=== PATIENT | male | born 1955 | race Caucasian/White ===

== ENCOUNTER → 2017-10-07 10:26 | Outpatient (CLI) | payer OTHER, SELFPAY ==
--- NOTE | 2017-10-07 10:29 | XR_ITS ---
XR chest 2V HISTORY: Heart disease, evaluate for pulmonary fibrosis ITS.REASON: amiodarone therapy ORDERING PHYSICIAN: Jeevan Leo MD PATIENT AGE: 62 years COMPARISON: None available FINDINGS: The cardiomediastinal silhouette and pulmonary vascularity are within normal limits. Cardiac pacemaker device is present. Pericardial fat pad is noted on the left and there is increased density in the upper lobes on both sides felt to be related to hypertrophic changes of the first ribs. No pulmonary fibrotic changes evident. No acute bony anomalies. IMPRESSION: No convincing evidence of amiodarone induced pulmonary toxicity. No acute finding
[2017-10-07 12:11] LABS: Free T4 (Free Thyroxine) 1.18 ng/dl (0.76-1.46); Thyroid Stimulating Hormone 5.37 uIU/ml (0.358-3.740)
== END ==
PROVIDERS: PCP Internal Medicine; Visit Provider Internal Medicine
DX: I25.10 Atherosclerotic heart disease of native coronary artery without angina pectoris (principal); I11.9 Hypertensive heart disease without heart failure; I48.91 Unspecified atrial fibrillation; E78.5 Hyperlipidemia, unspecified; Z95.810 Presence of automatic (implantable) cardiac defibrillator; Z79.899 Other long term (current) drug therapy
CPT/HCPCS: 36415; 71046; 84439; 84443

== ENCOUNTER → 2017-12-01 08:11 | Outpatient (CLI) | payer OTHER, SELFPAY ==
[2017-12-01 09:41] LABS: Free T4 (Free Thyroxine) 1.38 ng/dl (0.76-1.46); Thyroid Stimulating Hormone 3.05 uIU/ml (0.358-3.740)
[2017-12-04 21:14] LABS: Triiodothyronine (T3) Reverse 41.9 ng/dL (9.2-24.1)
== END ==
PROVIDERS: Visit Provider Physician Assistant
DX: E03.9 Hypothyroidism, unspecified (principal)
CPT/HCPCS: 36415; 84439; 84443; 84482

== ENCOUNTER → 2018-05-05 11:46 | Outpatient (CLI) | payer OTHER, SELFPAY ==
[2018-05-05 12:06] LABS: Basophils # 0.1 K/mm3 (0-0.2); Basophils % 0.7 % (0.1-2.0); Eosinophils # 0.2 K/mm3 (0.0-0.4); Eosinophils % 2.3 % (0.1-12.0); Hematocrit 50.4 % (42.0-52.0); Hemoglobin 15.9 g/dL (14.1-18.0); Lymphocytes % 15.6 K/mm3 (10-50); Mean Corpuscular HGB Conc 31.6 g/dL (31.8-35.4); Mean Corpuscular Hemoglobin 29.7 pg (27.0-31.2); Mean Platelet Volume 7.6 fl (7.4-10.4); Monocytes # 0.4 K/mm3 (0.1-1.0); Monocytes % 6.1 % (1.7-9.3); Neutrophils % 75.3 % (37.0-80.0); Platelet Count 207 K/mm3 (142-424); Red Blood Count 5.36 M/mm3 (4.60-6.20); Red Cell Distribution Width 13.4 % (11.5-17.5); White Blood Count 6.6 K/mm3 (4.8-10.8)
[2018-05-05 13:30] LABS: Alanine Aminotransferase 27 U/L (12-78); Albumin Level 3.9 gm/dL (3.4-5.0); Alkaline Phosphatase 87 U/L (46-116); Anion Gap 9.5 mEq/L (5-15); Aspartate Amino Transferase 19 U/L (15-37); Bilirubin,Direct 0.1 mg/dL (0.0-0.2); Bilirubin,Indirect 0.3 mg/dL (0.0-0.9); Bilirubin,Total 0.4 mg/dL (0.2-1.0); Blood Urea Nitrogen 17 mg/dL (7-18); Carbon Dioxide 36 mmol/L (21.0-32.0); Chloride 102 mmol/L (98-107); Chol/HDL Ratio 3.7 (1-3.5); Cholesterol 158 mg/dL (140-200); Creatinine,Serum 0.89 mg/dL (0.70-1.30); Estimated Glomerular Filt Rate 87 ml/min (>60); GFR (African American) 105 ML/MIN (>60); Glucose 130 mg/dL (74-106); HDL Cholesterol 43 mg/dL (27-67); LDL Cholesterol 101 mg/dL (0-130); Potassium 4.5 mmoL/L (3.5-5.1); Sodium 143 mmol/L (136-145); Total Protein,Serum 7.5 gm/dL (6.4-8.2); Triglycerides 68 mg/dL (30-200); VLDL Cholesterol 14 mg/dL (0-40)
== END ==
PROVIDERS: Visit Provider Physician Assistant
DX: E78.5 Hyperlipidemia, unspecified (principal); I10 Essential (primary) hypertension; I25.10 Atherosclerotic heart disease of native coronary artery without angina pectoris
CPT/HCPCS: 36415; 80048; 80061; 80076; 85025

== ENCOUNTER → 2018-09-17 09:24 | Outpatient (CLI) | payer OTHER, SELFPAY ==
--- NOTE | 2018-09-17 09:36 | XR_ITS ---
XR chest 2V HISTORY: ITS.REASON: on amiodarone therapy ORDERING PHYSICIAN: DANIELLE Leblanc PATIENT AGE: 63 years Technique: PA and lateral chest COMPARISON: 10/07/2017 PA and lateral chest & March 2017. FINDINGS: No significant change since previous study. No significant new findings. Mild chronic changes bilaterally but no interstitial fibrotic features. Pacemaker overlies the left chest with atrial and ventricular leads intact, and stable. Heart upper normal size.. Julia and mediastinal structures satisfactory. Minor chronic changes bilaterally. Mild hyperexpansion. No discrete acute findings. Chest wall T-spine unremarkable. IMPRESSION Stable chest... Nothing definite acute Mild chronic lung changes but no new findings Pacemaker.
[2018-09-17 11:53] LABS: Alanine Aminotransferase 27 U/L (12-78); Albumin Level 3.7 gm/dL (3.4-5.0); Alkaline Phosphatase 96 U/L (46-116); Aspartate Amino Transferase 16 U/L (15-37); Bilirubin,Direct 0.1 mg/dL (0.0-0.2); Bilirubin,Indirect 0.2 mg/dL (0.0-0.9); Bilirubin,Total 0.3 mg/dL (0.2-1.0); Chol/HDL Ratio 3.3 (1-3.5); Cholesterol 117 mg/dL (140-200); HDL Cholesterol 35 mg/dL (27-67); LDL Cholesterol 66 mg/dL (0-130); Total Protein,Serum 7.3 gm/dL (6.4-8.2); Triglycerides 81 mg/dL (30-200); Triiodothryronine (T3) Uptake 33 % (31-39); VLDL Cholesterol 16 mg/dL (0-40)
== END ==
PROVIDERS: Visit Provider Physician Assistant
DX: E78.49 Other hyperlipidemia (principal); I10 Essential (primary) hypertension; I11.9 Hypertensive heart disease without heart failure; I25.10 Atherosclerotic heart disease of native coronary artery without angina pectoris; I48.0 Paroxysmal atrial fibrillation; Z95.810 Presence of automatic (implantable) cardiac defibrillator; Z79.899 Other long term (current) drug therapy
CPT/HCPCS: 36415; 71046; 80061; 80076; 84436; 84443; 84479

== ENCOUNTER → 2018-09-21 14:47 | Outpatient (CLI) | payer OTHER, SELFPAY ==
[2018-09-21 14:58] LABS: Basophils % 0.6 % (0.1-2.0); Eosinophils # 0.1 K/mm3 (0.0-0.4); Eosinophils % 1.3 % (0.1-12.0); Hematocrit 50.1 % (42.0-52.0); Hemoglobin 16.3 g/dL (14.1-18.0); Lymphocytes # 0.9 K/mm3 (0.7-4.5); Lymphocytes % 12.5 % (10-50); Mean Corpuscular HGB Conc 32.6 g/dL (31.8-35.4); Mean Corpuscular Hemoglobin 30.7 pg (27.0-31.2); Mean Corpuscular Volume 94.3 fl (80-94); Mean Platelet Volume 8.6 fl (7.4-10.4); Monocytes # 0.4 K/mm3 (0.1-1.0); Monocytes % 5.7 % (1.7-9.3); Neutrophils # 5.6 K/mm3 (1.8-7.8); Neutrophils % 79.9 % (37.0-80.0); Platelet Count 218 K/mm3 (142-424); Red Blood Count 5.32 M/mm3 (4.60-6.20); Red Cell Distribution Width 12.9 % (11.5-17.5)
[2018-09-21 15:32] LABS: Alanine Aminotransferase 28 U/L (12-78); Albumin Level 3.9 gm/dL (3.4-5.0); Alkaline Phosphatase 103 U/L (46-116); Bilirubin,Total 0.4 mg/dL (0.2-1.0); Blood Urea Nitrogen 14 mg/dL (7-18); Calcium 8.9 mg/dL (8.5-10.1); Carbon Dioxide 31 mmol/L (21.0-32.0); Chloride 102 mmol/L (98-107); Creatinine,Serum 0.76 mg/dL (0.70-1.30); Estimated Glomerular Filt Rate 104 ml/min (>60); GFR (African American) 125 ML/MIN (>60); Globulin 3.8 gm/dl (1.3-3.2); Glucose 165 mg/dL (74-106); Sodium 142 mmol/L (136-145); Total Protein,Serum 7.7 gm/dL (6.4-8.2)
[2018-09-21 15:33] LABS: Aspartate Amino Transferase 19 U/L (15-37)
[2018-09-22 13:41] LABS: Hemoglobin A1C 6.8 % (0.0-7.0)
[2018-09-23 15:01] LABS: PSA, Free 0.35 ng/mL; Prostate Specific Ag 2.2 ng/mL (0.0-4.0); Vitamin D 25 Hydroxy 33.7 ng/mL (30.0-100.0)
== END ==
PROVIDERS: Visit Provider Nurse Practitioner Family
DX: R53.83 Other fatigue (principal); R73.9 Hyperglycemia, unspecified; L40.9 Psoriasis, unspecified; E03.9 Hypothyroidism, unspecified
CPT/HCPCS: 80053; 82652; 83036; 84153; 84154; 85025

== ENCOUNTER → 2018-12-18 08:09 | Outpatient (CLI) | payer OTHER, SELFPAY ==
[2018-12-18 12:39] LABS: Alanine Aminotransferase 26 U/L (12-78); Albumin Level 3.6 gm/dL (3.4-5.0); Alkaline Phosphatase 96 U/L (46-116); Aspartate Amino Transferase 18 U/L (15-37); Bilirubin,Direct 0.1 mg/dL (0.0-0.2); Bilirubin,Indirect 0.3 mg/dL (0.0-0.9); Bilirubin,Total 0.4 mg/dL (0.2-1.0); Chol/HDL Ratio 3.1 (1-3.5); Cholesterol 97 mg/dL (140-200); HDL Cholesterol 31 mg/dL (27-67); LDL Cholesterol 48 mg/dL (0-130); Total Protein,Serum 6.7 gm/dL (6.4-8.2); Triglycerides 90 mg/dL (30-200); VLDL Cholesterol 18 mg/dL (0-40)
== END ==
PROVIDERS: Visit Provider Physician Assistant
DX: E78.5 Hyperlipidemia, unspecified (principal); I11.9 Hypertensive heart disease without heart failure; I25.10 Atherosclerotic heart disease of native coronary artery without angina pectoris; I48.91 Unspecified atrial fibrillation; L40.9 Psoriasis, unspecified; Z95.810 Presence of automatic (implantable) cardiac defibrillator
CPT/HCPCS: 36415; 80061; 80076

== ENCOUNTER → 2019-05-03 08:08 | Outpatient (CLI) | payer OTHER, SELFPAY ==
--- NOTE | 2019-05-03 08:40 | XR_ITS ---
PROCEDURE: XR CHEST 2V CLINICAL HISTORY: amiodarone therapy Smoker, heart disease, COMPARISON: CXR CHEST(2 VIEWS-NOT PORTABLE) from 04/08/2017 CXR2V XR chest 2V from 10/07/2017 CXR2V XR chest 2V from 09/17/2018 FINDINGS: Normal heart size. Bipolar pacemaker remains in place. The lungs are clear without infiltrates, suspicious nodules, or pleural effusions. No evidence of amiodarone lung toxicity. There is mild COPD. There are degenerative changes in the thoracic spine and there is evidence of old granulomatous disease. Surgical clips are present in the neck IMPRESSION: COPD. No change with no acute finding. Dictated by: Julio César Watson MD 05/03/2019 09:52 Electronically signed by Julio César Watson MD in [place] 05/03/2019 09:52
[2019-05-03 09:52] LABS: Alanine Aminotransferase 18 U/L (12-78); Albumin Level 3.5 gm/dL (3.4-5.0); Alkaline Phosphatase 93 U/L (46-116); Aspartate Amino Transferase 6 U/L (15-37); Bilirubin,Direct 0.1 mg/dL (0.0-0.2); Bilirubin,Indirect 0.3 mg/dL (0.0-0.9); Bilirubin,Total 0.4 mg/dL (0.2-1.0); Free T4 (Free Thyroxine) 1.33 ng/dl (0.76-1.46); Thyroid Stimulating Hormone 2.32 uIU/ml (0.358-3.740); Total Protein,Serum 6.8 gm/dL (6.4-8.2)
[2019-05-03 15:02] LABS: Anion Gap 11.3 mEq/L (5-15); Blood Urea Nitrogen 18 mg/dL (7-18); Calcium 8.8 mg/dL (8.5-10.1); Carbon Dioxide 30 mmol/L (21.0-32.0); Chloride 103 mmol/L (98-107); Creatinine,Serum 0.83 mg/dL (0.70-1.30); Estimated Glomerular Filt Rate 94 ml/min (>60); GFR (African American) 113 ML/MIN (>60); Glucose 165 mg/dL (74-106); Potassium 4.3 mmoL/L (3.5-5.1); Sodium 140 mmol/L (136-145)
== END ==
PROVIDERS: Internal Medicine; PCP Nurse Practitioner Family; Visit Provider Urology
DX: I20.9 Angina pectoris, unspecified (principal); Z79.899 Other long term (current) drug therapy; F17.200 Nicotine dependence, unspecified, uncomplicated
CPT/HCPCS: 36415; 71046; 80048; 80076; 84439; 84443

== ENCOUNTER → 2019-05-03 08:26 | Outpatient (CLI) | payer OTHER, SELFPAY | PROVIDERS: Visit Provider Internal Medicine | DX: I20.9 Angina pectoris, unspecified (principal) | CPT/HCPCS: 36415; 80048; 80076; 84439; 84443 ==

== ENCOUNTER → 2020-05-08 09:35 | Outpatient (CLI) | payer OTHER, SELFPAY ==
--- NOTE | 2020-05-08 09:44 | XR_ITS ---
PROCEDURE: XR CHEST 2V CLINICAL HISTORY: amiodarone therapy Heart disease, smoker COMPARISON: CR XR CHEST 2V from 05/03/2019 FINDINGS: The cardiomediastinal silhouette and pulmonary vascularity are within normal limits. Bipolar pacemaker present from left subclavian approach with good position of the leads. Lungs are clear. No acute bony findings. Surgical clips are present in the lower neck. IMPRESSION: No change with no acute finding. No convincing evidence of amiodarone lung toxicity. Dictated by: Julio César Watson MD 05/08/2020 10:23 Julio César Watson MD in [place] 05/08/2020 10:23
[2020-05-08 09:53] LABS: Basophils % 0.5 % (0.1-2.0); Eosinophils # 0.1 K/mm3 (0.0-0.4); Eosinophils % 1.6 % (0.1-12.0); Hematocrit 51.7 % (42.0-52.0); Lymphocytes # 0.7 K/mm3 (0.7-4.5); Lymphocytes % 13.9 % (10-50); Mean Corpuscular HGB Conc 32.8 g/dL (31.8-35.4); Mean Corpuscular Hemoglobin 31.3 pg (27.0-31.2); Mean Corpuscular Volume 95.2 fl (80-94); Mean Platelet Volume 8.5 fl (7.4-10.4); Monocytes # 0.4 K/mm3 (0.1-1.0); Monocytes % 7.6 % (1.7-9.3); Neutrophils # 3.8 K/mm3 (1.8-7.8); Neutrophils % 76.3 % (37.0-80.0); Platelet Count 152 K/mm3 (142-424); Red Blood Count 5.44 M/mm3 (4.60-6.20); Red Cell Distribution Width 13.5 % (11.5-17.5)
[2020-05-08 11:27] LABS: Alanine Aminotransferase 22 U/L (12-78); Albumin Level 4.3 g/dl (3.5-5.0); Alkaline Phosphatase 98 U/L (38-126); Anion Gap 12.2 mEq/L (5-15); Aspartate Amino Transferase 27 U/L (17-59); Bilirubin,Direct 0.2 mg/dl (0.0-0.4); Bilirubin,Indirect 0.3 mg/dL (0.0-0.9); Bilirubin,Total 0.5 mg/dl (0.2-1.3); Bilirubin,Unconjugated 0.4 mg/dL (0.0-1.1); Blood Urea Nitrogen 21 mg/dl (9-20); Calcium 9.4 mg/dl (8.4-10.2); Carbon Dioxide 31 mmol/L (22.0-30.0); Chloride 102 mmol/L (98-107); Cholesterol 103 mg/dl (140-200); Estimated Glomerular Filt Rate 85 ml/min (>60); GFR (African American) 103 ML/MIN (>60); Glucose 154 mg/dl (74-100); HDL Cholesterol 34 mg/dl (40-60); Potassium 4.2 mmoL/L (3.5-5.1); Sodium 141 mmol/L (136-145); Total Protein,Serum 7.1 g/dl (6.3-8.2); Triglycerides 82 mg/dl (30-150); VLDL Cholesterol 16 mg/dL (0-40)
[2020-05-08 11:37] LABS: Direct LDL Cholesterol 56.05 mg/dL (100-129)
[2020-05-08 11:43] LABS: Free T4 (Free Thyroxine) 1.65 ng/dl (0.78-2.19)
[2020-05-08 11:58] LABS: Thyroid Stimulating Hormone 4.07 uIU/mL (0.465-4.68)
[2020-05-08 14:06] LABS: Hemoglobin A1C 6.7 % (4.0-6.0)
== END ==
PROVIDERS: Visit Provider Nurse Practitioner Family
DX: I25.10 Atherosclerotic heart disease of native coronary artery without angina pectoris (principal); I11.9 Hypertensive heart disease without heart failure; I48.91 Unspecified atrial fibrillation; E78.5 Hyperlipidemia, unspecified; R73.9 Hyperglycemia, unspecified; F17.200 Nicotine dependence, unspecified, uncomplicated; Z95.810 Presence of automatic (implantable) cardiac defibrillator
CPT/HCPCS: 36415; 71046; 80048; 80061; 80076; 83036; 84439; 84443; 85025

== ENCOUNTER → 2021-05-07 09:05 | Outpatient (CLI) | payer MEDICARE, OTHER, SELFPAY ==
--- NOTE | 2021-05-07 09:25 | XR_ITS ---
PROCEDURE: XR CHEST 2V CLINICAL HISTORY: amiodarone COMPARISON: DX CXR2V XR chest 2V from 09/17/2018 CR XR CHEST 2V from 05/03/2019 DX XR CHEST 2V from 05/08/2020 FINDINGS: The cardiomediastinal silhouette and pulmonary vascularity are within normal limits. A left-sided cardiac pacemaker is noted with dual chamber electrodes both in good position. The lungs are mildly hyperinflated and appear clear without infiltrates, suspicious nodules, or pleural effusions. No acute bony abnormalities. IMPRESSION: No acute findings. Dictated by: Dr. Dave Cervantes MD 05/08/2021 08:55 Dr. Dave Cervantes MD in [place] 05/08/2021 08:55
[2021-05-07 09:57] LABS: Basophils % 0.5 % (0.1-2.0); Eosinophils # 0.1 K/mm3 (0.0-0.4); Eosinophils % 1.7 % (0.1-12.0); Hematocrit 48.7 % (42.0-52.0); Hemoglobin 15.5 g/dL (14.1-18.0); Lymphocytes % 12.4 % (10-50); Mean Corpuscular HGB Conc 31.9 g/dL (31.8-35.4); Mean Corpuscular Hemoglobin 30.7 pg (27.0-31.2); Mean Corpuscular Volume 96.1 fl (80-94); Mean Platelet Volume 8.4 fl (7.4-10.4); Monocytes # 0.5 K/mm3 (0.1-1.0); Monocytes % 6.5 % (1.7-9.3); Neutrophils # 6.3 K/mm3 (1.8-7.8); Platelet Count 202 K/mm3 (142-424); Red Blood Count 5.07 M/mm3 (4.60-6.20); Red Cell Distribution Width 13.4 % (11.5-17.5)
[2021-05-07 10:35] LABS: Alanine Aminotransferase 20 U/L (12-78); Albumin Level 3.8 g/dl (3.5-5.0); Alkaline Phosphatase 92 U/L (38-126); Anion Gap 10.1 mEq/L (5-15); Aspartate Amino Transferase 25 U/L (17-59); Bilirubin,Direct 0.5 mg/dl (0.0-0.4); Bilirubin,Total 0.5 mg/dl (0.2-1.3); Blood Urea Nitrogen 15 mg/dl (9-20); Calcium 8.7 mg/dl (8.4-10.2); Carbon Dioxide 32 mmol/L (22.0-30.0); Chloride 101 mmol/L (98-107); Cholesterol 114 mg/dl (140-200); Estimated Glomerular Filt Rate 135 ml/min (>60); GFR (African American) 164 ML/MIN (>60); Glucose 173 mg/dl (74-100); HDL Cholesterol 38 mg/dl (40-60); Potassium 4.1 mmoL/L (3.5-5.1); Sodium 139 mmol/L (136-145); Total Protein,Serum 6.7 g/dl (6.3-8.2); Triglycerides 59 mg/dl (30-150); VLDL Cholesterol 12 mg/dL (0-40)
[2021-05-07 10:46] LABS: Direct LDL Cholesterol 63.18 mg/dL (100-129)
[2021-05-07 10:58] LABS: Free T4 (Free Thyroxine) 1.48 ng/dl (0.78-2.19)
[2021-05-07 11:06] LABS: Thyroid Stimulating Hormone 3.73 uIU/mL (0.465-4.68)
== END ==
PROVIDERS: PCP Emergency Medicine; Visit Provider Nurse Practitioner Family
DX: I25.10 Atherosclerotic heart disease of native coronary artery without angina pectoris (principal); I48.91 Unspecified atrial fibrillation; I11.9 Hypertensive heart disease without heart failure; E78.5 Hyperlipidemia, unspecified; F17.200 Nicotine dependence, unspecified, uncomplicated; Z95.810 Presence of automatic (implantable) cardiac defibrillator
CPT/HCPCS: 36415; 71046; 80048; 80061; 80076; 84439; 84443; 85025

== ENCOUNTER → 2022-02-09 09:28 | Outpatient (CLI) | payer MEDICARE, OTHER, SELFPAY ==
[2022-02-09 09:40] LABS: MANUAL DIFFERENTIAL MANUAL DIFFERENTIAL (MANUAL DIFF)
[2022-02-09 11:02] LABS: Basophils % 0.6 % (0.1-2.0); Eosinophils # 0.1 K/mm3 (0.0-0.4); Eosinophils % 1.8 % (0.1-12.0); Hemoglobin 15.6 g/dL (14.1-18.0); Lymphocytes # 0.9 K/mm3 (0.7-4.5); Lymphocytes % 11.8 % (10-50); Mean Corpuscular HGB Conc 33.2 g/dL (31.8-35.4); Mean Corpuscular Hemoglobin 30.4 pg (27.0-31.2); Mean Corpuscular Volume 91.4 fl (80-94); Mean Platelet Volume 7.9 fl (7.4-10.4); Monocytes # 0.5 K/mm3 (0.1-1.0); Monocytes % 6.9 % (1.7-9.3); Neutrophils # 5.9 K/mm3 (1.8-7.8); Platelet Count 190 K/mm3 (142-424); Red Blood Count 5.14 M/mm3 (4.60-6.20); White Blood Count 7.5 K/mm3 (4.8-10.8)
[2022-02-09 11:21] LABS: Alanine Aminotransferase 34 U/L (12-78); Albumin Level 4.2 g/dl (3.5-5.0); Albumin/Globulin Ratio 1.5 (1.1-1.8); Alkaline Phosphatase 114 U/L (38-126); Anion Gap 11.3 mEq/L (5-15); Aspartate Amino Transferase 32 U/L (17-59); Bilirubin,Total 0.4 mg/dl (0.2-1.3); Blood Urea Nitrogen 19 mg/dl (9-20); Calcium 9.1 mg/dl (8.4-10.2); Carbon Dioxide 31 mmol/L (22.0-30.0); Chloride 101 mmol/L (98-107); Estimated Glomerular Filt Rate 113 ml/min (>60); GFR (African American) 137 ML/MIN (>60); Globulin 2.8 g/dL (1.3-3.2); Glucose 154 mg/dl (74-100); Potassium 4.3 mmoL/L (3.5-5.1); Sodium 139 mmol/L (136-145)
[2022-02-09 11:46] LABS: Eosinophils % 1 % (0-3); Lymphocytes % 13 % (10-50); Monocytes % 5 % (2-9); Neutrophils % 81 % (42-76); Total Cells Counted 100
[2022-02-09 11:47] LABS: Platelet Estimate Normal; RBC Morphology Normal
== END ==
PROVIDERS: PCP Emergency Medicine; Visit Provider Otolaryngology
DX: D49.89 Neoplasm of unspecified behavior of other specified sites (principal); Z01.812 Encounter for preprocedural laboratory examination; Z20.822 Contact with and (suspected) exposure to COVID-19
CPT/HCPCS: 36415; 80053; 85007; 85014; 85018; 85048; 85049; C9803; U0003; U0005

== ENCOUNTER 2022-02-12 07:35 | Day surgery (SDC) | payer MEDICARE, OTHER, SELFPAY ==
[2022-02-08 10:48] VITALS: BMI 31.1
[2022-02-12] VITALS (15 sets, daily range): BP systolic 103–141; BP diastolic 60–84; PULSE 55–60; RESP 13–18; TEMP 36.3–43; O2SAT 91–96
--- NOTE | 2022-02-12 08:34 | ECG_ITS ---
APPROVED REPORT Exam: Resting ECG HR:60 bpm ECG Measurements Heart Rate 60 AXES WA 349 P 91 QRSd 199 QRS -90 QT 486 T 78 QTc 486 Conclusion ELECTRONIC ATRIAL PACEMAKER ELECTRONIC VENTRICULAR PACEMAKER ABNORMAL RHYTHM ECG UNCONFIRMED REPORT Electronically signed by : Matt Gibbons MD 02/13/2022 21:04:21
--- NOTE | 2022-02-12 10:32 | P.PN_ITS ---
[facility] Anesthesia Checklist - Patient Identification Patient Identification: Arm Band, Verbal (Name & ) - Structural Data Admitted From: Home Planned Operative Procedure/s: Excision of facial lesion and reconstruction Consent for Planned Operative Procedure(s) Verified: Yes Verified Documents: Surgical Consent - NPO Status Verified Time NPO: 00:00 - Chart Verification Results Verified: CBC, BMP - Additional verifications Anesthesia Reactions: No Hx Blood Transfusions: No Blood Transfusion Reaction: No - Airway Assessment C-Spine Mobility Assessed: Yes TMJ Mobility Assessed: No Dentition: Poor Dentition - Neurological Assessment Level of Consciousness: Awake, Alert, Appropriate - Anesthesia Plan Anesthesia Risk discussed: Yes ASA Class: III Anesthesia Type: General [facility] History I have reviewed the patient's past medical history: Yes Medical History: Reports:: Atrial Fibrillation, Cancer (R jaw), Coronary Artery Disease, Hyperlipidemia, Hypertension, Internal Pacemaker Denies:: Diabetes Mellitus Type 1, Diabetes Mellitus Type 2, MRSA, Seizures *Have you ever received a pneumonia vaccine?: Yes *Have you received a flu vaccine this season?: Yes Other Medical History: Reports: Hypothyroidism, Thyroid Disease. Denies: Blood Transfusion Reaction Anesthesia experience/problems:: none Other Surgeries: Yes: Cancer Surgery, Cardiac Catheterization, Coronary Stent, Pacemaker Amputation: No Fractures: No - *Social History Last grade of school completed: High school graduate Smoking Status: Current every day smoker Tobacco Type: cigarettes # Packs/Day (cigarettes): 1 Alcohol Intake: never Alcohol Intake Frequency:: other Substance Use Type: denies use *Occupational Status:: disabled Housing: house *Travel in the last 8 weeks: None Family Hx:: No significant family history
--- NOTE | 2022-02-12 12:31 | P.OP_ITS ---
Date of procedure: 02/12/22 Pre-op Diagnosis:: Skin cancer left face Post-op Diagnosis:: Basal cell skin cancer left face Procedure performed:: Wide local excision with complex multilayer reconstruction Surgeon:: Rodo Kirkland MD DRYING MACHINE OPERATOR PACKAGE YARNS:: Sotero Son Anesthesia: BRIEN Estimated blood loss (mL): 50 Operative findings:: Frozen section consistent with basal cell carcinoma of the skin. Peripheral margins and deep margins were free. Resulting defect was 8 x 6 cm Operative note:: The patient was brought to the operating room and after adequate general anesthesia the left side of his face was locally infiltrated with 1% lidocaine and with epinephrine and the face prepped and draped in the usual sterile fashion. Next the large skin cancer was removed full-thickness with 1 cm peripheral margins and dissection was carried down to the underlying SMAS. Basis was established with bipolar cautery and the resulting defect was 8 x 6 cm. The wound was then irrigated. The specimen marked and sent for frozen section and frozen section was consistent with basal cell skin cancer and peripheral and deep margins were free. Closure was performed by first undermining the SMAS and reapproximating that layer with 4-0 Vicryl. Then a subcutaneous plane was established and further undermining performed and then skin closure accomplished by reapproximating the dermis with 4-0 and 5-0 Monocryl on the skin edges with 5-0 nylon. Dogear at the posterior and of the incision was surgically corrected and closed. Dermabond was placed at the central portion of the wound and then a sterile dressing applied and the procedure concluded. All counts correct. Blood loss was less than 50 mL. Patient was sent to recovery in stable condition. Reconstruction took approximately 2 hours Condition: stable Disposition: PACU Complications:: none
--- NOTE | 2022-02-12 12:38 | HMH.ANESI ---
[facility] Anesthesia Record Part I Intake, IV Amount: 1,100 Estimated blood loss (mL): 50 Urine output (mL): 0 Blood Pressure: 123/78 SaO2: 91 Pulse Rate: 55 Respiratory Rate: 16 Temperature: 97.3 F Patient is:: Drowsy, Stable Stable to PACU at:: 12:30
--- NOTE | 2022-02-12 13:36 | PC.NURSE ---
Per SANDWICH BOARD CARRIER, anesthesia ok with sats in low 90's to discharge
--- NOTE | 2022-02-12 13:38 | SUR.PHASEI ---
LATE ENTRY 1320 called and gave detailed report to Bereket Gaston RN. Pt has a long history of smoking. O2 sats lower than preop. Yen Son CRNA notified. Yen Son CRNA okay'd pt to go to post op to be discharged home with O2 maintained at or above 92% on room air. 1325 transported via stretcher to post op. vital signs stable. denies pain. left in stable condition with Bereket Gaston RN at bedside.
--- NOTE | 2022-02-12 13:45 | P.PN_ITS ---
[facility] Anesthesia Record Part II Discharge Time: 13:25 Destination: Surgical Day Care (OP Surgery) PACU nurse assessment reviewed?: Yes Patient Condition:: Good Anesthesia Complications:: None Swallowing reflex intact?: Yes Cyanosis?: No Blood Pressure: 124/73 Pulse Rate: 55 Temperature: 97.3 F Mental Status: Alert & Oriented Pain level:: 0 Nausea and/or vomitting:: None Intake, IV Amount: 0
== END 2022-02-12 14:26 | disposition home or self-care (01) ==
LOC: OR 07:38
PROVIDERS: PCP Emergency Medicine; Visit Provider Otolaryngology
DX: C44.310 Basal cell carcinoma of skin of unspecified parts of face (principal); I48.91 Unspecified atrial fibrillation; I10 Essential (primary) hypertension; E78.5 Hyperlipidemia, unspecified; Z72.0 Tobacco use; Z79.899 Other long term (current) drug therapy
CPT/HCPCS: 11646; 13132; 13133; 88305; 88331; 93005; 96374; J0330; J2405

== ENCOUNTER → 2022-05-06 09:32 | Outpatient (CLI) | payer MEDICARE, OTHER, SELFPAY ==
--- NOTE | 2022-05-06 09:55 | XR_ITS ---
FINAL REPORT CLINICAL HISTORY: Long-term medication COMPARISON: 05/07/2021 FINDINGS: Two views of the chest were obtained. A left subclavian ICD is present. The heart size and pulmonary vascularity are within normal limits. The mediastinum is normal. No acute pulmonary abnormality is identified. There is no pneumothorax. The bony thorax is intact. IMPRESSION: No active cardiopulmonary disease. Reviewed, Interpreted and Dictated by Adan Villatoro III, MD Transcribed by Diya Solares Authenticated and [facility]
--- NOTE | 2022-05-06 10:04 | CA_ITS ---
APPROVED REPORT EXAM: Comprehensive 2D, Doppler, and color-flow Echocardiogram Analyzer Sales: Mattie Klein RT(R) Ht: 6 ft 0 in Wt: 227lbs BSA: 2.25 BP: 125/69 mmHg Indications: AFIB, CAD, smoker, fatigue, HTN, hyperlipidemia 2D Dimensions LVOT 2.09 cm (M/F) 1.5-2.5 LA Volume 61.30 mL LA Volume Index 27.20 mL/m2 (M/F) 16-34 M-Mode Dimensions RVDd 2.89 cm (0.9-2.6) LA Diam 4.28 cm (1.9-4.0) LVDd 5.42 cm (3.5-5.7) Ao Diam 3.31 cm (2.0-3.7) LVDs 4.18 cm (3.5-5.7) IVSd 1.49 cm (0.6-1.1) PWd 1.28 cm (0.6-1.1) EF (Teich) 45.50% FS 22.90% EDV (Teich) 142.50 mL ESV (Teich) 77.70 mL LV Diastology E Decel Time 210.00 (160-240 msec) E/A Ratio 0.76 Mitral Valve MV E Max Kyree. 85.00 (40-130 cm/s) MV A Velocity 112.00 (40-130 cm/s) E/A Ratio 0.76 MV Decel. Time 210.00 (160-240 ms) MV PHT 62.00 ms Tricuspid Valve TR P. Velocity 254.00 cm/s RAP Estimate 10.00 mmHg RVSP 35.80 mmHg Left Ventricle Left atrium is mildly enlarged, left ventricle is normal size mild concentric left ventricular hypertrophy, estimated ejection fraction 50%, there is abnormal septal motion. Diastolic parameters are inconclusive. Right Ventricle Right atrium and right ventricle are normal size and contractility, pacemaker leads in the right atrium and right ventricle. Aortic Valve Aortic valve is minimally thickened and calcified without aortic stenosis or aortic insufficiency. Mitral Valve Mitral valve is grossly normal, there is mild mitral regurgitation. Tricuspid Valve Tricuspid grossly normal, there is mild tricuspid regurgitation, calculated right ventricular systolic pressure is 36 mmHg. Pulmonic Valve Pulmonic valve is poorly visualized. Great Vessels Aortic root is normal size. Inferior vena cava is poorly visualized. Pericardium No significant pericardial effusion noted. Conclusion 1. Mildly enlarged left atrium, normal left ventricular size, mild concentric left ventricular hypertrophy, estimated ejection fraction 50%, there is abnormal septal motion. Diastolic parameters are inconclusive. 2. Mild mitral and tricuspid regurgitation, calculated right ventricular systolic pressure is 36 mmHg. 3. No significant pericardial effusion. 4. Inferior vena cava is poorly visualized. Electronically signed by : Shabbir Valdez MD 05/06/2022 20:28:44
[2022-05-06 10:15] LABS: Basophils # 0.1 K/mm3 (0-0.2); Basophils % 1.2 % (0.1-2.0); Eosinophils # 0.1 K/mm3 (0.0-0.4); Eosinophils % 1.1 % (0.1-12.0); Hematocrit 51.2 % (42.0-52.0); Hemoglobin 15.7 g/dL (14.1-18.0); Lymphocytes # 0.8 K/mm3 (0.7-4.5); Lymphocytes % 8.2 % (10-50); Mean Corpuscular HGB Conc 30.7 g/dL (31.8-35.4); Mean Corpuscular Hemoglobin 30.2 pg (27.0-31.2); Mean Corpuscular Volume 98.5 fl (80-94); Mean Platelet Volume 8.1 fl (7.4-10.4); Monocytes # 0.6 K/mm3 (0.1-1.0); Monocytes % 6.7 % (1.7-9.3); Neutrophils # 7.8 K/mm3 (1.8-7.8); Neutrophils % 82.9 % (37.0-80.0); Platelet Count 202 K/mm3 (142-424); White Blood Count 9.4 K/mm3 (4.8-10.8)
[2022-05-06 10:46] LABS: Chloride 100 mmol/L (98-107); Sodium 142 mmol/L (136-145)
[2022-05-06 10:47] LABS: Potassium 4.2 mmoL/L (3.5-5.1)
[2022-05-06 10:49] LABS: Alanine Aminotransferase 32 U/L (12-78); Albumin Level 4.2 g/dl (3.5-5.0); Alkaline Phosphatase 121 U/L (38-126); Anion Gap 11.2 mEq/L (5-15); Aspartate Amino Transferase 30 U/L (17-59); Bilirubin,Direct 0.1 mg/dl (0.0-0.4); Bilirubin,Indirect 0.2 mg/dL (0.0-0.9); Bilirubin,Total 0.3 mg/dl (0.2-1.3); Bilirubin,Unconjugated 0.2 mg/dL (0.0-1.1); Blood Urea Nitrogen 17 mg/dl (9-20); Calcium 8.7 mg/dl (8.4-10.2); Carbon Dioxide 35 mmol/L (22.0-30.0); Cholesterol 107 mg/dl (140-200); Estimated Glomerular Filt Rate 113 ml/min (>60); GFR (African American) 137 ML/MIN (>60); Glucose 178 mg/dl (74-100); Total Protein,Serum 6.7 g/dl (6.3-8.2); Triglycerides 68 mg/dl (30-150); VLDL Cholesterol 14 mg/dL (0-40)
[2022-05-06 10:50] LABS: Chol/HDL Ratio 2.7 (1-3.5); HDL Cholesterol 39 mg/dl (40-60)
[2022-05-06 11:19] LABS: Thyroid Stimulating Hormone 4.38 uIU/mL (0.465-4.68)
== END ==
PROVIDERS: PCP Emergency Medicine; Visit Provider Physician Assistant
DX: E11.9 Type 2 diabetes mellitus without complications (principal); E78.2 Mixed hyperlipidemia; F17.200 Nicotine dependence, unspecified, uncomplicated; I25.10 Atherosclerotic heart disease of native coronary artery without angina pectoris; I48.0 Paroxysmal atrial fibrillation; Z79.899 Other long term (current) drug therapy; I11.9 Hypertensive heart disease without heart failure; R06.00 Dyspnea, unspecified; I63.9 Cerebral infarction, unspecified
CPT/HCPCS: 36415; 71046; 80048; 80061; 80076; 84439; 84443; 85025; 93306

== ENCOUNTER → 2023-04-28 09:43 | Outpatient (CLI) | payer MEDICARE, OTHER, SELFPAY ==
[2023-04-28 10:20] LABS: Basophils % 0.4 % (0.1-2.0); Eosinophils # 0.1 K/mm3 (0.0-0.4); Eosinophils % 1.4 % (0.1-12.0); Hematocrit 50.1 % (42.0-52.0); Hemoglobin 16.7 g/dL (14.1-18.0); Lymphocytes # 0.8 K/mm3 (0.7-4.5); Lymphocytes % 10.5 % (10-50); Mean Corpuscular HGB Conc 33.3 g/dL (31.8-35.4); Mean Corpuscular Hemoglobin 31.8 pg (27.0-31.2); Mean Corpuscular Volume 95.3 fl (80-94); Monocytes # 0.4 K/mm3 (0.1-1.0); Monocytes % 5.5 % (1.7-9.3); Neutrophils # 6.2 K/mm3 (1.8-7.8); Neutrophils % 82.1 % (37.0-80.0); Platelet Count 166 K/mm3 (142-424); Red Blood Count 5.25 M/mm3 (4.60-6.20); Red Cell Distribution Width 13.4 % (11.5-17.5); White Blood Count 7.5 K/mm3 (4.8-10.8)
[2023-04-28 11:03] LABS: Alanine Aminotransferase 40 U/L (12-78); Albumin Level 4.3 g/dl (3.5-5.0); Alkaline Phosphatase 95 U/L (38-126); Anion Gap 10.4 mEq/L (5-15); Aspartate Amino Transferase 42 U/L (17-59); Bilirubin,Direct 0.1 mg/dl (0.0-0.4); Bilirubin,Indirect 0.4 mg/dL (0.0-0.9); Bilirubin,Total 0.5 mg/dl (0.2-1.3); Bilirubin,Unconjugated 0.4 mg/dL (0.0-1.1); Blood Urea Nitrogen 19 mg/dl (9-20); Calcium 8.9 mg/dl (8.4-10.2); Carbon Dioxide 35 mmol/L (22.0-30.0); Chloride 99 mmol/L (98-107); Cholesterol 101 mg/dl (140-200); Estimated Glomerular Filt Rate 112 ml/min (>60); GFR (African American) 136 ML/MIN (>60); Glucose 161 mg/dl (74-100); HDL Cholesterol 34 mg/dl (40-60); Potassium 4.4 mmoL/L (3.5-5.1); Sodium 140 mmol/L (136-145); Total Protein,Serum 7.4 g/dl (6.3-8.2); Triglycerides 57 mg/dl (30-150); VLDL Cholesterol 11 mg/dL (0-40)
[2023-04-28 11:14] LABS: Direct LDL Cholesterol 60.42 mg/dL (100-129)
[2023-04-28 11:18] LABS: Free T4 (Free Thyroxine) 1.64 ng/dl (0.78-2.19)
[2023-04-28 11:33] LABS: Thyroid Stimulating Hormone 2.87 uIU/mL (0.465-4.68)
[2023-04-28 15:49] LABS: Hemoglobin A1C 7.1 % (4.0-6.0)
== END ==
PROVIDERS: Physician Assistant; PCP Emergency Medicine
DX: E78.5 Hyperlipidemia, unspecified (principal); F17.200 Nicotine dependence, unspecified, uncomplicated; I11.9 Hypertensive heart disease without heart failure; I25.10 Atherosclerotic heart disease of native coronary artery without angina pectoris; I48.91 Unspecified atrial fibrillation; Z79.899 Other long term (current) drug therapy; Z95.810 Presence of automatic (implantable) cardiac defibrillator
CPT/HCPCS: 36415; 80048; 80061; 80076; 83036; 83735; 84439; 84443; 85025

== ENCOUNTER 2023-10-27 09:43 | Outpatient (CLI) | payer MEDICARE, OTHER, SELFPAY ==
--- NOTE | 2023-10-27 09:48 | XR_ITS ---
FINAL REPORT TECHNIQUE: Chest PA & Lateral CLINICAL HISTORY: amiodarone therapy FINDINGS: 2 views of the chest were performed. A left-sided pacemaker is present. The heart size is normal. The mediastinum is within normal limits. There is no acute cardiopulmonary process. There are no pleural effusions. There is no pneumothorax. The bony thorax appears intact. IMPRESSION: No acute cardiopulmonary process. Reviewed, Interpreted and Dictated by Louis Pitts MD Transcribed by Diya Solares Authenticated and [facility]
[2023-10-27 10:12] LABS: Basophils # 0.1 K/mm3 (0-0.2); Basophils % 0.8 % (0.1-2.0); Eosinophils # 0.1 K/mm3 (0.0-0.4); Eosinophils % 1.2 % (0.1-12.0); Hematocrit 48.8 % (42.0-52.0); Hemoglobin 15.1 g/dL (14.1-18.0); Lymphocytes # 0.8 K/mm3 (0.7-4.5); Lymphocytes % 11.8 % (10-50); Mean Corpuscular Hemoglobin 31.2 pg (27.0-31.2); Mean Corpuscular Volume 100.7 fl (80-94); Mean Platelet Volume 7.8 fl (7.4-10.4); Monocytes # 0.4 K/mm3 (0.1-1.0); Monocytes % 5.7 % (1.7-9.3); Neutrophils # 5.7 K/mm3 (1.8-7.8); Neutrophils % 80.5 % (37.0-80.0); Platelet Count 235 K/mm3 (142-424); Red Blood Count 4.85 M/mm3 (4.60-6.20); Red Cell Distribution Width 13.5 % (11.5-17.5); White Blood Count 7.1 K/mm3 (4.8-10.8)
[2023-10-27 10:46] LABS: Alanine Aminotransferase 22 U/L (12-78); Albumin Level 4.3 g/dl (3.5-5.0); Alkaline Phosphatase 98 U/L (38-126); Anion Gap 9.4 mEq/L (5-15); Aspartate Amino Transferase 31 U/L (17-59); Bilirubin,Direct 0.3 mg/dl (0.0-0.4); Bilirubin,Indirect 0.4 mg/dL (0.0-0.9); Bilirubin,Total 0.7 mg/dl (0.2-1.3); Bilirubin,Unconjugated 0.4 mg/dL (0.0-1.1); Blood Urea Nitrogen 22 mg/dl (9-20); Calcium 9.5 mg/dl (8.4-10.2); Carbon Dioxide 34 mmol/L (22.0-30.0); Chloride 103 mmol/L (98-107); Chol/HDL Ratio 2.2 (1-3.5); Cholesterol 114 mg/dl (140-200); Estimated Glomerular Filt Rate 84 ml/min (>60); GFR (African American) 102 ML/MIN (>60); Glucose 124 mg/dl (74-100); HDL Cholesterol 52 mg/dl (40-60); Magnesium 2.3 mg/dl (1.6-2.3); Potassium 4.4 mmoL/L (3.5-5.1); Sodium 142 mmol/L (136-145); Triglycerides 73 mg/dl (30-150); VLDL Cholesterol 15 mg/dL (0-40)
[2023-10-27 11:05] LABS: Free T4 (Free Thyroxine) 1.83 ng/dl (0.78-2.19)
[2023-10-27 11:14] LABS: Direct LDL Cholesterol 59.45 mg/dL (100-129)
[2023-10-27 12:25] LABS: Hemoglobin A1C 6.4 % (4.0-6.0)
== END 2023-10-27 23:59 | disposition home or self-care (01) ==
PROVIDERS: PCP Family Medicine; Visit Provider Physician Assistant
DX: E78.2 Mixed hyperlipidemia (principal); I48.0 Paroxysmal atrial fibrillation; Z79.899 Other long term (current) drug therapy; Z95.810 Presence of automatic (implantable) cardiac defibrillator; I11.9 Hypertensive heart disease without heart failure; I25.10 Atherosclerotic heart disease of native coronary artery without angina pectoris; R73.9 Hyperglycemia, unspecified; F17.210 Nicotine dependence, cigarettes, uncomplicated
CPT/HCPCS: 36415; 71046; 80048; 80061; 80076; 83036; 83735; 84439; 84443; 85025

== ENCOUNTER 2024-03-27 18:28 | Emergency (ER) | payer MEDICARE, OTHER, SELFPAY ==
[2024-03-27 18:45] VITALS: BP 120/68; PULSE 62; RESP 18; TEMP 36.7; O2SAT 95; BMI 22.1
--- NOTE | 2024-03-27 19:00 | PC.NURSE ---
SKIN TEAR TO RIGHT ELBOW AREA CLEANED WITH HIBICLENSE AND STERILE WATER AT THIS TIME
--- NOTE | 2024-03-27 19:02 | ED_ITS ---
Discharge Plan Disposition Patient Disposition: Home, Self-Care Condition: Good Prescriptions Prescriptions: No Action aspirin [Adult Low Dose Aspirin] 81 mg tablet,delayed release (DR/EC) 81 mg PO DAILY ([facility]) blood-glucose meter [OneTouch Verio Flex meter] [facility] See Rx Instructions .Route Qty: 1 0RF Rx Instructions: As directed Otezla 30 mg tablet PO triamcinolone acetonide 0.1 % cream topical furosemide 40 mg tablet See Rx Instructions .ROUTE .COMPLEX Qty: 45 3RF Dose Instruction: TAKE 1 TABLET BY MOUTH EVERY OTHER DAY Rx Instructions: TAKE 1 TABLET BY MOUTH EVERY OTHER DAY mupirocin 2 % ointment See Rx Instructions .ROUTE .COMPLEX Qty: 22 0RF Dose Instruction: APPLY OINTMENT TOPICALLY ONCE DAILY Rx Instructions: APPLY OINTMENT TOPICALLY ONCE DAILY ONETOUCH VERIO RE KIT See Rx Instructions .ROUTE .COMPLEX Qty: 1 0RF Dose Instruction: USE DIRECTED OR TWICE DAILY Rx Instructions: USE DIRECTED OR TWICE DAILY ONETOUCH VERIO BENJI See Rx Instructions .ROUTE .COMPLEX Qty: 100 0RF Dose Instruction: USE 1 STRIP TO CHECK GLUCOSE TWICE DAILY OR DIRECTED FOR DIABETES Rx Instructions: USE 1 STRIP TO CHECK GLUCOSE TWICE DAILY OR DIRECTED FOR DIABETES potassium chloride 10 mEq tablet extended release See Rx Instructions .ROUTE .COMPLEX Qty: 90 3RF Dose Instruction: Take 1 tablet by mouth once daily Rx Instructions: Take 1 tablet by mouth once daily carvedilol [Coreg] 25 mg tablet 50 mg PO BID Qty: 360 3RF omeprazole 40 mg capsule,delayed release(DR/EC) 40 mg PO DAILY Qty: 90 3RF Rx Instructions: TAKE 1 CAPSULE BY MOUTH ONCE DAILY, SWALLOW WHOLE, DO NOT CRUSH, CHEW, DISSOLVE, CUT OR BREAK lisinopril-hydrochlorothiazide 20-25 mg tablet See Rx Instructions .ROUTE .COMPLEX Qty: 90 3RF Dose Instruction: TAKE 1 TABLET BY MOUTH ONCE DAILY FOR HIGH BLOOD PRESSURE Rx Instructions: TAKE 1 TABLET BY MOUTH ONCE DAILY FOR HIGH BLOOD PRESSURE trazodone 100 mg tablet See Rx Instructions .ROUTE .COMPLEX Qty: 90 3RF Dose Instruction: Take 1 tablet by mouth once daily Rx Instructions: Take 1 tablet by mouth once daily amiodarone 200 mg tablet 100 mg PO DAILY Qty: 45 3RF Rx Instructions: TAKE 1/2 TABLET BY MOUTH EVERY DAY FOR heart clopidogrel 75 mg tablet 75 mg PO DAILY Qty: 90 3RF Rx Instructions: TAKE 1 TABLET BY MOUTH ONCE DAILY FOR BLOOD THINNER ezetimibe 10 mg tablet See Rx Instructions .ROUTE .COMPLEX Qty: 90 3RF Dose Instruction: TAKE 1 TABLET BY MOUTH ONCE DAILY FOR CHOLESTEROL Rx Instructions: TAKE 1 TABLET BY MOUTH ONCE DAILY FOR CHOLESTEROL atorvastatin 10 mg tablet See Rx Instructions .ROUTE .COMPLEX Qty: 90 3RF Dose Instruction: TAKE 1 TABLET BY MOUTH ONCE DAILY FOR CHOLESTEROL Rx Instructions: TAKE 1 TABLET BY MOUTH ONCE DAILY FOR CHOLESTEROL metformin 500 mg tablet extended release 24 hr 500 mg PO DAILY Qty: 90 3RF (DME) lancets [OneTouch Delica Plus Lancet] 30 gauge misc See Rx Instructions .Route Qty: 100 3RF Rx Instructions: As directed or bid levothyroxine 75 mcg tablet See Rx Instructions .ROUTE .COMPLEX Qty: 90 3RF Dose Instruction: TAKE 1 TABLET BY MOUTH ONCE DAILY . APPOINTMENT REQUIRED FOR FUTURE REFILLS Rx Instructions: TAKE 1 TABLET BY MOUTH ONCE DAILY . Jardiance 10 mg tablet 10 mg PO DAILY Qty: 30 5RF (DME) OneTouch Verio test strips Strip See Rx Instructions .ROUTE .COMPLEX Qty: 100 6RF Dose Instruction: USE 1 STRIP TO CHECK BLOOD GLUCOSE TWICE DAILY OR DIRECTED FOR DIABETES Rx Instructions: USE 1 STRIP TO CHECK BLOOD GLUCOSE TWICE DAILY OR DIRECTED FOR DIABETES Referrals Follow up/Referrals: Simona Krishnan APRN [Primary Care Provider] - See instructions Activity Restrictions/Add. Instructions Additional Instructions/Restrictions: Change dressing in the morning and evening. Leave Steri-Strips in place Monitor for signs of infection Once Steri-Strips have fallen off may apply Neosporin Do not get area wet Follow-up with primary care If worsening or no improvement return Clinical Impressions Clinical Impression: Skin tear of elbow without complication Instructions Patient Instructions: DI for Laceration Repair-Skin Closure Strips, How to Care for a Laceration After Repair Print Language Print Language: Swedish Discharge ED Provider: Alisha ([facility])[place]ie [facility] [place] General Stated complaint: AO 03/26/24 1200 injury right arm Mode of Arrival: Ambulatory Source of Information: Patient Limitations: No Limitations Time Seen by Provider: 03/27/24 19:00 Description of Symptoms (Recalled from Triage Doc. by RN): PATIENT C/O SKIN TEAR TO RIGHT ARM YESTERDAY THAT CONTINUES TO BLEED HEENT Symptoms (Recalled from RN notes): No Resp Symptoms (Recalled from RN notes): No Skin Symptoms (Recalled from RN notes): Yes MS Symptoms (Recalled from RN notes): No Functional Status (Recalled from RN notes): WNL History of Present Illness Provider Complaint: 68-year-old male presents for skin tear to the right elbow. Patient states that happened yesterday but he cannot get the bleeding to stop if just continues to ooze. Related Data Home Medications ?Medication ?Instructions ?Recorded ?Confirmed aspirin 81 mg tablet,delayed 81 mg PO DAILY heart health 10/06/17 03/24/24 release (Adult Low Dose Aspirin) apremilast 30 mg tablet (Otezla) mg PO 09/26/23 03/24/24 triamcinolone acetonide 0.1 % applic topical 03/24/24 03/24/24 topical cream Previous Rx's ?Medication ?Instructions ?Recorded furosemide 40 mg tablet See Rx Instructions .Route 04/28/23 .COMPLEX #45 tabs blood-glucose meter (OneTouch #1 ea 05/05/23 Verio Flex Meter) mupirocin 2 % topical ointment See Rx Instructions .Route 05/26/23 .COMPLEX #22 grams ONETOUCH VERIO RE KIT See Rx Instructions .Route 05/28/23 .COMPLEX #1 ea ONETOUCH VERIO BENJI See Rx Instructions .Route 11/11/23 .COMPLEX #100 ea potassium chloride 10 mEq See Rx Instructions .Route 12/17/23 tablet,extended release .COMPLEX #90 tabs carvedilol 25 mg tablet (Coreg) 50 mg (2 x 25 mg) PO BID 12/19/23 Hypertension #360 tabs lisinopril 20 See Rx Instructions .Route 12/19/23 mg-hydrochlorothiazide 25 mg tablet .COMPLEX #90 tabs omeprazole 40 mg capsule,delayed 40 mg PO DAILY acid reflux #90 caps 12/19/23 release trazodone 100 mg tablet See Rx Instructions .Route 12/23/23 .COMPLEX #90 tabs amiodarone 200 mg tablet 100 mg (1/2 x 200 mg) PO DAILY 12/25/23 heart rate #45 tabs atorvastatin 10 mg tablet See Rx Instructions .Route 12/25/23 .COMPLEX #90 tabs clopidogrel 75 mg tablet 75 mg PO DAILY Blood thinner #90 12/25/23 tabs ezetimibe 10 mg tablet See Rx Instructions .Route 12/25/23 .COMPLEX #90 tabs lancets 30 gauge (OneTouch Delica #100 ea 12/30/23 Plus Lancet) levothyroxine 75 mcg tablet See Rx Instructions .Route 12/30/23 .COMPLEX #90 tabs metformin 500 mg tablet,extended 500 mg PO DAILY Diabetes #90 tabs 12/30/23 release 24 hr empagliflozin 10 mg tablet 10 mg PO DAILY #30 tabs 03/03/24 (Jardiance) blood sugar diagnostic (HealthsenseTouch #100 strips 03/08/24 Verio test strips) Allergies Allergy/AdvReac Type Severity Reaction Status Date / Time No Known Allergies Allergy Verified 03/24/24 08:46 Worker's Comp Is this a Worker's Comp case?: No [facility] Disclaimer: The information contained in this section may have been updated after the patient was seen, as this information can be updated by other users. Medical History (Reviewed 03/27/24 @ 19:14 by Jackie Brito ([facility]), RN VISITING) Abrasion Fall Overweight UTI (urinary tract infection) Leg pain URI (upper respiratory infection) Cough Pacemaker HTN (hypertension), benign Coronary artery disease Cancer Atrial fibrillation Hyperlipidemia Surgical History (Reviewed 03/27/24 @ 19:14 by Jackie Brito ([facility]), RN VISITING) H/O heart artery stent Social History (Reviewed 03/27/24 @ 19:14 by Jackie Brito ([facility]), RN VISITING) Smoking Status: Current every day smoker tobacco type: cigarettes packs per day: 1 second hand exposure: Yes alcohol intake: never substance use type: denies use current occupational status: disabled Travel in the last 8 weeks: None housing: house ROS Obtained: Yes Systems reviewed as appropriate & no additional complaints except as documented Physical Exam General General appearance: alert and in no apparent distress Eye Eye exam: Present normal appearance and PERRL ENT ENT exam: Present normal exam Respiratory Respiratory exam: Present normal lung sounds bilaterally Cardiovascular Cardiovascular exam: Present regular rate and normal rhythm Neurological Exam Neurological exam: Present alert and oriented X3 Skin Skin exam: Present warm Expanded Skin Exam Type of lesion: Present laceration Distribution: RUE Body image: 2 1. Small skin tear Medical Decision Making Medical Records Medical records reviewed: Yes I reviewed the patient's medical records. Alonso Inquiry Pt receiving controlled substance: No Alonso was queried for this patient: No Vital Signs: 03/27/24 18:45 Temperature 98.0 F Temperature Source Oral Pulse Rate [Right Brachial] 62 Respiratory Rate 18 Blood Pressure [Right Arm] 120/68 Blood Pressure Mean [Right Arm] 85 Blood Pressure Source [Right Arm] Automatic Cuff Blood Pressure Position [Right Arm] Sitting 02 Sat by Pulse Oximetry 95 Oxygen Delivery Method Room Air
[2024-03-27 19:17] VITALS: BP 120/68; PULSE 62; RESP 18; TEMP 36.7; O2SAT 95
== END 2024-03-27 19:20 | disposition home or self-care (01) ==
PROVIDERS: Emergency Provider Nurse Practitioner Family; PCP Family Medicine
DX: S51.001A Unspecified open wound of right elbow, initial encounter (principal); W19.XXXA Unspecified fall, initial encounter
CPT/HCPCS: 99203; 99212; G0463

== ENCOUNTER 2024-04-19 23:41 | Emergency (ER) | payer MEDICARE, OTHER, SELFPAY ==
[2024-04-19 23:53] VITALS: BP 144/85; PULSE 62; RESP 18; TEMP 36.6; O2SAT 98; BMI 22.4
[2024-04-20 00:03] VITALS: BP 127/71; PULSE 63; RESP 20; TEMP 36.7; O2SAT 98
[2024-04-20] MEDS: AMOXICILLIN/CLAVULANATE POTASSIUM 875/125MG TABLET 1 EACH PO (00:03)
[2024-04-20] MEDS: ACETAMINOPHEN 500MG TAB 1000 MG PO (00:04)
--- NOTE | 2024-04-20 00:06 | ED_ITS ---
Discharge Plan Disposition Patient Disposition: Home, Self-Care Prescriptions Prescriptions: New amoxicillin-pot clavulanate 875-125 mg tablet 1 tab PO BID Qty: 20 0RF mupirocin 2 % ointment 1 applic topical BID 10 Days Qty: 22 0RF No Action aspirin [Adult Low Dose Aspirin] 81 mg tablet,delayed release (DR/EC) 81 mg PO DAILY (DME) blood-glucose meter [OneTouch Verio Flex meter] [facility] [place] See Rx Instructions .Route Qty: 1 0RF Rx Instructions: As directed Otezla 30 mg tablet PO triamcinolone acetonide 0.1 % cream topical furosemide 40 mg tablet See Rx Instructions .ROUTE .COMPLEX Qty: 45 3RF Dose Instruction: TAKE 1 TABLET BY MOUTH EVERY OTHER DAY Rx Instructions: TAKE 1 TABLET BY MOUTH EVERY OTHER DAY mupirocin 2 % ointment See Rx Instructions .ROUTE .COMPLEX Qty: 22 0RF Dose Instruction: APPLY OINTMENT TOPICALLY ONCE DAILY Rx Instructions: APPLY OINTMENT TOPICALLY ONCE DAILY ONETOUCH VERIO RE KIT See Rx Instructions .ROUTE .COMPLEX Qty: 1 0RF Dose Instruction: USE DIRECTED OR TWICE DAILY Rx Instructions: USE DIRECTED OR TWICE DAILY ONETOUCH VERIO BENJI See Rx Instructions .ROUTE .COMPLEX Qty: 100 0RF Dose Instruction: USE 1 STRIP TO CHECK GLUCOSE TWICE DAILY OR DIRECTED FOR DIABETES Rx Instructions: USE 1 STRIP TO CHECK GLUCOSE TWICE DAILY OR DIRECTED FOR DIABETES potassium chloride 10 mEq tablet extended release See Rx Instructions .ROUTE .COMPLEX Qty: 90 3RF Dose Instruction: Take 1 tablet by mouth once daily Rx Instructions: Take 1 tablet by mouth once daily carvedilol [Coreg] 25 mg tablet 50 mg PO BID Qty: 360 3RF omeprazole 40 mg capsule,delayed release(DR/EC) 40 mg PO DAILY Qty: 90 3RF Rx Instructions: TAKE 1 CAPSULE BY MOUTH ONCE DAILY, SWALLOW WHOLE, DO NOT CRUSH, CHEW, DISSOLVE, CUT OR BREAK lisinopril-hydrochlorothiazide 20-25 mg tablet See Rx Instructions .ROUTE .COMPLEX Qty: 90 3RF Dose Instruction: TAKE 1 TABLET BY MOUTH ONCE DAILY FOR HIGH BLOOD PRESSURE Rx Instructions: TAKE 1 TABLET BY MOUTH ONCE DAILY FOR HIGH BLOOD PRESSURE trazodone 100 mg tablet See Rx Instructions .ROUTE .COMPLEX Qty: 90 3RF Dose Instruction: Take 1 tablet by mouth once daily Rx Instructions: Take 1 tablet by mouth once daily amiodarone 200 mg tablet 100 mg PO DAILY Qty: 45 3RF Rx Instructions: TAKE 1/2 TABLET BY MOUTH EVERY DAY FOR heart clopidogrel 75 mg tablet 75 mg PO DAILY Qty: 90 3RF Rx Instructions: TAKE 1 TABLET BY MOUTH ONCE DAILY FOR BLOOD THINNER ezetimibe 10 mg tablet See Rx Instructions .ROUTE .COMPLEX Qty: 90 3RF Dose Instruction: TAKE 1 TABLET BY MOUTH ONCE DAILY FOR CHOLESTEROL Rx Instructions: TAKE 1 TABLET BY MOUTH ONCE DAILY FOR CHOLESTEROL atorvastatin 10 mg tablet See Rx Instructions .ROUTE .COMPLEX Qty: 90 3RF Dose Instruction: TAKE 1 TABLET BY MOUTH ONCE DAILY FOR CHOLESTEROL Rx Instructions: TAKE 1 TABLET BY MOUTH ONCE DAILY FOR CHOLESTEROL metformin 500 mg tablet extended release 24 hr 500 mg PO DAILY Qty: 90 3RF (DME) lancets [OneTouch Delica Plus Lancet] 30 gauge misc See Rx Instructions .Route Qty: 100 3RF Rx Instructions: As directed or bid levothyroxine 75 mcg tablet See Rx Instructions .ROUTE .COMPLEX Qty: 90 3RF Dose Instruction: TAKE 1 TABLET BY MOUTH ONCE DAILY . APPOINTMENT REQUIRED FOR FUTURE REFILLS Rx Instructions: TAKE 1 TABLET BY MOUTH ONCE DAILY . Jardiance 10 mg tablet 10 mg PO DAILY Qty: 30 5RF (DME) OneTouch Verio test strips Strip See Rx Instructions .ROUTE .COMPLEX Qty: 100 6RF Dose Instruction: USE 1 STRIP TO CHECK BLOOD GLUCOSE TWICE DAILY OR DIRECTED FOR DIABETES Rx Instructions: USE 1 STRIP TO CHECK BLOOD GLUCOSE TWICE DAILY OR DIRECTED FOR DIABETES Referrals Follow up/Referrals: Court Mays MD [Referring] - See instructions (Large L eyebrow mass, dark discolored with red base, bleeds and leaks occasional purulence, patient has history of skin cancer and jaw cancer. ) Simona Krishnan APRN [Primary Care Provider] - See instructions (Please re-evaluate L eyebrow lesion and help patient with dermatology follow up) Activity Restrictions/Add. Instructions Additional Instructions/Restrictions: You were evaluated in the ER and are appropriate for discharge at this time. Take the newly prescribed antibiotic as directed, do not skip doses, do not stop taking it early. Use the prescribed antibiotic ointment as directed. Please call Court Mays's office (dermatology) for an appointment as soon as possible for a second opinion of the mass on the left eyebrow. Also call your current contracts officer for another in person appointment to receive further treatment. Make an appoint with your primary care doctor for reevaluation as soon as possible. Return to the ER with new, worsening, or otherwise concerning symptoms. Clinical Impressions Clinical Impression: Cellulitis, Skin lesion of face Print Language Print Language: Nepali Discharge ED Provider: Hubert Parada General Adult HPI General Chief complaint: Skin/Abscess/Foreign Body Stated complaint: L eyebrow infection, bleeding Time Seen by Provider: 04/19/24 23:45 Mode of Arrival: Ambulatory Source of Information: Patient Limitations: No Limitations Description of Symptoms (Recalled from ER Triage Doc. by RN): Patient complains of ongoing issues with wound over left eyebrow for over 6 months. History of Present Illness HPI narrative: 68-year-old male with a history of skin cancer, basal cell carcinoma of the face, jaw cancer, hypertensive heart disease, hypothyroidism, diabetes presents to the ER with complaint of left eyebrow mass/wound. Patient states he has been seeing a contracts officer for this for over 6 months. He reports he has been told it is not skin cancer but possibly a bacterial or fungal infection however he has not been on antibiotics or other medications for it besides a cream at 1 point. Review of previous prescriptions demonstrates patient has been on triamcinolone and mupirocin ointment in the past. Patient reports he came to the ER tonight because the left eyebrow lesion co ntinues to bleed and leak foul-smelling fluid. Patient states he has had no fevers, chills, the redness around the lesion has not expanded but the lesion does continue to grow. Patient has history of right sided facial droop which is at baseline, he is not experiencing any deficits in the left side of the face, he states it is not causing any complications with the eye except he can see the mass in his peripheral vision. Patient reports some pain around the site of the lesion. He states he is following with a contracts officer in [place] but is having complications with communication with them. Patient believes he has infection and needs antibiotics. He does report recent unintentional weight loss but states he is on medications that he believes are causing him to lose weight. Related Data Home Medications ?Medication ?Instructions ?Recorded ?Confirmed aspirin 81 mg tablet,delayed 81 mg PO DAILY [facility] 10/06/17 03/24/24 release (Adult Low Dose Aspirin) apremilast 30 mg tablet (Otezla) mg PO 09/26/23 03/24/24 triamcinolone acetonide 0.1 % applic topical 03/24/24 03/24/24 topical cream Previous Rx's ?Medication ?Instructions ?Recorded furosemide 40 mg tablet See Rx Instructions .Route 04/28/23 .COMPLEX #45 tabs blood-glucose meter (OneTouch #1 ea 05/05/23 Verio Flex Meter) mupirocin 2 % topical ointment See Rx Instructions .Route 05/26/23 .COMPLEX #22 grams ONETOUCH VERIO RE KIT See Rx Instructions .Route 05/28/23 .COMPLEX #1 ea ONETOUCH VERIO BENJI See Rx Instructions .Route 11/11/23 .COMPLEX #100 ea potassium chloride 10 mEq See Rx Instructions .Route 12/17/23 tablet,extended release .COMPLEX #90 tabs carvedilol 25 mg tablet (Coreg) 50 mg (2 x 25 mg) PO BID 12/19/23 Hypertension #360 tabs lisinopril 20 See Rx Instructions .Route 12/19/23 mg-hydrochlorothiazide 25 mg tablet .COMPLEX #90 tabs omeprazole 40 mg capsule,delayed 40 mg PO DAILY acid reflux #90 caps 12/19/23 release trazodone 100 mg tablet See Rx Instructions .Route 12/23/23 .COMPLEX #90 tabs amiodarone 200 mg tablet 100 mg (1/2 x 200 mg) PO DAILY 12/25/23 heart rate #45 tabs atorvastatin 10 mg tablet See Rx Instructions .Route 12/25/23 .COMPLEX #90 tabs clopidogrel 75 mg tablet 75 mg PO DAILY Blood thinner #90 12/25/23 tabs ezetimibe 10 mg tablet See Rx Instructions .Route 12/25/23 .COMPLEX #90 tabs lancets 30 gauge (OneTouch Delica #100 ea 12/30/23 Plus Lancet) levothyroxine 75 mcg tablet See Rx Instructions .Route 12/30/23 .COMPLEX #90 tabs metformin 500 mg tablet,extended 500 mg PO DAILY Diabetes #90 tabs 12/30/23 release 24 hr empagliflozin 10 mg tablet 10 mg PO DAILY #30 tabs 03/03/24 (Jardiance) blood sugar diagnostic (OneTouch #100 strips 03/08/24 Verio test strips) amoxicillin 875 mg-potassium 1 tab PO BID #20 tabs 04/19/24 clavulanate 125 mg tablet mupirocin 2 % topical ointment 1 applic topical BID 10 days #22 04/20/24 grams Allergies Allergy/AdvReac Type Severity Reaction Status Date / Time No Known Allergies Allergy Verified 03/24/24 08:46 [facility] Disclaimer: The information contained in this section may have been updated after the patient was seen, as this information can be updated by other users. Medical History , [employer]) Abrasion Fall Overweight UTI (urinary tract infection) Leg pain URI (upper respiratory infection) Cough Pacemaker HTN (hypertension), benign Coronary artery disease Cancer Atrial fibrillation Hyperlipidemia Surgical History , [employer] DES[employer]) H/O heart artery stent Social History , [employer]ING DESIGNER) Smoking Status: Current every day smoker tobacco type: cigarettes packs per day: 1 second hand exposure: Yes alcohol intake: never substance use type: denies use current occupational status: disabled Travel in the last 8 weeks: None housing: house Other Medical History Have you received the Flu Vaccine for this season: Yes Have you received the Pneumonia Vaccine: Yes ROS Obtained: Yes Systems reviewed as appropriate & no additional complaints except as documented Constitutional Constitutional: Denies chills, Denies fever(s), Denies headache(s), Denies poor appetite, Denies weakness and Reports weight loss Eyes Eyes: Denies change in vision ENT Ears, Nose, Mouth, and Throat: Denies dizziness, Denies headache(s), Denies nasal congestion, Denies neck mass, Denies odynophagia and Denies sore throat Cardiovascular Cardiovascular: Denies chest pain, Denies dyspnea and Denies leg edema Respiratory Respiratory: Denies cough and Denies dyspnea Gastrointestinal Gastrointestingal: Denies constipation, diarrhea, nausea, odynophagia or vomiting Genitourinary Male Genitourinary: Denies difficulty urinating Musculoskeletal Musculoskeletal: Denies arthralgias, Denies myalgias, Denies numbness and Denies tingling Integumentary/Breasts Skin/Breast: Reports changing lesions (Growing left eyebrow lesion that is dark, almost scabbed in appearance ) and Reports lesions (Erythematous base left eyebrow lesion with occasional bleeding foul smell) Neurologic Neurologic: Reports abnormal speech (At baseline due to previous right-sided facial droop), Denies dizziness, Denies headache(s), Denies numbness, Denies tingling and Denies weakness Physical Exam General General appearance: alert and in no apparent distress Comment: Patient is chronically ill-appearing and thin but not cachectic Head Head exam: atraumatic and normocephalic Eye Eye exam: Present PERRL and EOMI ENT ENT exam: Present mucous membranes moist Neck Neck exam: Present normal inspection and full ROM Chest Chest inspection: Present symmetric chest wall rise Respiratory Respiratory exam: Absent respiratory distress or stridor Cardiovascular Cardiovascular exam: Present regular rate and normal rhythm Abdominal Exam Abdominal exam: Present soft; Absent distention or tenderness Extremities Exam Extremities exam: Present full ROM Neurological Exam Neurological exam: Present alert and oriented X3; Absent CN II-XII intact (Right low facial droop/poor musculature, baseline. Patient has control of the full left side of the face including the eyebrows though it is limited secondary to the weight of the mass.) or motor sensory deficit Psychiatric Psychiatric exam: Present normal affect and normal mood Skin Skin exam: Present warm, dry and other (4 to 5 cm diameter lesion at lateral aspect of left eyebrow with approximately 0.5 cm of surrounding erythema and induration, lesion projects from the eyebrow approximately 3 cm, lesion itself appears scabbed, base of lesion is friable, there is no fluctuance or purulence associated. ) Expanded Skin Exam Type of lesion: Present other (Left eyebrow lesion does not appear to be attached to bone) Medical Decision Making Medical Records Medical records reviewed: Yes I reviewed the patient's medical records. Screening: Per USPSTF and CDC recommendations, given the prevalence of disease in our region, it is our hospital?s policy to screen for HIV and viral Hepatitis for all patients aged 18 and over and those with ongoing risk factors. MR Comment: Previous ENT notes from [address] Kirkland demonstrates patient had basal cell carcinoma of the face with wide local excision and complex reconstruction. Alonso Inquiry Pt receiving controlled substance: No Vital Signs: 04/19/24 23:53 04/20/24 00:03 Temperature 98 F 98.0 F Temperature Source Oral Oral Pulse Rate 63 Pulse Rate [Left Radial] 62 Respiratory Rate 18 20 Blood Pressure 127/71 Blood Pressure [Right Arm] 144/85 H Blood Pressure Mean [Right Arm] 104 Blood Pressure Source [Right Arm] Automatic Cuff Blood Pressure Position [Right Arm] Sitting 02 Sat by Pulse Oximetry 98 Oxygen Delivery Method Room Air Room Air Orders (Tests/Meds): ED MEDICATIONS Generic Name Dose Route Start Last Admin Trade Name Lula PRN Reason Stop Dose Admin Acetaminophen 1,000 mg 04/19/24 23:59 04/20/24 00:04 Acetaminophen 500mg Tab PO 04/20/24 00:00 1,000 mg ONCE ONE Administration Amoxicillin/Clavulanate Potassium 1 each 04/19/24 23:58 04/20/24 00:03 Amoxicillin/Clavulanate Potassium 875/125mg Tablet PO 04/19/24 23:59 1 each ONCE ONE Administration Medical Decision Narrative: In summary, this 68-year-old male with multiple comorbidities including a history of cancer which increase patient's risk of recurrence and his overall morbidity presents to the emergency department today with large lesion on the left eyebrow. On initial evaluation patient is hemodynamically stable, afebrile, chronically ill-appearing but not cachectic, patient has large left eyebrow lesion as described in physical exam with mild surrounding erythema and induration, friable base. Differential diagnosis includes but is not limited to skin cancer, cellulitis, I considered abscess however there is no fluctuance. I considered labs and imaging however this has been a chronic problem for the patient for months and he has outpatient follow-up with dermatology. Patient does not have other systemic symptoms at this time so do not believe further ED workup is indicated. Given the surrounding erythema and slight induration as well as the described occasional foul smell from the lesion, I will treat this as a cellulitis with Augmentin and topical mupirocin.Patient is also having difficulty with his current contracts officer maintaining contact, so I provided referral to Court Mays within our system for second opinion and follow-up. Patient received a dose of Augmentin in the ER. Patient was given instructions on symptomatic management, follow up instructions, and return precautions for the emergency department. Patient indicated understanding and was discharged in stable condition. Critical Care Critical Care Time Critical Care Time: No
== END 2024-04-20 00:12 | disposition home or self-care (01) ==
PROVIDERS: Emergency Provider Emergency Medicine; PCP Family Medicine
DX: L98.9 Disorder of the skin and subcutaneous tissue, unspecified (principal); L03.90 Cellulitis, unspecified
CPT/HCPCS: 99282

== ENCOUNTER 2024-08-16 15:38 | Emergency (ER) | payer MEDICARE, OTHER, SELFPAY ==
[2024-08-16 15:40] VITALS: BP 125/74; PULSE 66; RESP 17; TEMP 36.6; O2SAT 90; BMI 18.4
--- NOTE | 2024-08-16 15:59 | PC.NURSE ---
pt triaged and placed back in lobby at this time
[2024-08-16 16:29] VITALS: BP 117/65; PULSE 61; O2SAT 93
--- NOTE | 2024-08-16 16:57 | ED_ITS ---
<Statement entered by Maritza Mccrary MD - 08/16/24 22:53> I was consulted by the ZHENG, and we discussed the complexity of the problems being addressed. I approved the treatment and management plan for this patient's care in the emergency department, thus performing a substantive portion of the medical decision making. Maritza Mccrary MD, GOGO, FACEP Discharge Plan Disposition Patient Disposition: Home, Self-Care Condition: Serious Prescriptions Prescriptions: No Action aspirin [Adult Low Dose Aspirin] 81 mg tablet,delayed release (DR/EC) 81 mg PO DAILY (DME) blood-glucose meter [OneTouch Verio Flex meter] Misc See Rx Instructions .Route Qty: 1 0RF Rx Instructions: As directed Otezla 30 mg tablet 30 mg PO DAILY triamcinolone acetonide 0.1 % cream 1 applic topical NEEDED PRN (Reason: .) mupirocin 2 % ointment See Rx Instructions .ROUTE .COMPLEX Qty: 22 0RF Dose Instruction: APPLY OINTMENT TOPICALLY ONCE DAILY Rx Instructions: APPLY OINTMENT TOPICALLY ONCE DAILY ONETOUCH VERIO RE KIT See Rx Instructions .ROUTE .COMPLEX Qty: 1 0RF Dose Instruction: USE DIRECTED OR TWICE DAILY Rx Instructions: USE DIRECTED OR TWICE DAILY ONETOUCH VERIO BENJI See Rx Instructions .ROUTE .COMPLEX Qty: 100 0RF Dose Instruction: USE 1 STRIP TO CHECK GLUCOSE TWICE DAILY OR DIRECTED FOR DIABETES Rx Instructions: USE 1 STRIP TO CHECK GLUCOSE TWICE DAILY OR DIRECTED FOR DIABETES potassium chloride 10 mEq tablet extended release See Rx Instructions .ROUTE .COMPLEX Qty: 90 3RF Dose Instruction: Take 1 tablet by mouth once daily Rx Instructions: Take 1 tablet by mouth once daily trazodone 100 mg tablet See Rx Instructions .ROUTE .COMPLEX Qty: 90 3RF Dose Instruction: Take 1 tablet by mouth once daily Rx Instructions: Take 1 tablet by mouth once daily clopidogrel 75 mg tablet 75 mg PO DAILY Qty: 90 3RF Rx Instructions: TAKE 1 TABLET BY MOUTH ONCE DAILY FOR BLOOD THINNER ezetimibe 10 mg tablet See Rx Instructions .ROUTE .COMPLEX Qty: 90 3RF Dose Instruction: TAKE 1 TABLET BY MOUTH ONCE DAILY FOR CHOLESTEROL Rx Instructions: TAKE 1 TABLET BY MOUTH ONCE DAILY FOR CHOLESTEROL metformin 500 mg tablet extended release 24 hr 500 mg PO DAILY Qty: 90 3RF (DME) lancets [OneTouch Delica Plus Lancet] 30 gauge misc See Rx Instructions .Route Qty: 100 3RF Rx Instructions: As directed or bid levothyroxine 75 mcg tablet See Rx Instructions .ROUTE .COMPLEX Qty: 90 3RF Dose Instruction: TAKE 1 TABLET BY MOUTH ONCE DAILY . APPOINTMENT REQUIRED FOR FUTURE REFILLS Rx Instructions: TAKE 1 TABLET BY MOUTH ONCE DAILY . (DME) OneTouch Verio test strips Strip See Rx Instructions .ROUTE .COMPLEX Qty: 100 6RF Dose Instruction: USE 1 STRIP TO CHECK BLOOD GLUCOSE TWICE DAILY OR DIRECTED FOR DIABETES Rx Instructions: USE 1 STRIP TO CHECK BLOOD GLUCOSE TWICE DAILY OR DIRECTED FOR DIABETES hydrocodone-acetaminophen 5-325 mg tablet 1 tab PO BID PRN (Reason: pain) Qty: 14 0RF furosemide 40 mg tablet See Rx Instructions .ROUTE .COMPLEX Qty: 50 2RF Dose Instruction: TAKE 1 TABLET BY MOUTH EVERY OTHER DAY Rx Instructions: TAKE 1 TABLET BY MOUTH EVERY OTHER DAY atorvastatin 10 mg tablet See Rx Instructions .ROUTE .COMPLEX Qty: 90 1RF Dose Instruction: TAKE 1 TABLET BY MOUTH ONCE DAILY FOR CHOLESTEROL Rx Instructions: TAKE 1 TABLET BY MOUTH ONCE DAILY FOR CHOLESTEROL amiodarone 200 mg tablet 100 mg PO DAILY Qty: 45 1RF Rx Instructions: TAKE 1/2 TABLET BY MOUTH EVERY DAY FOR heart omeprazole 40 mg capsule,delayed release(DR/EC) 40 mg PO DAILY Qty: 90 1RF Rx Instructions: TAKE 1 CAPSULE BY MOUTH ONCE DAILY, SWALLOW WHOLE, DO NOT CRUSH, CHEW, DISSOLVE, CUT OR BREAK lisinopril-hydrochlorothiazide 20-25 mg tablet See Rx Instructions .ROUTE .COMPLEX Qty: 90 1RF Dose Instruction: TAKE 1 TABLET BY MOUTH ONCE DAILY FOR HIGH BLOOD PRESSURE Rx Instructions: TAKE 1 TABLET BY MOUTH ONCE DAILY FOR HIGH BLOOD PRESSURE carvedilol [Coreg] 25 mg tablet 50 mg PO BID Qty: 360 1RF Jardiance 10 mg tablet See Rx Instructions .ROUTE .COMPLEX Qty: 100 2RF Dose Instruction: TAKE 1 TABLET BY MOUTH DAILY Rx Instructions: TAKE 1 TABLET BY MOUTH DAILY mupirocin 2 % ointment 1 applic topical BID 10 Days Qty: 22 0RF Referrals Follow up/Referrals: Simona Krishnan APRN [Primary Care Provider] - See instructions Activity Restrictions/Add. Instructions Additional Instructions/Restrictions: Please go directly to the [facility] emergency department to see the ENT resident. I spoke with Dr. Yoon at the transfer center who is aware of your arrival. Clinical Impressions Clinical Impression: Surgical wound dehiscence Qualifiers: Encounter type: initial encounter Qualified Code(s): T81.31XA - Disruption of external operation (surgical) wound, not elsewhere classified, initial encounter Stand Alone Forms Stand Alone Forms: Transfer Record - ED Instructions Patient Instructions: DI for Wound Dehiscence Print Language Print Language: Welsh Discharge ED Provider: Maritza Mccrary General Adult HPI General Chief complaint: Skin/Abscess/Foreign Body Stated complaint: AO 08/16/24 1400 injury right leg Time Seen by Provider: 08/16/24 16:57 Mode of Arrival: Ambulatory Source of Information: Patient Limitations: No Limitations Description of Symptoms (Recalled from ER Triage Doc. by RN): pt to the ED with bleeding to his right thigh after a fall. pt reports he was just discharged from [facility] today and when he got home he fell getting out of the car and injured the skin graft on his right thigh from a recent cancer surgery. pt curently denies any pain and bleeding is conrolled on assessment History of Present Illness HPI narrative: Patient presents for a surgical wound evaluation. Patient has complex medical history however ultimately was discharged home today from [facility] after lengthy stay at both the [facility] and [facility]. Patient had squamous cell carcinoma and melanoma that involved multiple surgeries and skin grafting around his left eye with pedicle flaps. Germane to today however is the right anterior lateral graft site of the thigh. Patient was getting out of the car and going up the steps and stumbled landing on that graft site. It immediately popped open. There was bleeding that they had difficulty controlling and hence presented to the emergency department. He denies any other injury and reports minimal pain currently. Related Data Home Medications ?Medication ?Instructions ?Recorded ?Confirmed aspirin 81 mg tablet,delayed 81 mg PO DAILY [facility] 10/06/17 08/16/24 release (Adult Low Dose Aspirin) apremilast 30 mg tablet (Otezla) 30 mg PO DAILY 09/26/23 08/16/24 triamcinolone acetonide 0.1 % 1 applic topical NEEDED PRN . 03/24/24 08/16/24 topical cream Previous Rx's ?Medication ?Instructions ?Recorded blood-glucose meter ([employer] #1 ea 05/05/23 Verio Flex Meter) mupirocin 2 % topical ointment See Rx Instructions .Route 05/26/23 .COMPLEX #22 grams ONETOUCH VERIO RE KIT See Rx Instructions .Route 05/28/23 .COMPLEX #1 ea ONETOUCH VERIO BENJI See Rx Instructions .Route 11/11/23 .COMPLEX #100 ea potassium chloride 10 mEq See Rx Instructions .Route 12/17/23 tablet,extended release .COMPLEX #90 tabs trazodone 100 mg tablet See Rx Instructions .Route 12/23/23 .COMPLEX #90 tabs clopidogrel 75 mg tablet 75 mg PO DAILY Blood thinner #90 12/25/23 tabs ezetimibe 10 mg tablet See Rx Instructions .Route 12/25/23 .COMPLEX #90 tabs lancets 30 gauge (OneTouch Delica #100 ea 12/30/23 Plus Lancet) levothyroxine 75 mcg tablet See Rx Instructions .Route 12/30/23 .COMPLEX #90 tabs metformin 500 mg tablet,extended 500 mg PO DAILY Diabetes #90 tabs 12/30/23 release 24 hr blood sugar diagnostic (OneTouch #100 strips 03/08/24 Verio test strips) mupirocin 2 % topical ointment 1 applic topical BID 10 days #22 04/20/24 grams hydrocodone 5 mg-acetaminophen 325 1 tab PO BID PRN pain #14 tabs 04/23/24 mg tablet furosemide 40 mg tablet See Rx Instructions .Route 05/26/24 .COMPLEX #50 tabs amiodarone 200 mg tablet 100 mg (1/2 x 200 mg) PO DAILY 07/13/24 heart rate #45 tabs atorvastatin 10 mg tablet See Rx Instructions .Route 07/13/24 .COMPLEX #90 tabs carvedilol 25 mg tablet (Coreg) 50 mg (2 x 25 mg) PO BID 07/13/24 Hypertension #360 tabs lisinopril 20 See Rx Instructions .Route 07/13/24 mg-hydrochlorothiazide 25 mg tablet .COMPLEX #90 tabs omeprazole 40 mg capsule,delayed 40 mg PO DAILY acid reflux #90 caps 07/13/24 release empagliflozin 10 mg tablet See Rx Instructions .Route 08/13/24 (Jardiance) .COMPLEX #100 tabs Allergies Allergy/AdvReac Type Severity Reaction Status Date / Time No Known Allergies Allergy Verified 08/16/24 16:48 [facility] Disclaimer: The information contained in this section may have been updated after the patient was seen, as this information can be updated by other users. Medical History Abrasion Fall Overweight UTI (urinary tract infection) Leg pain URI (upper respiratory infection) Cough Pacemaker HTN (hypertension), benign Coronary artery disease Cancer Atrial fibrillation Hyperlipidemia Surgical History H/O heart artery stent Social History Smoking Status: Never smoker second hand exposure: Yes alcohol intake: never substance use type: denies use current occupational status: disabled Travel in the last 8 weeks: None housing: house Have you lived/traveled outside [place] in past 30 days?: No Contact w/someone who lives/traveled outside US past 30 days?: No Exposure to someone with infectious disease in past 14 days?: No Do you have a fever (greater than 100.4 F or 38 C)?: No Have you tested positive for COVID-19: No Exposed to someone with COVID-19 in past 14 days?: No Do you have a sore throat?: No Do you have a cough?: No Do you have any weakness?: No Do you have any diarrhea?: No Are you experiencing any unusual bleeding?: No Do you have any muscle aches/pain?: No Do you have any abdominal pain?: No Are you experiencing loss of taste or smell?: No Other Medical History Have you received the Flu Vaccine for this season: Yes Have you received the Pneumonia Vaccine: Yes ROS Obtained: Yes Systems reviewed as appropriate & no additional complaints except as documented Physical Exam General General appearance: alert and in no apparent distress Respiratory Respiratory exam: Present normal lung sounds bilaterally Cardiovascular Cardiovascular exam: Present regular rate Neurological Exam Neurological exam: Present alert and oriented X3 Medical Decision Making Medical Records Medical records reviewed: Yes I reviewed the patient's medical records. Screening: Per USPSTF and CDC recommendations, given the prevalence of disease in our [place], it is our hospital?s policy to screen for HIV and viral Hepatitis for all patients aged 18 and over and those with ongoing risk factors. Alonso Inquiry Pt receiving controlled substance: No Vital Signs: 08/16/24 15:40 08/16/24 16:29 08/16/24 17:00 Temperature 97.8 F Temperature Source Axillary Pulse Rate 61 60 Pulse Rate [Left Radial] 66 Respiratory Rate 17 Blood Pressure 117/65 122/55 L Blood Pressure [Right Arm] 125/74 Blood Pressure Mean [Right Arm] 91 Blood Pressure Source [Right Arm] Automatic Cuff Blood Pressure Position [Right Arm] Sitting 02 Sat by Pulse Oximetry 90 L 93 L 93 L Oxygen Delivery Method Room Air Room Air Room Air 08/16/24 17:30 Temperature Temperature Source Pulse Rate 62 Pulse Rate [Left Radial] Respiratory Rate Blood Pressure 120/66 Blood Pressure [Right Arm] Blood Pressure Mean [Right Arm] Blood Pressure Source [Right Arm] Blood Pressure Position [Right Arm] 02 Sat by Pulse Oximetry 92 L Oxygen Delivery Method Room Air Medical Decision Narrative: In summary patient is a 68-year-old male who presents to the emergency department for evaluation of postoperative wound dehiscence. Patient is hemodynamically stable upon arrival, afebrile. Physical exam is remarkable for the right anterior lateral graft site wound dehiscence in the middle of the suture line. It appears to be well-healed save for the dehiscence. Is complete down to the fascial layer. There is some various points of venous bleeding that is easily controlled with direct pressure but brisk.. Differential diagnosis could include other possibilities however at the moment it appears only that this is a wound dehiscence and not evidence of deeper injury however given the extent of it no further workup will be obtained here. I was able to control the bleeding with direct pressure. Then I had an interactive discussion with [facility] transfer center Dr. Yoon regarding patient findings and patient management recommendations. He then contacted the ear nose and throat resident on-call who wished the patient to be seen in the ER. I then had interactive discussion with the patient and the family and they are agreeable for evaluation at and as patient is stable and bleeding is controlled he is appropriate to go by POV. Thus patient is going to be discharged to be seen at the [facility] emergency department this evening. Critical Care Critical Care Time Critical Care Time: No
[2024-08-16 17:00] VITALS: BP 122/55; PULSE 60; O2SAT 93
--- NOTE | 2024-08-16 17:17 | PC.NURSE ---
CALLING [facility] PER DANIELLE ZHENG TO SPEAK ENT SURGEON WELT WHEELER FOR WOUND DEHIENSE
--- NOTE | 2024-08-16 17:18 | PC.NURSE ---
pt has multiple medications and unsure of what all he takes. med list retrieved by pt family member
[2024-08-16 17:30] VITALS: BP 120/66; PULSE 62; O2SAT 92
--- NOTE | 2024-08-16 17:41 | PC.NURSE ---
PT GIVEN A WARM BLANKET BY ALECIA
--- NOTE | 2024-08-16 17:45 | PC.NURSE ---
checked on patient bleeding status on right thigh. bleeding remains controlled and the dressing is free of blood at this time.
--- NOTE | 2024-08-16 17:49 | PC.NURSE ---
MING JOSE SPEAKING WITH ENT AT
--- NOTE | 2024-08-16 17:52 | PC.NURSE ---
DANIELLE ZHENG SPEAKING TO ENT SURGEON FROM
[2024-08-16 18:00] VITALS: BP 104/64; PULSE 60; O2SAT 91
[2024-08-16 18:27] VITALS: BP 104/64; PULSE 60; RESP 20; TEMP 36.7; O2SAT 98
== END 2024-08-16 18:31 | disposition home or self-care (01) ==
PROVIDERS: Emergency Provider Student in an Organized Health Care Education/Training Program; PCP Family Medicine
DX: T81.31XA Disruption of external operation (surgical) wound, not elsewhere classified, initial encounter (principal); C85.90 Non-Hodgkin lymphoma, unspecified, unspecified site; M79.651 Pain in right thigh; W19.XXXA Unspecified fall, initial encounter; Y93.89 Activity, other specified; Y92.9 Unspecified place or not applicable
CPT/HCPCS: 99284

== ENCOUNTER 2024-09-24 10:45 | Outpatient (CLI) | payer MEDICARE, OTHER, SELFPAY ==
[2024-09-24 21:08] LABS: Prostate Specific Ag Screen 1.1 ng/ml (0.0-4.0)
== END 2024-09-24 23:59 | disposition home or self-care (01) ==
LOC: LAB.DROPOF 09-27 12:10
PROVIDERS: PCP Family Medicine; Visit Provider Family Medicine
DX: E03.9 Hypothyroidism, unspecified (principal); Z12.5 Encounter for screening for malignant neoplasm of prostate
CPT/HCPCS: 84443; G0103

== ENCOUNTER 2024-10-15 10:14 | Outpatient (CLI) | payer MEDICARE, OTHER, SELFPAY ==
[2024-10-15 17:15] LABS: Basophils % 0.8 % (0.1-2.0); Eosinophils # 0.2 K/mm3 (0.0-0.4); Eosinophils % 4.3 % (0.1-12.0); Hematocrit 36.6 % (42.0-52.0); Lymphocytes # 0.4 K/mm3 (0.7-4.5); Lymphocytes % 7.8 % (10-50); Mean Corpuscular HGB Conc 30.1 g/dL (31.8-35.4); Mean Corpuscular Hemoglobin 24.9 pg (27.0-31.2); Mean Corpuscular Volume 82.8 fl (80-94); Mean Platelet Volume 9.3 fl (7.4-10.4); Monocytes # 0.4 K/mm3 (0.1-1.0); Monocytes % 8.6 % (1.7-9.3); Neutrophils # 3.8 K/mm3 (1.8-7.8); Neutrophils % 77.7 % (37.0-80.0); Platelet Count 415 K/mm3 (142-424); Red Blood Count 4.42 M/mm3 (4.60-6.20); Red Cell Distribution Width 17.2 % (11.5-17.5); White Blood Count 4.9 K/mm3 (4.8-10.8)
[2024-10-15 17:16] LABS: Creatinine,Urine Random 20 mg/dL (Not Estab.); Microalbumin < 6.000 mg/L (0-16.7)
[2024-10-15 17:46] LABS: Albumin Level 2.9 g/dl (3.5-5.0); Chloride 89 mmol/L (98-107); Potassium 4.8 mmoL/L (3.5-5.1); Sodium 129 mmol/L (136-145)
[2024-10-15 17:48] LABS: Blood Urea Nitrogen 25 mg/dl (9-20); Estimated Glomerular Filt Rate 165 ml/min (>60); GFR (African American) 199 ML/MIN (>60)
[2024-10-15 17:49] LABS: Alanine Aminotransferase 27 U/L (12-78); Alkaline Phosphatase 156 U/L (38-126); Aspartate Amino Transferase 29 U/L (17-59); Bilirubin,Total 0.2 mg/dl (0.2-1.3); Calcium 8.9 mg/dl (8.4-10.2); Carbon Dioxide 38 mmol/L (22.0-30.0); Glucose 99 mg/dl (74-100); Total Protein,Serum 6.3 g/dl (6.3-8.2)
[2024-10-15 17:58] LABS: Albumin/Globulin Ratio 0.9 (1.1-1.8); Anion Gap 6.8 mEq/L (5-15); Globulin 3.4 g/dL (1.3-3.2)
[2024-10-15 18:04] LABS: Triiodothryronine (T3) Uptake 46 % (23.5-40.5)
[2024-10-15 18:05] LABS: T4 (Thyroxine) 6.5 ug/dl (5.53-11.0)
[2024-10-15 18:39] LABS: 25-OH Vitamin D, Total 42.9 ng/mL (30-100)
[2024-10-18 08:45] LABS: Iron 33 ug/dL (49-181)
[2024-10-18 08:54] LABS: Total Iron Binding Capacity 273 ug/dL (261-462)
[2024-10-18 09:20] LABS: Ferritin 63.3 ng/ml (17.9-464)
--- OUTSIDE RECORDS SUMMARY | 2024-10-21 19:45 | XMS_ITS ---
Author Organization Unknown TREATMENT PLAN [facility] Start Date Provider Encounter for Check-up [id number] [facility]
== END 2024-10-15 23:59 | disposition home or self-care (01) ==
LOC: LAB.DROPOF 10-16 11:08
PROVIDERS: PCP Family Medicine; Visit Provider Family Medicine
DX: E07.9 Disorder of thyroid, unspecified (principal); E78.2 Mixed hyperlipidemia; E11.9 Type 2 diabetes mellitus without complications; Z79.84 Long term (current) use of oral hypoglycemic drugs; D50.9 Iron deficiency anemia, unspecified; C85.90 Non-Hodgkin lymphoma, unspecified, unspecified site
CPT/HCPCS: 80053; 82043; 82306; 82570; 82728; 83540; 83550; 84436; 84443; 84479; 85025

== ENCOUNTER 2024-10-23 07:35 | Emergency (ER) | payer MEDICARE, OTHER, SELFPAY ==
[2024-10-23] VITALS (13 sets, daily range): BP systolic 91–114; BP diastolic 53–90; PULSE 60–82; RESP 11–20; TEMP 36.6; O2SAT 89–99; BMI 20.9
--- NOTE | 2024-10-23 07:43 | CT_ITS ---
PROCEDURE INFORMATION: Exam: CT Abdomen And Pelvis With Contrast Exam date and time: 10/23/2024 8:47 AM Age: 69 years old Clinical indication: Other: Feeding tube recently replaced, now draining pus TECHNIQUE: Imaging protocol: Computed tomography of the abdomen and pelvis with contrast. Radiation optimization: All CT scans at this facility use at least one of these dose optimization techniques: automated exposure control; mA and/or kV adjustment per patient size (includes targeted exams where dose is matched to clinical indication); or iterative reconstruction. Contrast material: ISOVUE; Contrast volume: 75 ml; Contrast route: IV; COMPARISON: CR XR CHEST 2V 10/27/2023 10:03 AM FINDINGS: Tubes, catheters and devices: Percutaneous gastrostomy tube is not definitively in the stomach. Gastrostomy tube balloon appears within the peritoneum with adjacent debris and gas extending from the peritoneum into subcutaneous fat, extending superiorly into the left chest wall. No definite drainable collection identified. Immediate removal of tube necessary. Liver: Normal. No mass. Gallbladder and biliary ducts: Normal. No calcified stones. No ductal dilation. Pancreas: Normal. No ductal dilation. Spleen: Normal. No splenomegaly. Adrenal glands: Left adrenal nodule measures 2 x 2 cm, further characterization not possible on current study. Right adrenal gland unremarkable. Kidneys and ureters: Cortical renal cysts bilaterally. No hydronephrosis. Stomach and bowel: Proximal colon moderately distended with stool. Appendix: No evidence of appendicitis. Intraperitoneal space: Unremarkable. No free air. No significant fluid collection. Vasculature: Unremarkable. No abdominal aortic aneurysm. Lymph nodes: Unremarkable. No enlarged lymph nodes. Urinary bladder: Unremarkable as visualized. Reproductive: Unremarkable as visualized. Bones/joints: Unremarkable. No acute fracture. Soft tissues: Unremarkable. IMPRESSION: 1. Percutaneous gastrostomy tube is not definitively in the stomach. 2. Gastrostomy tube balloon appears within the peritoneum with adjacent debris and gas extending from the peritoneum into subcutaneous fat, extending superiorly into the left chest wall. No definite drainable collection identified. Immediate removal of tube necessary. 3. Left adrenal nodule measures 2 x 2 cm, further characterization not possible on current study. THIS REPORT CONTAINS FINDINGS THAT MAY BE CRITICAL TO PATIENT CARE. The findings were verbally communicated via telephone conference with Magalie Damon at 9:40 AM EDT on 10/23/2024. The findings were acknowledged and understood. COMMENTS: Consistent with the [employer]'s Incidental Findings Committee white paper (J Am Muna Radiol 2018): Any incidental renal lesion less than 1 cm or classified as too small to characterize, or any incidental cystic renal lesion characterized as simple-appearing, is likely benign. No follow-up imaging is recommended for these lesions per consensus recommendations based on imaging criteria.
--- NOTE | 2024-10-23 07:46 | PC.NURSE ---
dr kim at bedside
--- NOTE | 2024-10-23 07:50 | ED_ITS ---
Discharge Plan Disposition Patient Disposition: Xfer Short-Term Hosp Condition: Fair Prescriptions Prescriptions: No Action aspirin [Adult Low Dose Aspirin] 81 mg tablet,delayed release (DR/EC) 81 mg PO DAILY (DME) blood-glucose meter [OneTouch Verio Flex meter] [facility] [place] See Rx Instructions .Route Qty: 1 0RF Rx Instructions: As directed Otezla 30 mg tablet 30 mg PO DAILY triamcinolone acetonide 0.1 % cream 1 applic topical NEEDED PRN (Reason: .) hydrocodone-acetaminophen 5-325 mg tablet 1 tab PO BID Qty: 60 0RF guaifenesin 600 mg tablet extended release 12hr 600 mg PO BID PRN (Reason: congestion) Qty: 60 1RF ondansetron 4 mg tablet,disintegrating 4 mg PO cyclosporine [Restasis] 0.05 % dropperette 1 drp ophthalmic (eye) Q12H Qty: 60 6RF cetirizine [All Day Allergy (cetirizine)] 10 mg tablet 10 mg PO DAILY Qty: 30 5RF Rx Instructions: crush and dissolve in water mupirocin 2 % ointment See Rx Instructions .ROUTE .COMPLEX Qty: 22 0RF Dose Instruction: APPLY OINTMENT TOPICALLY ONCE DAILY Rx Instructions: APPLY OINTMENT TOPICALLY ONCE DAILY ONETOUCH VERIO RE KIT See Rx Instructions .ROUTE .COMPLEX Qty: 1 0RF Dose Instruction: USE DIRECTED OR TWICE DAILY Rx Instructions: USE DIRECTED OR TWICE DAILY ONETOUCH VERIO BENJI See Rx Instructions .ROUTE .COMPLEX Qty: 100 0RF Dose Instruction: USE 1 STRIP TO CHECK GLUCOSE TWICE DAILY OR DIRECTED FOR DIABETES Rx Instructions: USE 1 STRIP TO CHECK GLUCOSE TWICE DAILY OR DIRECTED FOR DIABETES clopidogrel 75 mg tablet 75 mg PO DAILY Qty: 90 3RF Rx Instructions: TAKE 1 TABLET BY MOUTH ONCE DAILY FOR BLOOD THINNER ezetimibe 10 mg tablet See Rx Instructions .ROUTE .COMPLEX Qty: 90 3RF Dose Instruction: TAKE 1 TABLET BY MOUTH ONCE DAILY FOR CHOLESTEROL Rx Instructions: TAKE 1 TABLET BY MOUTH ONCE DAILY FOR CHOLESTEROL metformin 500 mg tablet extended release 24 hr 500 mg PO DAILY Qty: 90 3RF (DME) lancets [OneTouch Delica Plus Lancet] 30 gauge misc See Rx Instructions .Route Qty: 100 3RF Rx Instructions: As directed or bid (DME) OneTouch Verio test strips Strip See Rx Instructions .ROUTE .COMPLEX Qty: 100 6RF Dose Instruction: USE 1 STRIP TO CHECK BLOOD GLUCOSE TWICE DAILY OR DIRECTED FOR DIABETES Rx Instructions: USE 1 STRIP TO CHECK BLOOD GLUCOSE TWICE DAILY OR DIRECTED FOR DIABETES furosemide 40 mg tablet See Rx Instructions .ROUTE .COMPLEX Qty: 50 2RF Dose Instruction: TAKE 1 TABLET BY MOUTH EVERY OTHER DAY Rx Instructions: TAKE 1 TABLET BY MOUTH EVERY OTHER DAY Jardiance 10 mg tablet See Rx Instructions .ROUTE .COMPLEX Qty: 100 2RF Dose Instruction: TAKE 1 TABLET BY MOUTH DAILY Rx Instructions: TAKE 1 TABLET BY MOUTH DAILY potassium chloride 10 mEq tablet,ER particles/crystals See Rx Instructions .ROUTE .COMPLEX Qty: 100 2RF Dose Instruction: TAKE 1 TABLET BY MOUTH ONCE DAILY Rx Instructions: TAKE 1 TABLET BY MOUTH ONCE DAILY trazodone 100 mg tablet See Rx Instructions .ROUTE .COMPLEX Qty: 90 3RF Dose Instruction: TAKE 1 TABLET BY MOUTH ONCE DAILY Rx Instructions: TAKE 1 TABLET BY MOUTH ONCE DAILY levothyroxine 100 mcg tablet 100 mcg PO DAILY Qty: 30 2RF amiodarone 200 mg tablet 100 mg PO DAILY Qty: 45 1RF Rx Instructions: TAKE 1/2 TABLET BY MOUTH EVERY DAY FOR heart atorvastatin 10 mg tablet See Rx Instructions .ROUTE .COMPLEX Qty: 90 1RF Dose Instruction: TAKE 1 TABLET BY MOUTH ONCE DAILY FOR CHOLESTEROL Rx Instructions: TAKE 1 TABLET BY MOUTH ONCE DAILY FOR CHOLESTEROL carvedilol 25 mg tablet See Rx Instructions .ROUTE .COMPLEX Qty: 400 2RF Dose Instruction: TAKE 2 TABLETS BY MOUTH TWICE DAILY FOR HYPERTENSION Rx Instructions: TAKE 2 TABLETS BY MOUTH TWICE DAILY FOR HYPERTENSION omeprazole 40 mg capsule,delayed release(DR/EC) See Rx Instructions .ROUTE .COMPLEX Qty: 100 2RF Dose Instruction: TAKE 1 CAPSULE BY MOUTH DAILY FOR ACID REFLUX - SWALLOW WHOLE, DO NOT CRUSH, CHEW, DISSOLVE, CUT OR BREAK Rx Instructions: TAKE 1 CAPSULE BY MOUTH DAILY FOR ACID REFLUX - SWALLOW WHOLE, DO NOT CRUSH, CHEW, DISSOLVE, CUT OR BREAK lisinopril-hydrochlorothiazide 20-25 mg tablet See Rx Instructions .ROUTE .COMPLEX Qty: 100 2RF Dose Instruction: TAKE 1 TABLET BY MOUTH ONCE DAILY FOR HIGH BLOOD PRESSURE Rx Instructions: TAKE 1 TABLET BY MOUTH ONCE DAILY FOR HIGH BLOOD PRESSURE mupirocin 2 % ointment 1 applic topical BID 10 Days Qty: 22 0RF Referrals Follow up/Referrals: Simona Krishnan APRN [Primary Care Provider] - See instructions Clinical Impressions Clinical Impression: Infection of PEG site, Hypothyroidism, PEG tube malfunction, Abdominal wall cellulitis, Hyponatremia Stand Alone Forms Stand Alone Forms: Transfer Record - ED Instructions Patient Instructions: DI for Skin Abscess Print Language Print Language: Yi Discharge ED Provider: Magalie Damon General Adult HPI General Chief complaint: Skin/Abscess/Foreign Body Stated complaint: possible infection feeding tube, weakness Time Seen by Provider: 10/23/24 07:42 History of Present Illness HPI narrative: This patient is a 69-year-old male with a 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 It was like patient was found to have a displaced PEG tube 10/20/24 for an unknown amount of time which was removed at bedside and replaced with a new G-tube at bedside. They had a port PEG to the x-ray which confirmed placement, which was replaced by thoracic surgery. He is completely feeding tube dependent, taking nothing by mouth after his prior surgeries, which included orbital exenteration, craniectomy, left neck dissection, rectus abdominis free flap reconstruction 07/16/2024. He last tolerated tube feed around 3:00 this morning with the pain, redness, drainage starting this morning afterward. Of note, patient also has a history of type 2 diabetes, CHF status post ICD placement, atrial fibrillation. Patient also notes concerns that he was told his thyroid studies are way out of whack. He is currently on levothyroxine. Related Data Home Medications ?Medication ?Instructions ?Recorded ?Confirmed aspirin 81 mg tablet,delayed 81 mg PO DAILY [facility] 10/06/17 10/15/24 release (Adult Low Dose Aspirin) apremilast 30 mg tablet (Otezla) 30 mg PO DAILY 09/26/23 10/15/24 triamcinolone acetonide 0.1 % 1 applic topical NEEDED PRN . 03/24/24 10/15/24 topical cream ondansetron 4 mg disintegrating 4 mg PO 09/24/24 10/15/24 tablet Previous Rx's ?Medication ?Instructions ?Recorded blood-glucose meter (OneTouch #1 ea 05/05/23 Verio Flex Meter) mupirocin 2 % topical ointment See Rx Instructions .Route 05/26/23 .COMPLEX #22 grams ONETOUCH VERIO RE KIT See Rx Instructions .Route 05/28/23 .COMPLEX #1 ea ONETOUCH VERIO BENJI See Rx Instructions .Route 11/11/23 .COMPLEX #100 ea clopidogrel 75 mg tablet 75 mg PO DAILY Blood thinner #90 12/25/23 tabs ezetimibe 10 mg tablet See Rx Instructions .Route 12/25/23 .COMPLEX #90 tabs lancets 30 gauge (OneTouch Delica #100 ea 12/30/23 Plus Lancet) metformin 500 mg tablet,extended 500 mg PO DAILY Diabetes #90 tabs 12/30/23 release 24 hr blood sugar diagnostic (OneTouch #100 strips 03/08/24 Verio test strips) mupirocin 2 % topical ointment 1 applic topical BID 10 days #22 04/20/24 grams furosemide 40 mg tablet See Rx Instructions .Route 05/26/24 .COMPLEX #50 tabs empagliflozin 10 mg tablet See Rx Instructions .Route 08/13/24 (Jardiance) .COMPLEX #100 tabs potassium chloride 10 mEq See Rx Instructions .Route 09/15/24 tablet,extended release(part/cryst) .COMPLEX #100 tabs cetirizine 10 mg tablet (All Day 10 mg PO DAILY #30 tabs 09/24/24 Allergy (cetirizine)) cyclosporine 0.05 % eye drops in a 1 drp ophthalmic (eye) Q12H #60 ea 09/24/24 dropperette (Restasis) trazodone 100 mg tablet See Rx Instructions .Route 09/29/24 .COMPLEX #90 tabs levothyroxine 100 mcg tablet 100 mcg PO DAILY #30 tabs 10/05/24 guaifenesin 600 mg tablet, 600 mg PO BID PRN congestion #60 10/15/24 extended release 12 hr tabs hydrocodone 5 mg-acetaminophen 325 1 tab PO BID #60 tabs 10/15/24 mg tablet amiodarone 200 mg tablet 100 mg (1/2 x 200 mg) PO DAILY 10/18/24 heart rate #45 tabs atorvastatin 10 mg tablet See Rx Instructions .Route 10/18/24 .COMPLEX #90 tabs carvedilol 25 mg tablet See Rx Instructions .Route 10/18/24 .COMPLEX #400 tabs lisinopril 20 See Rx Instructions .Route 10/18/24 mg-hydrochlorothiazide 25 mg tablet .COMPLEX #100 tabs omeprazole 40 mg capsule,delayed See Rx Instructions .Route 10/18/24 release .COMPLEX #100 caps Allergies Allergy/AdvReac Type Severity Reaction Status Date / Time No Known Allergies Allergy Verified 10/15/24 09:59 [facility] Disclaimer: The information contained in this section may have been updated after the patient was seen, as this information can be updated by other users. Medical History Fall Abrasion UTI (urinary tract infection) Leg pain URI (upper respiratory infection) Cough Pacemaker HTN (hypertension), benign Coronary artery disease Cancer Atrial fibrillation Hyperlipidemia Surgical History H/O heart artery stent Social History Smoking Status: Former smoker tobacco type: cigarettes packs per day: 1 second hand exposure: Yes alcohol intake: never substance use type: denies use current occupational status: disabled Travel in the last 8 weeks: None housing: house Have you lived/traveled outside [place] in past 30 days?: No Contact w/someone who lives/traveled outside US past 30 days?: No Exposure to someone with infectious disease in past 14 days?: No Do you have a fever (greater than 100.4 F or 38 C)?: No Have you tested positive for COVID-19: No Exposed to someone with COVID-19 in past 14 days?: No Do you have a sore throat?: No Do you have a cough?: No Do you have any weakness?: Yes Do you have any diarrhea?: No Are you experiencing any unusual bleeding?: No Do you have any muscle aches/pain?: No Do you have any abdominal pain?: No Are you experiencing loss of taste or smell?: No Other Medical History Have you received the Flu Vaccine for this season: Yes Have you received the Pneumonia Vaccine: Yes ROS Obtained: Yes All systems reviewed & no additional complaints except as documented Physical Exam General General appearance: alert, in no apparent distress and cachectic Comment: Thin, chronically ill-appearing Head Head exam: other (Extensive postsurgical changes to head and neck) Eye Eye exam: Present normal appearance, PERRL and EOMI ENT ENT exam: Present normal exam, normal oropharynx, mucous membranes moist and normal external ear exam Neck Neck exam: Present normal inspection, full ROM and trachea midline; Absent tenderness Chest Chest inspection: Present normal inspection and symmetric chest wall rise; Absent tenderness Respiratory Respiratory exam: Present normal lung sounds bilaterally; Absent respiratory distress, wheezes, stridor or accessory muscle use Cardiovascular Cardiovascular exam: Present regular rate and normal rhythm Abdominal Exam Abdominal exam: Present soft; Absent distention, tenderness or guarding Extremities Exam Extremities exam: Present normal inspection, full ROM and normal capillary refill; Absent tenderness or edema Back Exam Back exam: Present normal inspection and full ROM; Absent tenderness Neurological Exam Neurological exam: Present alert, oriented X3, CN II-XII intact and normal gait; Absent motor sensory deficit Psychiatric Psychiatric exam: Present normal affect and normal mood Skin Skin exam: Present warm and dry Medical Decision Making Medical Records Medical records reviewed: Yes I reviewed the patient's medical records. Screening: Per USPSTF and CDC recommendations, given the prevalence of disease in our region, it is our hospital?s policy to screen for HIV and viral Hepatitis for all patients aged 18 and over and those with ongoing risk factors. Alonso Inquiry Pt receiving controlled substance: No Vital Signs: 10/23/24 07:45 10/23/24 07:53 10/23/24 08:00 Temperature 97.9 F Temperature Source Axillary Pulse Rate 70 68 Pulse Rate [Left Radial] 77 Respiratory Rate 19 Blood Pressure 103/65 L Blood Pressure [Right Arm] 103/65 L Blood Pressure Mean [Right Arm] 77 Blood Pressure Source [Right Arm] Automatic Cuff Blood Pressure Position [Right Arm] Supine 02 Sat by Pulse Oximetry 89 L 98 98 Oxygen Delivery Method Nasal Cannula Room Air Nasal Cannula Oxygen Flow Rate (LPM) 2 2 10/23/24 08:15 10/23/24 08:30 10/23/24 08:45 Temperature Temperature Source Pulse Rate 68 69 63 Pulse Rate [Left Radial] Respiratory Rate 11 L 12 Blood Pressure 91/53 L 97/62 L 95/59 L Blood Pressure [Right Arm] Blood Pressure Mean [Right Arm] Blood Pressure Source [Right Arm] Blood Pressure Position [Right Arm] 02 Sat by Pulse Oximetry 99 98 99 Oxygen Delivery Method Nasal Cannula Nasal Cannula Nasal Cannula Oxygen Flow Rate (LPM) 2 2 10/23/24 09:15 10/23/24 09:30 10/23/24 09:45 Temperature Temperature Source Pulse Rate 71 82 68 Pulse Rate [Left Radial] Respiratory Rate Blood Pressure 102/59 L 114/66 107/69 L Blood Pressure [Right Arm] Blood Pressure Mean [Right Arm] Blood Pressure Source [Right Arm] Blood Pressure Position [Right Arm] 02 Sat by Pulse Oximetry 97 97 96 Oxygen Delivery Method Nasal Cannula Nasal Cannula Nasal Cannula Oxygen Flow Rate (LPM) 2 2 10/23/24 10:15 Temperature Temperature Source Pulse Rate Pulse Rate [Left Radial] Respiratory Rate 14 Blood Pressure 103/59 L Blood Pressure [Right Arm] Blood Pressure Mean [Right Arm] Blood Pressure Source [Right Arm] Blood Pressure Position [Right Arm] 02 Sat by Pulse Oximetry Oxygen Delivery Method Oxygen Flow Rate (LPM) Lab Data Lab results reviewed: Yes I reviewed the patient's lab results. Lab Results 10/23/24 08:00: WBC 11.9 H, RBC 4.18 L, Hgb 10.4 L, Hct 34.4 L, MCV 82.3, MCH 24.9 L, MCHC 30.2 L, RDW 17.6 H, Plt Count 327, MPV 9.4, Neut % (Auto) 90.8 H, L ymph % (Auto) 2.3 L, Nicholas % (Auto) 4.3, Eos % (Auto) 1.9, Baso % (Auto) 0.2, N eut # (Auto) 10.8 H, Lymph # (Auto) 0.3 L, Nicholas # (Auto) 0.5, Eos # (Auto) 0.2, Baso # (Auto) 0.0, Total Counted 100, Neutrophils % (Manual) 81 H, Band Neutrophils % 17.0 H, Lymphocytes % (Manual) 2 L, Platelet Estimate Normal, RBC Morphology Not Reportable, Hypochromasia 1+, Stomatocytes 1+, ESR 62 H, PT 10.2, INR 0.90, APTT 29.8, Sodium 130 L, Potassium 4.9, Chloride 89 L, Carbon Dioxide 37 H, Anion Gap 8.9, BUN 42 H, Creatinine 0.60 L, Estimated Creat Clear 69, Estimated GFR 134, Est GFR ( Amer) 162, Glucose 161 H, Lactate 0.8, Calcium 9.1, Total Bilirubin 0.7, AST 30, ALT 28, Alkaline Phosphatase 126, C- Reactive Protein 225.1 H, Total Protein 7.6, Albumin 3.3 L, Globulin 4.3 H, A lbumin/Globulin Ratio 0.8 L, TSH 17.40 H, Thyroxine (T4) 5.4 L, HCV Ab RONNIE w/Rflx PCR Qn Negative, HIV Ag/Ab Combo Qual Negative 10/23/24 09:20: Urine Color Yellow, Urine Appearance Clear, Urine pH 7.0, Ur Specific Moore 1.010, Urine Protein Negative, Urine Glucose (UA) 3+, Urine Ketones Negative, Urine Blood Negative, Urine Nitrate Negative, Urine Bilirubin Negative, Urine Urobilinogen 0.2, Ur Leukocyte Esterase Negative, Urine RBC None, Urine WBC None, Ur Squamous Epith Cells Occasional 10/23/24 08:00 10/23/24 08:00 Orders (Tests/Meds): ED MEDICATIONS Generic Name Dose Route Start Last Admin Trade Name Freq PRN Reason Stop Dose Admin Vancomycin/PEG/NADA/Lysine/Water 1.25 gm in 250 mls @ 125 mls/hr 10/23/24 09:15 10/23/24 09:36 Vancomycin 1.25gm/250ml (Peg) Premix IV 10/23/24 11:14 125 mls/hr ONCE ONE Administration Miscellaneous 1 each 10/23/24 09:15 10/23/24 09:30 Vancomycin Consult Request NOTAPPLIC 11/22/24 09:14 Not Given CONSULT [facility] Sodium Chloride 10 ml 10/23/24 08:58 10/23/24 09:07 Sodium Chloride 0.9% 10ml Syr (Rad Only) IV 11/22/24 08:57 10 ml NEEDED PRN Administration Maintain IV Site Discontinued Medications Generic Name Dose Route Start Last Admin Trade Name Freq PRN Reason Stop Dose Admin Lactated Ringer's 1,000 mls @ 999 mls/hr 10/23/24 07:58 10/23/24 08:17 Lactated Ringer's 1000 Ml Bag IV 10/23/24 08:58 999 mls/hr .Q1H1M ONE Administration Piperacillin Sod/Tazobactam 50 mls @ 100 mls/hr 10/23/24 09:04 10/23/24 09:32 Sod 3.375 gm/ Sodium Chloride IV 10/23/24 09:33 100 mls/hr ONCE ONE Administration Iopamidol 75 ml 10/23/24 08:58 10/23/24 09:07 Iopamidol-370 (76%);100ml Bottle IV 10/23/24 08:59 75 ml ONCE ONE Administration Levothyroxine Sodium 100 mcg 10/23/24 09:20 10/23/24 09:36 Levothyroxine Sodium 100 Mcg Vial IV 10/23/24 09:21 100 mcg ONCE ONE Administration Morphine Sulfate 4 mg 10/23/24 07:58 10/23/24 08:17 Morphine 4mg/Ml Syringe IV 10/23/24 07:59 4 mg ONCE ONE Administration Ondansetron HCl 4 mg 10/23/24 07:58 10/23/24 08:17 Ondansetron 4mg/2ml Vial IV 10/23/24 07:59 4 mg ONCE ONE Administration ORDERS Category Date Time Status CT abdomen pelvis w con Stat Cat Scan 10/23/24 07:43 Completed Activated Partial Thrombo Time Stat Lab 10/23/24 08:00 Completed CRP [C-Reactive Protein] Stat Lab 10/23/24 08:00 Completed Complete Blood Count Auto Diff Stat Lab 10/23/24 08:00 Completed Comprehensive Metabolic Panel Stat Lab 10/23/24 08:00 Completed ESR [Erythrocyte Sedimentation Rate] Stat Lab 10/23/24 08:00 Completed HIV Combo Stat Lab 10/23/24 08:00 Completed Hepatitis C Ab Qual. W/ RFX Stat Lab 10/23/24 08:00 Completed Lactic Acid Stat Lab 10/23/24 08:00 Completed Prothrombin Time INR Stat Lab 10/23/24 08:00 Completed T4 (Thyroxine) Stat Lab 10/23/24 08:00 Completed TSH [Thyroid Stimulating Hormone] Stat Lab 10/23/24 08:00 Completed UA [Urinalysis and Microscopic] Stat Lab 10/23/24 09:20 Completed Blood Culture Stat Micro 10/23/24 08:08 Received Urine Culture Stat Micro 10/23/24 09:22 Received Medical Decision Narrative: In summary, this patient is a 69-year-old male presenting to the Emergency Department for evaluation of redness, warmth of his abdomen, pus draining from his PEG tube site, abdominal pain and concerns for possible PEG tube infection. He recently had it exchanged 10/20/24 after he was found to be displaced at . He also notes concerns that his thyroid studies are out of whack. Differential diagnoses considered include but are not limited to type II displacement, intra- abdominal fluid collection, abdominal infection, abdominal wall cellulitis. Ruling out the most morbid conditions drove assessment. It should be noted patient's history includes head and neck cancer, T-cell lymphoma, PEG tube dependence, atrial fibrillation, CHF status post ICD placement, hypothyroidism, iron deficiency anemia which likely are not at goal therapy. This complicates all aspects of care by increasing patient's risk for morbidity. I reviewed patient's past medical records and noted recent evaluations at for displacement of the PEG tube and replacement at bedside as detailed in HPI. Also reviewed his prior care at with regards to all of his surgical interventions for his cancer. I also reviewed medical records here by PCP for maintenance of chronic health problems such as atrial fibrillation, hypothyroidism. On exam, the patient is lying in bed in no acute distress. He has redness and warmth of his upper abdomen about his PEG tube site. Abdomen is tender. Cardiopulmonary exam is benign, vitals are reassuring on cardiac telemetry. Workup included CBC, CMP, ESR, CRP, lactic acid, blood cultures, CT abdomen pelvis with IV contrast, TSH, T4, coags. Patient was given a bolus of IV fluids as well as IV morphine and Zofran for symptomatic improvement. I independently interpreted CT scan prior to the radiologist read and noted displaced PEG tube with balloon within his abdominal wall with large fluid/air collection in the abdominal wall with a lot of stranding; he has gas extending up to his chest wall. Please see their read for final interpretation. Labs were obtained that demonstrated leukocytosis of 11.9, new from prior lab evaluation. He has a neutrophilic predominance. He has chronic hyponatremia with a sodium of 130. BUN is elevated at 42, creatinine normal at 0.6. He has significant elevated CRP. TSH is greater than 17, T4 is low at 5.4. I suspect he is not been getting his thyroid hormone given the displaced PEG tube, so he was given IV levothyroxine at 100 mcg. Given concerns for infection with this fluid/air collection in his abdominal wall, redness, purulence, and white blood cell count, he was given broad-spectrum antibiotics with IV vancomycin and Zosyn. Blood cultures were sent prior to antibiotics and are pending. I discussed findings with family and recommended surgical evaluation, I recommended transfer back to given that the patient recently had surgical intervention there and follows there for cancer care. They advised they would prefer to stay here given prolonged stay at ER previously. I did page our surgeon network operations center technician to discuss. Dr. Black agrees patient should be transferred to higher level of care with his complicated history and the fact that he just had the PEG to manipulated at several days ago. Given this, initiated discussions with [facility] at 10:10 AM. I had an interactive discussion with Dr. Briones in the transfer center at who accepted the patient for transfer to [facility] ED for further evaluation and management of displaced PEG tube and abdominal infection. Family and patient updated to plan of care. EMS transport was arranged, and the patient was transferred in stable condition. Critical Care Critical Care Time Critical Care Time: Yes Attestation: On 10/23/24, the high probability of a clinically significant, sudden or life threatening deterioration of the following system(s) required my full and direct attention, intervention and personal management. The time I documented below is in addition to time spent performing reported procedures but includes the following listed in this critical care notation. Total Time Total Critical Care Time: 35
[2024-10-23] MEDS: LACTATED RINGERS 1000ML 1,000 ML 999 ML IV (08:17)
[2024-10-23] MEDS: MORPHINE 4MG/ML SYRINGE 4 MG IV ×2 (08:17→11:38)
[2024-10-23] MEDS: ONDANSETRON 4MG/2ML VIAL 4 MG IV (08:17)
[2024-10-23 08:21] LABS: Basophils % 0.2 % (0.1-2.0); Eosinophils # 0.2 K/mm3 (0.0-0.4); Eosinophils % 1.9 % (0.1-12.0); Hematocrit 34.4 % (42.0-52.0); Hemoglobin 10.4 g/dL (14.1-18.0); Lymphocytes # 0.3 K/mm3 (0.7-4.5); Lymphocytes % 2.3 % (10-50); Mean Corpuscular HGB Conc 30.2 g/dL (31.8-35.4); Mean Corpuscular Hemoglobin 24.9 pg (27.0-31.2); Mean Corpuscular Volume 82.3 fl (80-94); Mean Platelet Volume 9.4 fl (7.4-10.4); Monocytes # 0.5 K/mm3 (0.1-1.0); Monocytes % 4.3 % (1.7-9.3); Neutrophils # 10.8 K/mm3 (1.8-7.8); Neutrophils % 90.8 % (37.0-80.0); Nucleated Red Blood Cells # 0 10^3/uL; Nucleated Red Blood Cells % 0 %; Platelet Count 327 K/mm3 (142-424); Red Blood Count 4.18 M/mm3 (4.60-6.20); Red Cell Distribution Width 17.6 % (11.5-17.5); Red Cell Distribution Width-SD 52.1 fL; White Blood Count 11.9 K/mm3 (4.8-10.8)
[2024-10-23 08:26] LABS: Albumin Level 3.3 g/dl (3.5-5.0); Chloride 89 mmol/L (98-107); Potassium 4.9 mmoL/L (3.5-5.1); Sodium 130 mmol/L (136-145)
[2024-10-23 08:29] LABS: Alanine Aminotransferase 28 U/L (12-78); Albumin/Globulin Ratio 0.8 (1.1-1.8); Alkaline Phosphatase 126 U/L (38-126); Anion Gap 8.9 mEq/L (5-15); Aspartate Amino Transferase 30 U/L (17-59); Bilirubin,Total 0.7 mg/dl (0.2-1.3); Blood Urea Nitrogen 42 mg/dl (9-20); Calcium 9.1 mg/dl (8.4-10.2); Carbon Dioxide 37 mmol/L (22.0-30.0); Creatinine Clearance Estimated 69 mL/min (50-200); Estimated Glomerular Filt Rate 134 ml/min (>60); GFR (African American) 162 ML/MIN (>60); Globulin 4.3 g/dL (1.3-3.2); Glucose 161 mg/dl (74-100); Total Protein,Serum 7.6 g/dl (6.3-8.2)
[2024-10-23 08:30] LABS: Lactic Acid 0.8 mmol/L (0.7-2.1)
[2024-10-23 08:35] LABS: C-Reactive Protein 225.1 mg/L (0-4)
[2024-10-23 08:36] LABS: MANUAL DIFFERENTIAL MANUAL DIFFERENTIAL (MANUAL DIFF)
[2024-10-23 08:49] LABS: T4 (Thyroxine) 5.4 ug/dl (5.53-11.0)
[2024-10-23 08:53] LABS: Prothrombin Time 10.2 seconds (10.1-12.5)
[2024-10-23 08:54] LABS: Activated Partial Thrombo Time 29.8 seconds (22.8-30.6)
[2024-10-23] MEDS: SODIUM CHLORIDE 0.9% 10ML SYR (RAD ONLY) 10 ML IV (09:07)
[2024-10-23] MEDS: IOPAMIDOL-370 (76%);100ML BOTTLE 75 ML IV (09:07)
--- NOTE | 2024-10-23 09:19 | PC.NURSE ---
urinal provided. call light within reach. no needs at this time
[2024-10-23] MEDS: PIPERACILLIN/TAZO 3.375 GM in 0.9 % SODIUM CHLORIDE 50 ML IV (09:32)
[2024-10-23 09:33] LABS: HIV Combo NEGATIVE (Negative)
[2024-10-23 09:36] LABS: Microscopic, Urine URINE MICROSCOPIC (MICROSCOPIC)
[2024-10-23] MEDS: VANCOMYCIN/WATER FOR INJ (PEG) 1.25 GM/250 ML PIGGYBACK IV (09:36)
[2024-10-23] MEDS: LEVOTHYROXINE SODIUM 100 MCG VIAL IV (09:36)
[2024-10-23 09:37] LABS: Appearance,Urine CLEAR (Clear); Bilirubin,Urine Negative (Negative); Blood, Urine Negative (Negative); Color,Urine YELLOW (Yellow); Glucose,Urine (UA) 3+ (Negative); Ketones,Urine Negative (Negative); Leukocyte Esterase,Urine Negative (Negative); Nitrate,Urine Negative (Negative); Protein,Urine Negative (Negative); Urobilinogen,Urine 0.2 EU/dl (0.2)
--- NOTE | 2024-10-23 09:39 | PC.NURSE ---
dr kim speaking with [facility]
[2024-10-23 09:41] LABS: Hepatitis C Ab Qual. W/ RFX NEGATIVE (Negative)
[2024-10-23 10:12] LABS: Erythrocyte Sedimentation Rate 62 mm/hr (0-20)
[2024-10-23 10:20] LABS: Lymphocytes % 2 % (10-50); Neutrophils % 81 % (42-76); Total Cells Counted 100
[2024-10-23 10:21] LABS: Hypochromasia 1+
[2024-10-23 10:23] LABS: Stomatocytes 1+
[2024-10-23 10:24] LABS: Platelet Estimate Normal
--- NOTE | 2024-10-23 10:28 | PC.NURSE ---
dr kim speaking with [facility]
[2024-10-23 10:35] LABS: Squamous Epithelial Cell,Urine Occasional #/hpf (0-5)
--- NOTE | 2024-10-23 10:52 | PC.NURSE ---
report called to shweta at [facility]
--- NOTE | 2024-10-23 11:04 | PC.NURSE ---
call made to EMS for pt transport to [facility]
--- NOTE | 2024-10-27 09:35 | PC.NURSE ---
I consulted about the pts final urine culture results. We discussed antibiotics given here and pts transfer to [facility]. No treatment changes needed on our end. Results faxed to [facility].
== END 2024-10-23 11:44 | disposition short-term general hospital (02) ==
PROVIDERS: Emergency Provider Emergency Medicine; PCP Family Medicine
DX: L03.311 Cellulitis of abdominal wall (principal); K94.23 Gastrostomy malfunction; R10.819 Abdominal tenderness, unspecified site; E87.1 Hypo-osmolality and hyponatremia; E03.9 Hypothyroidism, unspecified
CPT/HCPCS: 74177; 80053; 81001; 83605; 84436; 84443; 85007; 85025; 85027; 85610; 85651; 85730; 86140; 86803; 87040; 87086; 87088; 87186; 87389; 96361; 96365; 96366; 96375; 96376; 99291; J2270; J2405; J2543; J3372; J7120; Q9967

== ENCOUNTER 2024-11-17 09:28 | Outpatient (CLI) | payer MEDICARE, OTHER, SELFPAY ==
[2024-11-17 10:27] LABS: Alanine Aminotransferase 24 U/L (12-78); Albumin Level 3.5 g/dl (3.5-5.0); Albumin/Globulin Ratio 1.2 (1.1-1.8); Alkaline Phosphatase 110 U/L (38-126); Anion Gap 5.6 mEq/L (5-15); Aspartate Amino Transferase 26 U/L (17-59); Bilirubin,Total 0.3 mg/dl (0.2-1.3); Blood Urea Nitrogen 23 mg/dl (9-20); Calcium 8.7 mg/dl (8.4-10.2); Carbon Dioxide 36 mmol/L (22.0-30.0); Chloride 95 mmol/L (98-107); Estimated Glomerular Filt Rate 134 ml/min (>60); GFR (African American) 162 ML/MIN (>60); Glucose 98 mg/dl (74-100); Potassium 4.6 mmoL/L (3.5-5.1); Sodium 132 mmol/L (136-145); Total Protein,Serum 6.5 g/dl (6.3-8.2)
== END 2024-11-17 23:59 | disposition home or self-care (01) ==
PROVIDERS: PCP Family Medicine; Visit Provider Internal Medicine
DX: C84.A1 Cutaneous T-cell lymphoma, unspecified lymph nodes of head, face, and neck (principal)
CPT/HCPCS: 36415; 80053

== ENCOUNTER 2025-03-17 13:59 | Emergency (ER) | payer MEDICARE, OTHER, SELFPAY ==
--- OUTSIDE RECORDS SUMMARY | 2025-01-28 10:45 | XMS_ITS | Encounter Summary ---
Author Organization [facility] Address [address] [place] [address] Care Team Providers Care Sports Coordinator Name Role Phone System, Provider Not In MD Primary Care Provider Unavailable Reason for Visit * Reason Comments Tearing, Eye * Consultation (Routine) - Closed Specialty Diagnoses / Procedures Referred By Contac t Referred To Contact Ophthalmology Diagnoses Oral cancer ([facility]) Boogie Chaidez MD [address] [facility] [address] [place] [address] Phone: tel: fax: Karson Key MD [address] [address] Phone: tel: fax: Referral ID Status Reason Start Date Expiration Date V isits Requested Visits Authorized [id number] Closed Specialty Services Required 08/16/2024 02/15/2026 1 1 Encounter Details Date Type Department Care Team (Late st Contact Info) Description 01/28/2025 10:45 AM EDT Office Visit [facility] [address] [place] [address] Karson Key MD [address] [address] Tearing, right (Primary Dx); Dry eyes; Right epiphora; 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 No 10/25/2024 Within the last year, have y ou been humiliated or emotionally abused in other ways by your partner or ex-partner? No Within the last year, have y ou been kicked, hit, slapped, or otherwise physically hurt by your partner or ex-partner? No 10/25/2024 Within the last year, have y ou been raped or forced to have any kind of sexual activity by your partner or ex-partner? No 10/25/2024 Hunger Vital Sign Answer Date Recorded Within the past 12 months, y ou worried that your food would run out before you got the money to buy more. Never true 10/26/19 25 Within the past 12 months, t he food you bought just didn't last and you didn't have money to get more. Never true 10/25/2024 PRAPARE - Transportation Answer Date Re corded In the past 12 months, has l ack of transportation kept you from medical appointments or from getting medications? No 10/12 In the past 12 months, has l ack of transportation kept you from meetings, work, or from getting things needed for daily living? No 10/25/2024 Housing Stability Vital Sign Answer Isiah e Recorded In the last 12 months, was t here a time when you were not able to pay the mortgage or rent on time? No 10/25/2024 In the past 12 months, how m any times have you moved where you were living? 0 10/25/2024 At any time in the past [address] [facility], were you homeless or living in a intermediate (including now)? No 10/25/2024 Utilities Answer Date Recorded In the past 12 months has th e electric, gas, oil, or water company threatened to shut off services in your home? No 10/25/2024 Sex and Gender Information Value Date Recorded Sex Assigned at Male 07/26/2024 2:18 PM EST Legal Sex Male 8:07 PM EDT Gender Identity Male 07/27/2024 11:01 AM EST Sexual Orientation Straight 07/27/2024 11 :01 AM EST documented as of this encounter Miscellaneous Notes * Progress Notes - Karson Key MD - 01/28/2025 10:45 AM EDT Subjective Patient ID: Marciano Castro is a 69 y.o. male. Chief Complaint Tearing, Eye HPI Tearing, Eye In right eye. Characterized as intermittent. Associated symptoms include dryness. It is worse throughout the day. Duration of months. Since onset it is stable. Response to treatment was no improvement. Comments 69 yo male in clinic for ectropion consult by Boogie Chaidez MD. Pt states his right eye (OD) does not want to stay shut. When he's asleep it stays open as well. States his right eye (OD) is blurry as well. States it feels tired. Eye will tear and feel dry. Last edited by Karson Key MD on 01/28/2025 11:17 AM. Current Outpatient Medications (Ophthalmic Drugs) Medication Sig carboxymethylcellulose PF (Refresh Plus) 0.5 % ophthalmic solution Administer 1 drop into the righteye 3 (three) times a day. cycloSPORINE (Restasis) 0.05 % ophthalmic emulsion Administer 1 drop into both eyes 2 (two) times aday. White Petrolatum-Mineral Oil (artificial tears) ophthalmic ointment Apply 1 Application to right eye every night. (Patient not taking: Reported on 01/28/2025) No current facility-administered medications for this visit. (Ophthalmic Drugs) Current Outpatient Medications (Other) Medication Sig acetaminophen (Tylenol) 500 MG tablet 2 tablets (1,000 mg) by Per G Tube route every 8 (eight) hours. albuterol 108 (90 Base) MCG/ACT inhaler Inhale 2 puffs every 4 (four) hours as needed for wheezing. amiodarone (Pacerone) 200 MG tablet 0.5 tablets by Per G Tube route daily. ascorbic acid (Vitamin C) 500 MG tablet 1 tablet by Per G Tube route daily. aspirin 81 MG EC tablet Take 1 tablet (81 mg) by mouth 1 (one) time each morning. To be given per Gtube atorvastatin (Lipitor) 10 MG tablet 1 tablet (10 mg) by Per G Tube route 1 (one) time each day. carvedilol (Coreg) 25 MG tablet 2 tablets by Per G Tube route 2 (two) times a day with meals. cetirizine (ZyrTEC) 10 MG tablet 1 tablet by Per G Tube route daily. clopidogrel (Plavix) 75 MG tablet 1 tablet by Per G Tube route daily. docusate sodium (Colace) 50 MG/5ML oral liquid 10 mL (100 mg) by Per G Tube route 2 (two) times a day. empagliflozin (Jardiance) 10 MG Take 1 tablet (10 mg) by mouth 1 (one) time each day. To be given per G tube esomeprazole (NexIUM) 40 MG packet 40 mg by Per G Tube route daily before breakfast. Mix contents of the packet with 5-15 mL of water and stir; leave for 2 to 3 minutes to thicken; stir and administer within 30 minutes. If any medicine remains, add more water, stir and administer immediately. ezetimibe (Zetia) 10 MG tablet 1 tablet (10 mg) by Per G Tube route every night. Feeding Supplies [facility] Please send months supply of syringes and [place] (if able) furosemide (Lasix) 40 MG tablet Take 1 tablet (40 mg) by mouth every other day. HYDROcodone-acetaminophen (Semora) 5-325 MG tablet 1 tablet by Per G Tube route in the morning and 1tablet before bedtime. isosource 1.5 Luis Felipe/mL liquid 1 Can by Per G Tube route 6 (six) times a day. Total of 6 cartons per day with 90mL of free water before and after each carton. Equivalent Substitutions Allowed? Yes levothyroxine (Synthroid, Levoxyl) 100 MCG tablet 1 tablet by Per G Tube route daily. lisinopril-hydroCHLOROthiazide 20-25 MG tablet 1 tablet by Per G Tube route 1 (one) time each day. magnesium hydroxide (Milk of Magnesia) 400 MG/5ML suspension 30 mL by Per G Tube route 1 (one) timeeach day if needed for constipation. metFORMIN, OSM, (Fortamet) 500 MG 24 hr tablet 1 tablet daily. Per G-tube Multiple Vitamin (multivitamin) tablet 1 tablet by Per G Tube route daily. ondansetron ODT (Zofran-ODT) 4 MG disintegrating tablet Dissolve 1 tablet on the tongue every 6 hours as needed for nausea or vomiting. polyethylene glycol (MiraLax) 17 GM/SCOOP powder Take 17 g by mouth daily. potassium chloride CR (Klor-Con) 10 MEQ ER tablet 1 tablet daily. Do not crush, chew, or split. potassium chloride CR 10 MEQ PO ER tablet sodium chloride 3 % nebulizer solution Take 3 mL by nebulization 2 (two) times a day if needed for cough. SV Iron 325 (65 Fe) MG tablet 1 tablet by Per G Tube route daily. traZODone (Desyrel) 100 MG tablet 1 tablet (100 mg) by Per G Tube route every night. triamcinolone (Kenalog) 0.1 % cream Apply 1 Application topically 2 (two) times a day. sodium chloride (Killen) 0.65 % nasal spray Administer 1 spray into each nostril if needed for congestion. (Patient not taking: Reported on 01/28/2025) No current facility-administered medications for this visit. (Other) Objective Base Eye Exam Visual Acuity (Snellen - Linear) Right Left Dist cc 20/30 +2 enuc Correction: Glasses Pupils Shape React APD Right Round Slow None Left enuc Extraocular Movement Right Left Full Full Neuro/Psych Oriented x3: Yes Slit Lamp and Fundus Exam External Exam Right Left External no dacyrocystitis Slit Lamp Exam Right Left Lids/Lashes Right lower eyelid (RLL) minimal involutional ectropion, lag = 3 mm, good [place] phen Normal for age Conjunctiva/Sclera Normal Normal Cornea Clear and compact Clear and compact Anterior Chamber Deep and quiet Deep and quiet Iris Normal pupil size and shape Normal pupil size and shape Lens Clear Clear Vitreous Normal Normal Assessment/Plan Assessment & Plan Tearing, right Dry eyes 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 Partial nasolacrimal duct (NLD) obstruction Right lower eyelid (RLL) minimal involutional ectropion Discussed options with pt - observe for present - no oculoplastics surgical intervention at present Art tears and gel both eyes (OU) as needed Follow up with general eye dr as needed / scheduled Prn oculoplastics Instructed pt to call if any issues Tobacco Use: Medium Risk (01/28/2025) Patient History Smoking Tobacco Use: Former Smokeless Tobacco Use: Never Passive Exposure: Past The patient has been counseled on tobacco cessation: Not Applicable A complete eye exam of periorbital structures, anterior segment, and posterior segment (undilated) was ordered, reviewed, and interpreted by Karson Key MD. All results reviewed and within normal limits except as outlined above. A review of both external and internal historical documentation was completed by provider Patient history, provider findings, and provider assessment and plan discussed with the patient.. Monitoring and / or treatment of the conditions outlined above is necessary to prevent lifelong disability Note to the reader: The Century Cures Act makes medical notes like these available to patientsin the interest of transparency. However, be advised this is a medical document. It is intended as peer to peer communication. It is written in medical language and may contain abbreviations or verbiage that are unfamiliar. It may appear blunt or direct. Medical documents are intended to carry relevant information, facts as evident, and the clinical opinion of the practitioner. For a list of common ophthalmology abbreviations, please refer to: https://[email or web address].org/young-ophthalmologists/yo-info/article/aygevjmx-jvhis-vjsltd lmic-abbreviations documented in this encounter Plan of Treatment Upcoming Encounters Date Type Department Care Team ([facility] Contact Info) Description 05/31/2025 10:30 AM EST Appointment [facility] [address] [place] [address] 05/31/2025 11:30 AM EST Appointment [facility] PET [facility] [address] [place] [address] 05/31/2025 2:30 PM EST Clinical Support [facility] [address] [address] 05/31/2025 3:00 PM EST Office Visit [facility] [address] [place] [address] Marci Saini PA [address] [facility] [address] [place] [address] documented as of this encounter Procedures Procedure Name Priority Date/Time Associated Diagnosis Comments NASOLACRIMAL DUCT PROBING - OD - RIGHT EYE Routine 01/28/2025 11:16 AM EDT Tearing, right documented in this encounter Results * Nasolacrimal Duct Probing - OD - Right Eye (01/28/2025 11:16 AM EDT) Anatomical Region Laterality Modality Head Other Narrative 01/28/2025 11:16 AM EDT BSS (2 with correction (cc)) was flushed into the right lower eyelid (RLL) n punctum minimal Resistance minimal reflux no Purulence minimal Delay in fluid felt in nose Nil complications Tolerated well us Karson Key MD OPHTH CLINIC PROCEDURES Final Result documented in this encounter Visit Diagnoses Diagnosis Tearing, right- Primary Dry eyes Unspecified tear film insufficiency Right epiphora Epiphora, unspecified as to cause 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
--- OUTSIDE RECORDS SUMMARY | 2025-03-01 08:33 | XMS_ITS | Encounter Summary ---
Author Organization [facility] Address [address] 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 [address] [place] [phone] Phone: tel: fax: Referral ID Status Reason Start Date Expiration Date Visits Re quested Visits Authorized [id number] Closed 10/15/2024 04/16/2026 2 2 Encounter Details Date Type Department Care Team (Latest Contact Info) Description 03/01/2025 8:33 AM EDT - 03/01/2025 11:59 PM EDT Hospital Encounter 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 No 10/25/2024 Utilities Answer Date Recorded In the past 12 months has e [employer], gas, oil, or water [employer] threatened to shut off services in your [...] Tube route every night. 5 Feeding Supplies [facility] Please send months supply of syringes and [employer] (if able) 1 each 11 5 furosemide (Lasix) 40 MG tablet Take 1 tablet (40 mg) by mouth every other day. 5 HYDROcodone-acetami nophen ([place]) 5-325 MG tablet 1 tablet by Per [...] MEQ PO ER tablet 5 sodium chloride ([place]) 0.65 % nasal spray Administer 1 spray into each nostril if needed for congestion. 30 mL 12 5 sodium chloride 3 % nebulizer solution [...] Application topically 2 (two) times a day. White Petrolatum-Mineral Oil (artificial tears) ophthalmic ointment Apply 1 Application to right eye every night. 2.5 g 1 5 documented as of this encounter Plan of Treatment Upcoming Encounters Date Type Department Care Team ([facility] Contact Info) Description 05/31/2025 10:30 AM EST Appointment [facility] PET Scan [address] [place] [phone] 05/31/2025 11:30 AM EST Appointment [facility] PET Scan [address] [place] [address] 05/31/2025 2:30 PM EST Clinical Support [facility] Hematology/BMT and Cellular Therapy Program [address] [place] [phone] 05/31/2025 3:00 PM EST Office Visit [facility] Hematology/BMT and Cellular Therapy Program [address] [place] [phone] Marci Saini PA [address] [facility] [address] [place] [phone] documented as of this encounter Procedures Procedure [...] sides for neck scan. PET/CT scanner: Siemens Ath[employer] Solutionsgraph 40 mCT. PET/CT acquisition: Jvskru-uo-uvr-thighs, plus magnification (zoomed) neck. Standardized uptake value (SUV): Corrected for body weight only. CT: Low-dose, dcz-tygqpg-edcr, without intravenous contrast. TOTAL DLP (Dose Length [...] scanner: Siemens Biograph 40 mCT. PET/CT acquisition: Vtdkpp-at-kmu-thighs, plus magnification (zoomed)neck. Standardized uptake value (SUV): Corrected for body weight only. CT: Low-dose, rck-rsmniu-ekkc, without intravenous contrast. TOTAL DLP (Dose Length [...] signing this report, I, the attending physician, attestthat I have personally reviewed the images/data for the aboveexamination(s) and agree with the final edited report. 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) documented in this encounter Administered Medications Inactive Administered Medications - up to 3 most recent administrations Medication Order MAR Action Action Date Dose Rate Site Fludeoxyglucose F 18 (FDG 18) radio-isotope injection 10 millicurie 10 millicurie, Intravenous, Once, 1 dose, On Fri03/01/25 at 0945, Routine, Imaging NM Protocol Orders Given 03/01/2025 8:43 AM EDT 12.87 millicuries Right Forearm documented in this encounter Additional Health Concerns Assessment Noted Time A fall risk assessment has been complete d for the patient 03/01/2025 10:36 AM EDT A Body Mass Index follow-up plan has been documented for the patient 01/28/2025 11:21 AM EDT documented as of this encounter Care Teams Green Meat Packer Relationship Specialty Start Date End Date System, Provider Not In, MD [address] [address] PCP - General Family Medicine 08/16/24 documented as of this encounter
--- OUTSIDE RECORDS SUMMARY | 2025-03-01 08:33 | XMS_ITS | Encounter Summary ---
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 [address] [place] [phone] Phone: tel: fax: Referral ID Status Reason Start Date Expiration Date Visits Re quested Visits Authorized [id number] Closed 10/15/2024 04/16/2026 2 2 Encounter Details Date Type Department Care Team (Latest Contact Info) Description 03/01/2025 8:33 AM EDT - 03/01/2025 11:59 PM EDT Hospital Encounter [facility] PET Scan [address] [place] [address] Discharge Disposition: Home or Self Care Social [...] any time in the past 12 m [facility], were you homeless or living in a prison (including now)? No 10/25/2024 Utilities Answer Date Recorded In the past 12 months has th e [employer], gas, oil, or water [employer] threatened to shut off services in your [...] mouth every other day. 5 HYDROcodone-acetami nophen ([place]) 5-325 MG tablet 1 tablet by Per [...] MEQ PO ER tablet 5 sodium chloride ([place]) 0.65 % nasal spray Administer 1 spray [...] Info) Description 05/31/2025 10:30 AM EST Appointment [facility] PET Scan [address] [place] [address] 05/31/2025 11:30 AM EST Appointment [facility] PET Scan [address] [place] [address] 05/31/2025 2:30 PM EST Clinical Support [facility]ology[facility] Cellular Therapy [facility] [address] [phone] 05/31/2025 3:00 PM EST Office Visit [facility]ology[facility]MT [facility] Cellular Therapy Program [address] [phone] Marci Saini PA [address] [facility] [address] [place] [phone] documented as of this encounter Procedures Procedure [...] scanner: Siemens Biograph 40 mCT. PET/CT acquisition: Nnsyml-fo-tyq-thighs, plus magnification (zoomed) neck. Standardized uptake value (SUV): Corrected for body weight only. CT: Low-dose, apn-tkmrcf-dhda, without intravenous contrast. TOTAL DLP (Dose Length [...] scanner: Siemens Biograph 40 mCT. PET/CT acquisition: Xytzjy-dy-rir-thighs, plus magnification (zoomed)neck. Standardized uptake value (SUV): Corrected for body weight only. CT: Low-dose, kkq-vzqocv-iayw, without intravenous contrast. TOTAL DLP (Dose Length [...] documented as of this encounter Care Teams Sexual Assault Nurse Relationship Specialty Start Date End Date System, Provider Not In, MD Cés[place] [address] PCP - General Family Medicine 08/16/24 documented as of this encounter
--- OUTSIDE RECORDS SUMMARY | 2025-03-01 14:00 | XMS_ITS | Encounter Summary ---
Author Organization Healthcare Address [address] [place] [address] Care Team Providers Care Electronic Equipment Set Up Operator Name Role Phone System, Provider Not In MD Primary Care Provider Unavailable Reason for Visit * Reason Comments Labs Encounter Details Date Type Department Care Team ([facility] st Contact Info) Description 03/01/2025 2:00 PM EDT Clinical Support [facility] Hematology/BMT and Cellular Therapy Program [address] [place] [address] [place] [address] Social History Tobacco Use Types Packs/Day Years [...] were you homeless or living in a halfway (including now)? No 10/25/2024 Utilities Answer Date [...] Upcoming Encounters Date Type Department Care Team ([facility] st Contact Info) Description 05/31/2025 10:30 AM EST Appointment [facility] PET Scan [address] [place] [address] 05/31/2025 11:30 AM EST Appointment [facility] PET Scan [address] [place] [address] 05/31/2025 2:30 PM EST Clinical Support [facility]ematology/BMT and Cellular Therapy Program [address] [place] [address] 05/31/2025 3:00 PM EST Office Visit [facility]ematology/BMT and Cellular Therapy Program [address] [facility] [address] [place] [address] Marci Saini, [facility] [address] [place] [address] documented as of this encounter Visit Diagnoses Not on filedocumented in this encounter Additional Health Concerns Assessment Noted Time A fall risk assessment has been complete d for the patient 03/01/2025 10:36 AM EDT A Body Mass Index follow-up plan has been documented for the patient 01/28/2025 11:21 AM EDT documented as of this encounter Care Teams Electronic Equipment Set Up Operator Relationship Specialty Start Date End Date System, Provider Not In, MD [place] [address] PCP - General Family Medicine 08/16/24 documented as of this encounter
--- OUTSIDE RECORDS SUMMARY | 2025-03-01 14:30 | XMS_ITS | Encounter Summary ---
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/HCC) Skyla Kirby MD 800 [facility] [address] [address] Phone: tel: fax: [facility] Hematology/BMT and Cellular Therapy Program [address] [phone] Phone: tel: fax: Referral ID Status Reason Start Date Expiration Date Visits Requested Visits Authorized [id number] Authorized Specialty Services Required 03/03/2025 09/02/2026 1 1 Scheduling Instructions *Do Not Schedule* - This referral is for managing the [facility] Dietitian workflow. 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 No 10/25/2024 Utilities Answer Date Recorded In the past 12 months has [employer], gas, oil, or water company threatened to shut off services in your home? No 10/25/2024 Sex and Gender Information Value Date Recorded Sex Assigned at Male 07/26/2024 2:18 PM EST Legal Sex Male 8:07 PM EDT Gender Identity Male 07/27/2024 11:01 AM EST Sexual Orientation Straight 07/27/2024 11 :01 AM EST documented as of this encounter Last Filed Vital Signs Vital Sign Reading Time Taken Comments Blood Pressure 142/83 03/01/2025 10:38 AM EDT Pulse 60 03/01/2025 10:38 AM EDT Temperature 36.6 C (97.9 F) 03/01/2025 10:38 AM EDT Respiratory Rate 18 03/01/2025 10:3 8 AM EDT Oxygen Saturation 95% 03/01/2025 10: 38 AM EDT Inhaled Oxygen Concentration - - Weight 89.2 kg (196 lb 10.4 oz) 025 10:38 AM EDT Height 182.9 cm (6' 0.01 ) 03/01/2025 1 0:38 AM EDT Body Mass Index 26.66 03/01/2025 10:38 AM EDT documented in this encounter Miscellaneous Notes * Progress Notes - Skyla Kirby MD - 03/01/2025 2:30 PM EDT Images from the original note were not included. Division of Hematology and Blood & Marrow Transplant New Patient Note Introduction: 69 y.o. male with new diagnosis of T cell lymphoma is being seen for follow-up after imaging Primary Oiler And Greaser: Skyla Kirby Referring Physician: No referring provider defined for this encounter. Subjective History of Present Illness: Patient reports feeling well since completing radiation. He is asking if the swelling in his face will improve. He reports continuing to use tube feeds. He is following with speech therapy however does not have a bulk tank driver. He is ordering tube feeds online. He reports leg swelling. Reports mitzy weight gain and is self-decreasing his tube feeds. HEMATOLOGIC HISTORY Marciano Castro is a 68 y.o. 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 Now s/p exenteration of L eye, left neck dissection, and craniectomy on 07/16/24. 06/25/24: PET scan showed left forehead hypermetabolic cutaneous lesion likely involving left lacrimal gland; 2 subcentimeter pulmonary nodules w/o hypermetabolic uptake; no suspicious uptake in neckor visceral lymph nodes 07/16/24: exenteration of L eye, left neck dissection, and craniectomy. Pathology showed: SKIN OF LEFT FACE WITH ORBITAL GLOBE (RADICAL RESECTION AND ORBITAL EXENTERATION: - CD30 POSITIVE T-CELL LYMPHOMA, SEE DESCRIPTION BONE, CRANIUM (CRANIECTOMY): POSITIVE FOR MALIGNANCY, CD30 POSITIVE T CELL LYMPHOMA WITH DESTRUCTION OF BONE TEMPORALIS MUSCLE (EXCISION): NEGATIVE FOR MALIGNANCY 07/25/24: Patient discharged but re-admitted 07/26 to ENT for failure to thrive at home. 07/30/24: Echo showed: left ventricular systolic function is moderately reduced. The LVEF as measured by biplane volume is 40%. The global longitudinal strain is reduced (>-14%). There is global hypokinesis of the left ventricle. The right ventricle is mildly dilated. A catheter/lead is present in the right ventricle. The right ventricular systolic function is normal. Right ventricular systolic pressure is moderately elevated (50-70mmHg). 07/29/24: Hep B core total AB, hep C and HIV: negative 07/29/24 EBV negative, HTLV I/II negative 08/03/24: bone marrow biopsy done showed: BONE MARROW ASPIRATE AND BIOPSY (LEFT POSTERIOR ILIAC CREST): - HYPERCELLULAR BONE MARROW WITH TRILINEAGE HEMATOPOIESIS AND MILD POLYTYPIC PLASMACYTOSIS. - NO MORPHOLOGIC OR IMMUNOPHENOTYPIC EVIDENCE OF T-CELL LYMPHOMA. Karyotype normal T-ALL FISH negative NGS negative 08/04/24: discharged to rehab 10/08/2024: PET/CT Suspicious focal intense hypermetabolic uptake along the inferior margin of the left cervical lymphadenectomy bed without a definite CT correlate, worrisome for marginal residual/recurrent disease. Similarly, there is also suspicious focal hypermetabolism without a definite CT correlate localizing in the expected region of the right cervical level III michelle station and focal cutaneous hypermetabolic uptake localizing to the helix of the right ear which could potentially represent michelle and additional cutaneous sites of disease and require dedicated diagnostic contrast enhanced CT or MRI of the head and neck for correlation. 11/30/24-12/16/24: patient received 1225 planned fractions of radiation (total 2400 cGy). Patient opted to truncate treatment to retain some function (note scanned in media 12/22/24) 03/01/2025: PET/CT 1.Status post resection and flap reconstruction of the left forehead, with no evidence of increasedfocal metabolic activity to suggest local recurrence. 2.There is interval stability of the adrenal gland lesions, demonstrating similar mild FDG activity, which remains below liver background levels. A dedicated contrast-enhanced CT of the abdomen wouldbe better for complete characterization. 3.No other metabolically active foci are identified to suggest metastatic disease. Review of Systems: Constitutional: as per HPI Eyes: No decrease in vision, change in visual agrawal or color vision ENT: No nasal congestion or discharge, throat pain, ear pain or discharge, change in hearing or tinnitus Cardiovascular: No dyspnea on exertion, chest pressure, palpitations, dizziness and leg edema Respiratory: No cough, phlegm, hemoptysis, chest pain and shortness of breath Abdominal: as per HPI Genitourinary: No hematuria, dysuria, urgency or frequency Skin: No itching, rashes or lesions Endocrine: No heat or cold intolerance Neurologic: as per HPI Psychiatric: No recent alteration in mood Hematologic: as per HPI Musculoskeletal: No back pain, muscle or joint aches Patient History Patient's past medical, surgical, social, and family history as well as allergies reviewed and unchanged on 03/01/25. Current medications: Current Outpatient Medications Medication Instructions acetaminophen (TYLENOL) 1,000 mg, Per G Tube, Every 8 hours albuterol 108 (90 Base) MCG/ACT inhaler 2 puffs, Every 4 hours PRN amiodarone (PACERONE) 100 mg, Daily ascorbic acid (VITAMIN C) 500 mg, Daily aspirin 81 mg, Oral, Every morning (0600), To be given per G tube atorvastatin (LIPITOR) 10 mg, Per G Tube, Daily carboxymethylcellulose PF (Refresh Plus) 0.5 % ophthalmic solution 1 drop, Right Eye, 3 times daily carvedilol (COREG) 50 mg, Per G Tube, 2 times daily with meals cetirizine (ZyrTEC) 10 MG tablet 1 tablet by Per G Tube route daily. clopidogrel (PLAVIX) 75 mg, Per G Tube, Daily cycloSPORINE (Restasis) 0.05 % ophthalmic emulsion 1 drop, 2 times daily docusate sodium (COLACE) 100 mg, Per G Tube, 2 times daily empagliflozin (JARDIANCE) 10 mg, Oral, Daily, To be given per G tube esomeprazole (NEXIUM) 40 mg, Per G Tube, Daily before breakfast, Mix contents of the packet with 5-15 mL of water and stir; leave for 2 to 3 minutes to thicken; stir and administer within 30 minutes.If any medicine remains, add more water, stir and administer immediately. ezetimibe (ZETIA) 10 mg, Per G Tube, Nightly Feeding Supplies [facility] Please send months supply of syringes and [place] (if able) furosemide (LASIX) 40 mg, Oral, Every other day HYDROcodone-acetaminophen ([place]) 5-325 MG tablet 5 mg of hydrocodone, 2 times daily levothyroxine (SYNTHROID, LEVOXYL) 100 mcg, Daily lisinopril-hydroCHLOROthiazide 20-25 MG tablet 1 tablet, Per G Tube, Daily magnesium hydroxide (Milk of Magnesia) 400 MG/5ML suspension 30 mL, Per G Tube, Daily PRN metFORMIN (OSM) (FORTAMET) 500 mg, Daily Multiple Vitamin (multivitamin) tablet 1 tablet, Daily ondansetron ODT (ZOFRAN-ODT) 4 mg, Oral, Every 6 hours PRN polyethylene glycol (MIRALAX) 17 g, Oral, Daily potassium chloride CR (Klor-Con) 10 MEQ ER tablet 10 mEq, Daily potassium chloride CR 10 MEQ PO ER tablet sodium chloride ([employer]) 0.65 % nasal spray 1 spray, Each Nostril, As needed sodium chloride 3 % nebulizer solution 3 mL, Nebulization, 2 times daily PRN SV Iron 325 (65 Fe) MG tablet 1 tablet by Per G Tube route daily. traZODone (DESYREL) 100 mg, Per G Tube, Nightly triamcinolone (Kenalog) 0.1 % cream 1 Application, 2 times daily White Petrolatum-Mineral Oil (artificial tears) ophthalmic ointment 1 Application, Right Eye, Nightly Objective Physical Exam: Visit Vitals BP (!) 142/83 Pulse 60 Temp 36.6 ??C (97.9 ??F) Resp 18 Ht 1.829 m (6' 0.01 ) Wt 89.2 kg (196 lb 10.4 oz) SpO2 95% BMI 26.66 kg/m?? Smoking Status Former BSA 2.13 m?? KPS: 50 - Requires considerable assistance and frequent medical care General: in NAD, large well-healed surgical wound over left eye and scalp, in a wheelchair (no apparent swelling around surgical scar) HEENT: No pallor, no icterus Heart: S1S2 Normal, RRR Lungs: Clear to auscultation bilaterally, no increased work of breathing Abdomen: Soft, no tenderness, bowel sounds present Lymphatics: No cervical, axillary or inguinal adenopathy Skin/Extremities: No edema, No rash Psych: Normal mood and affect. AAOX4 Neuro: Grossly normal motor and sensory function, no gait or balance assessment Diagnostics: Labs in last 18 hours CBC WBC ?? Hb ?? Plt ?? Hct ?? ANC ?? INR ??, PTT ?? BMP Na ?? Cl ?? BUN ?? Glu ?? K ?? Co2 ?? Cr ?? Ca ?? iCa ?? Mg ??, Phos ?? LFT AST ?? AlkPhos ?? T Prot ?? ALK ?? Bili ?? Alb ?? D.Bili ?? Pathology: see above Imaging: I have independently reviewed the imaging available Assessment/Plan Mr. Castro is a 69 y.o. male with new diagnosis of T cell lymphoma is being seen for establishment of veterans health administrationThis represents a life threatening illness for which urgent cancer treatment is indicated. # peripheral T cell lymphoma vs cutaneous T cell lymphoma vs anaplastic T cell lymphoma # exenteration of L eye, left neck dissection, and craniectomy # s/p peg placement/dependence Status: s/p surgical resection Stage: if staging as PTCL, stage 1E Risk Stratification: na Therapy: adjuvant radiation 07/07 fractions received (total 2400 cGy) For full details on therapy, please refer to Hematologic history. Plan: - patient completed radiation. 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 Dependent on his family to take care of him. He has pressure wounds that are improved with wound care. Placed a consult to nutrition to follow tube feeds. Family also reported he sometimes adds high caloric foods with low nutritional value (such as pop juice) to his peg tube. Can consider speech eval in the future (patient reports he is following). # T2DM # HFrEF s/p AICD # atrial fibrillation # new leg swelling Complicates care. Patient had echo 07/2024 that showed LVEF as measured by biplane volume is 40%. The global longitudinal strain is reduced (>-14%). There is global hypokinesis of the left ventricle. - follows with cardiology - patient with new and worsening leg swelling. I have asked him to contact property controller. I also explained that weight gain may be due to volume overload rather than due to nutrition. # Immunologic Status & Infections - Prophylaxis: none - Standard/COVID-19 precautions - Primary FN Prophylaxis # Pain control Patient with discomfort when remaining seated for a long period of time. He does have oxycodone 5mgq8 and takes ibuprofen 400 mg q6. # Blood Transfusion - Transfuse PRBCs for Hg < 7 g/dL and platelets for platelet counts < 10K Skyla Kirby MD Sales Financial Analysthealthcare social worker Division of Hematology & BMT [facility] [place], [facility] documented in this encounter Plan of Treatment Upcoming Encounters Date Type Department Care Team (Late st Contact Info) Description 05/31/2025 10:30 AM EST Appointment [facility] PET Scan [address] [place] [phone] 05/31/2025 11:30 AM EST Appointment [facility] PET Scan [address] [place] [phone] 05/31/2025 2:30 PM EST Clinical Support [facility] H[facility]ology/BMT [facility] Cellular Therapy Program [address] [place] [address] 05/31/2025 3:00 PM EST Office Visit [facility] Hematology/BMT and Cellular Therapy Program [address] [place] [address] Marci Saini, DANIELLE 800 [facility] [address] [place] [phone] Scheduled Referrals Name Type Priority Associated Diagnoses Order Schedule Ambulatory referral to [facility] Oncology Nutrition Outpatient Referral Routine 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) Expected: 03/03/2025 (Approximate), Expires: 09/03/2026 documented as of this encounter Procedures Procedure Name Priority Date/Time Associated Diagnosis Comments CBC WITH AUTO DIFFERENTIAL Routine 03/01/2025 10:08 AM EDT 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) LACTATE DEHYDROGENASE, PLASMA Routine 03/01/2025 10:08 AM EDT 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) COMPREHENSIVE METABOLIC PANEL, PLASMA Routine 03/01/2025 10:08 AM EDT 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) documented in this encounter Results * Lactate Dehydrogenase, Plasma (03/01/2025 10:08 AM EDT) LDH, Plasma 239 116 - 250 U/L 03/01/2025 10:56 AM EDT [facility] Blood Venous blood specimen / Unknown Venipuncture / Unknown 03/01/2025 10:08 AM EDT 03/01/2025 10:26 AM EDT us Skyla Kirby MD LAB BLOOD ORDERABLES Final Resul t [facility] [address] [place] [address] * (ABNORMAL) CBC and Differential (03/01/2025 10:08 AM EDT) WBC Count 6.67 3.70 - 10.30 10*3/uL LAB HEMATOLOGY METHOD 03/01/2025 10:28 AM EDT [facility] RBC Count 4.34(L) 4.60 - 6.10 10*6/uL LAB HEMATOLOGY METHOD 03/01/2025 10:28 AM EDT [facility] HGB 11.2(L) 13.7 - 17.5 g/dL LAB HEMATOLOGY METHOD 03/01/2025 10:28 AM EDT [facility] HCT 35.5(L) 40.0 - 51.0 % LAB HEMATOLOGY METHOD 03/01/2025 10:28 AM EDT [facility] Platelet Count 162 155 - 369 10*3/uL LAB HEMATOLOGY METHOD 03/01/2025 10:28 AM EDT [facility] MCV 82 79 - 98 fL LAB HEMATOLOGY METHOD 03/01/2025 10:28 AM EDT [facility] MCH 25.8(L) 26.0 - 32.0 pg LAB HEMATOLOGY METHOD 03/01/2025 10:28 AM EDT [facility] MCHC 31.5 30.7 - 35.5 g/dL LAB HEMATOLOGY METHOD 03/01/2025 10:28 AM EDT [facility] RDW 17.2(H) 11.5 - 14.5 % LAB HEMATOLOGY METHOD 03/01/2025 10:28 AM EDT [facility] MPV 9.3 8.8 - 12.5 fL LAB HEMATOLOGY METHOD 03/01/2025 10:28 AM EDT [facility] nRBC 0.0 <=0.0 per 100 WBCs LAB HEMATOLOGY METHOD 03/01/2025 10:28 AM EDT [facility] Differential Type Automated LAB HEMATOLOGY METHOD 03/01/2025 10:28 AM EDT [facility] Neutrophils % 87 % LAB HEMATOLOGY METHOD 03/01/2025 10:28 AM EDT [facility] Lymphocytes % 5 % LAB HEMATOLOGY METHOD 03/01/2025 10:28 AM EDT [facility] Monocytes % 6 % LAB HEMATOLOGY METHOD 03/01/2025 10:28 AM EDT [facility] Eosinophils % 1 % LAB HEMATOLOGY METHOD 03/01/2025 10:28 AM EDT [facility] Basophils % 1 % LAB HEMATOLOGY METHOD 03/01/2025 10:28 AM EDT [facility] Immature Granulocytes % 0 % LAB HEMATOLOGY METHOD 03/01/2025 10:28 AM EDT [facility] Neutrophils Absolute 5.77 1.60 - 6.10 10*3/uL LAB HEMATOLOGY METHOD 03/01/2025 10:28 AM EDT [facility] Lymphocytes Absolute 0.35(L) 1.20 - 3.90 10*3/uL LAB HEMATOLOGY METHOD 03/01/2025 10:28 AM EDT [facility] Monocytes Absolute 0.43 0.30 - 0.90 10*3/uL LAB HEMATOLOGY METHOD 03/01/2025 10:28 AM EDT [facility] Eosinophils Absolute 0.06 0.00 - 0.50 10*3/uL LAB HEMATOLOGY METHOD 03/01/2025 10:28 AM EDT [facility] Basophils Absolute 0.04 0.00 - 0.10 10*3/uL LAB HEMATOLOGY METHOD 03/01/2025 10:28 AM EDT [facility] Immature Granulocytes Absolute 0.02 0.00 - 0.06 10*3/uL LAB HEMATOLOGY METHOD 03/01/2025 10:28 AM EDT [facility] Blood Venous blood specimen / Unknown Venipuncture / Unknown 03/01/2025 10:08 AM EDT 03/01/2025 10:26 AM EDT Narrative [facility] - 03/01/2025 10:28 AM EDT Therapeutic decision making should be based on absolute values, rather than percentages. us Skyla Kirby MD LAB BLOOD ORDERABLES Final Resul t [facility] [address] [place] [address] * (ABNORMAL) Comprehensive Metabolic Panel, Plasma (03/01/2025 10:08 AM EDT) Glucose, Plasma 118(H) 74 - 99 mg/dL 03/01/2025 10:56 AM EDT [facility] BUN, Plasma 15 8 - 23 mg/dL 03/01/2025 10:56 AM EDT [facility] Creatinine, Plasma 0.60(L) 0.70 - 1.20 mg/dL 03/01/2025 10:56 AM EDT [facility] BUN/Creatinine Ratio 25 03/01/2025 10:56 AM EDT [facility] Sodium, Plasma 126(L) 136 - 145 mmol/L 03/01/2025 10:56 AM EDT [facility] Potassium, Plasma 4.3 3.6 - 4.9 mmol/L 03/01/2025 10:56 AM EDT [facility] Chloride, Plasma 88(L) 97 - 107 mmol/L 03/01/2025 10:56 AM EDT [facility] CO2, Plasma 29 22 - 29 mmol/L 03/01/2025 10:56 AM EDT [facility] Anion Gap 9 6 - 16 mmol/L 03/01/2025 10:56 AM EDT [facility] Total Calcium, Plasma 9.4 8.9 - 10.2 mg/dL 03/01/2025 10:56 AM EDT [facility] Total Protein 7.3 6.3 - 7.9 g/dL 03/01/2025 10:56 AM EDT [facility] Albumin, Plasma 4.1 3.5 - 5.2 g/dL 03/01/2025 10:56 AM EDT [facility] AST, Plasma 32 10 - 50 U/L 03/01/2025 10:56 AM EDT [facility] ALT, Plasma 28 10 - 50 U/L 03/01/2025 10:56 AM EDT [facility] Alkaline Phosphatase, Plasma 131(H) 40 - 115 U/L 03/01/2025 10:56 AM EDT [facility] Total Bilirubin, Plasma 0.6 0.2 - 1.1 mg/dL 03/01/2025 10:56 AM EDT [facility] eGFRcr 104.5 mL/min/1.7 3m*2 03/01/2025 10:56 AM EDT [facility] Comment:Reported eGFRcr in m L/min/1.73m2 is based the CKD-EPI 2020 equation that does not use a race coefficient. 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) Gastrostomy status Longstanding persistent atrial fibrillation (CMS/HCC) Oral cancer (CMS/HCC) Malignant neoplasm of mouth, unspecified site HFrEF (heart failure with reduced ejection fraction) (CMS/HCC) documented in this encounter Additional Health Concerns Assessment Noted Time A fall risk assessment has been complete d for the patient 03/01/2025 10:36 AM EDT A Body Mass Index follow-up plan has been documented for the patient 01/28/2025 11:21 AM EDT documented as of this encounter Care Teams Portrait Studio Photographer Relationship Specialty Start Date End Date System, Provider Not In, [address] [place] [address] PCP - General Family Medicine 08/16/24 documented as of this encounter
--- NOTE | 2025-03-17 14:04 | ED_ITS ---
<Statement entered by Maritza Mccrary MD - 03/17/25 15:25> I was consulted by the ZHENG, and we discussed the complexity of the problems being addressed. I approved the treatment and management plan for this patient's care in the emergency department, thus performing a substantive portion of the medical decision making. Maritza Mccrary MD, GOGO, FACEP Discharge Plan Disposition Patient Disposition: Home, Self-Care Condition: Good Prescriptions Prescriptions: No Action aspirin [Adult Low Dose Aspirin] 81 mg tablet,delayed release (DR/EC) 81 mg PO DAILY Otezla 30 mg tablet 30 mg PO DAILY cyclosporine [Restasis] 0.05 % dropperette 1 drp ophthalmic (eye) Q12H Qty: 60 6RF cetirizine [All Day Allergy (cetirizine)] 10 mg tablet 10 mg PO DAILY Qty: 30 5RF Rx Instructions: crush and dissolve in water metformin 500 mg tablet extended release 24 hr 500 mg PO DAILY Qty: 90 3RF (DME) lancets [OneTouch Delica Plus Lancet] 30 gauge misc See Rx Instructions .Route Qty: 100 3RF Rx Instructions: As directed or bid furosemide 40 mg tablet See Rx Instructions .ROUTE .COMPLEX Qty: 50 2RF Dose Instruction: TAKE 1 TABLET BY MOUTH EVERY OTHER DAY Rx Instructions: TAKE 1 TABLET BY MOUTH EVERY OTHER DAY Jardiance 10 mg tablet See Rx Instructions .ROUTE .COMPLEX Qty: 100 2RF Dose Instruction: TAKE 1 TABLET BY MOUTH DAILY Rx Instructions: TAKE 1 TABLET BY MOUTH DAILY potassium chloride 10 mEq tablet,ER particles/crystals See Rx Instructions .ROUTE .COMPLEX Qty: 100 2RF Dose Instruction: TAKE 1 TABLET BY MOUTH ONCE DAILY Rx Instructions: TAKE 1 TABLET BY MOUTH ONCE DAILY trazodone 100 mg tablet See Rx Instructions .ROUTE .COMPLEX Qty: 90 3RF Dose Instruction: TAKE 1 TABLET BY MOUTH ONCE DAILY Rx Instructions: TAKE 1 TABLET BY MOUTH ONCE DAILY carvedilol 25 mg tablet See Rx Instructions .ROUTE .COMPLEX Qty: 400 2RF Dose Instruction: TAKE 2 TABLETS BY MOUTH TWICE DAILY FOR HYPERTENSION Rx Instructions: TAKE 2 TABLETS BY MOUTH TWICE DAILY FOR HYPERTENSION omeprazole 40 mg capsule,delayed release(DR/EC) See Rx Instructions .ROUTE .COMPLEX Qty: 100 2RF Dose Instruction: TAKE 1 CAPSULE BY MOUTH DAILY FOR ACID REFLUX - SWALLOW WHOLE, DO NOT CRUSH, CHEW, DISSOLVE, CUT OR BREAK Rx Instructions: TAKE 1 CAPSULE BY MOUTH DAILY FOR ACID REFLUX - SWALLOW WHOLE, DO NOT CRUSH, CHEW, DISSOLVE, CUT OR BREAK lisinopril-hydrochlorothiazide 20-25 mg tablet See Rx Instructions .ROUTE .COMPLEX Qty: 100 2RF Dose Instruction: TAKE 1 TABLET BY MOUTH ONCE DAILY FOR HIGH BLOOD PRESSURE Rx Instructions: TAKE 1 TABLET BY MOUTH ONCE DAILY FOR HIGH BLOOD PRESSURE ezetimibe 10 mg tablet See Rx Instructions .ROUTE .COMPLEX Qty: 90 3RF Dose Instruction: TAKE 1 TABLET BY MOUTH ONCE DAILY FOR CHOLESTEROL Rx Instructions: TAKE 1 TABLET BY MOUTH ONCE DAILY FOR CHOLESTEROL clopidogrel 75 mg tablet 75 mg PO DAILY Qty: 90 3RF Rx Instructions: TAKE 1 TABLET BY MOUTH ONCE DAILY FOR BLOOD THINNER (DME) OneTouch Verio test strips Strip See Rx Instructions .ROUTE .COMPLEX Qty: 100 6RF Dose Instruction: USE 1 STRIP TO CHECK BLOOD GLUCOSE TWICE DAILY OR DIRECTED FOR DIABETES Rx Instructions: USE 1 STRIP TO CHECK BLOOD GLUCOSE TWICE DAILY OR DIRECTED FOR DIABETES levothyroxine 100 mcg tablet 100 mcg PO DAILY Qty: 90 0RF atorvastatin 10 mg tablet See Rx Instructions .ROUTE .COMPLEX Qty: 30 0RF Dose Instruction: TAKE 1 TABLET BY MOUTH ONCE DAILY FOR CHOLESTEROL Rx Instructions: TAKE 1 TABLET BY MOUTH ONCE DAILY FOR CHOLESTEROL ondansetron 4 mg tablet,disintegrating See Rx Instructions .ROUTE .COMPLEX Qty: 60 4RF Dose Instruction: DISSOLVE 1 TABLET IN MOUTH EVERY 6 HOURS NEEDED FOR NAUSEA AND VOMITING Rx Instructions: DISSOLVE 1 TABLET IN MOUTH EVERY 6 HOURS NEEDED FOR NAUSEA AND VOMITING hydrocodone-acetaminophen 5-325 mg tablet 1 tab PO BID Qty: 60 0RF oxybutynin chloride 5 mg tablet See Rx Instructions .ROUTE .COMPLEX Qty: 90 1RF Dose Instruction: Take 1 tablet by mouth once daily Rx Instructions: Take 1 tablet by mouth once daily guaifenesin 600 mg tablet extended release 12hr 600 mg PO BID PRN (Reason: congestion) Qty: 60 1RF amiodarone 200 mg tablet 100 mg PO DAILY Qty: 45 6RF Rx Instructions: TAKE 1/2 TABLET BY MOUTH EVERY DAY FOR heart Referrals Follow up/Referrals: Simona Krishnan APRN [Primary Care Provider, Family Practice] - See instructions Activity Restrictions/Add. Instructions Additional Instructions/Restrictions: Please return to the emergency department if you cannot stop your nosebleed with 30 minutes of direct pressure with your nasal clamp over your nasal bridge. Or 1 spray of your nasal decongestion and or after 1 to 2 hours of no relief. Please follow-up with your family doctor. Clinical Impressions Clinical Impression: Epistaxis Instructions Patient Instructions: DI for Nosebleed Print Language Print Language: Austrian Discharge ED Provider: Maritza Mccrary General Adult HPI General Chief complaint: Epistaxis Stated complaint: Nose bleeding Time Seen by Provider: 03/17/25 14:04 Mode of Arrival: Ambulatory Source of Information: Patient Limitations: No Limitations History of Present Illness HPI narrative: 69-year-old male presents the emergency department accompanied by his brother for epistaxis, patient states this started this morning, unsure which time, states has been going on since this morning with little to no relief, patient has not tried any therapies for this except for tissues , in his nares, presents with tissues in bilateral naris, patient has any fever chills chest pain shortness of breath nausea vomiting constipation diarrhea no abdominal pain no urinary type symptomatology, patient denies any direct/digital nare trauma, patient is a former smoker, denies any tobacco or alcohol use, other past medical history is consistent with significant facial surgery bilaterally 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 Initial triage vitals are unremarkable. Please note that above description of symptoms, in this electronic medical record under categorization of recalled from ER triage doctor by RN are reflective of an initial nursing assessment, however, is not reflective of my full history and physical exam that was personally taken and clarified. Consequentially, this preceding description of symptoms, which may include the patient's categorized chief complaint in the EMR, do not reflect my personal clinical impression, and the ultimate description of history of present illness and patient stated complaints should be deferred to this section of the note. Unless stated otherwise or congruent with this section of the note, additional signs, symptoms, or incongruence should be interpreted as inaccurate with my clinical impression. Onset (ago): hour(s) Related Data Home Medications ?Medication ?Instructions ?Recorded ?Confirmed aspirin 81 mg tablet,delayed 81 mg PO DAILY heart heal th 10/06/17 12/17/24 release (Adult Low Dose Aspirin) apremilast 30 mg tablet (Otezla) 30 mg PO DAILY 12/17/24 Previous Rx's ?Medication ?Instructions ?Recorded lancets 30 gauge (OneTouch Delcecilio #100 ea 12/30/23 Plus Lancet) metformin 500 mg tablet,extended 500 mg PO DAILY Diabe shelley #90 tabs 12/30/23 release 24 hr furosemide 40 mg tablet See Rx Instructions .Route 1 07/26/23 .COMPLEX #50 tabs empagliflozin 10 mg tablet See Rx Instructions .Route 08/13/24 (Jardiance) .COMPLEX #100 tabs potassium chloride 10 mEq See Rx Instructions .Route 0 09/15/24 tablet,extended release(part/cryst) .COMPLEX #100 tabs cetirizine 10 mg tablet (All Day 10 mg PO DAILY #30 ta bs 09/24/24 Allergy (cetirizine)) cyclosporine 0.05 % eye drops in a 1 drp ophthalmic (e ye) Q12H #60 ea 09/24/24 dropperette (Restasis) trazodone 100 mg tablet See Rx Instructions .Route 0 09/29/24 .COMPLEX #90 tabs carvedilol 25 mg tablet See Rx Instructions .Route 0 10/18/24 .COMPLEX #400 tabs lisinopril 20 See Rx Instructions .Route 0 10/18/24 mg-hydrochlorothiazide 25 mg tablet .COMPLEX #100 tabs omeprazole 40 mg capsule,delayed See Rx Instructions . Route 10/18/24 release .COMPLEX #100 caps clopidogrel 75 mg tablet 75 mg PO DAILY Blood thinner #90 10/26/24 tabs ezetimibe 10 mg tablet See Rx Instructions .Route 0 10/26/24 .COMPLEX #90 tabs blood sugar [facility] strips 11/19/24 Verio test strips) levothyroxine 100 mcg tablet 100 mcg PO DAILY #90 tabs 11/22/24 atorvastatin 10 mg tablet See Rx Instructions .Route 0 12/27/24 .COMPLEX #30 tabs ondansetron 4 mg disintegrating See Rx Instructions .R oute 02/02/25 tablet .COMPLEX #60 tabs hydrocodone 5 mg-acetaminophen 325 1 tab PO BID #60 ta bs 02/09/25 mg tablet oxybutynin chloride 5 mg tablet See Rx Instructions .R oute 02/11/25 .COMPLEX #90 tabs guaifenesin 600 mg tablet, 600 mg PO BID PRN congestio n #60 02/23/25 extended release 12 hr tabs amiodarone 200 mg tablet 100 mg (1/2 x 200 mg) PO LASHA LY 02/24/25 heart rate #45 tabs Allergies Allergy/AdvReac Type Severity Reaction Status Date / Time No Known Allergies Allergy Verified 12/17/24 10:18 [facility] Disclaimer: The information contained in this section may have been updated after the patient was seen, as this information can be updated by other users. Medical History Skin tear of elbow without complication Cellulitis Abrasion Scalp laceration Fall UTI (urinary tract infection) Leg pain URI (upper respiratory infection) Cough Pacemaker HTN (hypertension), benign Coronary artery disease Cancer Atrial fibrillation Hyperlipidemia Surgical History H/O heart artery stent Social History Smoking Status: Former smoker tobacco type: cigarettes packs per day: 1 second hand exposure: Yes alcohol intake: never substance use type: denies use current occupational status: disabled Travel in the last 8 weeks?: None housing: house Have you lived/traveled outside US in past 30 days?: No Contact w/someone who lives/traveled outside US past 30 days?: No Exposure to someone with infectious disease in past 14 days?: No Do you have a fever (greater than 100.4 F or 38 C)?: No Have you tested positive for COVID-19?: No Exposed to someone with COVID-19 in past 14 days?: No Do you have a sore throat?: No Do you have a cough?: No Do you have any weakness?: No Do you have any diarrhea?: No Are you experiencing any unusual bleeding?: No Do you have any muscle aches/pain?: No Do you have any abdominal pain?: No Are you experiencing loss of taste or smell?: No Other Medical History Have you received the Flu Vaccine for this season: Yes Have you received the Pneumonia Vaccine: Yes ROS Obtained: Yes All systems reviewed & no additional complaints except as documented Physical Exam General General appearance: alert and in no apparent distress Head Head exam: atraumatic, normocephalic and other (Obvious, evidence of facial surgery with skin graft on the left orbit. ) Eye Eye exam: Present PERRL and EOMI ENT ENT exam: Present normal exam, mucous membranes moist and other (Nares impacted bilaterally with tissues, no obvious active epistaxis around the packing) Neck Neck exam: Present normal inspection Chest Chest inspection: Present normal inspection and symmetric chest wall rise Respiratory Respiratory exam: Present normal lung sounds bilaterally; Absent respiratory distress Cardiovascular Cardiovascular exam: Present regular rate and normal rhythm Abdominal Exam Abdominal exam: Present soft; Absent tenderness, guarding or rebound Extremities Exam Extremities exam: Present normal inspection Neurological Exam Neurological exam: Present alert and oriented X3 Psychiatric Psychiatric exam: Present normal affect Skin Skin exam: Present warm and dry Medical Decision Making Medical Records Medical records reviewed: Yes I reviewed the patient's medical records. Screening: Per USPSTF and CDC recommendations, given the prevalence of disease in our region, it is our hospital?s policy to screen for HIV and viral Hepatitis for all patients aged 18 and over and those with ongoing risk factors. Alonso Inquiry Pt receiving controlled substance: No Alonso was queried for this patient: No Vital Signs: 03/17/25 14:16 Temperature 97.9 F Temperature Source Oral Pulse Rate [Right] 81 Respiratory Rate 18 Blood Pressure [Right Arm] 134/69 Blood Pressure Mean [Right Arm] 90 02 Sat by Pulse Oximetry 93 L Orders (Tests/Meds): ED MEDICATIONS Discontinued Medications Generic Name Dose Route Start Last Admin Trade Name Freq PRN Reason Stop Dose Admin Oxymetazoline HCl 1 ml 03/17/25 14:11 03/17/25 14:24 Oxymetazoline Nasal [place] 0.05% 15ml NS 03/17/25 14:12 1 ml ONCE ONE Administration Medical Decision Narrative: 69-year-old male presents to the emergency department with epistaxis, in the left nare, differential diagnose include but not limited to, anterior epistaxis, posterior epistaxis, digital trauma, nasal polyps among others. I discussed this patient's case with the attending physician Dr. Mccrary Will attempt a trial of Afrin nose spray as well as nasal clamp for the patient's epistaxis. After 30 minutes of direct nasal pressure with nasal clamp and 1 intranasal spray of Afrin, patient has achieved hemostasis from epistaxis, patient was given strict ED return precautions, patient voiced understanding and agreement with the current treatment plan/discharge plan. Will follow-up with PCP and other providers as directed Critical Care Critical Care Time Critical Care Time: No
--- OUTSIDE RECORDS SUMMARY | 2025-03-17 14:15 | XMS_ITS | Clinical Summary ---
Author Organization [facility] Address [address] [place] [address] Care Team Providers Care Cashiers Supervisor Name Role Phone Unavailable Primary Care Provider Unavailabl e Social History Tobacco Use Types Packs/Day Years Used Date Smoking Tobacco: Never Assessed Sex and Gender Information Value Date Recorded Sex Assigned at Not on file Legal Sex Male 9:31 PM EDT Gender Identity Not on file Sexual Orientation Not on file Plan of Treatment Health Maintenance Due Date Last Done Comments Hepatitis C Screening 1955 DTap,Tdap,and Td (1 - Tdap) 09/10/1966 Colonoscopy 09/10/2000 PSA YEARLY 09/10/2005 Pneumococcal 50+ (1 of 1 - PCV) 09/10/2005 Shingrix (#1) 09/10/2005 Influenza Vaccine (#1) 2025 RSV Vaccine (60+ or ) (1 - 1-dose 75+ series) 09/10/2030 HPV Aged Out No longer eligi ble based on patient's age to complete this topic Meningococcal conjugate wen nt 4 (MCV4) Aged Out No longer eligible b ased on patient's age to complete this topic RSV Immunization (<20 months) Aged Out No longer eligible based on patient's age to complete this topic
--- OUTSIDE RECORDS SUMMARY | 2025-03-17 14:15 | XMS_ITS | Encounter Summary ---
Author Organization Healthcare Address [address] [place] [address] Care Team Providers Care Recording Engineer Name Role Phone System, Provider Not In MD Primary Care Provider Unavailable Encounter Details Date Type Department Care Team ([facility] st Contact Info) Description 03/08/2025 Telephone Psych Oncology [address] [place] [phone] T[address]ran RD Social History Tobacco Use Types Packs/Day Years [...] any time in the past 12 m [facility], were you homeless or living in a nursing home (including now)? No 10/25/2024 Utilities Answer [...] as of this encounter Miscellaneous Notes * Telephone Encounter - Tiffany Curran, RD - 03/08/2025 1:58 PM EDT Reason for call: PEG f/u Referral source: [facility]t Readings from Last 5 Encounters: 03/01/25 89.2 kg (196 lb 10.4 oz) 11/16/24 76 kg (167 lb 9.6 oz) 11/02/24 69.9 kg (154 lb) 10/26/24 77 kg (169 lb 12.1 oz) 10/20/24 68.5 kg (151 lb) Estimated body mass index is 26.66 kg/m?? as calculated from the following: Height as of 03/01/25: 1.829 m (6' 0.01 ). Weight as of 03/01/25: 89.2 kg (196 lb 10.4 oz). Call details: Chart reviewed. Pt established with [facility] with last encounter via phone 10/25. Pt with hx h/n cancer now with lymphoma. Pt PEG dependant. Called and spoke with pt caregiver, Cleopatra. She reports pt is doing well with tube feeding. Pt on Isosource 1.5 and is doing 4-6 cartons/days. Discuss pt wt gain of 30 lbs over ~ 3 months. She attributes this to pt putting all kinds of liquids down PEG including chocolate syrup, soft drinks, juice, milk, etc. She states this makes him feel good and human. Still getting supplies from [facility]. Inquire again about [employer]. Nutrition Intervention Discussed Liquid Hope products / blended products to see if this is something pt would be interested in. Pt to try. Will try to meet with pt in clinic as available to discuss intake of empty calories. Discuss [facility] can only supply [employer]. Encouraged to contact as needed for nutrition-related questions and concerns. RD remains available PRN. documented in this encounter Plan of Treatment Upcoming Encounters Date Type Department Care Team (Late st Contact Info) Description 05/31/2025 10:30 AM EST Appointment [facility] [address] [place] [phone] 05/31/2025 11:30 AM EST Appointment [facility] PET [facility] [address] [place] [phone] 05/31/2025 2:30 PM EST Clinical Support [facility] [address] [phone] 05/31/2025 3:00 PM EST Office Visit [facility] [address] [phone] Marci Saini PA [address] [facility] [address] [place] [phone] documented as of this encounter Visit Diagnoses Not on filedocumented in this encounter Additional Health Concerns Assessment Noted Time A fall risk assessment has been complete d for the patient 03/01/2025 10:36 AM EDT A Body Mass Index follow-up plan has been documented for the patient 01/28/2025 11:21 AM EDT documented as of this encounter Care Teams Recording Engineer Relationship Specialty Start Date End Date System, Provider Not In, MD Cés[place] [address] PCP - General Family Medicine 08/16/24 documented as of this encounter
--- OUTSIDE RECORDS SUMMARY | 2025-03-17 14:15 | XMS_ITS | Clinical Summary ---
Author Organization Healthcare Address [address] [place] [address] Care Team Providers Care Roustabout Crew Name Role Phone System, Provider Not In MD Primary Care Provider Unavailable Allergies No known active allergies Medications triamcinolone (Kenalog) 0.1 % cream Apply 1 Application topically 2 (two) times a day. Active White Petrolatum-Mineral Oil (artificial tears) ophthalmic ointment Apply 1 Application to right eye every night. 2.5 g 1 07/25/19 25 Active Additional Information Patient not taking.Reported on 03/01/2025 carboxymethylcellu lose PF (Refresh Plus) 0.5 % ophthalmic solution Administer 1 drop into the right eye 3 (three) times a day. 30 each 1 07/25/19 25 Active sodium chloride (Attala) 0.65 % nasal spray Administer 1 spray into each nostril if needed for congestion. 30 mL 12 07/25/19 25 Active Additional Information Patient not taking.Reported on 03/01/2025 lisinopril-hydroCH LOROthiazide 20-25 MG tablet 1 tablet by Per G Tube route 1 (one) time each day. 07/30/19 25 Active furosemide (Lasix) 40 MG tablet Take 1 tablet (40 mg) by mouth every other day. 07/30/19 25 Active acetaminophen (Tylenol) 500 MG tablet 2 tablets (1,000 mg) by Per G Tube route every 8 (eight) hours. 07/30/19 25 Active atorvastatin (Lipitor) 10 MG tablet 1 tablet (10 mg) by Per G Tube route 1 (one) time each day. 07/31/19 25 Active traZODone (Desyrel) 100 MG tablet 1 tablet (100 mg) by Per G Tube route every night. 07/30/19 25 Active aspirin 81 MG EC tablet Take 1 tablet (81 mg) by mouth 1 (one) time each morning. To be given per G tube 07/30/19 25 Active empagliflozin (Jardiance) 10 MG Take 1 tablet (10 mg) by mouth 1 (one) time each day. To be given per G tube 07/30/19 25 Active ezetimibe (Zetia) 10 MG tablet 1 tablet (10 mg) by Per G Tube route every night. 08/04/19 25 Active docusate sodium (Colace) 50 MG/5ML oral liquid 10 mL (100 mg) by Per G Tube route 2 (two) times a day. 08/04/19 25 Active sodium chloride 3 % nebulizer solution Take 3 mL by nebulization 2 (two) times a day if needed for cough. 08/04/19 25 Active magnesium hydroxide (Milk of Magnesia) 400 MG/5ML suspension 30 mL by Per G Tube route 1 (one) time each day if needed for constipation. 360 mL 1 08/25/19 25 Active esomeprazole (NexIUM) 40 MG packet 40 mg by Per G Tube route daily before breakfast. Mix contents of the packet with 5-15 mL of water and stir; leave for 2 to 3 minutes to thicken; stir and administer within 30 minutes. If any medicine remains, add more water, stir and administer immediately. 90 packet 2 09/03/19 25 Active polyethylene glycol (MiraLax) 17 GM/SCOOP powder Take 17 g by mouth daily. 850 g 2 09/03/19 25 Active Feeding Supplies [facility] Please send months supply of syringes and [place] (if able) 1 each 09/06/19 25 Active albuterol 108 (90 Base) MCG/ACT inhaler Inhale 2 puffs every 4 (four) hours as needed for wheezing. 08/16/19 25 Active cetirizine (ZyrTEC) 10 MG tablet 1 tablet by Per G Tube route daily. 09/25/19 25 Active SV Iron 325 (65 Fe) MG tablet 1 tablet by Per G Tube route daily. 10/08/19 25 Active Multiple Vitamin (multivitamin) tablet 1 tablet by Per G Tube route daily. Active ascorbic acid (Vitamin C) 500 MG tablet 1 tablet by Per G Tube route daily. Active levothyroxine (Synthroid, Levoxyl) 100 MCG tablet 1 tablet by Per G Tube route daily. Active amiodarone (Pacerone) 200 MG tablet 0.5 tablets by Per G Tube route daily. Active cycloSPORINE (Restasis) 0.05 % ophthalmic emulsion Administer 1 drop into both eyes 2 (two) times a day. Active HYDROcodone-acetam inophen ([place]) 5-325 MG tablet 1 tablet by Per G Tube route in the morning and 1 tablet before bedtime. Active metFORMIN, OSM, (Fortamet) 500 MG 24 hr tablet 1 tablet daily. Per G-tube Active potassium chloride CR (Klor-Con) 10 MEQ ER tablet 1 tablet daily. Do not crush, chew, or split. Active clopidogrel (Plavix) 75 MG tablet 1 tablet by Per G Tube route daily. 11/01/19 25 Active carvedilol (Coreg) 25 MG tablet 2 tablets by Per G Tube route 2 (two) times a day with meals. 11/04/19 25 Active ondansetron ODT (Zofran-ODT) 4 MG disintegrating tablet Dissolve 1 tablet on the tongue every 6 hours as needed for nausea or vomiting. 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 Weakness 07/27/2024 Weakness generalized 07/27/2024 Angina pectoris 07/20/2024 Squamous cell carcinoma of forehead 07/16/2024 Right-sided extracranial carotid artery stenosis 07/09/2024 Tobacco use disorder 06/09/2024 Protein-calorie malnutrition 06/09/2024 Atherosclerotic heart diseas e of [place] coronary artery without angina pectoris 10/27/2023 Atrial fibrillation 10/27/2023 Implantable cardioverter-defibrillator (ICD) in situ 10/27/2023 Diabetes High cholesterol Oral cancer Resolved Problems Problem Noted Date Diagnosed Date Resolved Date Gastrostomy tube dysfunction 10/23/2024 10/26/2024 Overview (10/26/2024): PEG tube replaced at bedside, but due to abdominal wall cellulitis, patient was taken to OR on 10/24/2024 and PEG tube was replaced by SGE Encounters Date Type Department Care Team Description 03/08/2025 Telephone Psych Oncology [address] [place] [address] 03/03/2025 Orders Only [facility] Hematology/BMT and Cellular Therapy Program [address] 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, [address] [place] [address] [place] [address] Skyla Kirby MD 03/01/2025 2:30 PM EDT Office Visit [facility]/BMT [facility] Cellular Therapy Program [address] 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) 02/26/2025 Travel 01/28/2025 10:45 AM EDT Office Visit [facility] [address] [place] [address] Karson Key MD Tearing, right (Primary Dx); Dry eyes; Right epiphora; 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 01/28/2025 Travel 01/27/2025 Travel 12/27/2024 Telephone [facility] Vascular [facility] [address] [facility] 5th Floor [address] [place] [address] Renetta Dodson MD HCN Clinical Concern/Question 12/22/2024 Orders Only [facility] General Surgery [address] [place] [address] Wen Villa RN S/P percutaneous endoscopic gastrostomy (PEG) tube placement (CMS/HCC) (Primary Dx) 12/22/2024 Telephone [facility] Surgery [address] [place] [address] Conrado Bartlett MD HCN Clinical Concern/Question 12/17/2024 Telephone [facility] General Surgery [address] [place] [address] Conrado Bartlett MD HCN Clinical Concern/Question 12/16/2024 Orders Only [facility] Vascular Clinic [address] [facility] 5th Floor [address] [place] [address] Demma, Jeana L, RN Right-sided extracranial carotid artery stenosis (Primary Dx) from Last 3 Months Immunizations Immunization Administration Dates Next Due Influenza, High-dose, Split Virus, Trivalent, Injectable, preservative free 06/05/2024 Influenza, high-dose, quadrivalent 03/21/2023,,05/07/2021 Influenza, injectable, quadr ivalent, preservative free 03/22/2020 Influenza, seasonal, injectable 05/26/20 12,05/10/2011,06/22/2010,03/29 Influenza, trivalent, adjuvanted 05/07/2021 Moderna COVID-19 Vaccine (Re d Cap) 12+ years 10/25/2020 Pneumococcal 20-liam Conj Vaccine 03/21/2023 Pneumococcal Polysaccharide PPV23 05/20/2016 Rsvpref, Recombinant, Protei n Subunit, Adjuvent 03/21/2023 Tdap 12/29/2018,06/22/2010 Zoster, Recombinant 03/21/2023 Family History Medical History Relation Name Comments Lung cancer Father Breast cancer Mother Relation Name Status Comments Father Mother Social History Tobacco Use Types Packs/Day Years [...] money to buy more. Never true 10/26/19 Within the past 12 months, t he [...] any time in the [facility] were you homeless or living in a retirement (including now)? No 10/25/2024 Utilities Answer Date [...] Orientation Straight 07/27/2024 11 :01 AM EST Last Filed Vital Signs Vital Sign Reading [...] Mass Index 26.66 03/01/2025 10:38 AM EDT Plan of Treatment Upcoming Encounters Date Type Department Care Team (Late st Contact Info) Description 05/31/2025 10:30 AM EST Appointment [facility] PET Scan [address] [place] [address] 05/31/2025 11:30 AM EST Appointment [facility] PET Scan [address] [place] [address] 05/31/2025 2:30 PM EST Clinical Support [facility] Hematology/BMT and Cellular Therapy Program [address] [facility] [place] [phone] 05/31/2025 3:00 PM EST Office Visit [facility] Hematology/BMT and Cellular Therapy Program [address] [facility] [place] [phone] Marci Saini PA [address] [facility] [address] [place] [phone] Health Maintenance Due Date Last Done Comments [facility]-Depression Screening 1955 [facility]-Diabetes: Hemoglobin A1C 1955 [facility]-Medicare Annual Wellness (AWV) 1955 [facility]-/Child/Adol SDOH Screenings 1955 Diabetes: Dental Exam 09/10/1965 CT Colonography 09/10/2000 Colonoscopy 09/10/2000 FIT-DNA 09/10/2000 FIT 09/10/2000 FOBT 09/10/2000 Sigmoidoscopy 09/10/2000 [facility]-Colorectal Cancer Screening 09/10/2000 [facility]-Abdominal Aortic Aneurysm (AAA) Screening 09/10/2020 [facility]-Zoster Vaccines (2 of 2) 05/16/2023 03/21/2023 [id number] Vaccine ( season) 2024 05/07/2021, 10/25/2020, 10/18/2020, Additional history exists [facility]-Influenza Vaccine (#1) 03/14/202506/05, 03/21/2023, 04/23/2022, Additional history exists [facility]- SDOH Screenings 04/26/2025 [facility]-Adult SDOH Screenings 04/26/2025 10/25/2024 [facility]-Lung Cancer Screening 06/25/2025 06/25/2024 [facility]-DTaP,Tdap,and Td Vaccines (3 - Td or Tdap) 12/29/2028 12/29/2018, 06/22/2010 [facility]-Pneumococcal Vaccine: 50+ Years Completed 03/21/2023, 05/20/2016 [facility]-RSV Vaccine: 60+ Years or Completed 03/21/2023 [facility]-Hepatitis C Screening Completed 07/29/2024 [facility]-Obesity Intervention Completed 025, 11/16/2024, 11/02/2024, Additional history exists HPV Vaccines Aged Out No longer eligi ble based on patient's age to complete this topic [facility]-HIB Vaccines Aged Out No longer e ligible based on patient's age to complete this topic [facility]-Hepatitis A Vaccines Aged Out No longer eligible based on patient's age to complete this topic [facility]-IPV Vaccines Aged Out No longer e ligible based on patient's age to complete this topic [facility]-Rotavirus Vaccines Aged Out No lo nger eligible based on patient's age to complete this topic Medical Devices Implanted Type Area Apprenticeship Representative Device Identifier Shelf Expiration Date Model / Serial / Lot Mesh Vicryl Flat 30cm X 30cm - [id number] Implanted:Qty : 1 on 07/16/2024 by Boogie Chaidez MD at [facility] Mesh Abdomen [employer] [facility]-[id number] 01/10/2029 [id number] / / [id number] Pacemaker Pacemaker Heart Graft Dura Repair 2x2 Synthecel - [id number] Implanted:Qty : 1 on 07/16/2024 by Mauricio Valentin MD at [facility]-[id number] 12/11/2026 [id number] / / [id number] Procedures Procedure Name Priority Date/Time Associated Diagnosis Comments LACTATE DEHYDROGENASE, PLASMA Routine 03/01/2025 10:08 AM EDT 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) CBC WITH AUTO DIFFERENTIAL Routine 03/01/2025 10:08 AM EDT 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) COMPREHENSIVE METABOLIC PANEL, PLASMA Routine 03/01/2025 10:08 AM EDT 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) PET/CT FDG SKULL BASE TO MID THIGH Routine 03/01/2025 9:52 AM EDT 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 RBC Count 4.34(L) 4.60 - 6.10 10*6/uL LAB HEMATOLOGY METHOD 03/01/2025 10:28 AM EDT [facility] HGB 11.2(L) 13.7 - 17.5 g/dL LAB HEMATOLOGY METHOD 03/01/2025 10:28 AM EDT [facility] HCT 35.5(L) 40.0 - 51.0 % LAB HEMATOLOGY METHOD 03/01/2025 10:28 AM EDT [facility] Platelet Count 162 155 - 369 10*3/uL LAB HEMATOLOGY METHOD 03/01/2025 10:28 AM EDT [facility] MCV 82 79 - 98 fL LAB HEMATOLOGY METHOD 03/01/2025 10:28 AM EDT [facility] MCH 25.8(L) 26.0 - 32.0 pg LAB HEMATOLOGY METHOD 03/01/2025 10:28 AM EDT [facility] MCHC 31.5 30.7 - 35.5 g/dL LAB HEMATOLOGY METHOD 03/01/2025 10:28 AM EDT [facility] RDW 17.2(H) 11.5 - 14.5 % LAB HEMATOLOGY METHOD 03/01/2025 10:28 AM EDT [facility] MPV 9.3 8.8 - 12.5 fL LAB HEMATOLOGY METHOD 03/01/2025 10:28 AM EDT [facility] nRBC 0.0 <=0.0 per 100 WBCs LAB HEMATOLOGY METHOD 03/01/2025 10:28 AM EDT [facility] Differential Type Automated LAB HEMATOLOGY METHOD 03/01/2025 10:28 AM EDT [facility] Neutrophils % 87 % LAB HEMATOLOGY METHOD 03/01/2025 10:28 AM EDT [facility] Lymphocytes % 5 % LAB HEMATOLOGY METHOD 03/01/2025 10:28 AM EDT [facility] Monocytes % 6 % LAB HEMATOLOGY METHOD 03/01/2025 10:28 AM EDT [facility] Eosinophils % 1 % LAB HEMATOLOGY METHOD 03/01/2025 10:28 AM EDT [facility] Basophils % 1 % LAB HEMATOLOGY METHOD 03/01/2025 10:28 AM T [facility] Immature Granulocytes % 0 % LAB HEMATOLOGY METHOD 03/01/2025 10:28 AM [facility] Neutrophils Absolute 5.77 1.60 - 6.10 10*3/uL LAB HEMATOLOGY METHOD 03/01/2025 10:28 AM EDT [facility] Lymphocytes Absolute 0.35(L) 1.20 - 3.90 10*3/uL LAB HEMATOLOGY METHOD 03/01/2025 10:28 AM EDT [facility] Monocytes Absolute 0.43 0.30 - 0.90 10*3/uL LAB HEMATOLOGY METHOD 03/01/2025 10:28 AM [facility] Eosinophils Absolute 0.06 0.00 - 0.50 10*3/uL LAB HEMATOLOGY METHOD 03/01/2025 10:28 AM T [facility] Basophils Absolute 0.04 0.00 - 0.10 10*3/uL LAB HEMATOLOGY METHOD 03/01/2025 10:28 AM T [facility] Immature Granulocytes Absolute 0.02 0.00 - 0.06 10*3/uL LAB HEMATOLOGY METHOD 03/01/2025 10:28 AM [facility] Blood Venous blood specimen / Unknown Venipuncture / Unknown 03/01/2025 10:08 AM EDT 03/01/2025 10:26 AM EDT Narrative [facility] - 03/01/2025 10:28 AM EDT Therapeutic decision making should be based on absolute values, rather than percentages. us Skyla Kirby MD LAB BLOOD ORDERABLES Final Resul t Performing Organization Address City/[facility]/ZIP Co de Phone Number [facility] [address] [place] [address] * Lactate Dehydrogenase, Plasma (03/01/2025 10:08 AM EDT) LDH, Plasma 239 116 - 250 U/L 03/01/2025 10:56 AM EDT [facility] Blood Venous blood specimen / Unknown Venipuncture / Unknown 03/01/2025 10:08 AM EDT 03/01/2025 10:26 AM EDT us Skyla Kirby MD LAB BLOOD ORDERABLES Final Resul t Performing Organization Address [facility] de Phone Number [facility] [address] [place] [address] * (ABNORMAL) Comprehensive Metabolic Panel, Plasma (03/01/2025 10:08 AM EDT) Glucose, Plasma 118(H) 74 - 99 mg/dL 03/01/2025 10:56 AM EDT [facility] BUN, Plasma 15 8 - 23 mg/dL 03/01/2025 10:56 AM EDT [facility] Creatinine, Plasma 0.60(L) 0.70 - 1.20 mg/dL 03/01/2025 10:56 AM EDT [facility] BUN/Creatinine Ratio 25 03/01/2025 10:56 AM EDT [facility] Sodium, Plasma 126(L) 136 - 145 mmol/L 03/01/2025 10:56 AM EDT [facility] Potassium, Plasma 4.3 3.6 - 4.9 mmol/L 03/01/2025 10:56 AM EDT [facility] Chloride, Plasma 88(L) 97 - 107 mmol/L 03/01/2025 10:56 AM EDT [facility] CO2, Plasma 29 22 - 29 mmol/L 03/01/2025 10:56 AM EDT [facility] Anion Gap 9 6 - 16 mmol/L 03/01/2025 10:56 AM EDT [facility] Total Calcium, Plasma 9.4 8.9 - 10.2 mg/dL 03/01/2025 10:56 AM EDT [facility] Total Protein 7.3 6.3 - 7.9 g/dL 03/01/2025 10:56 AM EDT [facility] Albumin, Plasma 4.1 3.5 - 5.2 g/dL 03/01/2025 10:56 AM EDT [facility] AST, Plasma 32 10 - 50 U/L 03/01/2025 10:56 AM EDT [facility] ALT, Plasma 28 10 - 50 U/L 03/01/2025 10:56 AM EDT [facility] Alkaline Phosphatase, Plasma 131(H) 40 - 115 U/L 03/01/2025 10:56 AM EDT [facility] Total Bilirubin, Plasma 0.6 0.2 - 1.1 mg/dL 03/01/2025 10:56 AM EDT [facility] eGFRcr 104.5 mL/min/1.7 3m*2 03/01/2025 10:56 AM EDT [facility] Comment:Reported eGFRcr in m L/min/1.73m2 is based the CKD-EPI 2020 equation that does not use a race coefficient. Blood Venous blood specimen / Unknown Venipuncture / Unknown 03/01/2025 10:08 AM EDT 03/01/2025 10:26 AM EDT us Skyla Kirby MD LAB BLOOD ORDERABLES Final Resul t [facility] [address] [place] [address] * PET/CT FDG Skull Base To Mid [...] scanner: Siemens Biograph 40 mCT. PET/CT acquisition: [id number]-[id number]-[id number], plus magnification (zoomed) neck. Standardized uptake value (SUV): Corrected for body weight only. CT: Low-dose, [id number], without intravenous contrast. TOTAL DLP (Dose Length [...] scanner: Siemens Biograph 40 mCT. PET/CT acquisition: Pvlvyu-cp-unb-thighs, plus magnification (zoomed)neck. Standardized uptake value (SUV): Corrected for body weight only. CT: Low-dose, [id number]-[id number]-[id number], without intravenous contrast. TOTAL DLP (Dose Length [...] 03/01/2025 4:14 PM us Skyla Kirby MD IM NM PROCEDURES Final Result * Nasolacrimal Duct Probing - OD - Right Eye (01/28/2025 11:16 AM EDT) Anatomical Region Laterality Modality Head Other Narrative 01/28/2025 11:16 AM EDT BSS (2 with correction (cc)) was flushed into the right lower eyelid (RLL) n punctum minimal Resistance minimal reflux no Purulence minimal Delay in fluid felt in nose Nil complications Tolerated well us Karson Key MD [facility] PROCEDURES Final Result * Hepatitis C Antibody - ED W/Reflex to HCV Quant PCR (07/29/2024 5:38 PM EST) Hepatitis C Antibody Negative Negative 07/29/2024 6:46 PM EST [facility] Blood Venous blood specimen / Unknown Venipuncture / Unknown 07/29/2024 5:38 PM EST 07/29/2024 6:05 PM EST us Boogie Chaidez MD LAB BLOOD ORDERABLES Final Resul t [facility] [address] [place] [address] * CT Chest w IV Contrast (06/25/2024 10:19 AM EST) Anatomical Region Laterality Modality Chest Computed Tomogra phy Impressions 06/25/2024 10:52 AM EST New 7 mm nonspecific nodule in the left lower lobe. Recommend attention on follow-up to exclude solitary metastasis. Otherwise, no concerning findings. CRITICAL RESULT: No. COMMUNICATION: Per this written report. Drafted by Marciano Damon MD on 06/25/2024 10:46 AM Final report signed by Marciano Damon MD on 06/25/2024 10:52 AM Narrative 06/25/2024 10:52 AM EST CLINICAL INDICATION: Squamous cell carcinoma of forehead TECHNIQUE: Multiple CT helical images were obtained from thoracic inlet through upper abdomen with administration of IV contrast. 100 mL of Omnipaque-300 were administered intravenously. Total DLP (Dose-Length Product): 2165 mGy*cm. Please note: The reported value represents the total of one or more individual components during the CT acquisition on this date and at this time, and as such, the same value may appear in more than one CT report depending on the interpreting/reporting physicians. COMPARISON: February 07, 2014 FINDINGS: Mediastinum and Pleura: Severe coronary artery calcifications. No mediastinal or hilar adenopathy. No pleural or pericardial effusions. Lungs: Stable scarring of the right lung apex. There is a new irregular nodular opacity in the left lower lobe image 83, 7 mm. No other nodules are appreciated. Upper Abdomen: No suspicious lesions in the partially visualized upper abdomen. Musculoskeletal: No suspicious lytic or sclerotic lesion. Procedure Note Marciano Damon MD - 06/25/2024 CLINICAL INDICATION: Squamous cell carcinoma of forehead TECHNIQUE: Multiple CT helical images were obtained from thoracic inlet through upperabdomen with administration of IV contrast. 100 mL of Omnipaque-300 wereadministered intravenously. Total DLP (Dose-Length Product): 2165 mGy*cm. Please note: The reportedvalue represents the total of one or more individual components during theCT acquisition on this date and at this time, and as such, the same valuemay appear in more than one CT report depending on theinterpreting/reporting physicians. COMPARISON: February 07, 2014 FINDINGS: Mediastinum and Pleura: Severe coronary artery calcifications. Nomediastinal or hilar adenopathy. No pleural or pericardial effusions. Lungs: Stable scarring of the right lung apex. There is a new irregularnodular opacity in the left lower lobe image 83, 7 mm. No other nodulesare appreciated. Upper Abdomen: No suspicious lesions in the partially visualized upperabdomen. Musculoskeletal: No suspicious lytic or sclerotic lesion. IMPRESSION: New 7 mm nonspecific nodule in the left lower lobe. Recommend attention onfollow-up to exclude solitary metastasis. Otherwise, no concerning findings. CRITICAL RESULT: No. COMMUNICATION: Per this written report. Drafted by Marciano Damon MD on 06/25/2024 10:46 AM Final report signed by Marciano Damon MD on 06/25/2024 10:52 AM Boogie Chaidez MD IMG CT PROCEDURES Final Result from Last 3 Months or Most Recently Relevant to Health Maintenance Insurance COREEN VERDUGO [id number] [facility] MEDICARE [employer] BETTER [employer] MEDICAID Advance Directives * Full Code (Latest Code Status on File) Date Activated Date Inactivated Comments 10/23/2024 6:19 PM 10/26/2024 4:57 PM * Full Code Date Activated Date Inactivated Comments 07/26/2024 3:47 PM 08/04/2024 3:50 PM Question Answer Comments Patient has decision-making capacity? Yes * Full Code Date Activated Date Inactivated Comments 07/16/2024 7:13 PM 07/25/2024 7:16 PM Question Answer Comments Patient has decision-making capacity? Yes * Full Code Date Activated Date Inactivated Comments 07/16/2024 7:13 PM 07/16/2024 7:13 PM Question Answer Comments Patient has decision-making capacity? Yes Care Teams Roustabout Crew Relationship Specialty Start Date End Date System, Provider Not In, MD [place] [address] PCP - General Family Medicine 08/16/24
--- OUTSIDE RECORDS SUMMARY | 2025-03-17 14:15 | XMS_ITS | Encounter Summary ---
Author Organization Healthcare Address [address] [place] [address] Care Team Providers Care Tack Maker Name Role Phone System, Provider Not In MD Primary Care Provider Unavailable Encounter Details Date Type Department Care Team (Latest Contact Info) Description 02/26/2025 Travel Social History Tobacco Use Types Packs/Day Years [...] any time in the past 12 m [facility], were you homeless or living [...] Upcoming Encounters Date Type Department Care Team ([facility] Contact Info) Description 05/31/2025 10:30 AM EST Appointment [facility] PET Scan [address] [place] [address] 05/31/2025 11:30 AM EST Appointment [facility] PET Scan [address] [place] [address] 05/31/2025 2:30 PM EST Clinical Support [facility] H[facility]ology/BMT [facility] Cellular Therapy Program [address] [place] [address] 05/31/2025 3:00 PM EST Office Visit [facility] H[facility]ology/BMT and Cellular Therapy Program [address] [place] [address] Marci Saini PA [address] [facility] [address] [place] [phone] documented as of this encounter Visit Diagnoses Not on filedocumented in this encounter Additional Health Concerns Assessment Noted Time A fall risk assessment has been complete d for the patient 01/28/2025 10:51 AM EDT A Body Mass Index follow-up plan has been documented for the patient 01/28/2025 11:21 AM EDT documented as of this encounter Care Teams Tack Maker Relationship Specialty Start Date End Date System, Provider Not In, MD [place]és[place] [address] PCP - General Family Medicine 08/16/24 documented as of this encounter
--- OUTSIDE RECORDS SUMMARY | 2025-03-17 14:15 | XMS_ITS | Encounter Summary ---
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 No 10/25/2024 Utilities Answer Date Recorded In the past 12 months has th e [employer], gas, oil, or water company threatened to [...] Upcoming Encounters Date Type Department Care Team ([facility] Contact Info) Description 05/31/2025 10:30 AM EST Appointment [facility] PET Scan [address] [place] [address] 05/31/2025 11:30 AM EST Appointment [facility] PET Scan [address] [place] [address] 05/31/2025 2:30 PM EST Clinical Support [facility] Hematology/BMT and Cellular Therapy Program 750 [facility], [address] [place] [address] 05/31/2025 3:00 PM EST Office Visit [facility] Hematology/BMT and Cellular Therapy Program 750 [facility] [place] [address] Marci Saini, PA 800 [facility] [address] [place] [phone] documented as of this encounter Results * Lactate Dehydrogenase, Plasma (03/01/2025 10:08 AM EDT) Pathologist [facility] LDH, Plasma 239 116 - 250 U/L 03/01/2025 10:56 AM EDT [facility] Blood Venous blood specimen / Unknown Venipuncture / Unknown 03/01/2025 10:08 AM EDT 03/01/2025 10:26 AM EDT us Skyla Kirby MD LAB BLOOD ORDERABLES Final Resul t [facility] [address] [place] [address] * (ABNORMAL) CBC and Differential (03/01/2025 10:08 AM EDT) WBC Count 6.67 3.70 - 10.30 10*3/uL LAB HEMATOLOGY METHOD 03/01/2025 10:28 AM EDT [facility] RBC Count 4.34(L) 4.60 - 6.10 10*6/uL LAB HEMATOLOGY METHOD 03/01/2025 10:28 AM EDT [facility] HGB 11.2(L) 13.7 - 17.5 g/dL LAB HEMATOLOGY METHOD 03/01/2025 10:28 AM EDT [facility] HCT 35.5(L) 40.0 - 51.0 % LAB HEMATOLOGY METHOD 03/01/2025 10:28 AM EDT [facility] Platelet Count 162 155 - 369 10*3/uL LAB HEMATOLOGY METHOD 03/01/2025 10:28 AM EDT [facility] MCV 82 79 - 98 fL LAB HEMATOLOGY METHOD 03/01/2025 10:28 AM EDT [facility] MCH 25.8(L) 26.0 - 32.0 pg LAB HEMATOLOGY METHOD 03/01/2025 10:28 AM EDT [facility] MCHC 31.5 30.7 - 35.5 g/dL LAB HEMATOLOGY METHOD 03/01/2025 10:28 AM EDT [facility] RDW 17.2(H) 11.5 - 14.5 % LAB HEMATOLOGY METHOD 03/01/2025 10:28 AM EDT [facility] MPV 9.3 8.8 - 12.5 fL LAB HEMATOLOGY METHOD 03/01/2025 10:28 AM EDT [facility] nRBC 0.0 <=0.0 per 100 WBCs LAB HEMATOLOGY METHOD 03/01/2025 10:28 AM EDT [facility] Differential Type Automated LAB HEMATOLOGY METHOD 03/01/2025 10:28 AM EDT [facility] Neutrophils % 87 % LAB HEMATOLOGY METHOD 03/01/2025 10:28 AM EDT [facility] Lymphocytes % 5 % LAB HEMATOLOGY METHOD 03/01/2025 10:28 AM EDT [facility] Monocytes % 6 % LAB HEMATOLOGY METHOD 03/01/2025 10:28 AM EDT [facility] Eosinophils % 1 % LAB HEMATOLOGY METHOD 03/01/2025 10:28 AM EDT [facility] Basophils % 1 % LAB HEMATOLOGY METHOD 03/01/2025 10:28 AM EDT [facility] Immature Granulocytes % 0 % LAB HEMATOLOGY METHOD 03/01/2025 10:28 AM EDT [facility] Neutrophils Absolute 5.77 1.60 - 6.10 10*3/uL LAB HEMATOLOGY METHOD 03/01/2025 10:28 AM EDT [facility] Lymphocytes Absolute 0.35(L) 1.20 - 3.90 10*3/uL LAB HEMATOLOGY METHOD 03/01/2025 10:28 AM EDT [facility] Monocytes Absolute 0.43 0.30 - 0.90 10*3/uL LAB HEMATOLOGY METHOD 03/01/2025 10:28 AM EDT [facility] Eosinophils Absolute 0.06 0.00 - 0.50 10*3/uL LAB HEMATOLOGY METHOD 03/01/2025 10:28 AM EDT [facility] Basophils Absolute 0.04 0.00 - 0.10 10*3/uL LAB HEMATOLOGY METHOD 03/01/2025 10:28 AM EDT [facility] Immature Granulocytes Absolute 0.02 0.00 - 0.06 10*3/uL LAB HEMATOLOGY METHOD 03/01/2025 10:28 AM EDT [facility] Blood Venous blood specimen / Unknown Venipuncture / Unknown 03/01/2025 10:08 AM EDT 03/01/2025 10:26 AM EDT Narrative [facility] - 03/01/2025 10:28 AM EDT Therapeutic decision making should be based on absolute values, rather than percentages. us Skyla Kirby MD LAB BLOOD ORDERABLES Final Resul t [facility] [address] [place] [address] * (ABNORMAL) Comprehensive Metabolic Panel, Plasma (03/01/2025 10:08 AM EDT) Glucose, Plasma 118(H) 74 - 99 mg/dL 03/01/2025 10:56 AM EDT [facility] BUN, Plasma 15 8 - 23 mg/dL 03/01/2025 10:56 AM EDT [facility] Creatinine, Plasma 0.60(L) 0.70 - 1.20 mg/dL 03/01/2025 10:56 AM EDT [facility] BUN/Creatinine Ratio 25 03/01/2025 10:56 AM EDT [facility] Sodium, Plasma 126(L) 136 - 145 mmol/L 03/01/2025 10:56 AM EDT [facility] Potassium, Plasma 4.3 3.6 - 4.9 mmol/L 03/01/2025 10:56 AM EDT [facility] Chloride, Plasma 88(L) 97 - 107 mmol/L 03/01/2025 10:56 AM EDT [facility] CO2, Plasma 29 22 - 29 mmol/L 03/01/2025 10:56 AM EDT [facility] Anion Gap 9 6 - 16 mmol/L 03/01/2025 10:56 AM EDT [facility] Total Calcium, Plasma 9.4 8.9 - 10.2 mg/dL 03/01/2025 10:56 AM EDT [facility] Total Protein 7.3 6.3 - 7.9 g/dL 03/01/2025 10:56 AM EDT [facility] Albumin, Plasma 4.1 3.5 - 5.2 g/dL 03/01/2025 10:56 AM EDT [facility] AST, Plasma 32 10 - 50 U/L 03/01/2025 10:56 AM EDT [facility] ALT, Plasma 28 10 - 50 U/L 03/01/2025 10:56 AM EDT [facility] Alkaline Phosphatase, Plasma 131(H) 40 - 115 U/L 03/01/2025 10:56 AM EDT [facility] Total Bilirubin, Plasma 0.6 0.2 - 1.1 mg/dL 03/01/2025 10:56 AM EDT [facility] eGFRcr 104.5 mL/min/1.7 3m*2 03/01/2025 10:56 AM EDT [facility] Comment:Reported eGFRcr in m L/min/1.73m2 is based the CKD-EPI 2020 equation that does not use a race coefficient. 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
--- OUTSIDE RECORDS SUMMARY | 2025-03-17 14:15 | XMS_ITS | Encounter Summary ---
Author Organization Healthcare Address [address] [place] [address] Care Team Providers Care Food Assembler Name Role Phone System, Provider Not In MD Primary Care Provider Unavailable Encounter Details Date Type Department Care Team (Latest Contact Info) Description 01/28/2025 Travel Social History Tobacco Use Types Packs/Day [...] any time in the past 12 m [facility], were you homeless or living [...] Upcoming Encounters Date Type Department Care Team ([facility] Contact Info) Description 05/31/2025 10:30 AM EST Appointment [facility] PET Scan [address] [place] [address] 05/31/2025 11:30 AM EST Appointment [facility] PET Scan [address] [place] [address] 05/31/2025 2:30 PM EST Clinical Support [facility] H[facility]ology/BMT and Cellular Therapy Program [address] [place] [address] 05/31/2025 3:00 PM EST Office Visit [facility]ology/BMT and Cellular Therapy Program [address] [place] [address] Marci Saini PA 800 [facility] [address] [place] [phone] documented as of this encounter Visit Diagnoses Not on filedocumented in this encounter Additional Health Concerns Assessment Noted Time A fall risk assessment has been complete d for the patient 01/28/2025 10:51 AM EDT A Body Mass Index follow-up plan has been documented for the patient 01/28/2025 11:21 AM EDT documented as of this encounter Care Teams Food Assembler Relationship Specialty Start Date End Date System, Provider Not In, MD [place] [address] PCP - General Family Medicine 08/16/24 documented as of this encounter
--- OUTSIDE RECORDS SUMMARY | 2025-03-17 14:15 | XMS_ITS | Encounter Summary ---
Author Organization [facility] Address [address] [place] [address] Care Team Providers Care Problem Manager Name Role Phone System, Provider Not In MD Primary Care Provider Unavailable Encounter Details Date Type Department Care Team ([facility] Contact Info) Description 03/02/2025 Results Follow-Up [facility] Hematology/BMT and Cellular Therapy Program 750 [facility] [place] [place] [address] Skyla Kirby MD 800 [facility] [address] [place] [address] Social History Tobacco Use Types Packs/Day Years [...] any time in the past 12 m [facility], were you homeless or living in a half-way (including now)? No 10/25/2024 Utilities Answer Date [...] Upcoming Encounters Date Type Department Care Team ([facility] Contact Info) Description 05/31/2025 10:30 AM EST Appointment [facility] PET Scan 800 [place] [phone] 05/31/2025 11:30 AM EST Appointment [facility] PET Scan [address] [place] [address] 05/31/2025 2:30 PM EST Clinical Support [facility] Hematology/BMT and Cellular Therapy Program 750 [facility], [address] [place] [address] 05/31/2025 3:00 PM EST Office Visit [facility] Hematology/BMT and Cellular Therapy Program [address] [place] [address] Marci Saini PA 800 [facility] [address] [place] [address] documented as of this encounter Visit Diagnoses Not on filedocumented in this encounter Additional Health Concerns Assessment Noted Time A fall risk assessment has been complete d for the patient 03/01/2025 10:36 AM EDT A Body Mass Index follow-up plan has been documented for the patient 01/28/2025 11:21 AM EDT documented as of this encounter Care Teams Problem Manager Relationship Specialty Start Date End Date System, Provider Not In, [address] [place] [address] PCP - General Family Medicine 08/16/24 documented as of this encounter
--- OUTSIDE RECORDS SUMMARY | 2025-03-17 14:15 | XMS_ITS | Encounter Summary ---
Author Organization Healthcare Address [address] [place] [address] Care Team Providers Care Warehouse Attendant Name Role Phone System, Provider Not In MD Primary Care Provider Unavailable Reason for Visit * Reason Onset Date Comments HCN Clinical Concern/Question 12/27/2024 Encounter Details Date Type Department Care Team (Late st Contact Info) Description 12/27/2024 Telephone MD Clinic [facility] [address] [facility] 5th Floor [address] [place] [address] Renetta Dodson MD [address] [facility] [address] [place] [address] HCN Clinical Concern/Question Social History Tobacco Use Types Packs/Day Years Used Date Smoking Tobacco: Former Cigarettes 1 50.1 1 08/09/1973 - 07/16/2024 Smokeless Tobacco: Never Alcohol Use Standard Drinks/Week [...] any time in the past 12 m [facility], were you homeless or [...] encounter Miscellaneous Notes * Telephone Encounter - MtzBg - 12/27/2024 9:28 AM EDT Clinical Concern/Question Reason for Call: She said a referral was sent on this patient and they do not have the items he needs. He will need to be referred to someone else. Best contact number: [phone] Optimal time of day to reach caller: Additional comments/information from caller: Note: Please do not reply to this message. Follow-up communication and further actions as a result of this message need to be communicated with the patient directly, if the patient is not active onMyChart. If the patient is active on MyChart, they will receive notification of the communication/outcome via MyChart. documented in this encounter Plan of Treatment Upcoming Encounters Date Type Department Care Team ([facility] st Contact Info) Description 05/31/2025 10:30 AM EST Appointment [facility] PET Scan 800 [place] [address] 05/31/2025 11:30 AM EST Appointment [facility] PET Scan [address] [place] [phone] 05/31/2025 2:30 PM EST Clinical Support [facility] Cellular Therapy Program [address] [place] [phone] 05/31/2025 3:00 PM EST Office Visit [facility]ology[facility]BMT and Cellular Therapy Program [address] [place] [phone] Marci Saini, DANIELLE 800 [facility] [address] [place] [phone] documented as of this encounter Visit Diagnoses Not on filedocumented in this encounter Additional Health Concerns Assessment Noted Time A fall risk assessment has been complete d for the patient 11/16/2024 8:47 AM EDT A Body Mass Index follow-up plan has been documented for the patient 11/16/2024 9:31 AM EDT documented as of this encounter Care Teams Warehouse Attendant Relationship Specialty Start Date End Date System, Provider Not In, 800 [place] [address] PCP - General Family Medicine 08/16/24 documented as of this encounter
--- OUTSIDE RECORDS SUMMARY | 2025-03-17 14:15 | XMS_ITS | Encounter Summary ---
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) Procedures PET/CT FDG Skull Base To Mid Thigh Skyla Kirby MD 800 [facility] [address] [address] Phone: tel: fax: Referral ID Status Reason Start Date Expiration Date V isits Requested Visits Authorized [id number] Pending Review 03/03/2025 09/02/2026 2 2 Encounter Details Date Type Department Care Team ([facility] st Contact Info) Description 03/03/2025 Orders Only [facility] Hematology/BMT and Cellular Therapy Program [address] [place] [address] Skyla Kirby MD 800 [facility] [address] [address] Cutaneous T-cell lymphoma involving lymph nodes of [...] any time in the past 12 m [facility], were you homeless or living in a detention (including now)? No 10/25/2024 Utilities Answer Date Recorded In the past 12 months has e electric, gas, oil, or water company [...] Upcoming Encounters Date Type Department Care Team ([facility] st Contact Info) Description 05/31/2025 10:30 AM EST Appointment [facility] PET Scan [address] [place] [address] 05/31/2025 11:30 AM EST Appointment [facility] PET Scan [address] [place] [address] 05/31/2025 2:30 PM EST Clinical Support [facility]ology[facility]BMT [facility] Cellular Therapy Program [address] [place] [phone] 05/31/2025 3:00 PM EST Office Visit [facility] H[facility]ology/BMT and Cellular Therapy Program [address] [place] [phone] Marci Saini PA 800 [facility] [address] [place] [phone] Scheduled Orders Name Type Priority Associated Diagnoses Orde r Schedule PET/CT FDG Skull Base To Mid Thigh Imaging Routine 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) Expected: 05/31/2025 (Approximate), Expires: 09/04/2026 documented as of this encounter Visit Diagnoses Diagnosis 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
--- OUTSIDE RECORDS SUMMARY | 2025-03-17 14:15 | XMS_ITS | Encounter Summary ---
Author Organization Healthcare Address [address] [place] [address] Care Team Providers Care Machining Associate Name Role Phone System, Provider Not In MD Primary Care Provider Unavailable Encounter Details Date Type Department Care Team (Latest Contact Info) Description 03/01/2025 Travel Social History Tobacco Use Types Packs/Day [...] any time in the past 12 m [facility], were you homeless or living [...] Upcoming Encounters Date Type Department Care Team ([facility] Contact Info) Description 05/31/2025 10:30 AM EST Appointment [facility] PET Scan [address] [place] [address] 05/31/2025 11:30 AM EST Appointment [facility] PET Scan [address] [place] [address] 05/31/2025 2:30 PM EST Clinical Support [facility]ology[facility]BMT [facility] Cellular Therapy Program [address] [place] [address] 05/31/2025 3:00 PM EST Office Visit [facility] Hematology/BMT and Cellular Therapy Program [address] [place] [address] Marci Saini PA 800 [facility] [address] [place] [phone] documented as of this encounter Visit Diagnoses Not on filedocumented in this encounter Additional Health Concerns Assessment Noted Time A fall risk assessment has been complete d for the patient 03/01/2025 10:36 AM EDT A Body Mass Index follow-up plan has been documented for the patient 01/28/2025 11:21 AM EDT documented as of this encounter Care Teams Machining Associate Relationship Specialty Start Date End Date System, Provider Not In, MD [place] [address] PCP - General Family Medicine 08/16/24 documented as of this encounter
--- OUTSIDE RECORDS SUMMARY | 2025-03-17 14:15 | XMS_ITS | Referral Summary ---
Author Organization [facility] Address [address] [place] [address] Care Team Providers Care Security Engineer Name Role Phone Unavailable Primary Care Provider Unavailabl e Social History Tobacco Use Types Packs/Day Years Used Date Smoking Tobacco: Never Assessed Sex and Gender Information Value Date Recorded Sex Assigned at Not on file Legal Sex Male 9:31 PM EDT Gender Identity Not on file Sexual Orientation Not on file Plan of Treatment Not on file
--- OUTSIDE RECORDS SUMMARY | 2025-03-17 14:15 | XMS_ITS | Encounter Summary ---
Author Organization Healthcare Address [address] [place] [address] Care Team Providers Care Member Of The Legislative Assembly Name Role Phone System, Provider Not In MD Primary Care Provider Unavailable Encounter Details Date Type Department Care Team (Latest Contact Info) Description 01/27/2025 Travel Social History Tobacco Use Types Packs/Day [...] any time in the past 12 m [facility], were you homeless or living in a assisted (including now)? No 10/25/2024 Utilities Answer Date [...] Upcoming Encounters Date Type Department Care Team ([facility] st Contact Info) Description 05/31/2025 10:30 AM EST Appointment [facility] PET Scan [address] [place] [address] 05/31/2025 11:30 AM EST Appointment [facility] PET Scan [address] [place] [address] 05/31/2025 2:30 PM EST Clinical Support [facility] Hematology/BMT and Cellular Therapy Program [address] [phone] 05/31/2025 3:00 PM EST Office Visit [facility] Cellular Therapy Program [address] [phone] Marci Saini PA 800 [facility] [address] [place] [phone] documented as of this encounter Visit Diagnoses Not on filedocumented in this encounter Additional Health Concerns Assessment Noted Time A fall risk assessment has been complete d for the patient 11/16/2024 8:47 AM EDT A Body Mass Index follow-up plan has been documented for the patient 11/16/2024 9:31 AM EDT documented as of this encounter Care Teams Member Of The Legislative Assembly Relationship Specialty Start Date End Date System, Provider Not In, MD Cés[place] [address] PCP - General Family Medicine 08/16/24 documented as of this encounter
[2025-03-17 14:16] VITALS: BP 134/69; PULSE 81; RESP 18; TEMP 36.6; O2SAT 93; BMI 25.7
[2025-03-17] MEDS: OXYMETAZOLINE NASAL SPRAY 0.05% 15ML NS (14:24)
[2025-03-17 15:27] VITALS: BP 133/77; PULSE 62; RESP 18; TEMP 36.6; O2SAT 95
== END 2025-03-17 15:28 | disposition home or self-care (01) ==
PROVIDERS: Emergency Provider Student in an Organized Health Care Education/Training Program; PCP Family Medicine
DX: R04.0 Epistaxis (principal); E87.1 Hypo-osmolality and hyponatremia; E03.9 Hypothyroidism, unspecified; I10 Essential (primary) hypertension; Z87.891 Personal history of nicotine dependence
CPT/HCPCS: 99282

== ENCOUNTER 2025-04-01 14:59 | Outpatient (CLI) | payer MEDICARE, OTHER, SELFPAY ==
--- OUTSIDE RECORDS SUMMARY | 2025-03-01 08:33 | XMS_ITS | Encounter Summary ---
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) Procedures PET/CT FDG Skull Base To Mid Thigh Skyla Kirby MD 800 [facility] [address] [place] [phone] Phone: tel: fax: Referral ID Status Reason Start Date Expiration Date Visits Re quested Visits Authorized [id number] Closed 10/15/2024 04/16/2026 2 2 Encounter Details Date Type Department Care Team (Latest Contact Info) Description 03/01/2025 8:33 AM EDT - 03/01/2025 11:59 PM EDT Hospital Encounter [facility] PET Scan [address] [place] [phone] Discharge Disposition: Home or Self Care Social History Tobacco Use Types Packs/Day Years [...] any time in the past 12 m [facility], were you homeless or living in a mcfp (including now)? No 10/25/2024 Utilities Answer Date Recorded In the past 12 months has th e [employer], gas, oil, or water [employer] threatened to shut off services in your home? No 10/25/2024 Sex and Gender Information Value Date Recorded Sex Assigned at Male 07/26/2024 2:18 PM EST Legal Sex Male 8:07 PM EDT Gender Identity Male 07/27/2024 11:01 AM EST Sexual Orientation Straight 07/27/2024 11 :01 AM EST documented as of this encounter Medications at Time of Discharge acetaminophen (Tylenol) 500 MG tablet 2 tablets (1,000 mg) by Per G Tube route every 8 (eight) hours. 5 albuterol 108 (90 Base) MCG/ACT inhaler Inhale 2 puffs every 4 (four) hours as needed for wheezing. 5 amiodarone (Pacerone) 200 MG tablet 0.5 tablets by Per G Tube route daily. ascorbic acid (Vitamin C) 500 MG tablet 1 tablet by Per G Tube route daily. aspirin 81 MG EC tablet Take 1 tablet (81 mg) by mouth 1 (one) time each morning. To be given per G tube 5 atorvastatin (Lipitor) 10 MG tablet 1 tablet (10 mg) by Per G Tube route 1 (one) time each day. 5 carboxymethylcellul ose PF (Refresh Plus) 0.5 % ophthalmic solution Administer 1 drop into the right eye 3 (three) times a day. 30 each 1 5 carvedilol (Coreg) 25 MG tablet 2 tablets by Per G Tube route 2 (two) times a day with meals. 5 cetirizine (ZyrTEC) 10 MG tablet 1 tablet by Per G Tube route daily. 5 clopidogrel (Plavix) 75 MG tablet 1 tablet by Per G Tube route daily. 5 cycloSPORINE (Restasis) 0.05 % ophthalmic emulsion Administer 1 drop into both eyes 2 (two) times a day. docusate sodium (Colace) 50 MG/5ML oral liquid 10 mL (100 mg) by Per G Tube route 2 (two) times a day. 5 empagliflozin (Jardiance) 10 MG Take 1 tablet (10 mg) by mouth 1 (one) time each day. To be given per G tube 5 esomeprazole (NexIUM) 40 MG packet 40 mg by Per G Tube route daily before breakfast. Mix contents of the packet with 5-15 mL of water and stir; leave for 2 to 3 minutes to thicken; stir and administer within 30 minutes. If any medicine remains, add more water, stir and administer immediately. 90 packet 2 5 ezetimibe (Zetia) 10 MG tablet 1 tablet (10 mg) by Per G Tube route every night. 5 Feeding Supplies misc Please send months supply of syringes and [place] (if able) 1 each 11 5 furosemide (Lasix) 40 MG tablet Take 1 tablet (40 mg) by mouth every other day. 5 HYDROcodone-acetami nophen ([place]) 5-325 MG tablet 1 tablet by Per G Tube route in the morning and 1 tablet before bedtime. levothyroxine (Synthroid, Levoxyl) 100 MCG tablet 1 tablet by Per G Tube route daily. lisinopril-hydroCHL OROthiazide 20-25 MG tablet 1 tablet by Per G Tube route 1 (one) time each day. 5 magnesium hydroxide (Milk of Magnesia) 400 MG/5ML suspension 30 mL by Per G Tube route 1 (one) time each day if needed for constipation. 360 mL 1 5 metFORMIN, OSM, (Fortamet) 500 MG 24 hr tablet 1 tablet daily. Per G-tube potassium chloride CR 10 MEQ PO ER tablet 5 sodium chloride 3 % nebulizer solution Take 3 mL by nebulization 2 (two) times a day if needed for cough. 5 SV Iron 325 (65 Fe) MG tablet 1 tablet by Per G Tube route daily. 5 traZODone (Desyrel) 100 MG tablet 1 tablet (100 mg) by Per G Tube route every night. 5 triamcinolone (Kenalog) 0.1 % cream Apply 1 Application topically 2 (two) times a day. Multiple Vitamin (multivitamin) tablet 1 tablet by Per G Tube route daily. ondansetron ODT (Zofran-ODT) 4 MG disintegrating tablet Dissolve 1 tablet on the tongue every 6 hours as needed for nausea or vomiting. 20 tablet 5 polyethylene glycol (MiraLax) 17 GM/SCOOP powder Take 17 g by mouth daily. 850 g 2 5 potassium chloride CR (Klor-Con) 10 MEQ ER tablet 1 tablet daily. Do not crush, chew, or split. sodium chloride ([place]) 0.65 % nasal spray Administer 1 spray into each nostril if needed for congestion. 30 mL 12 5 White Petrolatum-Mineral Oil (artificial tears) ophthalmic ointment Apply 1 Application to right eye every night. 2.5 g 1 documented as of this encounter Plan of Treatment Upcoming Encounters Date Type Department Care Team (Late st Contact Info) Description 05/31/2025 10:30 AM EST Appointment [facility] PET Scan [address] [place] [phone] 05/31/2025 11:30 AM EST Appointment [facility] PET Scan [address] [place] [address] 05/31/2025 2:30 PM EST Clinical Support [facility] [address] [phone] 05/31/2025 3:00 PM EST Office Visit [facility] [address] [phone] Marci Saini PA 800 [facility] [address] [place] [phone] documented as of this encounter Procedures Procedure Name Priority Date/Time Associated Diagnosis Comments PET/CT FDG SKULL BASE TO MID THIGH Routine 03/01/2025 9:52 AM EDT 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 Status post resection and flap reconstruction of the left forehead, with no evidence of increased focal metabolic activity to suggest local recurrence. 2. There is interval stability of the adrenal gland lesions, demonstrating similar mild FDG activity, which remains below liver background levels. A dedicated contrast-enhanced CT of the abdomen would be better for complete characterization. 3. No other metabolically active foci are identified to suggest metastatic disease. CRITICAL RESULT: No. COMMUNICATION: Per this written report. By electronically signing this report, I, the attending physician, attest that I have personally reviewed the images/data for the above examination(s) and agree with the final edited report. Drafted by ITZ Jarrett on 03/01/2025 12:39 PM Final report signed by Chuck Jane MD on 03/01/2025 4:14 PM Narrative 03/01/2025 4:14 PM EDT CLINICAL INDICATION: Subsequent treatment strategy for lymphoma using FDG PET/CT. 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 TECHNIQUE: Preparation: Last oral intake (except water) more than 12 hours. Diabetic: Yes. Blood glucose at time of FDG administration: 115 mg/dL. Radiopharmaceutical: 12.87 mCi of F-18 FDG administered intravenously at right forearm at 843. Incubation interval: 57 minutes. Oral contrast: Not applicable. Positioning: Arms raised for torso scan, by sides for neck scan. PET/CT scanner: Siemens Biograph 40 mCT. PET/CT acquisition: [place]rufa-qi-diu-thighs, plus magnification (zoomed) neck. Standardized uptake value (SUV): Corrected for body weight only. CT: Low-dose, [id number]-ldbv, without intravenous contrast. TOTAL DLP (Dose Length Product): 1183 mGy cm. COMPARISON/CORRELATION: PET/CT FDG 10/08/2024. CT abdomen pelvis 10/20/2024. FINDINGS: Technical quality: Diagnostic. Measurements: Unless otherwise specified, all SUVs refer to maximum value in the target (mSUV). Reference: Reference: mean SUV liver: 1.6; previously: 1.5. CT linear measurements performed on axial images. Head and Neck: Status post resection and flap reconstruction left forehead with no increased focal metabolic activity to suggest recurrence. Mildly increased metabolic activity in the posterior inferior aspect of right maxillectomy bed, similar to prior, likely inflammatory mucosal disease (202 image 91). Increased metabolic activity in the floor of mouth on the left side. No suspicious metabolically active or pathologically enlarged adenopathy. Unremarkable thyroid gland. Chest: Right apical scarring with low-level FDG activity. No suspicious metabolically active or pathologically enlarged hilar or mediastinal adenopathy. Minimal bibasilar atelectasis, mild middle lobe and lingular scarring. Sequelae of prior granulomatous insult. Normal caliber of the thoracic aorta. Aortic and coronary calcifications. Mild cardiomegaly. Left chest wall AICD. No pleural effusion, pericardial effusion or pneumothorax. Abdomen and Pelvis: No suspicious metabolically active lesions within the abdomen and pelvis. No suspicious metabolically active or pathologically enlarged retroperitoneal or pelvic adenopathy. Solid Abdominal Organs: No suspicious focal hypermetabolic lesions in the liver significantly greater than the heterogeneous physiologic uptake. Unremarkable noncontrast appearance of the liver. Unremarkable gallbladder. No biliary dilatation. Unremarkable noncontrast appearance of the spleen. Bilateral renal cysts. Left renal pelviectasis, similar to prior. Redemonstration of bilateral minimally avid adrenal gland lesion measuring up to 3 cm, unchanged compared to prior study No suspicious pancreatic findings. GI Tract/Mesentery/Peritoneum: Percutaneous gastrostomy tube in place. Increased multisegmental metabolic activity in the bowel. The large and small bowel appear normal in caliber. Sigmoid diverticulosis without noncontrast CT evidence of diverticulitis. No suspicious peritoneal/mesenteric findings. Pelvic Viscera: No pelvic masses Prostatomegaly. Vasculature: Normal caliber of the abdominal aorta Calcified atherosclerotic changes. Free Fluid: No ascites or drainable fluid collection Skeleton and Soft Tissues: No suspicious metabolically active osseous or soft tissue lesions. No aggressive osseous lytic or sclerotic lesions. Multilevel degenerative changes. Procedure Note Chuck Jane MD - 03/01/2025 CLINICAL INDICATION: Subsequent treatment strategy for lymphoma using FDG PET/CT. Left foreheadperipheral T-cell lymphoma s/p exenteration of L eye, left neckdissection, and craniectomy with rectus abdominis flap reconstruction on07/16/24. Prior history of T4 right retromolar trigone squamous cell carcinomastatus post resection, bilateral neck dissection, reconstructed with afibula flap 11/14/2008+ adjuvant XRT. TECHNIQUE: Preparation: Last oral intake (except water) more than 12 hours. Diabetic: Yes. Blood glucose at time of FDG administration: 115 mg/dL. Radiopharmaceutical: 12.87 mCi of F-18 FDG administered intravenously atright forearm at 843. Incubation interval: 57 minutes. Oral contrast: Not applicable. Positioning: Arms raised for torso scan, by sides for neck scan. PET/CT scanner: Siemens Biograph 40 mCT. PET/CT acquisition: [place]-ip-foe-thighs, plus magnification (zoomed)neck. Standardized uptake value (SUV): Corrected for body weight only. CT: Low-dose, [id number]-[id number]-dogc, without intravenous contrast. TOTAL DLP (Dose Length Product): 1183 mGy cm. COMPARISON/CORRELATION: PET/CT FDG 10/08/2024. CT abdomen pelvis 10/20/2024. FINDINGS: Technical quality: Diagnostic. Measurements: Unless otherwise specified, all SUVs refer to maximum valuein the target (mSUV). Reference: Reference: mean SUV liver: 1.6; previously: 1.5. CT linear measurements performed on axial images. Head and Neck: Status post resection and flap reconstruction left forehead with noincreased focal metabolic activity to suggest recurrence. Mildly increased metabolic activity in the posterior inferior aspect ofright maxillectomy bed, similar to prior, likely inflammatory mucosaldisease (202 image 91). Increased metabolic activity in the floor of mouth on the left side. No suspicious metabolically active or pathologically enlargedadenopathy. Unremarkable thyroid gland. Chest: Right apical scarring with low-level FDG activity. No suspicious metabolically active or pathologically enlarged hilar ormediastinal adenopathy. Minimal bibasilar atelectasis, mild middle lobe and lingular scarring. Sequelae of prior granulomatous insult. Normal caliber of the thoracic aorta. Aortic and coronary calcifications.Mild cardiomegaly. Left chest wall AICD. No pleural effusion, pericardial effusion or pneumothorax. Abdomen and Pelvis: No suspicious metabolically active lesions within the abdomen andpelvis. No suspicious metabolically active or pathologically enlargedretroperitoneal or pelvic adenopathy. Solid Abdominal Organs: No suspicious focal hypermetabolic lesions in the liver significantlygreater than the heterogeneous physiologic uptake. Unremarkablenoncontrast appearance of the liver. Unremarkable gallbladder. No biliary dilatation. Unremarkable noncontrastappearance of the spleen. Bilateral renal cysts. Left renal pelviectasis, similar to prior. Redemonstration of bilateral minimally avid adrenal gland lesion measuringup to 3 cm, unchanged compared to prior study No suspicious pancreatic findings. GI Tract/Mesentery/Peritoneum: Percutaneous gastrostomy tube in place. Increased multisegmental metabolic activity in the bowel. The large and small bowel appear normal in caliber. Sigmoid diverticulosis without noncontrast CT evidence ofdiverticulitis. No suspicious peritoneal/mesenteric findings. Pelvic Viscera: No pelvic masses Prostatomegaly. Vasculature: Normal caliber of the abdominal aorta Calcified atherosclerotic changes. Free Fluid: No ascites or drainable fluid collection Skeleton and Soft Tissues: No suspicious metabolically active osseous or soft tissue lesions. No aggressive osseous lytic or sclerotic lesions. Multilevel degenerative changes. IMPRESSION: 1.Status post resection and flap reconstruction of the left forehead,with no evidence of increased focal metabolic activity to suggest localrecurrence. 2.There is interval stability of the adrenal gland lesions, demonstratingsimilar mild FDG activity, which remains below liver background levels. Adedicated contrast-enhanced CT of the abdomen would be better for completecharacterization. 3.No other metabolically active foci are identified to suggest metastaticdisease. CRITICAL RESULT: No. COMMUNICATION: Per this written report. By electronically signing this report, I, the attending physician, jeanette I have personally reviewed the images/data for the aboveexamination(s) and agree with the final edited report. Drafted by ITZ Jarrett on 03/01/2025 12:39 PM Final report signed by Chuck Jane MD on 03/01/2025 4:14 PM Skyla Kirby MD IMG NM PROCEDURES Final Result documented in this encounter Visit Diagnoses Not on filedocumented in this encounter Additional Health Concerns Assessment Noted Time A fall risk assessment has been complete d for the patient 03/01/2025 10:36 AM EDT A Body Mass Index follow-up plan has been documented for the patient 01/28/2025 11:21 AM EDT documented as of this encounter Care Teams Security Researcher Relationship Specialty Start Date End Date System, Provider Not In, MD [place] [address] PCP - General Family Medicine 08/16/24 documented as of this encounter
--- OUTSIDE RECORDS SUMMARY | 2025-03-01 08:33 | XMS_ITS | Encounter Summary ---
Author Organization [facility] Address [address] 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) Procedures PET/CT FDG Skull Base To Mid Thigh Skyla Kirby MD [address] [facility] [address] [place] [phone] Phone: tel: fax: Referral ID Status Reason Start Date Expiration Date Visits Re quested Visits Authorized [id number] Closed 10/15/2024 04/16/2026 2 2 Reason for Visit * Imaging (Routine) - Closed Specialty Diagnoses / Procedures Referred By Mariama horne Referred To Contact Radiology Diagnoses 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) Procedures PET/CT FDG Skull Base To Mid Thigh Skyla Kirby MD 800 [facility] [address] [place] [phone] Phone: tel: fax: Referral ID Status Reason Start Date Expiration Date Visits Re quested Visits Authorized [id number] Closed 10/15/2024 04/16/2026 2 2 Encounter Details Date Type Department Care Team (Latest Contact Info) Description 03/01/2025 8:33 AM EDT - 03/01/2025 11:59 PM EDT Hospital Encounter [facility] PET Scan [address] [place] [address] Cutaneous T-cell lymphoma involving lymph nodes of [...] any time in the past 12 m [facility], were you homeless or living in a care home (including now)? No 10/25/2024 Utilities Answer Date Recorded In the past 12 months has e [employer], gas, oil, or water [employer] threatened to shut off services in your [...] Tube route every night. 5 Feeding Supplies [facility] Please send months supply of syringes and [employer]Locks (if able) 1 each 11 5 furosemide (Lasix) 40 MG tablet Take 1 tablet (40 mg) by mouth every other day. 5 HYDROcodone-acetami nophen ([place]) 5-325 MG tablet 1 tablet by Per [...] not crush, chew, or split. sodium chloride ([place]) 0.65 % nasal spray Administer 1 spray into each nostril if needed for congestion. 30 mL 12 5 White Petrolatum-Mineral Oil (artificial tears) ophthalmic ointment Apply 1 Application to right eye every night. 2.5 g 1 5 documented as of this encounter Plan of Treatment Upcoming Encounters Date Type Department Care Team ([facility] Contact Info) Description 05/31/2025 10:30 AM EST Appointment [facility] PET Scan [address] [place] [address] 05/31/2025 11:30 AM EST Appointment [facility] PET Scan [address] [place] [address] 05/31/2025 2:30 PM EST Clinical Support [facility] Hematology/BMT and Cellular Therapy Program [address] [place] [phone] 05/31/2025 3:00 PM EST Office Visit [facility] Hematology/BMT and Cellular Therapy Program [address] [place] [phone] Marci Saini PA 800 [facility] [address] [place] [phone] documented as of this encounter Procedures Procedure [...] sides for neck scan. PET/CT scanner: Siemens Broadlinkgraph 40 mCT. PET/CT acquisition: Icbtyw-rp-szu-thighs, plus magnification (zoomed) neck. Standardized uptake value (SUV): Corrected for body weight only. CT: Low-dose, akz-phaobc-rcnv, without intravenous contrast. TOTAL DLP (Dose Length [...] scanner: Siemens Biograph 40 mCT. PET/CT acquisition: Fvrasv-ro-tmm-thighs, plus magnification (zoomed)neck. Standardized uptake value (SUV): Corrected for body weight only. CT: Low-dose, mou-jdxmox-ooae, without intravenous contrast. TOTAL DLP (Dose Length [...] documented as of this encounter Care Teams Paving Bed Maker Relationship Specialty Start Date End Date System, Provider Not In, MD Cés[place] [address] PCP - General Family Medicine 08/16/24 documented as of this encounter
--- OUTSIDE RECORDS SUMMARY | 2025-03-01 14:00 | XMS_ITS | Encounter Summary ---
Author Organization Healthcare Address [address] [place] [address] Care Team Providers Care Cloth Covered Helmet Puller Name Role Phone System, Provider Not In MD Primary Care Provider Unavailable Reason for Visit * Reason Comments Labs Encounter Details Date Type Department Care Team ([facility] st Contact Info) Description 03/01/2025 2:00 PM EDT Clinical Support [facility] Hematology/BMT and Cellular Therapy Program [address] [place] [address] [place] [address] Social History Tobacco Use Types Packs/Day Years [...] were you homeless or living in a penitentiary (including now)? No 10/25/2024 Utilities Answer Date [...] Upcoming Encounters Date Type Department Care Team ([facility] st Contact Info) Description 05/31/2025 10:30 AM EST Appointment [facility] PET Scan [address] [place] [address] 05/31/2025 11:30 AM EST Appointment [facility] PET Scan [address] [place] [address] 05/31/2025 2:30 PM EST Clinical Support [facility]ology/BMT and Cellular Therapy Program [address] [place] [address] 05/31/2025 3:00 PM EST Office Visit [facility] Hematology/BMT and Cellular Therapy Program 750 [facility] [address] [place] [place] [address] Marci Saini, [facility] [address] [place] [address] documented as of this encounter Visit Diagnoses Not on filedocumented in this encounter Additional Health Concerns Assessment Noted Time A fall risk assessment has been complete d for the patient 03/01/2025 10:36 AM EDT A Body Mass Index follow-up plan has been documented for the patient 01/28/2025 11:21 AM EDT documented as of this encounter Care Teams Cloth Covered Helmet Puller Relationship Specialty Start Date End Date System, Provider Not In, MD Cés[place] [address] PCP - General Family Medicine 08/16/24 documented as of this encounter
--- OUTSIDE RECORDS SUMMARY | 2025-03-01 14:30 | XMS_ITS | Encounter Summary ---
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 Encounter Details Date Type Department Care Team ([facility] st Contact Info) Description 03/01/2025 2:30 PM EDT Office Visit [facility] Hematology/BMT and Cellular Therapy Program [address] [phone] Skyla Kirby MD [address] [place] [address] [place] [phone] Cutaneous T-cell lymphoma involving lymph nodes of [...] Recorded In the past 12 months has [employer], gas, oil, or water company threatened to [...] being seen for follow-up after imaging Primary Varnishing Machine Operator: Skyla Kirby Referring Physician: No referring provider defined for this encounter. Subjective History of Present Illness: Patient reports feeling well since completing radiation. He is asking if the swelling in his face will improve. He reports continuing to use tube feeds. He is following with speech therapy however does not have a accounting system expert. He is ordering tube feeds online. He [...] mg, Per G Tube, Nightly Feeding Supplies [facility] Please send months supply of syringes and [place] (if able) furosemide (LASIX) 40 mg, Oral, Every other day HYDROcodone-acetaminophen ([place]) 5-325 MG tablet 5 mg of hydrocodone, [...] 10 MEQ PO ER tablet sodium chloride ([place]) 0.65 % nasal spray 1 spray, Each [...] lymphoma is being [facility] for which [...] swelling. I have asked him to contact motor pool clerk. I also explained that weight gain may [...] platelet counts < 10K Skyla Kirby MD Briquette Machine Operator Helperacetone recovery worker Division of Hematology & BMT [facility] Cancer [place], [facility] documented in this encounter Plan of Treatment Upcoming Encounters Date Type Department Care Team (Late st Contact Info) Description 05/31/2025 10:30 AM EST Appointment [facility] PET Scan [address] [place] [address] 05/31/2025 11:30 AM EST Appointment [facility] PET Scan [address] [place] [address] 05/31/2025 2:30 PM EST Clinical Support [facility] Hematology/BMT and Cellular Therapy Program [address] [place] [address] 05/31/2025 3:00 PM EST Office Visit [facility] Hematology/BMT and Cellular Therapy Program [address] [place] [address] Marci Saini, DANIELLE 800 [facility] Ctr [address] [place] [phone] Scheduled Referrals Name Type Priority Associated Diagnoses Order Schedule Ambulatory referral to [facility] Oncology Nutrition Outpatient Referral Routine Cutaneous T-cell [...] [facility] [address] [place] [address] * (ABNORMAL) CBC and Differential (03/01/2025 10:08 AM EDT) WBC Count 6.67 3.70 - 10.30 10*3/uL LAB HEMATOLOGY METHOD 03/01/2025 10:28 AM EDT [facility] RBC Count 4.34(L) 4.60 - 6.10 10*6/uL LAB HEMATOLOGY METHOD 03/01/2025 10:28 AM EDT [facility] HGB 11.2(L) 13.7 - 17.5 g/dL LAB HEMATOLOGY METHOD 03/01/2025 10:28 AM EDT [facility] HCT 35.5(L) 40.0 - 51.0 % LAB HEMATOLOGY METHOD 03/01/2025 10:28 AM EDT [facility] Platelet Count 162 155 - 369 10*3/uL LAB HEMATOLOGY METHOD 03/01/2025 10:28 AM EDT [facility] MCV 82 79 - 98 fL LAB HEMATOLOGY METHOD 03/01/2025 10:28 AM EDT [facility] MCH 25.8(L) 26.0 - 32.0 pg LAB HEMATOLOGY METHOD 03/01/2025 10:28 AM EDT [facility] MCHC 31.5 30.7 - 35.5 g/dL LAB HEMATOLOGY METHOD 03/01/2025 10:28 AM EDT [facility] RDW 17.2(H) 11.5 - 14.5 % LAB HEMATOLOGY METHOD 03/01/2025 10:28 AM EDT [facility] MPV 9.3 8.8 - 12.5 fL LAB HEMATOLOGY METHOD 03/01/2025 10:28 AM EDT [facility] nRBC 0.0 <=0.0 per 100 WBCs LAB HEMATOLOGY METHOD 03/01/2025 10:28 AM EDT [facility] Differential Type Automated LAB HEMATOLOGY METHOD 03/01/2025 10:28 AM EDT [facility] Neutrophils % 87 % LAB HEMATOLOGY METHOD 03/01/2025 10:28 AM EDT [facility] Lymphocytes % 5 % LAB HEMATOLOGY METHOD 03/01/2025 10:28 AM EDT [facility] Monocytes % 6 % LAB HEMATOLOGY METHOD 03/01/2025 10:28 AM EDT [facility] Eosinophils % 1 % LAB HEMATOLOGY METHOD 03/01/2025 10:28 AM EDT [facility] Basophils % 1 % LAB HEMATOLOGY METHOD 03/01/2025 10:28 AM EDT [facility] Immature Granulocytes % 0 % LAB HEMATOLOGY METHOD 03/01/2025 10:28 AM EDT [facility] Neutrophils Absolute 5.77 1.60 - 6.10 10*3/uL LAB HEMATOLOGY METHOD 03/01/2025 10:28 AM EDT [facility] Lymphocytes Absolute 0.35(L) 1.20 - 3.90 10*3/uL LAB HEMATOLOGY METHOD 03/01/2025 10:28 AM EDT [facility] Monocytes Absolute 0.43 0.30 - 0.90 10*3/uL LAB HEMATOLOGY METHOD 03/01/2025 10:28 AM EDT [facility] Eosinophils Absolute 0.06 0.00 - 0.50 10*3/uL LAB HEMATOLOGY METHOD 03/01/2025 10:28 AM EDT [facility] Basophils Absolute 0.04 0.00 - 0.10 10*3/uL LAB HEMATOLOGY METHOD 03/01/2025 10:28 AM EDT [facility] Immature Granulocytes Absolute 0.02 0.00 - 0.06 10*3/uL LAB HEMATOLOGY METHOD 03/01/2025 10:28 AM EDT [facility] Blood Venous blood specimen / Unknown Venipuncture / Unknown 03/01/2025 10:08 AM EDT 03/01/2025 10:26 AM EDT Narrative [facility] - 03/01/2025 10:28 AM EDT Therapeutic decision making should be based on absolute values, rather than percentages. us Skyla Kirby MD LAB BLOOD ORDERABLES Final Resul t [facility] [address] [place] [address] * (ABNORMAL) Comprehensive Metabolic Panel, Plasma (03/01/2025 [...] Resul t [facility] [address] [place] [phone] documented in this encounter Visit Diagnoses Diagnosis [...] documented as of this encounter Care Teams Hand Blocker Relationship Specialty Start Date End Date System, Provider Not In, [address] [place] [address] PCP - General Family Medicine 08/16/24 documented as of this encounter
--- OUTSIDE RECORDS SUMMARY | 2025-04-01 15:01 | XMS_ITS | Encounter Summary ---
Author Organization Healthcare Address [address] [place] [address] Care Team Providers Care Mining Machinery Assembler Name Role Phone System, Provider Not [...] any time in the past 12 m [facility], were you homeless or living in a long term (including now)? No 10/25/2024 Utilities Answer Date [...] Upcoming Encounters Date Type Department Care Team ([facility] Contact Info) Description 05/31/2025 10:30 AM EST Appointment [facility] PET Scan [address] [place] [address] 05/31/2025 11:30 AM EST Appointment [facility] PET Scan [address] [place] [address] 05/31/2025 2:30 PM EST Clinical Support [facility] Hematology/BMT [facility] Cellular Therapy Program [address] [place] [address] 05/31/2025 3:00 PM EST Office Visit [facility]ology/BMT and Cellular Therapy Program [address] [place] [address] Marci Saini PA 800 [facility] [address] [place] [phone] documented as of this encounter Visit Diagnoses Not on filedocumented in this encounter Additional Health Concerns Assessment Noted Time A fall risk assessment has been complete d for the patient 01/28/2025 10:51 AM EDT A Body Mass Index follow-up plan has been documented for the patient 01/28/2025 11:21 AM EDT documented as of this encounter Care Teams Mining Machinery Assembler Relationship Specialty Start Date End Date System, Provider Not In, MD Cés[place] [address] PCP - General Family Medicine 08/16/24 documented as of this encounter
--- OUTSIDE RECORDS SUMMARY | 2025-04-01 15:01 | XMS_ITS | Encounter Summary ---
Author Organization [facility] Address [address] [place] [address] Care Team Providers Care District Plant Engineer Name Role Phone System, Provider Not In MD Primary Care Provider Unavailable Encounter Details Date Type Department Care Team ([facility] Contact Info) Description 02/28/2025 Orders Only [facility] Hematology/BMT and Cellular Therapy Program 750 [facility] [place] [address] Skyla Kirby MD 800 [facility] [address] [place] [address] Cutaneous T-cell lymphoma involving lymph nodes of [...] any time in the past 12 m [facility], were you homeless or living in a mcc (including now)? No 10/25/2024 Utilities Answer Date Recorded In the past 12 months has th e [employer], gas, oil, or water company threatened to [...] Upcoming Encounters Date Type Department Care Team ([facility] Contact Info) Description 05/31/2025 10:30 AM EST Appointment [facility] PET Scan [address] [place] [address] 05/31/2025 11:30 AM EST Appointment [facility] PET Scan [address] [place] [address] 05/31/2025 2:30 PM EST Clinical Support [facility] Hematology/BMT and Cellular Therapy Program 750 [facility] [address] [place] [address] 05/31/2025 3:00 PM EST Office Visit [facility] Hematology/BMT and Cellular Therapy Program 750 [facility] [place] [place] [address] Marci Saini, PA 800 [facility] [address] [place] [phone] documented as of this encounter Results * Lactate Dehydrogenase, Plasma (03/01/2025 10:08 AM EDT) Pathologist [facility] LDH, Plasma 239 116 - 250 U/L 03/01/2025 10:56 AM EDT [facility] Blood Venous blood specimen / Unknown Venipuncture / Unknown 03/01/2025 10:08 AM EDT 03/01/2025 10:26 AM EDT us Skyla Kirby MD LAB BLOOD ORDERABLES Final Resul t [facility] [address] [place] [address] * (ABNORMAL) CBC and Differential (03/01/2025 10:08 AM EDT) WBC Count 6.67 3.70 - 10.30 10*3/uL LAB HEMATOLOGY METHOD 03/01/2025 10:28 AM EDT [facility] RBC Count 4.34(L) 4.60 - 6.10 10*6/uL LAB HEMATOLOGY METHOD 03/01/2025 10:28 AM EDT [facility] HGB 11.2(L) 13.7 - 17.5 g/dL LAB HEMATOLOGY METHOD 03/01/2025 10:28 AM EDT [facility] HCT 35.5(L) 40.0 - 51.0 % LAB HEMATOLOGY METHOD 03/01/2025 10:28 AM EDT [facility] Platelet Count 162 155 - 369 10*3/uL LAB HEMATOLOGY METHOD 03/01/2025 10:28 AM EDT [facility] MCV 82 79 - 98 fL LAB HEMATOLOGY METHOD 03/01/2025 10:28 AM EDT [facility] MCH 25.8(L) 26.0 - 32.0 pg LAB HEMATOLOGY METHOD 03/01/2025 10:28 AM EDT [facility] MCHC 31.5 30.7 - 35.5 g/dL LAB HEMATOLOGY METHOD 03/01/2025 10:28 AM EDT [facility] RDW 17.2(H) 11.5 - 14.5 % LAB HEMATOLOGY METHOD 03/01/2025 10:28 AM EDT [facility] MPV 9.3 8.8 - 12.5 fL LAB HEMATOLOGY METHOD 03/01/2025 10:28 AM EDT [facility] nRBC 0.0 <=0.0 per 100 WBCs LAB HEMATOLOGY METHOD 03/01/2025 10:28 AM EDT [facility] Differential Type Automated LAB HEMATOLOGY METHOD 03/01/2025 10:28 AM EDT [facility] Neutrophils % 87 % LAB HEMATOLOGY METHOD 03/01/2025 10:28 AM EDT [facility] Lymphocytes % 5 % LAB HEMATOLOGY METHOD 03/01/2025 10:28 AM EDT [facility] Monocytes % 6 % LAB HEMATOLOGY METHOD 03/01/2025 10:28 AM EDT [facility] Eosinophils % 1 % LAB HEMATOLOGY METHOD 03/01/2025 10:28 AM EDT [facility] Basophils % 1 % LAB HEMATOLOGY METHOD 03/01/2025 10:28 AM EDT [facility] Immature Granulocytes % 0 % LAB HEMATOLOGY METHOD 03/01/2025 10:28 AM EDT [facility] Neutrophils Absolute 5.77 1.60 - 6.10 10*3/uL LAB HEMATOLOGY METHOD 03/01/2025 10:28 AM EDT [facility] Lymphocytes Absolute 0.35(L) 1.20 - 3.90 10*3/uL LAB HEMATOLOGY METHOD 03/01/2025 10:28 AM EDT [facility] Monocytes Absolute 0.43 0.30 - 0.90 10*3/uL LAB HEMATOLOGY METHOD 03/01/2025 10:28 AM EDT [facility] Eosinophils Absolute 0.06 0.00 - 0.50 10*3/uL LAB HEMATOLOGY METHOD 03/01/2025 10:28 AM EDT [facility] Basophils Absolute 0.04 0.00 - 0.10 10*3/uL LAB HEMATOLOGY METHOD 03/01/2025 10:28 AM EDT [facility] Immature Granulocytes Absolute 0.02 0.00 - 0.06 10*3/uL LAB HEMATOLOGY METHOD 03/01/2025 10:28 AM EDT [facility] Blood Venous blood specimen / Unknown Venipuncture / Unknown 03/01/2025 10:08 AM EDT 03/01/2025 10:26 AM EDT Narrative [facility] - 03/01/2025 10:28 AM EDT Therapeutic decision making should be based on absolute values, rather than percentages. us Skyla Kirby MD LAB BLOOD ORDERABLES Final Resul t [facility] [address] [place] [id number] * (ABNORMAL) Comprehensive Metabolic Panel, Plasma (03/01/2025 10:08 AM EDT) Glucose, Plasma 118(H) 74 - 99 mg/dL 03/01/2025 10:56 AM EDT [facility] BUN, Plasma 15 8 - 23 mg/dL 03/01/2025 10:56 AM EDT [facility] Creatinine, Plasma 0.60(L) 0.70 - 1.20 mg/dL 03/01/2025 10:56 AM EDT [facility] BUN/Creatinine Ratio 25 03/01/2025 10:56 AM EDT [facility] Sodium, Plasma 126(L) 136 - 145 mmol/L 03/01/2025 10:56 AM EDT [facility] Potassium, Plasma 4.3 3.6 - 4.9 mmol/L 03/01/2025 10:56 AM EDT [facility] Chloride, Plasma 88(L) 97 - 107 mmol/L 03/01/2025 10:56 AM EDT [facility] CO2, Plasma 29 22 - 29 mmol/L 03/01/2025 10:56 AM EDT [facility] Anion Gap 9 6 - 16 mmol/L 03/01/2025 10:56 AM EDT [facility] Total Calcium, Plasma 9.4 8.9 - 10.2 mg/dL 03/01/2025 10:56 AM EDT [facility] Total Protein 7.3 6.3 - 7.9 g/dL 03/01/2025 10:56 AM EDT [facility] Albumin, Plasma 4.1 3.5 - 5.2 g/dL 03/01/2025 10:56 AM EDT [facility] AST, Plasma 32 10 - 50 U/L 03/01/2025 10:56 AM EDT [facility] ALT, Plasma 28 10 - 50 U/L 03/01/2025 10:56 AM EDT [facility] Alkaline Phosphatase, Plasma 131(H) 40 - 115 U/L 03/01/2025 10:56 AM EDT [facility] Total Bilirubin, Plasma 0.6 0.2 - 1.1 mg/dL 03/01/2025 10:56 AM EDT [facility] eGFRcr 104.5 mL/min/1.7 3m*2 03/01/2025 10:56 AM EDT [facility] Comment:Reported eGFRcr in m L/min/1.73m2 is based the CKD-EPI 2020 equation that does not use a race coefficient. Blood Venous blood specimen / Unknown Venipuncture / Unknown 03/01/2025 10:08 AM EDT 03/01/2025 10:26 AM EDT us Skyla Kirby MD LAB BLOOD ORDERABLES Final Resul t [facility] [address] [place] [address] documented in this encounter Visit Diagnoses Diagnosis [...] documented as of this encounter Care Teams District Plant Engineer Relationship Specialty Start Date End Date System, Provider Not In, MD Cés[place] [address] PCP - General Family Medicine 08/16/24 documented as of this encounter
--- OUTSIDE RECORDS SUMMARY | 2025-04-01 15:02 | XMS_ITS | Clinical Summary ---
Author Organization Healthcare Address [address] [place] [address] Care Team Providers Care Rollway Man Name Role Phone System, Provider Not In [...] each 1 07/25/19 25 Active sodium chloride ([place]) 0.65 % nasal spray Administer 1 spray [...] g 2 09/03/19 25 Active Feeding Supplies [facility] Please send months supply of syringes and [...] (two) times a day. 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) 03/02/2025 Results Follow-Up [facility]ology[facility]BMT [facility] Cellular Therapy Program [address] [place] [phone] Skyla Kirby MD 03/01/2025 2:30 PM EDT Office Visit [facility] Hematology/BMT and Cellular Therapy Program [address] [place] [phone] Skyla Kirby MD 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); 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); Longstanding persistent atrial fibrillation (CMS/HCC); Oral cancer (CMS/HCC); HFrEF (heart failure with reduced ejection fraction) (CMS/HCC) 03/01/2025 2:00 PM EDT Clinical Support [facility]ology/BMT and Cellular Therapy Program [address] [place] [phone] 03/01/2025 8:33 AM EDT - 03/01/2025 11:59 PM EDT Hospital Encounter [facility] PET Scan [address] [place] [phone] Discharge Disposition: Home or Self Care 03/01/2025 8:33 AM EDT - 03/01/2025 11:59 PM EDT Hospital Encounter [facility] PET Scan [address] [place] [address] 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) Discharge Disposition: Home or Self Care 03/01/2025 Travel 02/28/2025 Orders Only [facility] Hematology/BMT and Cellular Therapy Program 750 [facility] [address] [place] [place] [phone] Skyla Kirby MD 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) 02/26/2025 Travel 01/28/2025 10:45 AM EDT Office Visit [facility] [address] [place] [address] Karson Key MD Tearing, right (Primary Dx); Dry eyes; Right epiphora; 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 01/28/2025 Travel 01/27/2025 Travel from Last 3 Months Immunizations Immunization Administration [...] any time in the past 12 m [facility], were you homeless or living [...] Upcoming Encounters Date Type Department Care Team ([facility] st Contact Info) Description 05/31/2025 10:30 AM EST Appointment [facility] PET Scan [address] [place] [address] 05/31/2025 11:30 AM EST Appointment [facility] PET Scan [address] [place] [address] 05/31/2025 2:30 PM EST Clinical Support [facility] Hematology/BMT and Cellular Therapy Program [address] [phone] 05/31/2025 3:00 PM EST Office Visit [facility] Hematology/BMT and Cellular Therapy Program [address] [phone] Marci Saini PA [address] [facility] [address] [place] [phone] Health Maintenance Due Date Last Done Comments [facility]-Depression Screening 1955 [facility]-Diabetes: Hemoglobin A1C 1955 [facility]-Medicare Annual Wellness (AWV) 1955 [facility]-/Child/Adol SDOH Screenings 1955 Diabetes: Dental Exam 09/10/1965 CT Colonography 09/10/2000 Colonoscopy 09/10/2000 FIT-DNA 09/10/2000 FIT 09/10/2000 FOBT 09/10/2000 Sigmoidoscopy 09/10/2000 [facility]-Colorectal Cancer Screening 09/10/2000 [facility]-Abdominal Aortic Aneurysm (AAA) Screening 09/10/2020 [facility]-Zoster Vaccines (2 of 2) 05/16/2023 03/21/2023 [id number] Vaccine ( season) 2025 05/07/2021, 10/25/2020, 10/18/2020, Additional history exists [facility]-Influenza [...] this topic Medical Devices Implanted Type Area Chief Substation Operator Device Identifier Shelf Expiration Date Model / Serial / Lot Mesh Vicryl Flat 30cm X 30cm - [id number] Implanted:Qty : 1 on 07/16/2024 by Boogie Chaidez MD at [facility] Mesh Abdomen [id number] 01/10/2029 [facility] / / [id number] Pacemaker Pacemaker Heart Graft Dura Repair 2x2 [employer] - [id number] Implanted:Qty : 1 on 07/16/2024 by Mauricio Valentin MD at [facility]-[id number] 12/11/2026 [id number] / / [id number] Procedures Procedure Name Priority Date/Time Associated Diagnosis [...] LAB HEMATOLOGY METHOD 03/01/2025 10:28 AM EDT [facility] RBC Count 4.34(L) 4.60 - 6.10 10*6/uL LAB HEMATOLOGY METHOD 03/01/2025 10:28 AM EDT [facility] HGB 11.2(L) 13.7 - 17.5 g/dL LAB HEMATOLOGY METHOD 03/01/2025 10:28 AM EDT [facility] HCT 35.5(L) 40.0 - 51.0 % LAB HEMATOLOGY METHOD 03/01/2025 10:28 AM EDT [facility] Platelet Count 162 155 - 369 10*3/uL LAB HEMATOLOGY METHOD 03/01/2025 10:28 AM EDT [facility] MCV 82 79 - 98 fL LAB HEMATOLOGY METHOD 03/01/2025 10:28 AM EDT [facility] MCH 25.8(L) 26.0 - 32.0 pg LAB HEMATOLOGY METHOD 03/01/2025 10:28 AM EDT [facility] MCHC 31.5 30.7 - 35.5 g/dL LAB HEMATOLOGY METHOD 03/01/2025 10:28 AM EDT [facility] RDW 17.2(H) 11.5 - 14.5 % LAB HEMATOLOGY METHOD 03/01/2025 10:28 AM EDT [facility] MPV 9.3 8.8 - 12.5 fL LAB HEMATOLOGY METHOD 03/01/2025 10:28 AM EDT [facility] nRBC 0.0 <=0.0 per 100 WBCs LAB HEMATOLOGY METHOD 03/01/2025 10:28 AM EDT [facility] Differential Type Automated LAB HEMATOLOGY METHOD 03/01/2025 10:28 AM EDT [facility] Neutrophils % 87 % LAB HEMATOLOGY METHOD 03/01/2025 10:28 AM EDT [facility] Lymphocytes % 5 % LAB HEMATOLOGY METHOD 03/01/2025 10:28 AM EDT [facility] Monocytes % 6 % LAB HEMATOLOGY METHOD 03/01/2025 10:28 AM EDT [facility] Eosinophils % 1 % LAB HEMATOLOGY METHOD 03/01/2025 10:28 AM EDT [facility] Basophils % 1 % LAB HEMATOLOGY METHOD 03/01/2025 10:28 AM EDT [facility] Immature Granulocytes % 0 % LAB HEMATOLOGY METHOD 03/01/2025 10:28 AM EDT [facility] Neutrophils Absolute 5.77 1.60 - 6.10 10*3/uL LAB HEMATOLOGY METHOD 03/01/2025 10:28 AM EDT [facility] Lymphocytes Absolute 0.35(L) 1.20 - 3.90 10*3/uL LAB HEMATOLOGY METHOD 03/01/2025 10:28 AM EDT [facility] Monocytes Absolute 0.43 0.30 - 0.90 10*3/uL LAB HEMATOLOGY METHOD 03/01/2025 10:28 AM EDT [facility] Eosinophils Absolute 0.06 0.00 - 0.50 10*3/uL LAB HEMATOLOGY METHOD 03/01/2025 10:28 AM EDT [facility] Basophils Absolute 0.04 0.00 - 0.10 10*3/uL LAB HEMATOLOGY METHOD 03/01/2025 10:28 AM EDT [facility] Immature Granulocytes Absolute 0.02 0.00 - 0.06 10*3/uL LAB HEMATOLOGY METHOD 03/01/2025 10:28 AM EDT [facility] Blood Venous blood specimen / Unknown Venipuncture / Unknown 03/01/2025 10:08 AM EDT 03/01/2025 10:26 AM EDT Narrative [facility] - 03/01/2025 10:28 AM EDT Therapeutic decision making should be based on absolute values, rather than percentages. us Skyla Kirby MD LAB BLOOD ORDERABLES Final Resul t Performing Organization Address City/[facility]/ZIP Co de Phone Number [facility] [address] [place] [address] * Lactate Dehydrogenase, Plasma (03/01/2025 10:08 AM EDT) LDH, Plasma 239 116 - 250 U/L 03/01/2025 10:56 AM EDT [facility] Blood Venous blood specimen / Unknown Venipuncture / Unknown 03/01/2025 10:08 AM EDT 03/01/2025 10:26 AM EDT us Skyla Kirby MD LAB BLOOD ORDERABLES Final Resul t Performing Organization Address City/[facility]/ZIP Co de Phone Number [facility] [address] [place] [address] * (ABNORMAL) Comprehensive Metabolic Panel, Plasma (03/01/2025 [...] Resul t [facility] [address] [place] [address] * PET/CT FDG Skull Base To Mid [...] scanner: Siemens Biograph 40 mCT. PET/CT acquisition: [id number]-hg-jod-thighs, plus magnification (zoomed) neck. Standardized uptake value (SUV): Corrected for body weight only. CT: Low-dose, czy-[id number], without intravenous contrast. TOTAL DLP (Dose Length [...] scanner: Siemens Biograph 40 mCT. PET/CT acquisition: [id number]-mo-mpd-thighs, plus magnification (zoomed)neck. Standardized uptake value (SUV): Corrected for body weight only. CT: Low-dose, [id number], without intravenous contrast. TOTAL DLP (Dose Length [...] on 03/01/2025 4:14 PM Skyla Kirby MD [facility] Final Result * Nasolacrimal Duct Probing - OD - Right Eye (01/28/2025 11:16 AM EDT) Anatomical Region Laterality Modality Head Other Narrative 01/28/2025 11:16 AM EDT BSS (2 with correction (cc)) was flushed into the right lower eyelid (RLL) n punctum minimal Resistance minimal reflux no Purulence minimal Delay in fluid felt in nose Nil complications Tolerated well Karson Key MD [facility] PROCEDURES Final Result * Hepatitis C Antibody - ED W/Reflex to HCV Quant PCR (07/29/2024 5:38 PM EST) Hepatitis C Antibody Negative Negative 07/29/2024 6:46 PM EST [facility] Blood Venous blood specimen / Unknown Venipuncture / Unknown 07/29/2024 5:38 PM EST 07/29/2024 6:05 PM EST Boogie Chaidez MD LAB BLOOD ORDERABLES Final Resul t [facility] [address] [place] [address] * CT Chest w IV Contrast (06/25/2024 [...] Most Recently Relevant to Health Maintenance Insurance [facility] MEDIC[facility] [employer] MEDICAID Advance Directives [...] Patient has decision-making capacity? Yes Care Teams Rollway Man Relationship Specialty Start Date End Date System, Provider Not In, [facility] [place] [address] PCP - General Family Medicine 08/16/24
--- OUTSIDE RECORDS SUMMARY | 2025-04-01 15:02 | XMS_ITS | Encounter Summary ---
Author Organization Healthcare Address [address] [place] [address] Care Team Providers Care Stereotyper Name Role Phone System, Provider Not In [...] time in the past 12 m [facility], were you homeless or living in a [...] Upcoming Encounters Date Type Department Care Team ([facility] Contact Info) Description 05/31/2025 10:30 AM EST Appointment [facility] PET Scan [address] [place] [address] 05/31/2025 11:30 AM EST Appointment [facility] PET Scan [address] [place] [address] 05/31/2025 2:30 PM EST Clinical Support [facility] Hematology/BMT and Cellular Therapy Program [address] [place] [address] 05/31/2025 3:00 PM EST Office Visit [facility] Hematology/BMT and Cellular Therapy Program [address] [place] [address] Marci Saini PA 800 [facility] [address] [place] [phone] documented as of this encounter Visit Diagnoses Not on filedocumented in this encounter Additional Health Concerns Assessment Noted Time A fall risk assessment has been complete d for the patient 03/01/2025 10:36 AM EDT A Body Mass Index follow-up plan has been documented for the patient 01/28/2025 11:21 AM EDT documented as of this encounter Care Teams Stereotyper Relationship Specialty Start Date End Date System, Provider Not In, MD [place]és[place] [address] PCP - General Family Medicine 08/16/24 documented as of this encounter
--- OUTSIDE RECORDS SUMMARY | 2025-04-01 15:02 | XMS_ITS | Clinical Summary ---
Author Organization [facility] Address [address] [place] [address] Care Team Providers Care Antenna Specialist Name Role Phone Unavailable Primary Care Provider [...]
--- OUTSIDE RECORDS SUMMARY | 2025-04-01 15:02 | XMS_ITS | Encounter Summary ---
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) Procedures PET/CT FDG Skull Base To Mid Thigh Skyla Kirby MD 800 [facility] Cancer [address] [address] Phone: tel: fax: Referral ID Status Reason Start Date Expiration Date V isits Requested Visits Authorized [id number] Pending Review 03/03/2025 09/02/2026 2 2 Encounter Details Date Type Department Care Team ([facility] st Contact Info) Description 03/03/2025 Orders Only [facility] Hematology/BMT and Cellular Therapy Program [address] [place] [address] Skyla Kirby MD 800 [facility] Cancer [address] [address] Cutaneous T-cell lymphoma involving lymph [...] any time in the past 12 m [facility], were you homeless or living in a [...] Upcoming Encounters Date Type Department Care Team ([facility] st Contact Info) Description 05/31/2025 10:30 AM EST Appointment [facility] PET Scan 800 [place] [address] 05/31/2025 11:30 AM EST Appointment [facility] PET Scan 800 [place] [address] 05/31/2025 2:30 PM EST Clinical Support [facility] Hematology/BMT and Cellular Therapy Program [address] [place] [phone] 05/31/2025 3:00 PM EST Office Visit [facility] Hematology/BMT and Cellular Therapy Program [address] [place] [phone] Marci Saini PA 800 [facility]tr [address] [place] [phone] Scheduled Orders Name Type Priority Associated Diagnoses [...] documented as of this encounter Care Teams Hull Builder Relationship Specialty Start Date End Date System, Provider Not In, 800 [place] [address] PCP - General Family Medicine 08/16/24 documented as of this encounter
--- OUTSIDE RECORDS SUMMARY | 2025-04-01 15:02 | XMS_ITS | Encounter Summary ---
Author Organization Healthcare Address [address] [place] [address] Care Team Providers Care Gypsum Roofer Name Role Phone System, Provider Not In MD Primary Care Provider Unavailable Encounter Details Date Type Department Care Team ([facility] st Contact Info) Description 03/08/2025 Telephone Psych Oncology 800 [place] [phone] [address] Social History Tobacco Use [...] any time in the past 12 m [facility], were you homeless or living in a custodial (including now)? No 10/25/2024 Utilities Answer Date [...] Call details: Chart reviewed. Pt established with [facility] with last encounter via phone 10/25. [...] AM EST Appointment [facility] PET Scan 800 [place] [address] 05/31/2025 11:30 AM EST Appointment [facility] PET Scan 800 [place] [address] 05/31/2025 2:30 PM EST Clinical Support [facility] Hematology/BMT and Cellular Therapy Program [address] [address] 05/31/2025 3:00 PM EST Office Visit [facility] Hematology/BMT and Cellular Therapy Program [address] [address] Marci Saini PA 800 [facility] [address] [place] [phone] documented as of this encounter Visit Diagnoses Not on filedocumented in this encounter Additional Health Concerns Assessment Noted Time A fall risk assessment has been complete d for the patient 03/01/2025 10:36 AM EDT A Body Mass Index follow-up plan has been documented for the patient 01/28/2025 11:21 AM EDT documented as of this encounter Care Teams Gypsum Roofer Relationship Specialty Start Date End Date System, Provider Not In, MD [place] [address] PCP - General Family Medicine 08/16/24 documented as of this encounter
--- OUTSIDE RECORDS SUMMARY | 2025-04-01 15:02 | XMS_ITS | Referral Summary ---
Author Organization [facility] Address [address] [place] [address] Care Team Providers Care House Wirer Name Role Phone Unavailable Primary Care Provider [...]
--- OUTSIDE RECORDS SUMMARY | 2025-04-01 15:02 | XMS_ITS | Encounter Summary ---
Author Organization Healthcare Address [address] [place] [address] Care Team Providers Care Disc Pad Grinding Machine Feeder Name Role Phone System, Provider Not In MD Primary Care Provider Unavailable Encounter Details Date Type Department Care Team ([facility] st Contact Info) Description 03/22/2025 Telephone Psych Oncology 800 [place] [phone] [address] Social History Tobacco Use [...] you homeless or living in a senior living (including now)? No 10/25/2024 Utilities Answer Date [...] Miscellaneous Notes * Telephone Encounter - Tiffany Curran RD - 03/22/2025 9:27 AM EDT Reason for call: supplies Referral source: Caregiver Call details: Pt Cleopatra zaman, [facility] stating they are having issues with reordering with [facility]. Call and speak with [facility] corporate sales representative. State order was shipped out and should be arriving either today or tomorrow. Call and speak with Cleopatra. She states pt was able to get through and speak with someone at [facility] yesterday who stated plans to send orders. Provided pt with a link to reorder online. No questions or concerns. Encouraged to contact as needed. RD remains available PRN. documented in this encounter Plan of Treatment Upcoming Encounters Date Type Department Care Team ([facility] st Contact Info) Description 05/31/2025 10:30 AM EST Appointment [facility] PET Scan 800 [place] [address] 05/31/2025 11:30 AM EST Appointment [facility] PET Scan 800 [place] [address] 05/31/2025 2:30 PM EST Clinical Support [facility] Hematology/BMT and Cellular Therapy Program [address] [place] [address] 05/31/2025 3:00 PM EST Office Visit [facility] Hematology/BMT and Cellular Therapy Program [address] [place] [address] Marci Saini PA 800 [facility] [address] [place] [phone] documented as of this encounter Visit Diagnoses Not on filedocumented in this encounter Additional Health Concerns Assessment Noted Time A fall risk assessment has been complete d for the patient 03/01/2025 10:36 AM EDT A Body Mass Index follow-up plan has been documented for the patient 01/28/2025 11:21 AM EDT documented as of this encounter Care Teams Disc Pad Grinding Machine Feeder Relationship Specialty Start Date End Date System, Provider Not In, 800 [place] [address] PCP - General Family Medicine 08/16/24 documented as of this encounter
--- OUTSIDE RECORDS SUMMARY | 2025-04-01 15:02 | XMS_ITS | Encounter Summary ---
Author Organization [facility] Address [address] [place] [address] Care Team Providers Care Director Of Advertising Sales Name Role Phone System, Provider Not In MD Primary Care Provider Unavailable Encounter Details Date Type Department Care Team ([facility] Contact Info) Description 03/02/2025 Results Follow-Up [facility] Hematology/BMT and Cellular Therapy Program 750 [facility] [place] [address] Skyla Kirby MD 800 [facility]tr [address] [place] [address] Social History Tobacco Use Types Packs/Day Years [...] any time in the past 12 m [facility], were you homeless or living [...] Upcoming Encounters Date Type Department Care Team ([facility] Contact Info) Description 05/31/2025 10:30 AM EST Appointment [facility] PET Scan 800 [place] [phone] 05/31/2025 11:30 AM EST Appointment [facility] PET Scan 800 [place] [address] 05/31/2025 2:30 PM EST Clinical Support [facility] Hematology/BMT and Cellular Therapy Program 750 [facility] [address] [place] [address] 05/31/2025 3:00 PM EST Office Visit [facility] Hematology/BMT and Cellular Therapy Program [address] [place] [address] Marci Saini PA 800 [facility]tr [address] [place] [address] documented as of this encounter Visit Diagnoses Not on filedocumented in this encounter Additional Health Concerns Assessment Noted Time A fall risk assessment has been complete d for the patient 03/01/2025 10:36 AM EDT A Body Mass Index follow-up plan has been documented for the patient 01/28/2025 11:21 AM EDT documented as of this encounter Care Teams Director Of Advertising Sales Relationship Specialty Start Date End Date System, Provider Not In, 800 [place] [address] PCP - General Family Medicine 08/16/24 documented as of this encounter
--- NOTE | 2025-04-01 15:15 | CA_ITS ---
APPROVED REPORT EXAM: Comprehensive 2D, Doppler, and color-flow Echocardiogram Media Producer: Prachi Lassiter RVT Ht: 6 ft 0 in Wt: 192lbs BSA: 2.09 BP: 128/65 mmHg Indications: CORONARY ARTERY DISEASE,AICD Echo Enhancing Agent Indication: Endocardial border delineation Agent(s) / Amount(s) Used: Definity 2 cc 2D Dimensions LA Volume 109.70 mL LA Volume Index 52.49 mL/m2 (M/F) 16-34 M-Mode Dimensions RVDd 2.21 cm (0.9-2.6) LA Diam 3.47 cm (1.9-4.0) LVDd 6.14 cm (3.5-5.7) LVDs 4.62 cm (3.5-5.7) IVSd 1.61 cm (0.6-1.1) PWd 0.68 cm (0.6-1.1) EF (Teich) 48.20% FS 24.80% EDV (Teich) 189.70 mL TAPSE 2.83 (<1.7) ESV (Teich) 98.30 mL LV Diastology E Decel Time 197 (160-240 msec) E/A Ratio 1.4 Aortic Valve IVETTE Index 1.44 cm2/m2 AoV Peak Kyree. 135.0 (50-130 cm/s) AO Peak GR. 7.30 mmHg AO Mean GR. 5.00 (<5 mmHg) AO VTI 29.3 (18-25 cm) IVETTE (VTI) 3.08 (2.5-4.5 cm2) Mitral Valve MV E Max Kyree. 121.0 (40-130 cm/s) MV A Velocity 85.0 (40-130 cm/s) E/A Ratio 1.41 MV PHT 58.0 ms Pulmonary Valve PV Peak Velocity 97.0 (50-150 cm/s) Tricuspid Valve TR P. Velocity 303.00 cm/s RAP Estimate 10.00 mmHg RVSP 46.80 mmHg Left Ventricle The left ventricle is moderately dilated. Left ventricular systolic function is severely reduced. There is increased left ventricular wall thickness. There is severe global hypokinesis. There is akinesis of the inferior LV wall. Grade 2 diastolic dysfunction is present. No left ventricle thrombus noted on this study. LVEF is 25% Right Ventricle The right ventricle is moderately dilated. The right ventricular systolic function is mildly reduced. There is a device lead in the right ventricle. Atria The left atrium is moderately dilated. The right atrium is severely dilated. There is no color Doppler evidence of interatrial shunt. Aortic Valve The aortic valve is mildly thickened. There is no hemodynamically significant aortic valvular stenosis. Mild aortic regurgitation is present. Mitral Valve The mitral valve is mildly thickened. No evidence of mitral valve stenosis. Moderate mitral regurgitation is present. Tricuspid Valve The tricuspid valve leaflets are thin and pliable. Moderate tricuspid regurgitation. RVSP is 45-50 mmHg. Pulmonic Valve The pulmonary valve is grossly normal in structure. Trace pulmonic valve regurgitation is present. Great Vessels The aortic root is normal in size. IVC is normal in size and collapses >50% with inspiration. Pericardium There is no pericardial effusion. Other Information Study Quality: Technically Difficult Conclusion Moderate RV dilation with severe reduction in LV systolic function (LVEF 25%). Grade 2 diastolic dysfunction. Akinesis of the inferior LV wall. Moderate RV dilation with mild reduction in RV function. Biatrial dilation. Moderate MR, moderate TR. Mild AI. Elevated RVSP 45-50 mmHg. Electronically signed by : Mariah West MD 04/02/2025 20:45:55
[2025-04-01] MEDS: DEFINITY US ECHO CONTRAST 2ML INJ 2 MG IV (15:58)
== END 2025-04-01 23:59 | disposition home or self-care (01) ==
LOC: RT 15:00
PROVIDERS: PCP Family Medicine; Visit Provider Physician Assistant
DX: I08.3 Combined rheumatic disorders of mitral, aortic and tricuspid valves (principal); I25.10 Atherosclerotic heart disease of native coronary artery without angina pectoris; R93.1 Abnormal findings on diagnostic imaging of heart and coronary circulation; Z95.810 Presence of automatic (implantable) cardiac defibrillator
CPT/HCPCS: 93306; Q9957

== ENCOUNTER 2025-04-12 10:33 | Outpatient (CLI) | payer MEDICARE, OTHER, SELFPAY ==
--- OUTSIDE RECORDS SUMMARY | 2025-03-01 08:33 | XMS_ITS | Encounter Summary ---
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, were you homeless or living in a fci (including now)? No 10/25/2024 Utilities Answer Date Recorded In the past 12 months has th e [employer], gas, oil, or water [employer] threatened to shut off services in your [...] mouth every other day. 5 HYDROcodone-acetami nophen ([place]) 5-325 MG tablet 1 tablet by Per [...] MEQ PO ER tablet 5 sodium chloride ([place]) 0.65 % nasal spray Administer 1 spray [...] Info) Description 05/31/2025 10:30 AM EST Appointment [facility] PET Scan [address] [place] [address] 05/31/2025 11:30 AM EST Appointment [facility] PET Scan [address] [place] [address] 05/31/2025 2:30 PM EST Clinical Support [facility] Hematology/BMT and Cellular Therapy Program [address] [phone] 05/31/2025 3:00 PM EST Office Visit [facility] Hematology/BMT and Cellular Therapy Program [address] [phone] Marci Saini PA 800 [facility] [address] [place] [phone] documented as of this encounter Procedures Procedure [...] scanner: Siemens Biograph 40 mCT. PET/CT acquisition: Uugutp-iz-smp-thighs, plus magnification (zoomed) neck. Standardized uptake value (SUV): Corrected for body weight only. CT: Low-dose, ojk-ikygqj-fbgp, without intravenous contrast. TOTAL DLP (Dose Length [...] scanner: Siemens Biograph 40 mCT. PET/CT acquisition: Etthes-ux-ynn-thighs, plus magnification (zoomed)neck. Standardized uptake value (SUV): Corrected for body weight only. CT: Low-dose, wtg-rahzzx-tnsh, without intravenous contrast. TOTAL DLP (Dose Length [...] documented as of this encounter Care Teams Trimmer Machine Operator Relationship Specialty Start Date End Date System, Provider Not In, MD Cés[place] [address] PCP - General Family Medicine 08/16/24 documented as of this encounter
--- OUTSIDE RECORDS SUMMARY | 2025-03-01 08:33 | XMS_ITS | Encounter Summary ---
Author Organization [facility] Address [address] 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 [address] [place] [phone] Phone: tel: fax: Referral ID Status Reason Start Date Expiration Date Visits Re quested Visits Authorized [id number] Closed 10/15/2024 04/16/2026 2 2 Encounter Details Date Type Department Care Team (Latest Contact Info) Description 03/01/2025 8:33 AM EDT - 03/01/2025 11:59 PM EDT Hospital Encounter [facility] PET Scan [address] [place] [address] Cutaneous T-cell lymphoma involving lymph nodes of [...] any time in the past 12 m [facility], were you homeless or living in a detention (including now)? No 10/25/2024 Utilities Answer Date Recorded In the past 12 months has e [employer], gas, oil, or water [email or web address] threatened to shut off services in your [...] Tube route every night. 5 Feeding Supplies [facility] Please send months supply of syringes and [employer]Locks (if able) 1 each 11 5 furosemide (Lasix) 40 MG tablet Take 1 tablet (40 mg) by mouth every other day. 5 HYDROcodone-acetami nophen ([place]) 5-325 MG tablet 1 tablet by Per [...] MEQ PO ER tablet 5 sodium chloride ([place]) 0.65 % nasal spray Administer 1 spray [...] Upcoming Encounters Date Type Department Care Team ([facility] Contact Info) Description 05/31/2025 10:30 AM EST Appointment [facility] PET Scan [address] [place] [address] 05/31/2025 11:30 AM EST Appointment [facility] PET Scan [address] [place] [address] 05/31/2025 2:30 PM EST Clinical Support [facility] Hematology/BMT and Cellular Therapy Program [address] [place] [phone] 05/31/2025 3:00 PM EST Office Visit [facility] Hematology/BMT and Cellular Therapy Program [address] [place] [phone] Marci Saini PA [address] [facility] [address] [place] [phone] documented as of this encounter Procedures Procedure [...] sides for neck scan. PET/CT scanner: Siemens Thrupointgraph 40 mCT. PET/CT acquisition: Wpgbna-gk-dkm-thighs, plus magnification (zoomed) neck. Standardized uptake value (SUV): Corrected for body weight only. CT: Low-dose, laa-eokjnw-tguz, without intravenous contrast. TOTAL DLP (Dose Length [...] scanner: Siemens Biograph 40 mCT. PET/CT acquisition: Jtywiv-pb-fqv-thighs, plus magnification (zoomed)neck. Standardized uptake value (SUV): Corrected for body weight only. CT: Low-dose, tdu-cpvvng-wevz, without intravenous contrast. TOTAL DLP (Dose Length [...] documented as of this encounter Care Teams Musical Performer Relationship Specialty Start Date End Date System, Provider Not In, MD [place] [address] PCP - General Family Medicine 08/16/24 documented as of this encounter
--- OUTSIDE RECORDS SUMMARY | 2025-03-01 14:00 | XMS_ITS | Encounter Summary ---
Author Organization Healthcare Address [address] [place] [address] Care Team Providers Care Dried Yeast Supervisor Name Role Phone System, Provider Not In MD Primary Care Provider Unavailable Reason for Visit * Reason Comments Labs Encounter Details Date Type Department Care Team ([facility] st Contact Info) Description 03/01/2025 2:00 PM EDT Clinical Support [facility] Hematology/BMT and Cellular Therapy Program [address] [place] [address] [place] [address] Social History Tobacco Use Types Packs/Day Years [...] any time in the past 12 m onths, were you homeless or living in a fdc (including now)? No 10/25/2024 Utilities Answer Date [...] AM EST documented as of this encounter Plan of Treatment Upcoming Encounters Date Type Department Care Team ([facility] st Contact Info) Description 05/31/2025 10:30 AM EST Appointment [facility] PET Scan [address] [place] [address] 05/31/2025 11:30 AM EST Appointment [facility] PET Scan [address] [place] [address] 05/31/2025 2:30 PM EST Clinical Support [facility]ology/BMT and Cellular Therapy Program [address] [place] [address] 05/31/2025 3:00 PM EST Office Visit [facility] Hematology/BMT and Cellular Therapy Program 750 [facility] [address] [place] [address] Marci Saini, [facility] [address] [place] [address] documented as of this encounter Visit Diagnoses Not on filedocumented in this encounter Additional Health Concerns Assessment Noted Time A fall risk assessment has been complete d for the patient 03/01/2025 10:36 AM EDT A Body Mass Index follow-up plan has been documented for the patient 01/28/2025 11:21 AM EDT documented as of this encounter Care Teams Dried Yeast Supervisor Relationship Specialty Start Date End Date System, Provider Not In, MD [place] [address] PCP - General Family Medicine 08/16/24 documented as of this encounter
--- OUTSIDE RECORDS SUMMARY | 2025-03-01 14:30 | XMS_ITS | Encounter Summary ---
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 Encounter Details Date Type Department Care Team ([facility] st Contact Info) Description 03/01/2025 2:30 PM EDT Office Visit [facility] Hematology/BMT and Cellular Therapy Program [address] [phone] Skyla Kirby MD [address] [place] [address] [place] [phone] Cutaneous T-cell lymphoma involving lymph nodes of [...] any time in the past 12 m [facility], were you homeless or living in a [place] [facility] facility (including now)? No 10/25/2024 Utilities Answer Date Recorded In the past 12 months has [employer], gas, oil, or water company threatened to [...] being seen for follow-up after imaging Primary Superintendent Horticulture: Skyla Kirby Referring Physician: No referring provider defined for this encounter. Subjective History of Present Illness: Patient reports feeling well since completing radiation. He is asking if the swelling in his face will improve. He reports continuing to use tube feeds. He is following with speech therapy however does not have a population geneticist. He is ordering tube feeds online. He [...] mg, Per G Tube, Nightly Feeding Supplies [facility] Please send months supply of syringes and [place] (if able) furosemide (LASIX) 40 mg, Oral, Every other day HYDROcodone-acetaminophen ([place]) 5-325 MG tablet 5 mg of hydrocodone, [...] 10 MEQ PO ER tablet sodium chloride ([place]) 0.65 % nasal spray 1 spray, Each [...] lymphoma is being seen [facility] for [...] swelling. I have asked him to contact room service waiter/waitress. I also explained that weight gain may [...] platelet counts < 10K Skyla Kirby MD [employer] motor tester assembler Division of Hematology & BMT [facility] Cancer [place], [facility] documented in this encounter Plan of Treatment Upcoming Encounters Date Type Department Care Team (Late st Contact Info) Description 05/31/2025 10:30 AM EST Appointment [facility] PET Scan [address] [place] [phone] 05/31/2025 11:30 AM EST Appointment [facility] PET Scan [address] [place] [address] 05/31/2025 2:30 PM EST Clinical Support [facility] Hematology/BMT and Cellular Therapy Program [address] [place] [address] 05/31/2025 3:00 PM EST Office Visit [facility] Hematology/BMT and Cellular Therapy Program [address] [place] [address] Marci Saini, DANIELLE 800 [facility] Ctr [address] [place] [phone] Scheduled Referrals Name Type Priority Associated Diagnoses Order Schedule Ambulatory referral to [facility] Oncology Nutrition Outpatient Referral Routine Cutaneous T-cell [...] - 250 U/L 03/01/2025 10:56 AM EDT [facility] Blood Venous blood specimen / Unknown Venipuncture / Unknown 03/01/2025 10:08 AM EDT 03/01/2025 10:26 AM EDT us Skyla Kirby MD LAB BLOOD ORDERABLES Final Resul t [facility] [address] [place] [address] * (ABNORMAL) CBC and Differential (03/01/2025 10:08 AM EDT) WBC Count 6.67 3.70 - 10.30 10*3/uL LAB HEMATOLOGY METHOD 03/01/2025 10:28 AM EDT [facility] RBC Count 4.34(L) 4.60 - 6.10 10*6/uL LAB HEMATOLOGY METHOD 03/01/2025 10:28 AM EDT [facility] HGB 11.2(L) 13.7 - 17.5 g/dL LAB HEMATOLOGY METHOD 03/01/2025 10:28 AM EDT [facility] HCT 35.5(L) 40.0 - 51.0 % LAB HEMATOLOGY METHOD 03/01/2025 10:28 AM EDT [facility] Platelet Count 162 155 - 369 10*3/uL LAB HEMATOLOGY METHOD 03/01/2025 10:28 AM EDT [facility] MCV 82 79 - 98 fL LAB HEMATOLOGY METHOD 03/01/2025 10:28 AM EDT [facility] MCH 25.8(L) 26.0 - 32.0 pg LAB HEMATOLOGY METHOD 03/01/2025 10:28 AM EDT [facility] MCHC 31.5 30.7 - 35.5 g/dL LAB HEMATOLOGY METHOD 03/01/2025 10:28 AM EDT [facility] RDW 17.2(H) 11.5 - 14.5 % LAB HEMATOLOGY METHOD 03/01/2025 10:28 AM EDT [facility] MPV 9.3 8.8 - 12.5 fL LAB HEMATOLOGY METHOD 03/01/2025 10:28 AM EDT [facility] nRBC 0.0 <=0.0 per 100 WBCs LAB HEMATOLOGY METHOD 03/01/2025 10:28 AM EDT [facility] Differential Type Automated LAB HEMATOLOGY METHOD 03/01/2025 10:28 AM EDT [facility] Neutrophils % 87 % LAB HEMATOLOGY METHOD 03/01/2025 10:28 AM EDT [facility] Lymphocytes % 5 % LAB HEMATOLOGY METHOD 03/01/2025 10:28 AM EDT [facility] Monocytes % 6 % LAB HEMATOLOGY METHOD 03/01/2025 10:28 AM EDT [facility] Eosinophils % 1 % LAB HEMATOLOGY METHOD 03/01/2025 10:28 AM EDT [facility] Basophils % 1 % LAB HEMATOLOGY METHOD 03/01/2025 10:28 AM EDT [facility] Immature Granulocytes % 0 % LAB HEMATOLOGY METHOD 03/01/2025 10:28 AM EDT [facility] Neutrophils Absolute 5.77 1.60 - 6.10 10*3/uL LAB HEMATOLOGY METHOD 03/01/2025 10:28 AM EDT [facility] Lymphocytes Absolute 0.35(L) 1.20 - 3.90 10*3/uL LAB HEMATOLOGY METHOD 03/01/2025 10:28 AM EDT [facility] Monocytes Absolute 0.43 0.30 - 0.90 10*3/uL LAB HEMATOLOGY METHOD 03/01/2025 10:28 AM EDT [facility] Eosinophils Absolute 0.06 0.00 - 0.50 10*3/uL LAB HEMATOLOGY METHOD 03/01/2025 10:28 AM EDT [facility] Basophils Absolute 0.04 0.00 - 0.10 10*3/uL LAB HEMATOLOGY METHOD 03/01/2025 10:28 AM EDT [facility] Immature Granulocytes Absolute 0.02 0.00 - 0.06 10*3/uL LAB HEMATOLOGY METHOD 03/01/2025 10:28 AM EDT [facility] Blood Venous blood specimen / Unknown Venipuncture / Unknown 03/01/2025 10:08 AM EDT 03/01/2025 10:26 AM EDT Narrative [facility] - 03/01/2025 10:28 AM EDT Therapeutic decision making should be based on absolute values, rather than percentages. us Skyla Kirby MD LAB BLOOD ORDERABLES Final Resul t [facility] [address] [place] [address] * (ABNORMAL) Comprehensive Metabolic Panel, Plasma (03/01/2025 10:08 AM EDT) Glucose, Plasma 118(H) 74 - 99 mg/dL 03/01/2025 10:56 AM EDT [facility] BUN, Plasma 15 8 - 23 mg/dL 03/01/2025 10:56 AM EDT [facility] Creatinine, Plasma 0.60(L) 0.70 - 1.20 mg/dL 03/01/2025 10:56 AM EDT [facility] BUN/Creatinine Ratio 25 03/01/2025 10:56 AM EDT [facility] Sodium, Plasma 126(L) 136 - 145 mmol/L 03/01/2025 10:56 AM EDT [facility] Potassium, Plasma 4.3 3.6 - 4.9 mmol/L 03/01/2025 10:56 AM EDT [facility] Chloride, Plasma 88(L) 97 - 107 mmol/L 03/01/2025 10:56 AM EDT [facility] CO2, Plasma 29 22 - 29 mmol/L 03/01/2025 10:56 AM EDT [facility] Anion Gap 9 6 - 16 mmol/L 03/01/2025 10:56 AM EDT [facility] Total Calcium, Plasma 9.4 8.9 - 10.2 mg/dL 03/01/2025 10:56 AM EDT [facility] Total Protein 7.3 6.3 - 7.9 g/dL 03/01/2025 10:56 AM EDT [facility] Albumin, Plasma 4.1 3.5 - 5.2 g/dL 03/01/2025 10:56 AM EDT [facility] AST, Plasma 32 10 - 50 U/L 03/01/2025 10:56 AM EDT [facility] ALT, Plasma 28 10 - 50 U/L 03/01/2025 10:56 AM EDT [facility] Alkaline Phosphatase, Plasma 131(H) 40 - 115 U/L 03/01/2025 10:56 AM EDT [facility] Total Bilirubin, Plasma 0.6 0.2 - 1.1 mg/dL 03/01/2025 10:56 AM EDT [facility] eGFRcr 104.5 mL/min/1.7 3m*2 03/01/2025 10:56 AM EDT [facility] Comment:Reported eGFRcr in m L/min/1.73m2 is based the CKD-EPI 2020 equation that does not use a race coefficient. 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 Longstanding persistent atrial fibrillation (CMS/HCC) Oral cancer Malignant neoplasm of mouth, unspecified site HFrEF (heart failure with reduced ejection fraction) documented in this encounter Additional Health Concerns Assessment Noted Time A fall risk assessment has been complete d for the patient 03/01/2025 10:36 AM EDT A Body Mass Index follow-up plan has been documented for the patient 01/28/2025 11:21 AM EDT documented as of this encounter Care Teams Gear Machine Operator Relationship Specialty Start Date End Date System, Provider Not In, [address] [place] [address] PCP - General Family Medicine 08/16/24 documented as of this encounter
--- OUTSIDE RECORDS SUMMARY | 2025-04-12 10:42 | XMS_ITS | Encounter Summary ---
Author Organization [facility] Address [address] [place] [address] Care Team Providers Care Snack Stewardess Name Role Phone System, Provider Not In MD Primary Care Provider Unavailable Encounter Details Date Type Department Care Team ([facility] Contact Info) Description 03/02/2025 Results Follow-Up [facility] Hematology/BMT and Cellular Therapy Program 750 [facility] [place] [address] Skyla Kirby MD 800 [facility] [address] [place] [address] Social History Tobacco Use Types Packs/Day Years [...] any time in the past 12 m [facility], were you homeless or living in a [...] Date Type Department Care Team ([facility] Contact Info) Description 05/31/2025 10:30 AM EST Appointment [facility] PET Scan 800 [place] [phone] 05/31/2025 11:30 AM EST Appointment [facility] PET Scan 800 [place] [address] 05/31/2025 2:30 PM EST Clinical Support [facility] Hematology/BMT and Cellular Therapy Program 750 [facility] [address] [place] [address] 05/31/2025 3:00 PM EST Office Visit [facility] Hematology/BMT and Cellular Therapy Program [address] [place] [address] Marci Saini PA 800 [facility] [address] [place] [address] documented as of this encounter Visit Diagnoses Not on filedocumented in this encounter Additional Health Concerns Assessment Noted Time A fall risk assessment has been complete d for the patient 03/01/2025 10:36 AM EDT A Body Mass Index follow-up plan has been documented for the patient 01/28/2025 11:21 AM EDT documented as of this encounter Care Teams Snack Stewardess Relationship Specialty Start Date End Date System, Provider Not In, 800 [place] [address] PCP - General Family Medicine 08/16/24 documented as of this encounter
--- OUTSIDE RECORDS SUMMARY | 2025-04-12 10:42 | XMS_ITS | Clinical Summary ---
Author Organization [facility] Address [address] [place] [address] Care Team Providers Care Beam Press Operator Name Role Phone Unavailable Primary Care Provider [...]
--- OUTSIDE RECORDS SUMMARY | 2025-04-12 10:42 | XMS_ITS | Encounter Summary ---
Author Organization Healthcare Address [address] [place] [address] Care Team Providers Care Pull Worker Name Role Phone System, Provider Not In MD Primary Care Provider Unavailable Encounter Details Date Type Department Care Team ([facility] st Contact Info) Description 03/08/2025 Telephone Psych Oncology 800 [place] [phone] [address] Social History Tobacco Use [...] any time in the past 12 m [facility], were you homeless or living in [...] Call details: Chart reviewed. Pt established with [facility] with last encounter via phone 10/25. [...] AM EST Appointment [facility] PET Scan 800 [place] [address] 05/31/2025 11:30 AM EST Appointment [facility] PET Scan [address] [place] [address] 05/31/2025 2:30 PM EST Clinical Support [facility] Hematology/BMT and Cellular Therapy Program [address] [address] 05/31/2025 3:00 PM EST Office Visit [facility] Hematology/BMT and Cellular Therapy Program [address] [address] Marci Saini PA 800 [facility] [address] [place] [phone] documented as of this encounter Visit Diagnoses Not on filedocumented in this encounter Additional Health Concerns Assessment Noted Time A fall risk assessment has been complete d for the patient 03/01/2025 10:36 AM EDT A Body Mass Index follow-up plan has been documented for the patient 01/28/2025 11:21 AM EDT documented as of this encounter Care Teams Pull Worker Relationship Specialty Start Date End Date System, Provider Not In, MD [place] [address] PCP - General Family Medicine 08/16/24 documented as of this encounter
--- OUTSIDE RECORDS SUMMARY | 2025-04-12 10:42 | XMS_ITS | Encounter Summary ---
Author Organization Healthcare Address [address] [place] [address] Care Team Providers Care Arboriculturist Name Role Phone System, Provider Not In [...] any time in the past 12 m [facility], were you homeless or [...] Upcoming Encounters Date Type Department Care Team ([facility] Contact Info) Description 05/31/2025 10:30 AM EST Appointment [facility] PET Scan 800 [place] [address] 05/31/2025 11:30 AM EST Appointment [facility] PET Scan 800 [place] [address] 05/31/2025 2:30 PM EST Clinical Support [facility] Hematology/BMT and Cellular Therapy Program [address] [place] [place] [address] 05/31/2025 3:00 PM EST Office Visit [facility] Hematology/BMT and Cellular Therapy Program [address] [place] [place] [address] Marci Saini PA 800 [facility] [address] [place] [phone] documented as of this encounter Visit Diagnoses Not on filedocumented in this encounter Additional Health Concerns Assessment Noted Time A fall risk assessment has been complete d for the patient 01/28/2025 10:51 AM EDT A Body Mass Index follow-up plan has been documented for the patient 01/28/2025 11:21 AM EDT documented as of this encounter Care Teams Arboriculturist Relationship Specialty Start Date End Date System, Provider Not In, MD [place] [address] PCP - General Family Medicine 08/16/24 documented as of this encounter
--- OUTSIDE RECORDS SUMMARY | 2025-04-12 10:42 | XMS_ITS | Encounter Summary ---
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 st Contact Info) Description 03/03/2025 Orders Only [facility] Hematology/BMT and Cellular Therapy Program [address] [place] [address] Skyla Kirby MD 800 [facility] [address] [address] Cutaneous T-cell lymphoma involving lymph [...] Upcoming Encounters Date Type Department Care Team ([facility] st Contact Info) Description 05/31/2025 10:30 AM EST Appointment [facility] PET Scan 800 [place] [address] 05/31/2025 11:30 AM EST Appointment [facility] PET Scan [address] [place] [address] 05/31/2025 2:30 PM EST Clinical Support [facility] Hematology/BMT and Cellular Therapy Program [address] [place] [phone] 05/31/2025 3:00 PM EST Office Visit [facility] Hematology/BMT and Cellular Therapy Program [address] [place] [phone] Marci Saini PA 800 [facility] [address] [place] [phone] Scheduled Orders Name Type Priority Associated Diagnoses [...] documented as of this encounter Care Teams Brewery Cellar Worker Relationship Specialty Start Date End Date System, Provider Not In, 800 [place] [address] PCP - General Family Medicine 08/16/24 documented as of this encounter
--- OUTSIDE RECORDS SUMMARY | 2025-04-12 10:42 | XMS_ITS | Encounter Summary ---
Author Organization [facility] Address [address] [place] [address] Care Team Providers Care Vessel Traffic Officer Name Role Phone System, Provider Not In MD Primary Care Provider Unavailable Encounter Details Date Type Department Care Team ([facility] Contact Info) Description 02/28/2025 Orders Only PAV CC Hematology/BMT and Cellular Therapy Program 750 [facility], [facility] [place] [address] Skyla Kirby MD 800 [facility] [address] [place] [address] Cutaneous T-cell lymphoma involving lymph nodes of [...] any time in the past 12 m [facility], were you homeless or living in a nursing home (including now)? No 10/25/2024 Utilities Answer Date Recorded In the past 12 months has th e [employer], gas, oil, or water company threatened to [...] Upcoming Encounters Date Type Department Care Team ([facility] Contact Info) Description 05/31/2025 10:30 AM EST Appointment [facility] PET Scan [address] [place] [address] 05/31/2025 11:30 AM EST Appointment [facility] PET Scan [address] [place] [address] 05/31/2025 2:30 PM EST Clinical Support [facility] CC Hematology/BMT and Cellular Therapy Program 750 [facility], [address] [place] [address] 05/31/2025 3:00 PM EST Office Visit [facility] CC Hematology/BMT and Cellular Therapy Program 750 [facility], [facility] [place] [address] Marci Saini, PA 800 [facility] [address] [place] [phone] documented as of this encounter Results * Lactate Dehydrogenase, Plasma (03/01/2025 10:08 AM EDT) Pathologist [facility] LDH, Plasma 239 116 - 250 U/L 03/01/2025 10:56 AM EDT [facility] Blood Venous blood specimen / Unknown Venipuncture / Unknown 03/01/2025 10:08 AM EDT 03/01/2025 10:26 AM EDT us Skyla Kirby MD LAB BLOOD ORDERABLES Final Resul t [facility] [address] [place] [address] * (ABNORMAL) CBC and Differential (03/01/2025 10:08 AM EDT) WBC Count 6.67 3.70 - 10.30 10*3/uL LAB HEMATOLOGY METHOD 03/01/2025 10:28 AM EDT [facility] RBC Count 4.34(L) 4.60 - 6.10 10*6/uL LAB HEMATOLOGY METHOD 03/01/2025 10:28 AM EDT [facility] HGB 11.2(L) 13.7 - 17.5 g/dL LAB HEMATOLOGY METHOD 03/01/2025 10:28 AM EDT [facility] HCT 35.5(L) 40.0 - 51.0 % LAB HEMATOLOGY METHOD 03/01/2025 10:28 AM EDT [facility] Platelet Count 162 155 - 369 10*3/uL LAB HEMATOLOGY METHOD 03/01/2025 10:28 AM EDT [facility] MCV 82 79 - 98 fL LAB HEMATOLOGY METHOD 03/01/2025 10:28 AM EDT [facility] MCH 25.8(L) 26.0 - 32.0 pg LAB HEMATOLOGY METHOD 03/01/2025 10:28 AM EDT [facility] MCHC 31.5 30.7 - 35.5 g/dL LAB HEMATOLOGY METHOD 03/01/2025 10:28 AM EDT [facility] RDW 17.2(H) 11.5 - 14.5 % LAB HEMATOLOGY METHOD 03/01/2025 10:28 AM EDT [facility] MPV 9.3 8.8 - 12.5 fL LAB HEMATOLOGY METHOD 03/01/2025 10:28 AM EDT [facility] nRBC 0.0 <=0.0 per 100 WBCs LAB HEMATOLOGY METHOD 03/01/2025 10:28 AM EDT [facility] Differential Type Automated LAB HEMATOLOGY METHOD 03/01/2025 10:28 AM EDT [facility] Neutrophils % 87 % LAB HEMATOLOGY METHOD 03/01/2025 10:28 AM EDT [facility] Lymphocytes % 5 % LAB HEMATOLOGY METHOD 03/01/2025 10:28 AM EDT [facility] Monocytes % 6 % LAB HEMATOLOGY METHOD 03/01/2025 10:28 AM EDT [facility] Eosinophils % 1 % LAB HEMATOLOGY METHOD 03/01/2025 10:28 AM EDT [facility] Basophils % 1 % LAB HEMATOLOGY METHOD 03/01/2025 10:28 AM EDT [facility] Immature Granulocytes % 0 % LAB HEMATOLOGY METHOD 03/01/2025 10:28 AM EDT [facility] Neutrophils Absolute 5.77 1.60 - 6.10 10*3/uL LAB HEMATOLOGY METHOD 03/01/2025 10:28 AM EDT [facility] Lymphocytes Absolute 0.35(L) 1.20 - 3.90 10*3/uL LAB HEMATOLOGY METHOD 03/01/2025 10:28 AM EDT [facility] Monocytes Absolute 0.43 0.30 - 0.90 10*3/uL LAB HEMATOLOGY METHOD 03/01/2025 10:28 AM EDT [facility] Eosinophils Absolute 0.06 0.00 - 0.50 10*3/uL LAB HEMATOLOGY METHOD 03/01/2025 10:28 AM EDT [facility] Basophils Absolute 0.04 0.00 - 0.10 10*3/uL LAB HEMATOLOGY METHOD 03/01/2025 10:28 AM EDT [facility] Immature Granulocytes Absolute 0.02 0.00 - 0.06 10*3/uL LAB HEMATOLOGY METHOD 03/01/2025 10:28 AM EDT [facility] Blood Venous blood specimen / Unknown Venipuncture / Unknown 03/01/2025 10:08 AM EDT 03/01/2025 10:26 AM EDT Narrative [facility] - 03/01/2025 10:28 AM EDT Therapeutic decision making should be based on absolute values, rather than percentages. us Skyla Kirby MD LAB BLOOD ORDERABLES Final Resul t [facility] [address] [place] [address] * (ABNORMAL) Comprehensive Metabolic Panel, Plasma (03/01/2025 10:08 AM EDT) Glucose, Plasma 118(H) 74 - 99 mg/dL 03/01/2025 10:56 AM EDT [facility] BUN, Plasma 15 8 - 23 mg/dL 03/01/2025 10:56 AM EDT [facility] Creatinine, Plasma 0.60(L) 0.70 - 1.20 mg/dL 03/01/2025 10:56 AM EDT [facility] BUN/Creatinine Ratio 25 03/01/2025 10:56 AM EDT [facility] Sodium, Plasma 126(L) 136 - 145 mmol/L 03/01/2025 10:56 AM EDT [facility] Potassium, Plasma 4.3 3.6 - 4.9 mmol/L 03/01/2025 10:56 AM EDT [facility] Chloride, Plasma 88(L) 97 - 107 mmol/L 03/01/2025 10:56 AM EDT [facility] CO2, Plasma 29 22 - 29 mmol/L 03/01/2025 10:56 AM EDT [facility] Anion Gap 9 6 - 16 mmol/L 03/01/2025 10:56 AM EDT [facility] Total Calcium, Plasma 9.4 8.9 - 10.2 mg/dL 03/01/2025 10:56 AM EDT [facility] Total Protein 7.3 6.3 - 7.9 g/dL 03/01/2025 10:56 AM EDT [facility] Albumin, Plasma 4.1 3.5 - 5.2 g/dL 03/01/2025 10:56 AM EDT [facility] AST, Plasma 32 10 - 50 U/L 03/01/2025 10:56 AM EDT [facility] ALT, Plasma 28 10 - 50 U/L 03/01/2025 10:56 AM EDT [facility] Alkaline Phosphatase, Plasma 131(H) 40 - 115 U/L 03/01/2025 10:56 AM EDT [facility] Total Bilirubin, Plasma 0.6 0.2 - 1.1 mg/dL 03/01/2025 10:56 AM EDT [facility] eGFRcr 104.5 mL/min/1.7 3m*2 03/01/2025 10:56 AM EDT [facility] Comment:Reported eGFRcr in m L/min/1.73m2 is based the CKD-EPI 2020 equation that does not use a race coefficient. Blood Venous blood specimen / Unknown Venipuncture / Unknown 03/01/2025 10:08 AM EDT 03/01/2025 10:26 AM EDT us Skyla Kirby MD LAB BLOOD ORDERABLES Final Resul t [facility] [address] [place] [address] documented in this encounter Visit Diagnoses Diagnosis [...] documented as of this encounter Care Teams Vessel Traffic Officer Relationship Specialty Start Date End Date System, Provider Not In, MD Cés[place] [address] PCP - General Family Medicine 08/16/24 documented as of this encounter
--- OUTSIDE RECORDS SUMMARY | 2025-04-12 10:42 | XMS_ITS | Encounter Summary ---
Author Organization Healthcare Address [address] [place] [address] Care Team Providers Care Application Support Consultant Name Role Phone System, Provider Not In MD Primary Care Provider Unavailable Encounter Details Date Type Department Care Team ([facility] st Contact Info) Description 04/07/2025 Telephone Pav CC Head, Neck & Respiratory [address] [place] [address] Boogie Chaidez MD [address] [place] [address] Social History Tobacco Use Types Packs/Day Years [...] any time in the past 12 m [facility], were you homeless or living in a longterm (including now)? No 10/25/2024 Utilities Answer Date [...] encounter Miscellaneous Notes * Telephone Encounter - Simona Varela RN - 04/07/2025 9:18 AM EDT I spoke with Cleopatra to advise that I contacted the [employer] and they do not carry the MyPar[employer]iCell Shear Points. [employer] carries them for $70, and the [employer] has them at $59.99. I asked her ifshe remembers where they originally got them, she wasn't sure but is going to check if the DME company they use has them. I can give her a Wound Care DME that will hopefully cover them. She thanked me for calling her back. * Telephone Encounter - Claudia Noguera - 04/07/2025 8:46 AM EDT Per pt niece call to [facility], Cleopatra asking where to get more clear liqiucell sharepoint skin protectors (small,100 count box) , goes against glasses between skin patch to reduce friction. Cleopatra, , okay to leave appt information, address concerns and answers to questions in VMat this # and maintain privacy, documented in this encounter Plan of Treatment Upcoming Encounters Date Type Department Care Team ([facility] st Contact Info) Description 05/31/2025 10:30 AM EST Appointment [facility] PET Scan [address] [place] [phone] 05/31/2025 11:30 AM EST Appointment [facility] PET Scan [address] [place] [phone] 05/31/2025 2:30 PM EST Clinical Support [facility] CC Hematology/BMT and Cellular Therapy Program [address] [place] [phone] 05/31/2025 3:00 PM EST Office Visit [facility] CC Hematology/BMT and Cellular Therapy Program [address] [place] [phone] Marci Saini PA 800 [facility] [address] [place] [phone] documented as of this encounter Visit Diagnoses Not on filedocumented in this encounter Additional Health Concerns Assessment Noted Time A fall risk assessment has been complete d for the patient 03/01/2025 10:36 AM EDT A Body Mass Index follow-up plan has been documented for the patient 01/28/2025 11:21 AM EDT documented as of this encounter Care Teams Application Support Consultant Relationship Specialty Start Date End Date System, Provider Not In, [address] [place] [address] PCP - General Family Medicine 08/16/24 documented as of this encounter
--- OUTSIDE RECORDS SUMMARY | 2025-04-12 10:42 | XMS_ITS | Clinical Summary ---
Author Organization Healthcare Address [address] [place] [address] Care Team Providers Care Yardage Estimator Name Role Phone System, Provider Not In [...] each 1 07/25/19 25 Active sodium chloride (Pratt) 0.65 % nasal spray Administer 1 spray [...] g 2 09/03/19 25 Active Feeding Supplies [facility] Please send months supply of syringes and [...] (two) times a day. 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 Weakness 07/27/2024 Weakness generalized 07/27/2024 Angina pectoris 07/20/2024 Squamous cell carcinoma of forehead 07/16/2024 Right-sided extracranial carotid artery stenosis 07/09/2024 Tobacco use disorder 06/09/2024 Protein-calorie malnutrition 06/09/2024 Atherosclerotic heart diseas e of [place] coronary artery without angina pectoris 10/27/2023 Atrial [...] Encounters Date Type Department Care Team Description 04/07/2025 Telephone Pav CC Head, Neck & Respiratory 800 [facility], [address]nd [place] [address] Boogie Chaidez MD 03/22/2025 Telephone Psych Oncology [address] [place] [phone] Tiffany Curran, TRICIA 03/08/2025 Telephone Psych Oncology [address] [place] [address] Tiffany Curran, TRICIA 03/03/2025 Orders Only P[facility] CC Hematology/BMT and Cellular Therapy Program 750 [facility], [address] [place], [place] [phone] Skyla Kirby MD 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) 03/02/2025 Results Follow-Up PAV Hematology/BMT and Cellular Therapy Program [address] [place] [address] [place] [phone] Skyla Kirby MD 03/01/2025 2:30 PM EDT Office Visit PAV Hematology/BMT and Cellular Therapy Program [address] [place] [address] [place] [address] Skyla Kirby MD 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); 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); Longstanding persistent atrial fibrillation (CMS/HCC); Oral cancer (CMS/HCC); HFrEF (heart failure with reduced ejection fraction) (CMS/HCC) 03/01/2025 2:00 PM EDT Clinical Support PAV Hematology/BMT and Cellular Therapy Program [address] [place] [phone] 03/01/2025 8:33 AM EDT - 03/01/2025 11:59 PM EDT Hospital Encounter [facility] PET Scan [address] [place] [phone] Discharge Disposition: Home or Self Care 03/01/2025 8:33 AM EDT - 03/01/2025 11:59 PM EDT Hospital Encounter [facility] PET Scan [address] [place] [address] 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) Discharge Disposition: Home or Self Care 03/01/2025 Travel 02/28/2025 Orders Only [facility] CC Hematology/BMT and Cellular Therapy Program 750 [facility], [address] [place] [address] Skyla Kirby MD 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 No 10/25/2024 In the past 12 months, how m any times have you moved where you were living? 0 10/25/2024 At any time in the past 12 m [facility], were you homeless or living in a mcfp (including now)? No 10/25/2024 Utilities Answer Date Recorded In the past 12 months has th e electric, gas, oil, or water [employer] threatened to shut off services in your [...] Encounters Date Type Department Care Team ([facility] Contact Info) Description 05/31/2025 10:30 AM EST Appointment [facility] PET Scan [address] [place] [address] 05/31/2025 11:30 AM EST Appointment [facility] PET Scan [address] [place] [address] 05/31/2025 2:30 PM EST Clinical Support P[facility] CC Hematology/BMT and Cellular Therapy Program [address] [phone] 05/31/2025 3:00 PM EST Office Visit P[facility] CC Hematology/BMT and Cellular Therapy Program [address] [phone] Marci Saini PA 800 [facility] [address] [place] [phone] Health Maintenance Due Date Last Done Comments [facility]-Depression Screening 1955 [facility]-Diabetes: Hemoglobin A1C 1955 [facility]-Medicare Annual Wellness (AWV) 1955 [facility]-/Child/Adol SDOH Screenings 1955 Diabetes: Dental Exam 09/10/1965 CT Colonography 09/10/2000 Colonoscopy 09/10/2000 FIT-DNA 09/10/2000 FIT 09/10/2000 FOBT 09/10/2000 Sigmoidoscopy 09/10/2000 [facility]-Colorectal Cancer Screening 09/10/2000 [facility]-Abdominal Aortic Aneurysm (AAA) Screening 09/10/2020 [facility]-Zoster Vaccines (2 of 2) 05/16/2023 03/21/2023 [id number] Vaccine ( season) 2025 05/07/2021, 10/25/2020, 10/18/2020, [...] this topic Medical Devices Implanted Type Area Riveting Machine Operator Tape Control Device Identifier Shelf Expiration Date Model / Serial / Lot Mesh Vicryl Flat 30cm X 30cm - [id number] Implanted:Qty : 1 on 07/16/2024 by Boogie Chaidez MD at [facility] Mesh Abdomen [id number] 01/10/2029 [id number] / / [id number] Pacemaker Pacemaker Heart Graft Dura Repair 2x2 [employer] - [id number] Implanted:Qty : 1 on 07/16/2024 by Mauricio Valentin MD at [id number] 12/11/2026 [id number] / / [id number] Procedures Procedure Name Priority Date/Time Associated Diagnosis [...] EST CT CHEST W IV CONTRAST Routine 4 10:19 AM EST Squamous cell carcinoma of forehead from Last 3 Months or Most Recently Relevant to Health Maintenance Results * (ABNORMAL) CBC and Differential (03/01/2025 10:08 AM EDT) WBC Count 6.67 3.70 - 10.30 10*3/uL LAB HEMATOLOGY METHOD 03/01/2025 10:28 AM EDT [facility] RBC Count 4.34(L) 4.60 - 6.10 10*6/uL LAB HEMATOLOGY METHOD 03/01/2025 10:28 AM EDT [facility] HGB 11.2(L) 13.7 - 17.5 g/dL LAB HEMATOLOGY METHOD 03/01/2025 10:28 AM EDT [facility] HCT 35.5(L) 40.0 - 51.0 % LAB HEMATOLOGY METHOD 03/01/2025 10:28 AM EDT [facility] Platelet Count 162 155 - 369 10*3/uL LAB HEMATOLOGY METHOD 03/01/2025 10:28 AM EDT [facility] MCV 82 79 - 98 fL LAB HEMATOLOGY METHOD 03/01/2025 10:28 AM EDT [facility] MCH 25.8(L) 26.0 - 32.0 pg LAB HEMATOLOGY METHOD 03/01/2025 10:28 AM EDT [facility] MCHC 31.5 30.7 - 35.5 g/dL LAB HEMATOLOGY METHOD 03/01/2025 10:28 AM EDT [facility] RDW 17.2(H) 11.5 - 14.5 % LAB HEMATOLOGY METHOD 03/01/2025 10:28 AM EDT [facility] MPV 9.3 8.8 - 12.5 fL LAB HEMATOLOGY METHOD 03/01/2025 10:28 AM EDT [facility] nRBC 0.0 <=0.0 per 100 WBCs LAB HEMATOLOGY METHOD 03/01/2025 10:28 AM EDT [facility] Differential Type Automated LAB HEMATOLOGY METHOD 03/01/2025 10:28 AM EDT [facility] Neutrophils % 87 % LAB HEMATOLOGY METHOD 03/01/2025 10:28 AM EDT [facility] Lymphocytes % 5 % LAB HEMATOLOGY METHOD 03/01/2025 10:28 AM EDT [facility] Monocytes % 6 % LAB HEMATOLOGY METHOD 03/01/2025 10:28 AM EDT [facility] Eosinophils % 1 % LAB HEMATOLOGY METHOD 03/01/2025 10:28 AM EDT [facility] Basophils % 1 % LAB HEMATOLOGY METHOD 03/01/2025 10:28 AM EDT [facility] Immature Granulocytes % 0 % LAB HEMATOLOGY METHOD 03/01/2025 10:28 AM EDT [facility] Neutrophils Absolute 5.77 1.60 - 6.10 10*3/uL LAB HEMATOLOGY METHOD 03/01/2025 10:28 AM EDT [facility] Lymphocytes Absolute 0.35(L) 1.20 - 3.90 10*3/uL LAB HEMATOLOGY METHOD 03/01/2025 10:28 AM EDT [facility] Monocytes Absolute 0.43 0.30 - 0.90 10*3/uL LAB HEMATOLOGY METHOD 03/01/2025 10:28 AM EDT [facility] Eosinophils Absolute 0.06 0.00 - 0.50 10*3/uL LAB HEMATOLOGY METHOD 03/01/2025 10:28 AM EDT [facility] Basophils Absolute 0.04 0.00 - 0.10 10*3/uL LAB HEMATOLOGY METHOD 03/01/2025 10:28 AM EDT [facility] Immature Granulocytes Absolute 0.02 0.00 - 0.06 10*3/uL LAB HEMATOLOGY METHOD 03/01/2025 10:28 AM EDT [facility] Blood Venous blood specimen / Unknown Venipuncture / Unknown 03/01/2025 10:08 AM EDT 03/01/2025 10:26 AM EDT Narrative [facility]ALTH[facility] - 03/01/2025 10:28 AM EDT Therapeutic decision making should be based on absolute values, rather than percentages. us Skyla Kirby MD LAB BLOOD ORDERABLES Final Resul t [facility] [address] [place] [address] * Lactate Dehydrogenase, Plasma (03/01/2025 10:08 AM EDT) LDH, Plasma 239 116 - 250 U/L 03/01/2025 10:56 AM EDT [facility] Blood Venous blood specimen / Unknown Venipuncture / Unknown 03/01/2025 10:08 AM EDT 03/01/2025 10:26 AM EDT us Skyla Kirby MD LAB BLOOD ORDERABLES Final Resul t [facility] [address] [place] [phone] * (ABNORMAL) Comprehensive Metabolic Panel, Plasma (03/01/2025 10:08 AM EDT) Glucose, Plasma 118(H) 74 - 99 mg/dL 03/01/2025 10:56 AM EDT [facility] BUN, Plasma 15 8 - 23 mg/dL 03/01/2025 10:56 AM EDT [facility] Creatinine, Plasma 0.60(L) 0.70 - 1.20 mg/dL 03/01/2025 10:56 AM EDT [facility] BUN/Creatinine Ratio 25 03/01/2025 10:56 AM EDT [facility] Sodium, Plasma 126(L) 136 - 145 mmol/L 03/01/2025 10:56 AM EDT [facility] Potassium, Plasma 4.3 3.6 - 4.9 mmol/L 03/01/2025 10:56 AM EDT [facility] Chloride, Plasma 88(L) 97 - 107 mmol/L 03/01/2025 10:56 AM EDT [facility] CO2, Plasma 29 22 - 29 mmol/L 03/01/2025 10:56 AM EDT [facility] Anion Gap 9 6 - 16 mmol/L 03/01/2025 10:56 AM EDT [facility] Total Calcium, Plasma 9.4 8.9 - 10.2 mg/dL 03/01/2025 10:56 AM EDT [facility] Total Protein 7.3 6.3 - 7.9 g/dL 03/01/2025 10:56 AM EDT [facility] Albumin, Plasma 4.1 3.5 - 5.2 g/dL 03/01/2025 10:56 AM EDT [facility] AST, Plasma 32 10 - 50 U/L 03/01/2025 10:56 AM EDT [facility] ALT, Plasma 28 10 - 50 U/L 03/01/2025 10:56 AM EDT [facility] Alkaline Phosphatase, Plasma 131(H) 40 - 115 U/L 03/01/2025 10:56 AM EDT [facility] Total Bilirubin, Plasma 0.6 0.2 - 1.1 mg/dL 03/01/2025 10:56 AM EDT [facility] eGFRcr 104.5 mL/min/1.7 3m*2 03/01/2025 10:56 AM EDT [facility] Comment:Reported eGFRcr in m L/min/1.73m2 is based the CKD-EPI 2020 equation that does not use a race coefficient. Blood Venous blood specimen / Unknown Venipuncture / Unknown 03/01/2025 10:08 AM EDT 03/01/2025 10:26 AM EDT us Skyla Kirby MD LAB BLOOD ORDERABLES Final Resul t [facility] [address] [place] [address] * PET/CT FDG Skull Base To Mid [...] scanner: Siemens Biograph 40 mCT. PET/CT acquisition: Catsuf-hs-sdg-thighs, plus magnification (zoomed) neck. Standardized uptake value (SUV): Corrected for body weight only. CT: Low-dose, [id number], without intravenous contrast. TOTAL DLP (Dose Length [...] scanner: Siemens Biograph 40 mCT. PET/CT acquisition: Mdzguw-jn-wec-thighs, plus magnification (zoomed)neck. Standardized uptake value (SUV): Corrected for body weight only. CT: Low-dose, [id number], without intravenous contrast. TOTAL DLP (Dose Length [...] Kirby MD IMG NM PROCEDURES Final Result * Nasolacrimal Duct [...] Antibody Negative Negative 07/29/2024 6:46 PM EST [facility] Blood Venous blood specimen / Unknown Venipuncture / Unknown 07/29/2024 5:38 PM EST 07/29/2024 6:05 PM EST Boogie Chaidez MD LAB BLOOD ORDERABLES Final Resul t [facility] [address] [place] [address] * CT Chest w IV Contrast (06/25/2024 [...] Most Recently Relevant to Health Maintenance Insurance [facility] MEDICARE [employer] MEDICAID Advance [...] Patient has decision-making capacity? Yes Care Teams Yardage Estimator Relationship Specialty Start Date End Date System, Provider Not In, [address] [place] [id number] PCP - General Family Medicine 08/16/24
--- OUTSIDE RECORDS SUMMARY | 2025-04-12 10:42 | XMS_ITS | Encounter Summary ---
Author Organization Healthcare Address [address] [place] [place] [address] Care Team Providers Care Deckhand Engineer Name Role Phone System, Provider Not In MD Primary Care Provider Unavailable Encounter Details Date Type Department Care Team ([facility] st Contact Info) Description 03/22/2025 Telephone Psych Oncology [address] [place] [phone] [address] Social History Tobacco Use [...] Care. Call and speak with [employer] car sales representative. State order was shipped out [...] Upcoming Encounters Date Type Department Care Team ([facility] st Contact Info) Description 05/31/2025 10:30 AM EST Appointment [facility] PET Scan [address] [place] [address] 05/31/2025 11:30 AM EST Appointment [facility] PET Scan [address] [place] [address] 05/31/2025 2:30 PM EST Clinical Support [facility] H[facility]ology/B[facility] Cellular Therapy [facility] [address] [place] [address] 05/31/2025 3:00 PM EST Office Visit [facility] [address] [place] [address] Marci Saini PA 800 [facility] [address] [place] [phone] documented as of this encounter Visit Diagnoses Not on filedocumented in this encounter Additional Health Concerns Assessment Noted Time A fall risk assessment has been complete d for the patient 03/01/2025 10:36 AM EDT A Body Mass Index follow-up plan has been documented for the patient 01/28/2025 11:21 AM EDT documented as of this encounter Care Teams Deckhand Engineer Relationship Specialty Start Date End Date System, Provider Not In, [address] [place] [address] PCP - General Family Medicine 08/16/24 documented as of this encounter
--- OUTSIDE RECORDS SUMMARY | 2025-04-12 10:42 | XMS_ITS | Encounter Summary ---
Author Organization Healthcare Address [address] [place] [address] Care Team Providers Care Clinical Appeals Specialist Name Role Phone System, Provider Not In [...] [facility] or living in [...] Upcoming Encounters Date Type Department Care Team ([facility] Contact Info) Description 05/31/2025 10:30 AM EST Appointment [facility] PET Scan [address] [place] [address] 05/31/2025 11:30 AM EST Appointment [facility] PET Scan [address] [place] [address] 05/31/2025 2:30 PM EST Clinical Support [facility] [address] [place] [address] 05/31/2025 3:00 PM EST Office Visit [facility] [address] [place] [address] Marci Saini PA 800 [facility] [address] [place] [phone] documented as of this encounter Visit Diagnoses Not on filedocumented in this encounter Additional Health Concerns Assessment Noted Time A fall risk assessment has been complete d for the patient 03/01/2025 10:36 AM EDT A Body Mass Index follow-up plan has been documented for the patient 01/28/2025 11:21 AM EDT documented as of this encounter Care Teams Clinical Appeals Specialist Relationship Specialty Start Date End Date System, Provider Not In, MD C[address] [address] PCP - General Family Medicine 08/16/24 documented as of this encounter
--- NOTE | 2025-04-12 11:00 | FL_ITS ---
FINAL REPORT CLINICAL HISTORY: trouble swallowing 183.8DAP 4 MINUTES FLUORO TIME FINDINGS: MODIFIED BARIUM SWALLOW History: Dysphagia FINDINGS: Fluoroscopy was provided for the speech pathologist to evaluate the swallowing mechanism. The patient was given several different consistencies of barium while the swallow was visualized fluoroscopically. The report of the speech pathologist should be consulted prior to making dietary decisions. Fluoroscopy time: 4 minutes Fluoro dose: 183.8 DAP in uGym2 IMPRESSION: Modified barium swallow under fluoroscopic guidance. Please see the report of the speech pathologist for Dietary recommendations. Reviewed, Interpreted and Dictated by Louis Pitts MD Transcribed by DANIELLE Castaneda Authenticated and [facility]
[2025-04-12] MEDS: BARIUM SULFATE(LIQUID E-Z-PAQUE);355ML BOTTLE 355 ML PO (11:27)
--- NOTE | 2025-04-12 13:08 | HMH.SLMBS2 ---
Speech & Language Evaluation Speech/Lang Modified Barium Swallow Start: 04/12/25 12:49 Freq: once Status: Complete Protocol: Document 04/12/25 12:49 ANGEL (Rec: 04/12/25 13:08 ANGEL [id number]) OFFICE TECHNOLOGY INSTRUCTOR Evaluation Information OFFICE TECHNOLOGY INSTRUCTOR Evaluation Information Date of Evaluation: 04/12/25 Time of Evaluation: 11:00 Evaluation Type Initial Certification Reason for Referral trouble swallowing per MD order Does Patient Qualify Yes for Service Qualify/Failure Based on clinical observations made throughout MBSS, pt Comment would benefit from skilled speech therapy services to address dysphagia exercises prior to following up with repeat MBSS in 3 months to improve function of swallow to reassess ability to be placed on PO diet MBS Recommendations Recommendation PHYSICIAN CERTIFICATION: The specified therapy services are required, authorized, and reviewed every 30 days. Patient will be Seen 1 # Times/Week For # of Weeks 12 Plan Anticipate reaching 8 STG in # weeks Anticipate reaching 12 LTG in # weeks Pt/Guardian verbally Yes ack understanding of dx/prognosis/ goals Diet Dietary NPO Recommendations SL Swallow High aspiration risk,Oral Care Education,Ice OK after Guidelines oral care Treatment/Strategies Treatment Base of Tongue Exercises,Pharyngeal Resistive Exer Recommendations Referral/Other Recommended Alternate Feeding Method Referrals OFFICE TECHNOLOGY INSTRUCTOR Patient History Section OFFICE TECHNOLOGY INSTRUCTOR Patient History Primary Medical 69-year-old male presents at [facility] for MBSS. 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 OFFICE TECHNOLOGY INSTRUCTOR Interview/Questionnaires Patient Interview and Questionnaires Questionnaires Pt currently on feeding tube Comment Mod Barium Swallow Study Patient Orientation Patient Orientation Person,Place,Time,Situation Oral Expression Moderate Impairment Ability Ability to Follow Fair Directions Is Patient able to Yes Perform Volitional Throat Clear? Is Patient able to Yes Perform Volitional Cough? Is Patient able to No Manage Secretions Independently? Mod Barium Swallow Set Up Radiologist Adan Villatoro Patient Presentation Awake,Alert,Appropriate,Follows Commands : Bolus Consistencies Thin Liquids,[place] Thick Liquids,Pudding Trialed: MBSS Observations Consistency & Strategy Trial Pudding Half Spoon Penetration/ 7 Aspiration Scale PAS Amount Gross Pharyngeal Residual 50-90% [place] Straw Sip Penetration/ 5 Aspiration Scale PAS Amount Gross Pharyngeal Residual 10-49% Thin Straw Sip Penetration/ 7 Aspiration Scale PAS Amount Gross Pharyngeal Residual 50-90% Mod Barium Swallow Impressions Oral Phase Summary & Impressions Oral Phase: Severe Impairment Impression Oral Phase: Labial Severe Impairment Closure Oral Phase: Bolus Moderate Impairment Formation Pooling L/ R Oral Phase: Bolus Moderate Impairment Formation Under Tongue Oral Phase: Bolus Severe Impairment Formation Scattered Loss Oral Phase: Lingual Severe Impairment Movement Oral Phase: Residue Severe Impairment Clearing Oral Phase: Other Mastication not observed as no solids were trialed Observations Oral Phase: Summary Severe impairment of oral phase of swallow. Pt has inadequate labial seal at rest and is unable to manage secretions. Oral motor skills impaired and has residuals even with multiple swallow attempts within the oral cavity. Pt has had multiple surgeries on face. Pharyngeal Phase Summary & Impressions Pharyngeal Phase: Severe Impairment Impression Pharyngeal Phase: A/ Severe Impairment P Lingual Propulsion Spills Pharyngeal Phase: Severe Impairment Swallow Response Delay Pharyngeal Phase: Severe Impairment Base of Tongue Pharyngeal Phase: Severe Impairment Epiglottic Coverage Pharyngeal Phase: Severe Impairment Laryngeal Elevation Pharyngeal Phase: Severe Impairment Vallecular Retention Clearing Pharyngeal Phase: Severe Impairment Pharyngeal Wall Residue Clearing Pharyngeal Phase: Severe Impairment Piriform Sinus Retention Pharyngeal Phase: Severely impaired pharyngeal phase of swallow with AP Summary spills, uncoordinated/delayed swallow, gavin residual in valleculae and pyriform sinuses. Pt required suction during MBSS given residual unable to be independently cleared placing at risk for aspiration. All trials not given 2' severity of swallow function. OFFICE TECHNOLOGY INSTRUCTOR discussed completing speech therapy services to address swallow function and repeating MBSS, pt seemed open given home health as option. OFFICE TECHNOLOGY INSTRUCTOR educated on NPO with continuation of feeding tube as safest recommendation. Also provided education on fraiser free water protocol and risks of aspiration/aspiration pna if he was on PO. OFFICE TECHNOLOGY INSTRUCTOR educated on safety vs QOL urging to discuss with MD further, however, expressed risk of aspiration should he choose puree PO diet. Aspiration Aspiration? Yes Degree of Aspiration Medium : When Aspirated: During the swallow Consistencies thin Aspirated: Silent Aspiration? Inconsistent OFFICE TECHNOLOGY INSTRUCTOR MBSS Goals MBS Assisted Goals The patient will NPO tolerate the least restrictive diet with a safe/ efficient swallow to maintain adequate nutrition and hydration. The patient will Yes demonstrate improved swallowing function via repeat clinical evaluation, videoendoscopy/ videofluoroscopy and /or patient self- rating scores. ?The patient and/or Yes family will participate in further education for swallowing goals . The patient will Supraglottic Swallow,Sonia Maneuver,Falsetto CARL Stuart, complete a home CTAR (Isometric),CTAR (Isokinetic)MIGUEL OME'darryl education program of dysphagia exercises and/or complete structured swallowing therapy to improve swallow function through utilization of recommended therapy approaches MBS Short Term Goals The patient will Supraglottic Swallow,Sonia Maneuver,Falsetto ECARL, demonstrate __% CTAR (Isometric),CTAR (Isokinetic),Winnie RIVERA accuracy and require ____ cuing in structured swallowing therapy with the OFFICE TECHNOLOGY INSTRUCTOR using the following exercises/therapy approaches and therapy assisted devices. Accuracy Percentage 70 Demonstration Cueing Requirement Moderate Education Instructions Discussed MBSS results, safest NPO vs QOL puree diets, provided educated on aspiration risks/precautions and Fraiser Free Water with pt and family both of which expressed understanding. Patient/Caregiver Able to recall/restate Able to Recall Information Reinforcement needed No PHYSICIAN CERTIFICATION: I certify the specified therapy services for Marciano Castro are required, authorized, and reviewed every 30 days.
== END 2025-04-12 23:59 | disposition home or self-care (01) ==
LOC: RAD 10:34
PROVIDERS: PCP Family Medicine; Visit Provider Family Medicine
DX: R13.10 Dysphagia, unspecified (principal)
CPT/HCPCS: 74230; 92611

== ENCOUNTER 2025-05-27 15:40 | Observation (INO) | payer MEDICARE, OTHER, SELFPAY ==
[2025-05-27] VITALS (12 sets, daily range): BP systolic 106–159; BP diastolic 52–94; PULSE 60–89; RESP 14–20; TEMP 36.1–36.7; O2SAT 90–96; BMI 25.0
--- NOTE | 2025-05-27 07:04 | IR_ITS ---
APPROVED REPORT Patient Location: Outpatient Sewing Machine Operator: BREONNA Glaser RT (R) PROCEDURES 1. Pocket revision for biventricular pacemaker generator with cardiac resynchronization/defibrillator therapy. 2. Placement of atrial sensing and pacing lead into the right atrial appendage. 3. Placement of left ventricular sensing pacing lead via the coronary sinus. 4. Capping of chronic right atrial lead. 5. Permanent cardiac resynchronization therapy with ICD implantation/biventricular pacemaker. INDICATION Systolic Congestive Heart Failure, ejection <35%, Wide QRS >150ms, [place] heart association class III heart failure, Pacemaker induced cardiomyopathy, Broken Atrial lead Informed consent was obtained prior to the procedure. COMPLICATIONS NONE Estimated Blood Loss: LESS THAN 10 ML TECHNIQUE 1% Lidocaine with epinephrine used to anesthetized the left anterior aspect of the chest. Scalpel was used to make the initial cutaneous incision and to dissect down into the fascia. Chronic generator was removed from pocket, then digitally manipulated revising the pocket for the defibrillator. The patient was then placed in Trendelenburg position and the subclavian vein was accessed 2 times via the Selinger technique. A 9.5 [place] sheath and dilator was then placed over one of the wires while keeping the other wire in place within the subclavian vein. The dilator was removed from the sheath. Using fluoroscopic guidance, contrast was used to visualize the coronary sinus, the left ventricular lead was placed into the coronary sinus. Electronic interrogation proved acceptable thresholds and voltage within the lead. Using 3-0 silk, the left ventricular lead was then secured into place and sheath peeled away. An additional 6 [place] fresh sheath and dilator was placed over the existing wire. Using fluoroscopic guidance, the atrial lead was then placed into the right atrial appendage and screwed and secured in place. Electrical interrogation demonstrated acceptable thresholds and voltage number. The atrial lead was then secured into place using 3-0 silk and sheath peeled away. Chronic right atrial lead was capped and tied. 1 gram of Ancef was used to flush the pocket. All 3 leads were connected to generator and tested via computer. The defibrillator then secured to the fascia. Monocryl was used to close the subcutaneous layers while hali were used to close the cutaneous layer. A pressure dressing was placed and the patient was transferred to the postop holding area in stable condition for postoperative care. INTERROGATION Explanted Generator Model number: [id number] Explanted Generator Serial number: [id number] Capped Atrial Lead: 2087TC, 52cm Serial number: [id number] Implanted Generator Model number: Sarita HF, [id number] Implanted Generator Serial number: [id number] Atrial lead model number: 2087TC, 52cm Atrial lead serial number: [id number] P-wave: 10V@0.5ms Impedance: 390 ohms Right Ventricular lead model number: [id number], 58cm Right Ventricular lead serial number: [id number] R-wave: 1.25V@0.5ms Impedance: 400 ohms Left Ventricular lead model number: Quartet 86cm, [id number] Left Ventricular lead serial number: [id number] LV1 - 1-2 0.375V@0.5ms Impedance: 800 ohms LV2 - 3-4 1.5V@0.5ms Impedance: 900 ohms Pacing Parameters: Mode: DDDR Base/Max Track: 70 ppm / 130 ppm No diaphragmatic stimulation at 10 volts. IMPRESSION 1. Successful Pocket revision for biventricular pacemaker generator with cardiac resynchronization/defibrillator therapy. 2. Successful Placement of atrial sensing and pacing lead into the right atrial appendage. 3. Successful Placement of left ventricular sensing pacing lead via the coronary sinus. 4. Successful capping of chronic right atrial lead. 5. Successful Permanent cardiac resynchronization therapy with ICD implantation/biventricular pacemaker. PLAN 1. Postop wound care. Electronically signed by : Jeevan Leo MD 05/27/2025 15:19:12
[2025-05-27 11:17] LABS: Hematocrit 40.2 % (42.0-52.0); Hemoglobin 12.7 g/dL (14.1-18.0); Immature Granulocytes % 0.1 %; Mean Corpuscular HGB Conc 31.6 g/dL (31.8-35.4); Mean Corpuscular Hemoglobin 27.4 pg (27.0-31.2); Mean Corpuscular Volume 86.6 fl (80-94); Nucleated Red Blood Cells % 0 %; Platelet Count 184 K/mm3 (142-424); Red Blood Count 4.64 M/mm3 (4.60-6.20); Red Cell Distribution Width-SD 51.2 fL; White Blood Count 6.9 K/mm3 (4.8-10.8)
[2025-05-27 11:35] LABS: Anion Gap 10.1 mEq/L (5-15); Blood Urea Nitrogen 16 mg/dl (9-20); Calcium 9.6 mg/dl (8.4-10.2); Carbon Dioxide 31 mmol/L (22.0-30.0); Chloride 93 mmol/L (98-107); Creatinine Clearance Estimated 83 mL/min (50-200); Creatinine,Serum 0.60 mg/dl (0.66-1.25); Estimated Glomerular Filt Rate 134 ml/min (>60); GFR (African American) 162 ML/MIN (>60); Glucose 100 mg/dl (74-100); Potassium 4.1 mmoL/L (3.5-5.1); Sodium 130 mmol/L (136-145)
[2025-05-27 11:46] LABS: Total Cells Counted 100
[2025-05-27 11:47] LABS: RBC Morphology Normal
--- NOTE | 2025-05-27 12:31 | P.PNANES_ITS ---
[facility] Disclaimer: The information contained in this section may have been updated after the patient was seen, as this information can be updated by other users. Medical History Cardiac arrhythmia, unspecified Skin tear of elbow without complication Cellulitis Abrasion Scalp laceration Fall UTI (urinary tract infection) Leg pain URI (upper respiratory infection) Cough Pacemaker HTN (hypertension), benign Coronary artery disease Cancer Atrial fibrillation Hyperlipidemia Surgical History H/O heart artery stent Social History Smoking Status: Former smoker tobacco type: cigarettes packs per day: 1 second hand exposure: Yes alcohol intake: never substance use type: denies use current occupational status: disabled Travel in the last 8 weeks?: None housing: house Have you lived/traveled outside [place] in past 30 days?: No Contact w/someone who lives/traveled outside US past 30 days?: No Exposure to someone with infectious disease in past 14 days?: No Do you have a fever (greater than 100.4 F or 38 C)?: No Have you tested positive for COVID-19?: No Exposed to someone with COVID-19 in past 14 days?: No Do you have a sore throat?: No Do you have a cough?: No Do you have any weakness?: No Do you have any diarrhea?: No Are you experiencing any unusual bleeding?: No Do you have any muscle aches/pain?: No Do you have any abdominal pain?: No Are you experiencing loss of taste or smell?: No [facility] Anesthesia Checklist Patient Identification Patient Identification: Arm Band and Verbal (Name & ) Structural Data Admitted From: Home Planned Operative Procedure/s: Bi-ventricular AICD placement Consent for Planned Operative Procedure(s) Verified: Yes Verified Documents: Surgical Consent NPO Status Verified Time NPO: 00:00 Chart Verification Results Verified: ECG Additional verifications Anesthesia Reactions: No Hx Blood Transfusions: No Blood Transfusion Reaction: No Airway Assessment Mallampati Score:: Class III (small mouth opening) C-Spine Mobility Assessed: Yes TMJ Mobility Assessed: Yes Dentition: Edentulous Neurological Assessment Level of Consciousness: Awake, Alert and Appropriate Hx Seizures: No Numbness or tingling in extremities: No Anesthesia Plan Anesthesia Risk discussed: Yes Anesthesia Plan: Verified ASA Class: IV Anesthesia Type: MAC
[2025-05-27] MEDS: LIDOCAINE 1% W/EPI 1:100,000 20ML VIAL 20 ML SQ (12:54)
--- NOTE | 2025-05-27 14:43 | XR_ITS ---
FINAL REPORT CLINICAL HISTORY: Confirm pacemaker/AID placement COMPARISON: 10/27/2023 FINDINGS: No acute pulmonary opacity is present. There has been interval left pacemaker placement or revision. New lead is within the coronary sinus. There is no evidence of effusion or pneumothorax. Mediastinum is unremarkable. Heart size is normal. IMPRESSION: Interval left pacemaker placement or revision without pneumothorax.. Reviewed, Interpreted and Dictated by Liz Hayes MD Transcribed by Joyce Dangelo Authenticated and [facility]
--- NOTE | 2025-05-27 14:47 | CA_ITS ---
APPROVED REPORT EXAM: Limited 2D and color flow Echocardiogram Labor And Delivery Nurse: RT Daniel(R) Ht: 6 ft 0 in Wt: 185lbs BSA: 2.06 BP: 128/64 mmHg Indications: pacemaker placement today, assess for effusion and check coronary sinuses Other Information Study Quality: Fair Conclusion This is a limited TTE to evaluate for pericardial effusion in the setting of recent PPM placement. Limited windows are obtained. There is no evidence of pericardial effusion in the available views. There is a device lead present in the right ventricle. Electronically signed by : Mariah West MD 05/27/2025 18:16:50
[2025-05-27] MEDS: IOPAMIDOL-370 (76%);100ML BOTTLE 40 ML IV (14:50)
--- NOTE | 2025-05-27 16:03 | INFXCTL.NOTE ---
ARRIVED BY LESLIEER FROM GUIDE DOG MOBILITY INSTRUCTOR
--- NOTE | 2025-05-27 16:15 | EXP.HP ---
History of Present Illness *Admission Date: 05/27/25 *Reason for visit:: Confusion after anesthesia and replacement of pacemaker *History of present illness: Mr. Lee is a 69-year-old male with complex past medical history of left eye enucleation with skin flap, tube feed dependent for almost a year, history of cancer, pacemaker dependent, A-fib, hypertension, hypothyroid. Presented for elective replacement of his pacemaker due to malfunction of the atrial lead. Tolerated procedure well but did not tolerate coming out from under anesthesia well. Patient lives by himself and was planning to go home by himself but is high risk for complications, fall, adverse event. Cardiology requested admission for monitoring overnight to make sure patient is stable prior to discharging home. Patient denies any chest pain. No nausea or vomiting. Would like to eat something as he has not had any tube feeds all day. Initially tearful and emotionally labile after awakening from anesthesia. Is doing better by the time he arrived to the floor. Alert and oriented x 3. Stable on room air. Niece at bedside helps answer questions. [facility] Disclaimer: The information contained in this section may have been updated after the patient was seen, as this information can be updated by other users. Medical History Cardiac arrhythmia, unspecified Skin tear of elbow without complication Cellulitis Abrasion Scalp laceration Fall UTI (urinary tract infection) Leg pain URI (upper respiratory infection) Cough Pacemaker HTN (hypertension), benign Coronary artery disease Cancer Atrial fibrillation Hyperlipidemia Surgical History H/O heart artery stent Social History Smoking Status: Former smoker tobacco type: cigarettes packs per day: 1 second hand exposure: Yes alcohol intake: never substance use type: denies use current occupational status: disabled Travel in the last 8 weeks?: None housing: house Have you lived/traveled outside [place] in past 30 days?: No Contact w/someone who lives/traveled outside [place] past 30 days?: No Exposure to someone with infectious disease in past 14 days?: No Do you have a fever (greater than 100.4 F or 38 C)?: No Have you tested positive for COVID-19?: No Exposed to someone with COVID-19 in past 14 days?: No Do you have a sore throat?: No Do you have a cough?: No Do you have any weakness?: No Are you experiencing any nausea/vomitting?: No Do you have any diarrhea?: No Are you experiencing any unusual bleeding?: No Do you have any muscle aches/pain?: No Do you have any abdominal pain?: No Are you experiencing loss of taste or smell?: No Other Medical History Have you received the Flu Vaccine for this season: Yes Have you received the Pneumonia Vaccine: Yes Review of Systems Review of Systems Review of systems (narrative): 14 point review of systems performed, pertinent positives and negatives as per HPI Meds Home Medications and Allergies Home Medications ?Medication ?Instructions ?Recorded ?Confirmed ?Type aspirin 81 mg tablet,delayed 81 mg PO DAILY heart health 10/06/17 05/27/25 History release (Adult Low Dose Aspirin) apremilast 30 mg tablet (Otezla) 30 mg PO BID 09/26/23 05/27/25 History lancets 30 gauge (StorytreeTouch Delica #100 ea 12/30/23 05/27/25 Rx Plus Lancet) clopidogrel 75 mg tablet 75 mg PO DAILY Blood thinner #90 10/26/24 05/27/25 Rx tabs blood sugar diagnostic (OneTouch #100 strips 11/19/24 05/27/25 Rx Verio test strips) amiodarone 200 mg tablet 100 mg (1/2 x 200 mg) PO DAILY 02/24/25 05/27/25 Rx heart rate #45 tabs ascorbic acid (vitamin C) 500 mg 500 mg feeding tube DAILY 03/22/25 05/27/25 History tablet (Vitamin C) metformin 500 mg tablet,extended 500 mg PO DAILY Diabetes #90 tabs 04/20/25 05/27/25 Rx release 24 hr levothyroxine 100 mcg tablet 100 mcg PO DAILY #90 tabs 05/03/25 05/27/25 Rx nystatin 100,000 unit/gram topical 1 applic topical TID #30 grams 05/18/25 05/27/25 Rx cream acetaminophen 325 mg tablet 325 mg PO DAILY 05/27/25 05/27/25 History (Tylenol) atorvastatin 10 mg tablet 10 mg PO DAILY 05/27/25 05/27/25 History carvedilol 25 mg tablet 50 mg PO BID 05/27/25 05/27/25 History empagliflozin 10 mg tablet 10 mg PO DAILY 05/27/25 05/27/25 History (Jardiance) ezetimibe 10 mg tablet 10 mg PO DAILY 05/27/25 05/27/25 History guaifenesin 600 mg tablet, 600 mg PO DAILY 05/27/25 05/27/25 History extended release 12 hr lisinopril 20 1 tab PO DAILY 05/27/25 05/27/25 History mg-hydrochlorothiazide 25 mg tablet melatonin 5 mg tablet 5 mg PO DAILY 05/27/25 05/27/25 History ondansetron 4 mg disintegrating 4 mg PO NEEDED PRN Nausea 05/27/25 05/27/25 History tablet polyethylene glycol 3350 17 17 g PO DAILY 05/27/25 05/27/25 History gram/dose oral powder potassium chloride 10 mEq 10 meq PO DAILY 05/27/25 05/27/25 History tablet,extended release(part/cryst) New Prescriptions to Start Prescriptions: Allergies Allergy/AdvReac Type Severity Reaction Status Date / Time No Known Allergies Allergy Verified 05/02/25 10:18 Exam Data for Last 24 hours Vital signs and Labs for Last 24 Hours: Temp Pulse Resp BP Pulse Ox O2 Del Method O2 Flow Rate 97.9 F 70 18 148/87 H 92 L Room Air 6 05/27/25 14:55 05/27/25 15:30 05/27/25 15:30 05/27/25 15:30 05/27/25 15:30 05/27/25 15:30 05/27/25 14:44 Laboratory Results - last 24 hr 05/27/25 11:00: WBC 6.9, RBC 4.64, Hgb 12.7 L, Hct 40.2 L, MCV 86.6, MCH 27.4, MCHC 31.6 L, RDW 16.0, Plt Count 184, MPV 9.1, Neut % (Auto) 85.8 H, Lymph % (Auto) 5.4 L, [place] % (Auto) 7.5, Eos % (Auto) 0.9, Baso % (Auto) 0.3, Neut # (Auto) 5.9, Lymph # (Auto) 0.4 L, [place] # (Auto) 0.5, Eos # (Auto) 0.1, Baso # (Auto) 0.0, Total Counted 100, Neutrophils % (Manual) 90 H, Lymphocytes % (Manual) 4 L, Monocytes % (Manual) 5, Basophils % (Manual) 1.0, Platelet Estimate Normal, RBC Morphology Normal, Sodium 130 L, Potassium 4.1, Chloride 93 L, Carbon Dioxide 31 H, Anion Gap 10.1, BUN 16, Creatinine 0.60 L, Estimated Creat Clear 83, Estimated GFR 134, Est GFR ( Amer) 162, Glucose 100, Calcium 9.6 I & O for Last 24 hours: Intake & Output 05/24/25 05/25/25 05/26/25 05/27/25 23:59 23:59 23:59 23:59 Weight 83.915 kg Constitutional Constitutional: no acute distress, thin, chronically ill appearing and cooperative *Routine HEENT Exam Head: Present other Eye: Present other ENT: Present mucous membranes moist Comments: Absent left eye, skin flap over left orbit. Deformity of jaw. Scars on right side of face from previous skin surgery *Routine Neck Exam Neck: Present supple; Absent lymphadenopathy Routine Chest/Breast/Axilla Exam Chest wall: Present pacemaker (Left upper chest, new pocket. Bandage clean dry and intact) *Routine Respiratory Exam Respiratory: Present CTA bilaterally; Absent rhonchi, wheezes or crackles *Routine Cardiovascular Exam Cardiovascular: Present RRR *Routine Abdominal Exam Abdominal: Present soft and normoactive bowel sounds; Absent tenderness Comments: PEG tube left upper quadrant *Routine Rectal Exam Rectal:: deferred *Routine Genitalia Exam Genitalia:: deferred *Routine Extremities Exam Extremities: Absent cyanosis, clubbing or edema *Routine Skin Exam Skin: Present intact and warm; Absent rash *Routine Neurological Exam Neurological: Present alert, oriented X3 and moving all extremities; Absent altered mental status Assessment and Plan *Assessment and plan (1) Cardiomyopathy: Status: Acute Qualifiers: Cardiomyopathy type: other Qualified Code(s): I42.8 - Other cardiomyopathies Category: Medical Code(s): I42.9 - Cardiomyopathy, unspecified (2) Trouble swallowing: Status: Chronic Category: Medical Code(s): R13.10 - Dysphagia, unspecified (3) Hypothyroidism: Status: Acute Category: Medical Code(s): E03.9 - Hypothyroidism, unspecified (4) Atrial fibrillation: Status: Chronic Qualifiers: Atrial fibrillation type: paroxysmal Qualified Code(s): I48.0 - Paroxysmal atrial fibrillation Category: Medical Code(s): I48.91 - Unspecified atrial fibrillation (5) Hyperlipidemia: Status: Chronic Qualifiers: Hyperlipidemia type: mixed hyperlipidemia Qualified Code(s): E78.2 - Mixed hyperlipidemia Category: Medical Code(s): E78.5 - Hyperlipidemia, unspecified (6) Tobacco dependence syndrome: Status: Chronic Category: Medical Code(s): F17.200 - Nicotine dependence, unspecified, uncomplicated (7) Automatic implantable cardiac defibrillator in situ: Status: Chronic Category: Medical Code(s): Z95.810 - Presence of automatic (implantable) cardiac defibrillator (8) Coronary arteriosclerosis: Status: Chronic Category: Medical Code(s): I25.10 - Atherosclerotic heart disease of [place] coronary artery without angina pectoris (9) Gastrostomy tube dependent: Status: Chronic Category: Medical Code(s): Z93.1 - Gastrostomy status Plan 69-year-old male who presents for elective pacemaker placement today. Complex comorbidities. Procedure was tolerated well but was slow to recover from anesthesia. Given his complexities, fact he lives alone, has no omid to assist him at home and is high risk for adverse events if he goes home by himself today, cardiology consulted medicine for evaluation and admission to monitor overnight with discharge in the morning. I decided to admit for further observation and medical management. Patient is stable on room air. Alert and interactive on exam after arrival to the floor. In no acute distress. She states he is hungry as he has not had tube feeds all day. Resuming his tube feeds. Problems addressed as follows: Cardiomyopathy Pacemaker in situ, replaced today, upgraded to LINOLEUM TILE LAYER-D Atrial fibrillation - Evaluated by cardiology, taken for replacement of pacemaker today. Replaced with LINOLEUM TILE LAYER-D. Was having lead dysfunction. Tolerated procedure well. Pocket clean dry and intact. - Monitor. Resume home regimen including amiodarone 100 mg daily, aspirin daily, Lipitor 10 mg daily, carvedilol 50 mg twice daily, Plavix 75 mg daily, empagliflozin 10 mg daily - Echo from 04/01/2025 with EF of 25% and elevated RVSP. Akinesis of inferior left ventricular wall. -Repeat CBC, CMP, magnesium ordered for the morning. - Initial labs with normal white count 6.9, hemoglobin 12.7, kidney function at baseline with creatinine 0.6, BUN 16. Sodium 130, this is chronic for patient based on chart review Hypothyroid: resume levothyroxine 100 mcg daily Diabetes: A1c 7.0 in September. Will initiate sliding scale insulin and fingersticks ACHS Full code Tube feeds with Isosource or equivalent formula 1.2 three times a day
--- NOTE | 2025-05-27 17:05 | PC.NURSE ---
Addendum entered by Karla Henry RN 05/27/25 18:02: spoke with Kellee Dillard about feedings. she okayed using the same ML of feeding with the osmolite 1.2 formula. pt to received 16ml of feeding 3 times daily. Addendum entered by Karla Henry RN 05/27/25 17:52: crop ranch hand is not in house at this time. call placed to dietary to request call back from nutrition @[phone] Original Note: pt niece verbalized that the pt takes 2 cans of isosource 1.2 tube feedings TID. We do not have this type of formula. Hospitalist made aware of formulas available. nutrition consult in place.
[2025-05-27 17:33] LABS: POC Glucose,Bedside 95 gm/dL (70-110)
--- NOTE | 2025-05-27 17:55 | PC.NURSE ---
pt and niece educated on pt restrictions with recent pacemaker placement. pt not to raise arm above head. both agreeable
--- NOTE | 2025-05-27 18:45 | PC.NURSE ---
Addendum entered by Karla Henry RN 05/27/25 18:49: pt very concerned about blood on dressing. dressing changed by this RN. same type of gauze and tegaderm applied. Original Note: small amount of bleeding over incision. sandbag placed to L chest and pt educated on use. pt agreeable
[2025-05-27] MEDS: CARVEDILOL 25MG TABLET 50 MG PO (20:00)
[2025-05-27] MEDS: MELATONIN 5MG TABLET 5 MG PO (20:00)
[2025-05-27] MEDS: OXYCODONE 5MG W/APAP 325MG TABLET 1 EACH PO (20:01)
[2025-05-27 20:53] LABS: POC Glucose,Bedside 176 gm/dL (70-110)
[2025-05-28] VITALS: BP 100/57; PULSE 67; PULSE 70; RESP 17; TEMP 36.9; O2SAT 92
[2025-05-28] MEDS: OXYCODONE 5MG W/APAP 325MG TABLET 2 EACH PO (01:19)
--- NOTE | 2025-05-28 02:07 | PC.NURSE ---
Pt AOx4, post pacemaker replacement. Site is oozing blood, hospitalist notified and sandbag placed on site. Pt recently asked for it to be removed and he was given a break from it. No more oozing noted at this time. Pt has had intermittent pain that has been treated per MAR. Currently resting in bed with eyes closed. Respirations even and unlabored. Bed is low, locked, and call light is in reach.
[2025-05-28 04:00] VITALS: BP 99/52; PULSE 70; PULSE 80; RESP 14; TEMP 36.9; O2SAT 93; BMI 24.7
[2025-05-28 05:51] LABS: POC Glucose,Bedside 91 gm/dL (70-110)
[2025-05-28] MEDS: OXYCODONE 5MG W/APAP 325MG TABLET 1 EACH PO ×3 (06:39→10:35)
--- NOTE | 2025-05-28 07:20 | EXP.DC.SUM ---
General Admission date:: 05/27/25 Discharge date: 05/28/25 HPI HPI HPI: Mr. Castro is a 69-year-old male with complex past medical history of left eye enucleation with skin flap, tube feed dependent for almost a year, history of cancer, pacemaker dependent, A-fib, hypertension, hypothyroid. Presented for elective replacement of his pacemaker due to malfunction of the atrial lead. Tolerated procedure well but did not tolerate coming out from under anesthesia well. Patient lives by himself and was planning to go home by himself but is high risk for complications, fall, adverse event. Cardiology requested admission for monitoring overnight to make sure patient is stable prior to discharging home. Patient denies any chest pain. No nausea or vomiting. Would like to eat something as he has not had any tube feeds all day. Initially tearful and emotionally labile after awakening from anesthesia. Is doing better by the time he arrived to the floor. Alert and oriented x 3. Stable on room air. Niece at bedside helps answer questions. Hospital Course Hospital Course Hospital Course: 69-year-old male who presents for elective pacemaker placement today. Complex comorbidities. Procedure was tolerated well but was slow to recover from anesthesia. Given his complexities, fact he lives alone, has no omid to assist him at home and is high risk for adverse events if he goes home by himself on day of admission, cardiology consulted medicine for evaluation and admission to monitor overnight with discharge in the morning. I decided to admit for further observation and medical management. Patient remained stable on room air. Tolerating tube feeds. Minimal bleeding at insertion site for pacemaker in left upper chest. Remained alert and interactive and at baseline mentation. Recovered completely from anesthesia. Stable to discharge home independently. Problems addressed as follows: Cardiomyopathy Pacemaker in situ, replaced today, upgraded to DIRECTOR OF QUANTITATIVE RESEARCH-D Atrial fibrillation - Evaluated by cardiology, taken for replacement of pacemaker today. Replaced with DIRECTOR OF QUANTITATIVE RESEARCH-D. Was having lead dysfunction. Tolerated procedure well. Pocket clean dry and intact. Had minimal bleeding overnight, dressing was changed on morning of discharge due to his bleeding however. Counseled to leave dressing intact until follow-up with cardiology. No showers. May gently clean chest with damp cloth. Monitored overnight with no arrhythmias. Returned to baseline mentation after anesthesia completely wore off. Resumed home regimen as follows: amiodarone 100 mg daily, aspirin daily, Lipitor 10 mg daily, carvedilol 50 mg twice daily, Plavix 75 mg daily, empagliflozin 10 mg daily - Echo from 04/01/2025 with EF of 25% and elevated RVSP. Akinesis of inferior left ventricular wall. - Labs remained stable with normal white count, stable hemoglobin. Stable kidney function at baseline for patient. Mild hyponatremia appears chronic for him. -Blood pressure was soft on day of discharge, his lisinopril/HCTZ was held due to to blood pressure of 90s over 60s. Patient was asymptomatic from this blood pressure however. Hypothyroid: resume levothyroxine 100 mcg daily Diabetes: A1c 7.0 in September. Treated with sliding scale insulin and fingerstick glucose on admission. Resume metformin at discharge. Total time spent on discharge 35 minutes in counseling with patient and family member (niece) at bedside, documentation, chart review, and direct care with patient. Exam Data for Last 24 hours Vital signs and Labs for Last 24 Hours: Temp Pulse Resp BP Pulse Ox O2 Del Method O2 Flow Rate 98.5 F 70 14 99/52 L 93 L Room Air 6 05/28/25 04:00 05/28/25 04:00 05/28/25 04:00 05/28/25 04:00 05/28/25 04:00 05/28/25 06:54 05/27/25 14:44 Laboratory Results - last 24 hr 05/27/25 11:00: WBC 6.9, RBC 4.64, Hgb 12.7 L, Hct 40.2 L, MCV 86.6, MCH 27.4, MCHC 31.6 L, RDW 16.0, Plt Count 184, MPV 9.1, Neut % (Auto) 85.8 H, Lymph % (Auto) 5.4 L, [place] % (Auto) 7.5, Eos % (Auto) 0.9, Baso % (Auto) 0.3, Neut # (Auto) 5.9, Lymph # (Auto) 0.4 L, [place] # (Auto) 0.5, Eos # (Auto) 0.1, Baso # (Auto) 0.0, Total Counted 100, Neutrophils % (Manual) 90 H, Lymphocytes % (Manual) 4 L, Monocytes % (Manual) 5, Basophils % (Manual) 1.0, Platelet Estimate Normal, RBC Morphology Normal, Sodium 130 L, Potassium 4.1, Chloride 93 L, Carbon Dioxide 31 H, Anion Gap 10.1, BUN 16, Creatinine 0.60 L, Estimated Creat Clear 83, Estimated GFR 134, Est GFR ( Amer) 162, Glucose 100, Calcium 9.6 05/27/25 17:25: POC Glucose 95 05/27/25 19:39: POC Glucose 176 H 05/28/25 05:25: POC Glucose 91 I & O for Last 24 hours: Intake & Output 05/25/25 05/26/25 05/27/25 05/28/25 23:59 23:59 23:59 23:59 Intake Total 50 / 50 Output Total 200 / 200 100 / 100 Balance -150 / -150 -100 / -100 Weight 83.915 kg 83.007 kg Constitutional Constitutional: no acute distress, average body habitus, chronically ill appearing and cooperative *Routine HEENT Exam Head: Present other (Previous enucleation of left eye, has skin flap over left socket. Scarring of right side of face with deformity of jaw and lower face from surgical excisions. Missing numerous teeth) Eye: Present other (Pupil reactive to light in right eye, absent left eye) ENT: Present mucous membranes moist *Routine Neck Exam Neck: Present supple; Absent lymphadenopathy *Routine Respiratory Exam Respiratory: Present CTA bilaterally; Absent rhonchi, wheezes or crackles *Routine Cardiovascular Exam Cardiovascular: Present RRR *Routine Abdominal Exam Abdominal: Present soft and normoactive bowel sounds; Absent tenderness Comments: PEG tube in left upper quadrant *Routine Rectal Exam Patient deferred: visual exam *Routine Exam Patient deferred: penile exam *Routine Extremities Exam Extremities: Absent cyanosis, clubbing or edema *Routine Skin Exam Skin: Present warm; Absent rash *Routine Neurological Exam Neurological: Present alert, oriented X3 and moving all extremities; Absent altered mental status Results Data Completed and Pending Labs on day of discharge: Labs from last 24 hours 05/28/25 05/27/25 05/27/25 05:25 19:39 17:25 WBC RBC Hgb Hct MCV MCH MCHC RDW Plt Count MPV Neut % (Auto) Lymph % (Auto) [place] % (Auto) Eos % (Auto) Baso % (Auto) Neut # (Auto) Lymph # (Auto) [place] # (Auto) Eos # (Auto) Baso # (Auto) Total Counted Neutrophils % (Manual) Lymphocytes % (Manual) Monocytes % (Manual) Basophils % (Manual) Platelet Estimate RBC Morphology Sodium Potassium Chloride Carbon Dioxide Anion Gap BUN Creatinine Estimated Creat Clear Estimated GFR Est GFR ( Amer) Glucose POC Glucose 91 176 H 95 Calcium 05/27/25 11:00 WBC 6.9 RBC 4.64 Hgb 12.7 L Hct 40.2 L MCV 86.6 MCH 27.4 MCHC 31.6 L RDW 16.0 Plt Count 184 MPV 9.1 Neut % (Auto) 85.8 H Lymph % (Auto) 5.4 L [place] % (Auto) 7.5 Eos % (Auto) 0.9 Baso % (Auto) 0.3 Neut # (Auto) 5.9 Lymph # (Auto) 0.4 L [place] # (Auto) 0.5 Eos # (Auto) 0.1 Baso # (Auto) 0.0 Total Counted 100 Neutrophils % (Manual) 90 H Lymphocytes % (Manual) 4 L Monocytes % (Manual) 5 Basophils % (Manual) 1.0 Platelet Estimate Normal RBC Morphology Normal Sodium 130 L Potassium 4.1 Chloride 93 L Carbon Dioxide 31 H Anion Gap 10.1 BUN 16 Creatinine 0.60 L Estimated Creat Clear 83 Estimated GFR 134 Est GFR ( Amer) 162 Glucose 100 POC Glucose Calcium 9.6 DS: Diagnosis Discharge Diagnosis (1) Cardiomyopathy: Status: Acute Code(s): I42.9 - Cardiomyopathy, unspecified Qualifiers: Cardiomyopathy type: other Qualified Code(s): I42.8 - Other cardiomyopathies (2) Trouble swallowing: Status: Chronic Code(s): R13.10 - Dysphagia, unspecified (3) Hypothyroidism: Status: Acute Code(s): E03.9 - Hypothyroidism, unspecified (4) Atrial fibrillation: Status: Chronic Code(s): I48.91 - Unspecified atrial fibrillation Qualifiers: Atrial fibrillation type: paroxysmal Qualified Code(s): I48.0 - Paroxysmal atrial fibrillation (5) Hyperlipidemia: Status: Chronic Code(s): E78.5 - Hyperlipidemia, unspecified Qualifiers: Hyperlipidemia type: mixed hyperlipidemia Qualified Code(s): E78.2 - Mixed hyperlipidemia (6) Tobacco dependence syndrome: Status: Chronic Code(s): F17.200 - Nicotine dependence, unspecified, uncomplicated (7) Automatic implantable cardiac defibrillator in situ: Status: Chronic Code(s): Z95.810 - Presence of automatic (implantable) cardiac defibrillator (8) Coronary arteriosclerosis: Status: Chronic Code(s): I25.10 - Atherosclerotic heart disease of [place]' coronary artery without angina pectoris (9) Gastrostomy tube dependent: Status: Chronic Code(s): Z93.1 - Gastrostomy status Meds Home Medications and Allergies Home Medications ?Medication ?Instructions ?Recorded ?Confirmed ?Type aspirin 81 mg tablet,delayed 81 mg PO DAILY heart health 10/06/17 05/27/25 History release (Adult Low Dose Aspirin) apremilast 30 mg tablet (Otezla) 30 mg PO BID 09/26/23 05/27/25 History lancets 30 gauge ([email or web address] Delica #100 ea 12/30/23 05/27/25 Rx Plus Lancet) clopidogrel 75 mg tablet 75 mg PO DAILY Blood thinner #90 10/26/24 05/27/25 Rx tabs blood sugar diagnostic (GoMango.comTouch #100 strips 11/19/24 05/27/25 Rx Verio test strips) amiodarone 200 mg tablet 100 mg (1/2 x 200 mg) PO DAILY 02/24/25 05/27/25 Rx heart rate #45 tabs ascorbic acid (vitamin C) 500 mg 500 mg feeding tube DAILY 03/22/25 05/27/25 History tablet (Vitamin C) metformin 500 mg tablet,extended 500 mg PO DAILY Diabetes #90 tabs 04/20/25 05/27/25 Rx release 24 hr levothyroxine 100 mcg tablet 100 mcg PO DAILY #90 tabs 05/03/25 05/27/25 Rx nystatin 100,000 unit/gram topical 1 applic topical TID #30 grams 05/18/25 05/27/25 Rx cream acetaminophen 325 mg tablet 325 mg PO DAILY 05/27/25 05/27/25 History (Tylenol) atorvastatin 10 mg tablet 10 mg PO DAILY 05/27/25 05/27/25 History carvedilol 25 mg tablet 50 mg PO BID 05/27/25 05/27/25 History empagliflozin 10 mg tablet 10 mg PO DAILY 05/27/25 05/27/25 History (Jardiance) ezetimibe 10 mg tablet 10 mg PO DAILY 05/27/25 05/27/25 History guaifenesin 600 mg tablet, 600 mg PO DAILY 05/27/25 05/27/25 History extended release 12 hr lisinopril 20 1 tab PO DAILY 05/27/25 05/27/25 History mg-hydrochlorothiazide 25 mg tablet Held on 05/28/25. Instructions: until follow-up with cardiology melatonin 5 mg tablet 5 mg PO DAILY 05/27/25 05/27/25 History ondansetron 4 mg disintegrating 4 mg PO NEEDED PRN Nausea 05/27/25 05/27/25 History tablet polyethylene glycol 3350 17 17 g PO DAILY 05/27/25 05/27/25 History gram/dose oral powder potassium chloride 10 mEq 10 meq PO DAILY 05/27/25 05/27/25 History tablet,extended release(part/cryst) oxycodone-acetaminophen 5 mg-325 1 tab PO Q4HP PRN Moderate Pain 05/28/25 Rx mg tablet (4-6) 3 days #11 tabs New Prescriptions to Start Prescriptions: oxycodone-acetaminophen Joe Dos Santos Allergies Allergy/AdvReac Type Severity Reaction Status Date / Time No Known Allergies Allergy Verified 05/02/25 10:18 Discharge Plan Disposition Patient Disposition: Home, Self-Care Condition: Fair Follow up Plan Follow up with: Jeevan Leo MD [Staff Physician, Cardiology] - 06/02/25 10:00 am Prescriptions/Medication Reconciliation: New oxycodone-acetaminophen 5-325 mg Tablet 1 tab PO Q4HP PRN (Reason: Moderate Pain (4-6)) 3 Days Qty: 11 0RF Continued aspirin [Adult Low Dose Aspirin] 81 mg tablet,delayed release (DR/EC) 81 mg PO DAILY Otezla 30 mg tablet 30 mg PO BID ascorbic acid (vitamin C) [Vitamin C] 500 mg tablet 500 mg feeding tube DAILY Patient Comments: DISSOLVE 1 TABLET IN FEEDING TUBE ONCE DAILY (DME) lancets [OneTouch Delica Plus Lancet] 30 gauge misc See Rx Instructions .Route Qty: 100 3RF Rx Instructions: As directed or bid clopidogrel 75 mg tablet 75 mg PO DAILY Qty: 90 3RF Rx Instructions: TAKE 1 TABLET BY MOUTH ONCE DAILY FOR BLOOD THINNER (DME) OneTouch Verio test strips Strip See Rx Instructions .ROUTE .COMPLEX Qty: 100 6RF Dose Instruction: USE 1 STRIP TO CHECK BLOOD GLUCOSE TWICE DAILY OR DIRECTED FOR DIABETES Rx Instructions: USE 1 STRIP TO CHECK BLOOD GLUCOSE TWICE DAILY OR DIRECTED FOR DIABETES amiodarone 200 mg tablet 100 mg PO DAILY Qty: 45 6RF Rx Instructions: TAKE 1/2 TABLET BY MOUTH EVERY DAY FOR heart metformin 500 mg tablet extended release 24 hr 500 mg PO DAILY Qty: 90 3RF levothyroxine 100 mcg tablet 100 mcg PO DAILY Qty: 90 2RF nystatin 100,000 unit/gram cream 1 applic topical TID Qty: 30 0RF potassium chloride 10 mEq tablet,ER particles/crystals 10 meq PO DAILY carvedilol 25 mg tablet 50 mg PO BID atorvastatin 10 mg tablet 10 mg PO DAILY ezetimibe 10 mg tablet 10 mg PO DAILY Jardiance 10 mg tablet 10 mg PO DAILY guaifenesin 600 mg tablet extended release 12hr 600 mg PO DAILY ondansetron 4 mg tablet,disintegrating 4 mg PO NEEDED PRN (Reason: Nausea) polyethylene glycol 3350 17 gram/dose powder 17 g PO DAILY acetaminophen [Tylenol] 325 mg Tablet 325 mg PO DAILY melatonin 5 mg Tablet 5 mg PO DAILY Held lisinopril-hydrochlorothiazide 20-25 mg tablet 1 tab PO DAILY Hold Instructions: until follow-up with cardiology Problem Reconciliation Problems Reviewed?: Yes Patient Discharge Instructions ACTIVITY: Continue current activity DIET: continue same diet Patient Instructions: DI for Automatic Cardioverter/Defibrillator Implantation, DI for Surgical Site Infection, DI for Moderate Sedation Print Language: Azeri Providers Primary Care Provider: Simona Krishnan Admit Provider: Joe Dos Santos Attending Provider: Joe Dos Santos
[2025-05-28 07:48] LABS: Hematocrit 38.7 % (42.0-52.0); Hemoglobin 12.0 g/dL (14.1-18.0); Immature Granulocytes % 0.4 %; Mean Corpuscular HGB Conc 31.0 g/dL (31.8-35.4); Mean Corpuscular Hemoglobin 27.2 pg (27.0-31.2); Mean Corpuscular Volume 87.8 fl (80-94); Nucleated Red Blood Cells % 0 %; Platelet Count 188 K/mm3 (142-424); Red Blood Count 4.41 M/mm3 (4.60-6.20); Red Cell Distribution Width-SD 51.4 fL; White Blood Count 7.4 K/mm3 (4.8-10.8)
[2025-05-28 08:00] VITALS: BP 92/67; PULSE 70; RESP 14; TEMP 36.9; O2SAT 90
[2025-05-28 08:08] LABS: Alanine Aminotransferase 27 U/L (12-78); Albumin Level 4.0 g/dl (3.5-5.0); Albumin/Globulin Ratio 1.5 (1.1-1.8); Alkaline Phosphatase 98 U/L (38-126); Anion Gap 9.8 mEq/L (5-15); Aspartate Amino Transferase 33 U/L (17-59); Bilirubin,Total 0.7 mg/dl (0.2-1.3); Blood Urea Nitrogen 26 mg/dl (9-20); Calcium 9.0 mg/dl (8.4-10.2); Carbon Dioxide 29 mmol/L (22.0-30.0); Chloride 96 mmol/L (98-107); Creatinine Clearance Estimated 82 mL/min (50-200); Creatinine,Serum 0.90 mg/dl (0.66-1.25); Estimated Glomerular Filt Rate 84 ml/min (>60); GFR (African American) 101 ML/MIN (>60); Globulin 2.7 g/dL (1.3-3.2); Glucose 191 mg/dl (74-100); Magnesium 2.1 mg/dl (1.6-2.3); Potassium 3.8 mmoL/L (3.5-5.1); Sodium 131 mmol/L (136-145); Total Protein,Serum 6.7 g/dl (6.3-8.2)
[2025-05-28 09:14] LABS: Total Cells Counted 100
[2025-05-28 09:15] LABS: RBC Morphology Normal
[2025-05-28] MEDS: EMPAGLIFLOZIN 10MG TABLET 10 MG PO (09:18)
[2025-05-28] MEDS: CLOPIDOGREL 75MG TAB 75 MG PO (09:18)
[2025-05-28] MEDS: LEVOTHYROXINE 100MCG (0.1MG) TAB 100 MCG PO (09:18)
[2025-05-28] MEDS: CARVEDILOL 25MG TABLET 50 MG PO (09:19)
[2025-05-28] MEDS: ASPIRIN 81MG CHEWABLE TABLET 81 MG PO (09:25)
--- NOTE | 2025-05-31 10:31 | SW/DCPLANNER ---
Spoke with patient on the phone. Patient stated that he is doing well. Patient stated that he is aware of his upcoming appointment. Patient stated that he was able to potato picker his new medicine. Patient stated that he has no concerns or questions at this time. Jose Luis Greer
== END 2025-05-28 11:25 | disposition home or self-care (01) ==
LOC: 2ND 15:41
PROVIDERS: Internal Medicine; Admitting Provider Internal Medicine Adolescent Medicine; PCP Family Medicine; Visit Provider Internal Medicine Adolescent Medicine
PROC: 0JH609Z Insertion of Cardiac Resynchronization Defibrillator Pulse Generator into Chest Subcutaneous Tissue and Fascia, Open Approach (ICD-10-PCS; CPT 33249; principal; 2025-05-27 07:30)
DX: I25.5 Ischemic cardiomyopathy (principal); I50.21 Acute systolic (congestive) heart failure; Z45.02 Encounter for adjustment and management of automatic implantable cardiac defibrillator; I11.0 Hypertensive heart disease with heart failure; T82.9XXA Unspecified complication of cardiac and vascular prosthetic device, implant and graft, initial encounter; I48.0 Paroxysmal atrial fibrillation; I25.10 Atherosclerotic heart disease of native coronary artery without angina pectoris; I49.9 Cardiac arrhythmia, unspecified; E11.9 Type 2 diabetes mellitus without complications; R13.10 Dysphagia, unspecified; E78.2 Mixed hyperlipidemia; E03.9 Hypothyroidism, unspecified; Z93.1 Gastrostomy status; Z87.891 Personal history of nicotine dependence; Z95.5 Presence of coronary angioplasty implant and graft; Z79.02 Long term (current) use of antithrombotics/antiplatelets; Z79.84 Long term (current) use of oral hypoglycemic drugs; Z79.82 Long term (current) use of aspirin; Z79.890 Hormone replacement therapy; Z79.899 Other long term (current) drug therapy
CPT/HCPCS: 33208; 33225; 33233; 33249; 71045; 80048; 80053; 82962; 83735; 85007; 85025; 85027; 93308; C1769; C1882; C1898; C1900; G0378; J1200; J2003; J2004; J2704; Q9967

== ENCOUNTER 2025-06-04 18:52 | Emergency (ER) | payer MEDICARE, OTHER, SELFPAY ==
[2025-06-04 18:59] VITALS: BP 153/86; PULSE 72; RESP 14; TEMP 36.4; O2SAT 100; BMI 25.0
--- OUTSIDE RECORDS SUMMARY | 2025-06-04 19:07 | XMS_ITS | Clinical Summary ---
Author Organization Healthcare Address [address] [place] [address] Care Team Providers Care Flight Engineer Instructor Name Role Phone System, Provider Not In [...] each 1 07/25/19 25 Active sodium chloride ([place]) 0.65 % nasal spray Administer 1 spray [...] g 2 09/03/19 25 Active Feeding Supplies [facility] Please send months supply of syringes and [...] (two) times a day. 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 Right-sided extracranial carotid artery stenosis 07/09/2024 Tobacco use disorder 06/09/2024 Protein-calorie malnutrition 06/09/2024 Atherosclerotic heart diseas e of [place] coronary artery without angina pectoris 10/27/2023 Atrial fibrillation 10/27/2023 Implantable cardioverter-defibrillator (ICD) in situ 10/27/2023 Diabetes High cholesterol Oral cancer Resolved Problems Problem Noted Date Diagnosed Date Resolved Date Gastrostomy tube dysfunction 10/23/2024 10/26/2024 Overview (10/26/2024): PEG tube replaced at bedside, but due to abdominal wall cellulitis, patient was taken to OR on 10/24/2024 and PEG tube was replaced by SGE Cellulitis 10/23/2024 05/01/2025 Overview (10/26/2024): 10/24/2024: EGD with PEG placement, I&D of abscess cavity, placement of Hardy drain x2 Encounters Date Type Department Care Team Description 06/03/2025 Refill [facility] Head, Neck & Respiratory [address] [facility], [address] [place] [phone] Melvin Jung PA 04/07/2025 Telephone Pav [facility] Head, Neck & Respiratory [address] [facility], [address] [place] [phone] Boogie Chaidez MD 03/22/2025 Telephone Psych Oncology [address] [place] [phone] Tiffany Curran 03/08/2025 Telephone Psych Oncology [address] [place] [phone] Tiffany Curran from Last 3 Months Immunizations Immunization Administration [...] time in the past 12 m [facility], were you homeless or living [...] Upcoming Encounters Date Type Department Care Team ([facility] st Contact Info) Description 07/01/2025 12:00 PM EST Appointment [facility] PET Scan [address] [place] [address] 07/01/2025 1:00 PM EST Appointment [facility] PET Scan [address] [place] [phone] 07/01/2025 2:30 PM EST Clinical Support [facility] Hematology/BMT and Cellular Therapy Program [address] [phone] 07/01/2025 3:00 PM EST Office Visit [facility] Hematology/BMT and Cellular Therapy Program [address] [phone] Marci Saini PA 800 [facility] [address] [place] [phone] Health Maintenance Due Date Last Done Comments [facility]-Depression Screening 1955 [facility]-Diabetes: Hemoglobin A1C 1955 [facility]-Medicare Annual Wellness (AWV) 1955 [facility]-Infant/Child/Adol SDOH Screenings 1955 Diabetes: Dental Exam 09/10/1965 CT Colonography 09/10/2000 Colonoscopy 09/10/2000 FIT-DNA 09/10/2000 FIT 09/10/2000 FOBT 09/10/2000 Sigmoidoscopy 09/10/2000 [facility]-Colorectal Cancer Screening 09/10/2000 Lung Cancer Screening Shared Decision Making 09/10/2005 [facility]-Abdominal Aortic Aneurysm (AAA) Screening 09/10/2020 [facility]-Zoster Vaccines (2 of 2) 05/16/2023 03/21/2023 DEL-KQCEL-13 Vaccine ( season) 2025 05/07/2021, 10/25/2020, 10/18/2020, Additional history exists [facility]-Influenza Vaccine (#1) 03/14/202506/05, 03/21/2023, 04/23/2022, Additional history exists [facility]- SDOH Screenings 04/26/2025 [facility]-Adult SDOH Screenings 04/26/2025 10/25/2024 [facility]-Lung Cancer Screening 03/01/20262024, 10/08/2024, 06/25/2024, Additional history exists [facility]-DTaP,Tdap,and Td Vaccines (3 - Td or [...] this topic Medical Devices Implanted Type Area Skein Washer Device Identifier Shelf Expiration Date Model / Serial / Lot Mesh Vicryl Flat 30cm X 30cm - [id number] Implanted:Qty : 1 on 07/16/2024 by Boogie Chaidez MD at [facility] Mesh Abdomen [id number] 01/10/2029 [id number] / / [id number] Pacemaker Pacemaker Heart Graft Dura Repair 2x2 [employer] - [id number] Implanted:Qty : 1 on 07/16/2024 by Mauricio Valentin MD at [facility]-[id number] 12/11/2026 [id number].[id number] .[id number] / / [id number] Procedures Procedure Name Priority Date/Time Associated Diagnosis Comments PET/CT FDG SKULL BASE TO MID THIGH Routine 03/01/2025 9:52 AM EDT 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 PET/CT scanner: Siemens Inform Genomicsgraph 40 mCT. PET/CT acquisition: Lonakc-xw-qxs-thighs, plus magnification (zoomed) neck. Standardized uptake value (SUV): Corrected for body weight only. CT: Low-dose, ywq-clshqm-xcbj, without intravenous contrast. TOTAL DLP (Dose Length [...] scanner: Siemens Biograph 40 mCT. PET/CT acquisition: Hszopz-wz-aib-thighs, plus magnification (zoomed)neck. Standardized uptake value (SUV): Corrected for body weight only. CT: Low-dose, ebv-lpichy-iuwx, without intravenous contrast. TOTAL DLP (Dose Length [...] MD IMG NM PROCEDURES Final Result * Hepatitis C Antibody - ED W/Reflex to HCV Quant PCR (07/29/2024 5:38 PM EST) Hepatitis C Antibody Negative Negative 07/29/2024 6:46 PM EST [facility] Blood Venous blood specimen / Unknown Venipuncture / Unknown 07/29/2024 5:38 PM EST 07/29/2024 6:05 PM EST Boogie Chaidez MD LAB BLOOD ORDERABLES Final Resul t [facility] [address] [place] [address] from Last 3 Months or Most Recently Relevant to Health Maintenance Insurance [facility] MEDICARE [employer] BETTER [employer] MEDICAID Advance Directives [...] Patient has decision-making capacity? Yes Care Teams Flight Engineer Instructor Relationship Specialty Start Date End Date System, Provider Not In, MD Cés[place] [address] PCP - General Family Medicine 08/16/24
--- OUTSIDE RECORDS SUMMARY | 2025-06-04 19:07 | XMS_ITS | Encounter Summary ---
Author Organization Healthcare Address [address] [place] [address] Care Team Providers Care Painter Barrel Name Role Phone System, Provider Not In MD Primary Care Provider Unavailable Encounter Details Date Type Department Care Team ([facility] st Contact Info) Description 04/07/2025 Telephone Pav CC Head, Neck & Respiratory [address] [place] [phone] Boogie Chaidez MD [address] [place] [address] Social History Tobacco Use Types Packs/Day Years [...] were you homeless or living in a snf (including now)? No 10/25/2024 Utilities Answer Date [...] Cleopatra to advise that I contacted the [employer] and they do not carry the Chosen.fmiCell Shear Points. [employer] carries them for $70, and the [employer] has them at $59.99. I asked her [...] AM EDT Per pt niece call to [facility], Cleopatra asking where to get more clear liqiucell sharepoint skin protectors (small,100 count box) , goes against glasses between skin patch to reduce friction. Cleopatra, , okay to leave appt information, address concerns and answers to questions in VMat this # and maintain privacy, documented in this encounter Plan of Treatment Upcoming Encounters Date Type Department Care Team ([facility] st Contact Info) Description 07/01/2025 12:00 PM EST Appointment [facility] PET Scan [address] [place] [phone] 07/01/2025 1:00 PM EST Appointment [facility] PET Scan [address] [place] [phone] 07/01/2025 2:30 PM EST Clinical Support [facility] Hematology/BMT and Cellular Therapy Program [address] [place] [phone] 07/01/2025 3:00 PM EST Office Visit [facility] Hematology/BMT and Cellular Therapy Program [address] [place] [phone] Marci Saini PA 800 [facility] [address] [place] [phone] documented as of this encounter Visit Diagnoses Not on filedocumented in this encounter Additional Health Concerns Assessment Noted Time A fall risk assessment has been complete d for the patient 03/01/2025 10:36 AM EDT A Body Mass Index follow-up plan has been documented for the patient 01/28/2025 11:21 AM EDT documented as of this encounter Care Teams Painter Barrel Relationship Specialty Start Date End Date System, Provider Not In, [address] [place] [address] PCP - General Family Medicine 08/16/24 documented as of this encounter
--- OUTSIDE RECORDS SUMMARY | 2025-06-04 19:07 | XMS_ITS | Encounter Summary ---
Author Organization Healthcare Address [address] [place] [address] Care Team Providers Care Utilization Management Manager Name Role Phone System, Provider Not In MD Primary Care Provider Unavailable Reason for Visit * Reason Onset Date Comments Med Refill 06/03/2025 Encounter Details Date Type Department Care Team (Late st Contact Info) Description 06/03/2025 Refill [facility] Res[facility] [address] [place] [address] Melvin Jung S, PA [address] [place] [address] Social History Tobacco Use Types Packs/Day Years [...] time in the past 12 m [facility], were you homeless or living in a skilled nursing (including now)? No 10/25/2024 Utilities Answer Date [...] Care Team (Late st Contact Info) Description 07/01/2025 12:00 PM EST Appointment [facility] PET Scan [address] [place] [address] 07/01/2025 1:00 PM EST Appointment [facility] PET Scan [address] [place] [address] 07/01/2025 2:30 PM EST Clinical Support [facility] Hematology/BMT and Cellular Therapy Program [address] [facility], [address] [place] [address] 07/01/2025 3:00 PM EST Office Visit [facility] Hematology/BMT and Cellular Therapy Program [address] [facility], [facility] [place] [address] Marci Saini PA [address] [facility] [address] [place] [address] documented as of this encounter Visit Diagnoses Not on filedocumented in this encounter Additional Health Concerns Assessment Noted Time A fall risk assessment has been complete d for the patient 03/01/2025 10:36 AM EDT A Body Mass Index follow-up plan has been documented for the patient 01/28/2025 11:21 AM EDT documented as of this encounter Care Teams Utilization Management Manager Relationship Specialty Start Date End Date System, Provider Not In, [address] [place] [address] PCP - General Family Medicine 08/16/24 documented as of this encounter
--- OUTSIDE RECORDS SUMMARY | 2025-06-04 19:07 | XMS_ITS | Clinical Summary ---
Author Organization [facility] Address [address] [place] [address] Care Team Providers Care Plate Glass Polisher Name Role Phone Unavailable Primary Care Provider [...]
--- OUTSIDE RECORDS SUMMARY | 2025-06-04 19:07 | XMS_ITS | Encounter Summary ---
Author Organization [facility] Address [address] [place] [address] Care Team Providers Care Triage Technician Name Role Phone System, Provider Not In MD Primary Care Provider Unavailable Encounter Details Date Type Department Care Team ([facility] Contact Info) Description 03/02/2025 Results Follow-Up [facility] Hematology/BMT and Cellular Therapy Program [address] [facility], [facility] [place] [address] Skyla Kirby MD [address] [facility] [address] [place] [address] Social History Tobacco Use Types Packs/Day Years [...] Upcoming Encounters Date Type Department Care Team ([facility] Contact Info) Description 07/01/2025 12:00 PM EST Appointment [facility] PET Scan [address] [place] [address] 07/01/2025 1:00 PM EST Appointment [facility] PET Scan [address] [place] [address] 07/01/2025 2:30 PM EST Clinical Support [facility] Hematology/BMT and Cellular Therapy Program [address] [facility], [address] [place] [address] 07/01/2025 3:00 PM EST Office Visit [facility] Hematology/BMT and Cellular Therapy Program [address] [place] [address] Marci Saini PA [address] [facility] [address] [place] [address] documented as of this encounter Visit Diagnoses Not on filedocumented in this encounter Additional Health Concerns Assessment Noted Time A fall risk assessment has been complete d for the patient 03/01/2025 10:36 AM EDT A Body Mass Index follow-up plan has been documented for the patient 01/28/2025 11:21 AM EDT documented as of this encounter Care Teams Triage Technician Relationship Specialty Start Date End Date System, Provider Not In, [address] [place] [address] PCP - General Family Medicine 08/16/24 documented as of this encounter
[2025-06-04 19:27] LABS: Hematocrit 36.9 % (42.0-52.0); Hemoglobin 11.9 g/dL (14.1-18.0); Immature Granulocytes % 0.5 %; Mean Corpuscular HGB Conc 32.2 g/dL (31.8-35.4); Mean Corpuscular Hemoglobin 28.2 pg (27.0-31.2); Mean Corpuscular Volume 87.4 fl (80-94); Nucleated Red Blood Cells % 0 %; Platelet Count 166 K/mm3 (142-424); Red Blood Count 4.22 M/mm3 (4.60-6.20); Red Cell Distribution Width-SD 52.2 fL; White Blood Count 6.3 K/mm3 (4.8-10.8)
[2025-06-04 19:33] LABS: Anion Gap 10.9 mEq/L (5-15); Blood Urea Nitrogen 22 mg/dl (9-20); Calcium 9.3 mg/dl (8.4-10.2); Carbon Dioxide 29 mmol/L (22.0-30.0); Chloride 95 mmol/L (98-107); Creatinine Clearance Estimated 83 mL/min (50-200); Creatinine,Serum 0.60 mg/dl (0.66-1.25); Estimated Glomerular Filt Rate 134 ml/min (>60); GFR (African American) 162 ML/MIN (>60); Glucose 108 mg/dl (74-100); Potassium 4.9 mmoL/L (3.5-5.1); Sodium 130 mmol/L (136-145)
--- NOTE | 2025-06-04 19:37 | HMH.EDGENADL ---
Discharge Plan Disposition Patient Disposition: Home, Self-Care Condition: Good Prescriptions Prescriptions: No Action aspirin [Adult Low Dose Aspirin] 81 mg tablet,delayed release (DR/EC) 81 mg PO DAILY Otezla 30 mg tablet 30 mg PO BID ascorbic acid (vitamin C) [Vitamin C] 500 mg tablet 500 mg feeding tube DAILY Patient Comments: DISSOLVE 1 TABLET IN FEEDING TUBE ONCE DAILY (DME) lancets [OneTouch Delica Plus Lancet] 30 gauge misc See Rx Instructions .Route Qty: 100 3RF Rx Instructions: As directed or bid clopidogrel 75 mg tablet 75 mg PO DAILY Qty: 90 3RF Rx Instructions: TAKE 1 TABLET BY MOUTH ONCE DAILY FOR BLOOD THINNER (DME) OneTouch Verio test strips Strip See Rx Instructions .ROUTE .COMPLEX Qty: 100 6RF Dose Instruction: USE 1 STRIP TO CHECK BLOOD GLUCOSE TWICE DAILY OR DIRECTED FOR DIABETES Rx Instructions: USE 1 STRIP TO CHECK BLOOD GLUCOSE TWICE DAILY OR DIRECTED FOR DIABETES amiodarone 200 mg tablet 100 mg PO DAILY Qty: 45 6RF Rx Instructions: TAKE 1/2 TABLET BY MOUTH EVERY DAY FOR heart metformin 500 mg tablet extended release 24 hr 500 mg PO DAILY Qty: 90 3RF levothyroxine 100 mcg tablet 100 mcg PO DAILY Qty: 90 2RF nystatin 100,000 unit/gram cream 1 applic topical TID Qty: 30 0RF omeprazole 40 mg capsule,delayed release(DR/EC) 40 mg PO DAILY Qty: 30 2RF oxycodone-acetaminophen 5-325 mg tablet 1 tab PO Q4HP PRN (Reason: Moderate Pain (4-6)) 10 Days Qty: 30 0RF potassium chloride 10 mEq tablet,ER particles/crystals 10 meq PO DAILY carvedilol 25 mg tablet 50 mg PO BID atorvastatin 10 mg tablet 10 mg PO DAILY ezetimibe 10 mg tablet 10 mg PO DAILY Jardiance 10 mg tablet 10 mg PO DAILY guaifenesin 600 mg tablet extended release 12hr 600 mg PO DAILY lisinopril-hydrochlorothiazide 20-25 mg tablet 1 tab PO DAILY ondansetron 4 mg tablet,disintegrating 4 mg PO NEEDED PRN (Reason: Nausea) polyethylene glycol 3350 17 gram/dose powder 17 g PO DAILY acetaminophen [Tylenol] 325 mg Tablet 325 mg PO DAILY melatonin 5 mg Tablet 5 mg PO DAILY Referrals Follow up/Referrals: Simona Krishnan APRN [Primary Care Provider, Family Practice] - See instructions Activity Restrictions/Add. Instructions Additional Instructions/Restrictions: You may have some blood continue to get on the dressing. If you start having rapid bleeding through the dressing, lightheadedness, or shortness of breath please return. Dr. Leo wants you to come in to the cardiology clinic for evaluation at 9 AM on Friday morning. Clinical Impressions Clinical Impression: Pacemaker pocket hematoma Qualifiers: Encounter type: initial encounter Qualified Code(s): T82.837A - Hemorrhage due to cardiac prosthetic devices, implants and grafts, initial encounter Instructions Patient Instructions: DI for Skin Abscess Print Language Print Language: Hungarian Discharge ED Provider: Pancho Daily General Adult HPI General Chief complaint: Skin/Abscess/Foreign Body Stated complaint: had pacemaker replaced and its bleeding Time Seen by Provider: 06/04/25 19:05 Mode of Arrival: Ambulatory Source of Information: Patient Description of Symptoms (Recalled from ER Triage Doc. by RN): patient states he had his pacemaker changed out last week on friday and he lifted his arm today at some point, the dressing is saturated with blood and was told to come to er to get it checked out. samreen placed the new pacemaker. he has bruising around the site and left breast. 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 Patient actually went for a pacemaker revision with Dr. Leo on 05/27/2025 after his atrial lead malfunction. The patient ultimately had a biventricular pacemaker with DRIVE IN WAITER/WAITRESS-D installed. His postoperative dressing had remained clean since the procedure. Yesterday he began experiencing some bleeding that occurred on the dressing and today the dressing became saturated after he was doing an activity that involves reaching above his head with his left arm. The bleeding has not expanded beyond the dressing or beyond the Tegaderm. He has not had any lightheadedness, shortness of breath, or pallor Related Data Home Medications ?Medication ?Instructions ?Recorded ?Confirmed aspirin 81 mg tablet,delayed 81 mg PO DAILY heart [facility] 10/06/17 05/27/25 release (Adult Low Dose Aspirin) apremilast 30 mg tablet (Otezla) 30 mg PO BID 09/26/23 05/27/25 ascorbic acid (vitamin C) 500 mg 500 mg feeding tube DAILY 03/22/25 05/27/25 tablet (Vitamin C) acetaminophen 325 mg tablet 325 mg PO DAILY 05/27/25 05/27/25 (Tylenol) atorvastatin 10 mg tablet 10 mg PO DAILY 05/27/25 05/27/25 carvedilol 25 mg tablet 50 mg PO BID 05/27/25 05/27/25 empagliflozin 10 mg tablet 10 mg PO DAILY 05/27/25 05/27/25 (Jardiance) ezetimibe 10 mg tablet 10 mg PO DAILY 05/27/25 05/27/25 guaifenesin 600 mg tablet, 600 mg PO DAILY 05/27/25 05/27/25 extended release 12 hr lisinopril 20 1 tab PO DAILY 05/27/25 05/27/25 mg-hydrochlorothiazide 25 mg tablet Held on 05/28/25. Instructions: until follow-up with cardiology melatonin 5 mg tablet 5 mg PO DAILY 05/27/25 05/27/25 ondansetron 4 mg disintegrating 4 mg PO NEEDED PRN Nausea 05/27/25 05/27/25 tablet polyethylene glycol 3350 17 17 g PO DAILY 05/27/25 05/27/25 gram/dose oral powder potassium chloride 10 mEq 10 meq PO DAILY 05/27/25 05/27/25 tablet,extended release(part/cryst) Previous Rx's ?Medication ?Instructions ?Recorded lancets 30 gauge (OneTouch Delica #100 ea 12/30/23 Plus Lancet) clopidogrel 75 mg tablet 75 mg PO DAILY Blood thinner #90 10/26/24 tabs blood sugar diagnostic (AxioMxuch #100 strips 11/19/24 Verio test strips) amiodarone 200 mg tablet 100 mg (1/2 x 200 mg) PO DAILY 02/24/25 heart rate #45 tabs metformin 500 mg tablet,extended 500 mg PO DAILY Diabetes #90 tabs 04/20/25 release 24 hr levothyroxine 100 mcg tablet 100 mcg PO DAILY #90 tabs 05/03/25 nystatin 100,000 unit/gram topical 1 applic topical TID #30 grams 05/18/25 cream omeprazole 40 mg capsule,delayed 40 mg PO DAILY #30 caps 05/31/25 release oxycodone-acetaminophen 5 mg-325 1 tab PO Q4HP PRN Moderate Pain 05/31/25 mg tablet (4-6) 10 days #30 tabs Allergies Allergy/AdvReac Type Severity Reaction Status Date / Time No Known Allergies Allergy Verified 05/02/25 10:18 [facility] Disclaimer: The information contained in this section may have been updated after the patient was seen, as this information can be updated by other users. Medical History Cardiac arrhythmia, unspecified Skin tear of elbow without complication Cellulitis Abrasion Scalp laceration Fall UTI (urinary tract infection) Leg pain URI (upper respiratory infection) Cough Pacemaker HTN (hypertension), benign Coronary artery disease Cancer Atrial fibrillation Hyperlipidemia Surgical History H/O heart artery stent Social History Smoking Status: Never smoker second hand exposure: Yes alcohol intake: never substance use type: denies use current occupational status: disabled Travel in the last 8 weeks?: None housing: house Have you lived/traveled outside US in past 30 days?: No Contact w/someone who lives/traveled outside US past 30 days?: No Exposure to someone with infectious disease in past 14 days?: No Do you have a fever (greater than 100.4 F or 38 C)?: No Have you tested positive for COVID-19?: No Exposed to someone with COVID-19 in past 14 days?: No Do you have a sore throat?: No Do you have a cough?: No Do you have any weakness?: No Do you have any diarrhea?: No Are you experiencing any unusual bleeding?: No Do you have any muscle aches/pain?: No Do you have any abdominal pain?: No Are you experiencing loss of taste or smell?: No Other Medical History Have you received the Flu Vaccine for this season: No Have you received the Pneumonia Vaccine: No ROS Obtained: Yes Systems reviewed as appropriate & no additional complaints except as documented Physical Exam General General appearance: other (See MDM) Respiratory Respiratory exam: Present other (See MDM) Cardiovascular Cardiovascular exam: Present other (See MDM) Neurological Exam Neurological exam: Present other (See MDM) Medical Decision Making Medical Records Medical records reviewed: Yes I reviewed the patient's medical records. Screening: Per USPSTF and CDC recommendations, given the prevalence of disease in our region, it is our hospital?s policy to screen for HIV and viral Hepatitis for all patients aged 18 and over and those with ongoing risk factors. Alonso Inquiry Pt receiving controlled substance: No Alonso was queried for this patient: No Vital Signs: 06/04/25 18:59 Temperature 97.6 F Temperature Source Oral Pulse Rate [Right Radial] 72 Respiratory Rate 14 Blood Pressure [Right Arm] 153/86 H Blood Pressure Mean [Right Arm] 108 Blood Pressure Source [Right Arm] Automatic Cuff Blood Pressure Position [Right Arm] Supine 02 Sat by Pulse Oximetry 100 Oxygen Delivery Method Room Air Lab Data Lab Results 06/04/25 19:19: WBC 6.3, RBC 4.22 L, Hgb 11.9 L, Hct 36.9 L, MCV 87.4, MCH 28.2, MCHC 32.2, RDW 16.3, Plt Count 166, MPV 10.4, Neut % (Auto) 79.6, Lymph % (Auto) 9.5 L, Schley % (Auto) 8.0, Eos % (Auto) 1.9, Baso % (Auto) 0.5, Neut # (Auto) 5.1, Lymph # (Auto) 0.6 L, Schley # (Auto) 0.5, Eos # (Auto) 0.1, Baso # (Auto) 0.0, PT 10.6, INR 0.95, APTT 21.7 L, Sodium 130 L, Potassium 4.9, Chloride 95 L, Carbon Dioxide 29, Anion Gap 10.9, BUN 22 H, Creatinine 0.60 L, Estimated Creat Clear 83, Estimated GFR 134, Est GFR ( Amer) 162, Glucose 108 H, Calcium 9.3 06/04/25 19:19 06/04/25 19:19 Orders (Tests/Meds): ORDERS Category Date Time Status Activated Partial Thrombo Time Stat Lab 06/04/25 19:19 Completed BMP [Basic Metabolic Panel] Stat Lab 06/04/25 19:19 Completed CBC [Complete Blood Count Auto Diff] Stat Lab 06/04/25 19:19 Completed PT INR [Prothrombin Time INR] Stat Lab 06/04/25 19:19 Completed Medical Decision Narrative: In summary this is 69-year-old male patient who is presenting to the Emergency Department today for evaluation of bleeding from his pacemaker revision site in his left chest wall. Patient states that there is been enough blood to saturate the gauze underneath the Tegaderm holding the dressing in place but there is not been any blood extending beyond the Tegaderm. He has not felt lightheaded or shortness of breath and has not developed any pallor. His comorbidities include hypertension, hyperlipidemia, coronary artery disease, and atrial fibrillation for which she has this pacemaker. On initial evaluation of the patient they were resting comfortably in no acute distress and nontoxic in appearance. They are hemodynamically stable, saturating well room air, and are neurologically intact. On physical examination the patient's heart and lungs clear to oxygen bilaterally. Abdomen is soft and nontender to palpation. He has ecchymosis along his left chest wall. His pacemaker is situated in the left superior chest wall and there is an incision just superior to the pacemaker with no active bleeding from the incision. The incision appears to be well-healing without any evidence of purulence or infection. Differential diagnosis includes anemia, coagulopathy, among others. I have a very low suspicion for arterial bleeding given that there is no active bleeding from this wound. I did have an interactive discussion with Dr. Leo of the cardiology service about this patient's case. I specifically asked his opinion on obtaining a CTA of the chest. Dr. Leo states that this is very routine to have some venous oozing from the pacemaker site status post pacemaker installation. In the setting of this wound being hemostatic and the patient having normal blood counts he does not feel that this patient necessitates any advanced imaging of the chest. Therefore we elected to proceed with hematologic labs. Patient's hemoglobin is unchanged from the day that he was discharged from the hospital. He has no significant electrolyte derangements and no evidence of acute kidney injury. Coags are within normal limits. We have placed additional gauze and a Tegaderm over the pacemaker incision site. We have obtained 9 AM follow-up on Friday morning in the cardiology clinic for serial exams on the pacemaker site. At This time all questions have been answered and all parties are agreeable with the decision to discharge home. Critical Care Critical Care Time Critical Care Time: No
[2025-06-04 19:52] LABS: Activated Partial Thrombo Time 21.7 seconds (22.8-30.6); INR 0.95 (0.9-1.1); Prothrombin Time 10.6 seconds (10.1-12.5)
[2025-06-04 20:27] VITALS: BP 141/78; PULSE 70; RESP 20; TEMP 36.6; O2SAT 97
== END 2025-06-04 20:28 | disposition home or self-care (01) ==
PROVIDERS: Emergency Provider Student in an Organized Health Care Education/Training Program; PCP Family Medicine
DX: T82.837A Hemorrhage due to cardiac prosthetic devices, implants and grafts, initial encounter (principal); I10 Essential (primary) hypertension; E78.5 Hyperlipidemia, unspecified; Z86.79 Personal history of other diseases of the circulatory system; Z95.0 Presence of cardiac pacemaker
CPT/HCPCS: 80048; 85025; 85610; 85730; 99282; 99283